=== PATIENT | male | born 1965 | race Caucasian/White ===

== ENCOUNTER 2021-07-04 10:25 | Outpatient (REF) | payer OTHER, SELFPAY ==
--- NOTE | ~2021-07-04 | XR_ITS ---
EXAMINATION: XR WRIST, RIGHT CLINICAL INFORMATION: Pain COMPARISON: None TECHNIQUE: PA, lateral, and oblique views of the right wrist. FINDINGS: There is a nondisplaced fracture of the radial styloid. This extends intra-articularly with the radiocarpal joint. No other fracture is seen. The joint spaces are normal. There is soft tissue swelling adjacent to the fracture. XR/XR wrist RT min 3V IMPRESSION: Intra-articular nondisplaced radial styloid fracture.
== END 2021-07-04 10:26 | disposition home or self-care (01) ==
LOC: HO.HOSX 10:25
PROVIDERS: Visit Provider Physician Assistant
DX: S52.501A Unspecified fracture of the lower end of right radius, initial encounter for closed fracture (principal); F17.200 Nicotine dependence, unspecified, uncomplicated
CPT/HCPCS: 73110

== ENCOUNTER 2021-07-13 09:54 | Outpatient (REF) | payer OTHER, SELFPAY ==
--- NOTE | ~2021-07-13 | XR_ITS ---
EXAMINATION: XR WRIST, RIGHT CLINICAL INFORMATION: Fracture COMPARISON: Previous x-ray 07/04/2021 TECHNIQUE: PA, lateral, and oblique views of the right wrist. FINDINGS: There is a nondisplaced radiostyloid fracture intra-articular with the radiocarpal joint. This appears unchanged from previous x-ray. No other fracture is seen. Joint spaces are otherwise normal. Soft tissues are normal. XR/XR wrist RT min 3V IMPRESSION: No change in the intra-articular radial styloid fracture from 07/04/2021.
== END 2021-07-13 09:55 | disposition home or self-care (01) ==
LOC: HO.HOSX 09:54
PROVIDERS: Visit Provider Physician Assistant
DX: S52.501D Unspecified fracture of the lower end of right radius, subsequent encounter for closed fracture with routine healing (principal)
CPT/HCPCS: 29075; 73110

== ENCOUNTER 2021-07-19 08:57 | Outpatient (REF) | payer OTHER, SELFPAY ==
--- NOTE | ~2021-07-19 | XR_ITS ---
EXAMINATION: XR WRIST, RIGHT CLINICAL INFORMATION: M25.531 - Pain in right wrist. Radial styloid fracture. Follow-up. COMPARISON: Radiographs right wrist 07/13/2021, 07/04/2021 TECHNIQUE: PA, lateral, and oblique views of the right wrist. FINDINGS: Radial styloid fracture is similar in position to prior studies. The fracture line is still visible. There is no visible callus formation at this time. There is no interval new fracture or dislocation or destructive process. No joint narrowing or erosive change. XR/XR wrist RT min 3V IMPRESSION: Stable radial styloid fracture, similar to prior exam.
== END 2021-07-19 08:58 | disposition home or self-care (01) ==
LOC: HO.HOSX 08:57
PROVIDERS: Visit Provider Orthopaedic Surgery
DX: S52.501D Unspecified fracture of the lower end of right radius, subsequent encounter for closed fracture with routine healing (principal)
CPT/HCPCS: 73110

== ENCOUNTER 2021-08-03 11:16 | Outpatient (REF) | payer OTHER, SELFPAY ==
--- NOTE | ~2021-08-03 | XR_ITS ---
EXAMINATION: XR WRIST, RIGHT CLINICAL INFORMATION: Wrist pain COMPARISON: 07/04/2021 and 07/19/2021. TECHNIQUE: PA, lateral, and oblique views of the right wrist. FINDINGS: Bones have normal alignment at the wrist. Again noted is the nondisplaced oblique fracture of the radial styloid with intra-articular extension at the radioscaphoid joint. The fracture lucency is most conspicuous on the oblique view, and there is no convincing osseous union. The pronator quadratus fat stripe is ill-defined. The carpal bones are normal. XR/XR wrist RT min 3V IMPRESSION: Currently, no radiographic evidence of healing of the nondisplaced radial styloid fracture.
== END 2021-08-03 11:17 | disposition home or self-care (01) ==
LOC: HO.HOSX 11:16
PROVIDERS: Visit Provider Physician Assistant
DX: S52.501D Unspecified fracture of the lower end of right radius, subsequent encounter for closed fracture with routine healing (principal); X58.XXXD Exposure to other specified factors, subsequent encounter
CPT/HCPCS: 73110

== ENCOUNTER 2021-08-24 08:08 | Outpatient (REF) | payer OTHER, SELFPAY ==
--- NOTE | ~2021-08-24 | XR_ITS ---
EXAMINATION: XR WRIST, RIGHT CLINICAL INFORMATION: Pain COMPARISON: Wrist radiographs 08/03/2021 TECHNIQUE: PA, lateral, and oblique views of the right wrist. XR/XR wrist RT min 3V FINDINGS/IMPRESSION: Similar appearance of a nondisplaced fracture of the distal radial metaphysis in unchanged alignment. No elham bony callus formation. Joint spaces are maintained. Mild soft tissue swelling about the wrist. No new fracture or dislocation.
== END 2021-08-24 08:09 | disposition home or self-care (01) ==
LOC: HO.HOSX 08:08
PROVIDERS: Visit Provider Physician Assistant
DX: S52.501D Unspecified fracture of the lower end of right radius, subsequent encounter for closed fracture with routine healing (principal)
CPT/HCPCS: 73110

== ENCOUNTER 2021-10-05 08:16 | Outpatient (REF) | payer OTHER, SELFPAY ==
--- NOTE | ~2021-10-05 | XR_ITS ---
EXAMINATION: XR WRIST, RIGHT CLINICAL INFORMATION: Right wrist pain. COMPARISON: 08/24/2021 TECHNIQUE: PA, lateral, and oblique views of the right wrist. FINDINGS: There is a healing radial styloid fracture with progressive osseous bridging at the fracture site. Subtle cortical irregularity at the intra-articular component. No new fractures. 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 Carpal boss. XR/XR wrist RT min 3V IMPRESSION: Progressive healing of the radial styloid fracture.
== END 2021-10-05 08:17 | disposition home or self-care (01) ==
LOC: HO.HOSX 08:16
PROVIDERS: Visit Provider Physician Assistant
DX: M25.531 Pain in right wrist (principal); S52.501D Unspecified fracture of the lower end of right radius, subsequent encounter for closed fracture with routine healing; X58.XXXD Exposure to other specified factors, subsequent encounter
CPT/HCPCS: 73110

== ENCOUNTER 2024-01-16 08:17 | Outpatient (AMB) | payer OTHER, SELFPAY ==
--- NOTE | 2024-01-16 08:27 | A.OFFVIS_ITS ---
Vital Signs 01/16/24 08:37 Height 6 ft Weight 240 lb BMI 32.5 Intake Visit Reasons: Low back - not work related, [employer]-Low back pain Intake Note: Orville is a 58 year old male who presents today with lower back pain. Patient reports that his back has been painful on and off for about 30+ years now. He has seen a chiropractor in the past which has been helpful until he switched chiropractors and it increased his pain. He describes his pain as a muscle pain in mostly the left lower back. Bending and stooping is the primary aggravating factor of his pain. He very occasionally will take Ibuprofen, but does not take this often as he worries that this masks his symptoms. Occasionally uses Icy Hot application. Allergies lisinopril Allergy (Mild, Verified 10/05/21 09:36) Nausea and Vomiting Medication List - Last Reconciled 01/16/24 by Britta Fishman MD allopurinol 150 mg PO DAILY amlodipine 10 mg PO DAILY hydrochlorothiazide 25 mg PO DAILY telmisartan 40 mg PO DAILY HPI HPI Low back - not work related: Details: Lumbar xrays showed endplate osteophytes that appear to bridge between jay tebrae. He has history of gout. I discussed difference between osteoarthritis and systemic arthritis. I think it would be reasonable to rule out the latter by checking MARGE, RF and [id number]. Advised that he can discuss with his PCP. On separate note, he was advised to discuss edema and exertional SOB with PCP at next week's visit. HPI Comments Details: Chronic but has been bothering him since winter. Almost daily. Last month, had incident pulling heavy bucket, aggravated left side again. Some episodes would be very difficult to walk. It does not radiate to legs. No burning or numbness on legs. Bending forward, but cannot bend backwards. Cannot stand for prolonged periods. No claudication symptoms on legs. No bladder/bowel changes. Pain is constant nagging pain. Had not gone back to chiro for 27 years. No other specialists seen. Once in a while, takes ibuprofen. Family history - denies rheumatologic disorders. He takes allopurinol and colchicine, usually bothers him on big toe, no recent episodes. Uric acid level being monitored. [facility] Medical History (Updated 01/16/24 @ 11:32 by Britta Fishman MD) Lumbar spondylosis Myofascial pain Lumbar strain Social History Current occupational status: employed 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/[employer] Review of Systems Const All systems reviewed & are unremarkable except as noted in HPI and below Physical Exam Vital Signs: BMI result Body Mass Index 32.5 Constitutional: Patient appears to be in no acute distress, well nourished and well developed. Patient was appropriately conversant and oriented. Good historian. MSK: No specific abnormalities found on inspection of the spine and all extremities. Tender on left quadratus lumborum. Non tender on SI, GT, spinous processes or facets. Lumbar ROM was full. Bilateral hip, knee and ankle ROM WNL. No ligamentous laxity or crepitance. No increased effusion. Straight-leg raising test negative. FABERE test positive back pain. Strength is 5/5 in all muscle groups tested. No increased tone noted. Neurological: Neurologic examination of the upper and lower extremities was nonfocal with intact sensation, muscle stretch reflexes and without focal motor deficits . Holloway?s negative bilaterally. Babinski was down going bilaterally. Clonus was negative. Gait is non-antalgic without loss of balance. Results Reviewed Results Reviewed: I independently reviewed the results of the following: XRay done today showed possible bridging osteophytes; but disc spaces were preserved Assessment & Plan Assessment & Plan (1) Lumbar strain: Code(s): S39.012A - Strain of muscle, fascia and tendon of lower back, initial encounter Category: Medical Qualifiers: Encounter type: initial encounter Qualified Code(s): S39.012A - Strain of muscle, fascia and tendon of lower back, initial encounter (2) Myofascial pain: Code(s): M79.18 - Myalgia, other site Category: Medical (3) Lumbar spondylosis: Code(s): M47.816 - Spondylosis without myelopathy or radiculopathy, lumbar region Category: Medical Plan WC injury. Having lumbar strain, left quadratus lumborum, in setting of possible denerative lumbar changes. Would recommend starting with PT. Work on myofascial release and core strengthening. Discussed topical voltaren gel vs oral NSAIDS. Discussed maximum dose for ibuprofen. Will prescribe ibuprofen 800mg TID for 7 days, with full stomach. Work note to limit lifting to not more than 15 lbs. Assessment and plan discussed with patient, and patient was agreeable. All questions were answered thoroughly. Follow up 6-8 weeks. Britta Fishman MD, AJAY Board Certified, [place] [employer] and Rehabilitation (ABPMR) Board Certified, [place] Board [employer] Electrodiagnostic Medicine (ABEM) Orders: Orders XR lumbar spine 2-3V Today M54.9 - Dorsalgia, unspecified PT Evaluation and Treatment Today M47.816 - Spondylosis without myelopathy or radiculopathy, lumbar region, M79.18 - Myalgia, other site, S39.012A - Strain of muscle, fascia and tendon of lower back, initial encounter Medications: New ibuprofen 800mg every 8 hours for 3-5 days, with full stomach 800 mg PO Q8H 15 tabs 1RF Coding Level of Care Code New Pt Level 4 (23300) Diagnoses Strain of lumbar region, initial encounter S39.012A Encounter type: initial encounter Myofascial pain M79.18 Lumbar spondylosis M47.816
[2024-01-16 08:37] VITALS: BMI 32.5
== END 2024-01-16 09:20 | disposition home or self-care (01) ==
PROVIDERS: PCP Family Medicine; Visit Provider Physical Medicine & Rehabilitation
DX: S39.012A Strain of muscle, fascia and tendon of lower back, initial encounter (principal); M79.18 Myalgia, other site; M47.816 Spondylosis without myelopathy or radiculopathy, lumbar region; Z04.2 Encounter for examination and observation following work accident
CPT/HCPCS: 99203

== ENCOUNTER 2024-01-16 08:43 | Outpatient (REF) | payer OTHER, SELFPAY ==
--- NOTE | ~2024-01-16 | XR_ITS ---
EXAMINATION: XR LUMBOSACRAL SPINE CLINICAL INFORMATION: Back pain COMPARISON: None available. TECHNIQUE: Three views of the lumbosacral spine. FINDINGS: The bones are diffusely demineralized. Atherosclerotic aortoiliac calcifications. Facet arthritis in the lower lumbar spine. Advanced multilevel lumbar spondylosis with moderate loss of disc space height at L3-L4 and L4-L5. XR/XR lumbar spine 2-3V IMPRESSION: Advanced multilevel lumbar spondylosis with moderate loss of disc space height at L3-L4 and L4-L5.
== END 2024-01-16 08:44 | disposition home or self-care (01) ==
LOC: HO.HOSX 08:43
PROVIDERS: Visit Provider Physical Medicine & Rehabilitation
DX: M54.9 Dorsalgia, unspecified (principal)
CPT/HCPCS: 72100

== ENCOUNTER 2024-02-04 08:00 | Outpatient (RCR) | payer OTHER, SELFPAY | END 2024-03-20 15:06 | disposition home or self-care (01) | LOC: HO.PT 08:00 | PROVIDERS: PCP Family Medicine; Visit Provider Physical Medicine & Rehabilitation | DX: M47.816 Spondylosis without myelopathy or radiculopathy, lumbar region (principal); M79.18 Myalgia, other site; S39.012D Strain of muscle, fascia and tendon of lower back, subsequent encounter | CPT/HCPCS: 97110; 97161 ==

== ENCOUNTER 2024-02-20 08:35 | Outpatient (AMB) | payer OTHER, SELFPAY ==
--- NOTE | 2024-02-20 08:43 | MHC.OFFVIS ---
Vital Signs 02/20/24 08:44 Height 6 ft Weight 240 lb BMI 32.5 Intake Visit Reasons: OV - Low back pain Intake Note: Orville is a 58 year old male who presents today for a follow up of lower back pain. He expresses that his pain has gotten a little better, but not as much. Patient reports he has begun PT, however he missed 2 appointments due to being sick and having a to go to. He states that his pain is worse at night and that he is sleeping on the couch because of the pain. Allergies lisinopril Allergy (Mild, Verified 02/20/24 08:45) Nausea and Vomiting Medication List - Last Reconciled 02/20/24 by Britta Fishman MD allopurinol 150 mg PO DAILY amlodipine 10 mg PO DAILY hydrochlorothiazide 25 mg PO DAILY ibuprofen 800 mg PO Q8H telmisartan 40 mg PO DAILY HPI Comments Details: Chronic but has been bothering him since winter. Almost daily. Last month, had incident pulling heavy bucket, aggravated left side again. Some episodes would be very difficult to walk. It does not radiate to legs. No burning or numbness on legs. Bending forward, but cannot bend backwards. Cannot stand for prolonged periods. No claudication symptoms on legs. No bladder/bowel changes. Pain is constant nagging pain. Had not gone back to chiro for 27 years. No other specialists seen. Once in a while, takes ibuprofen. Family history - denies rheumatologic disorders. He takes allopurinol and colchicine, usually bothers him on big toe, no recent episodes. Uric acid level being monitored. He is feeling better. Been doing PT which has helped. Changed his pills, was taking them more during day and it was making him too drowsy. He will take his medications at night now to help him sleep better. Otherwise he is ending up sleeping on a chair. Overall 60% better. Missed 2 PT due to sickness/funerals, scheduled tomorrow to come back to PT. Off from work for 30 days, cleared by to be off 90 days maximum, preferably on full duty when he returns. No sharp pains. Non radicular. Chronic feet numbness, but only borderline diabetic, not on medications. Denies claudication. [facility] Medical History (Updated 02/20/24 @ 09:07 by Britta Fishman MD) Lumbar spondylosis Myofascial pain Lumbar strain Social History Current occupational status: employed 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/[employer] Physical Exam Vital Signs: BMI result Body Mass Index 32.5 Constitutional: Patient appears to be in no acute distress, well nourished and well developed. Patient was appropriately conversant and oriented. Good historian. MSK: No specific abnormalities found on inspection of the spine and all extremities. Non tender on SI, GT, spinous processes or facets. Lumbar ROM was full. Bilateral hip, knee and ankle ROM WNL. No ligamentous laxity or crepitance. No increased effusion. Straight-leg raising test negative. FABERE test positive back pain. Strength is 5/5 in all muscle groups tested. No increased tone noted. Neurological: Neurologic examination of the upper and lower extremities was nonfocal with intact sensation, muscle stretch reflexes and without focal motor deficits . Holloway?s negative bilaterally. Babinski was down going bilaterally. Clonus was negative. Gait is non-antalgic without loss of balance. Results Reviewed Results Reviewed: I independently reviewed the results of the following: XRay done today showed possible bridging osteophytes; but disc spaces were preserved Ordering Physician: Britta Ferrell Date of Service: 01/16/24 Procedure(s): XR lumbar spine 2-3V Accession Number(s): [id number] cc: Britta Ferrell~ EXAMINATION: XR LUMBOSACRAL SPINE CLINICAL INFORMATION: Back pain COMPARISON: None available. TECHNIQUE: Three views of the lumbosacral spine. FINDINGS: The bones are diffusely demineralized. Atherosclerotic aortoiliac calcifications. Facet arthritis in the lower lumbar spine. Advanced multilevel lumbar spondylosis with moderate loss of disc space height at L3-L4 and L4-L5. XR/XR lumbar spine 2-3V IMPRESSION: Advanced multilevel lumbar spondylosis with moderate loss of disc space height at L3-L4 and L4-L5. Assessment & Plan Assessment & Plan (1) Lumbar degenerative disc disease: Code(s): M51.36 - Other intervertebral disc degeneration, lumbar region Category: Medical (2) Lumbar spondylosis: Code(s): M47.816 - Spondylosis without myelopathy or radiculopathy, lumbar region Category: Medical (3) Lumbar strain: Code(s): S39.012A - Strain of muscle, fascia and tendon of lower back, initial encounter Category: Medical Qualifiers: Encounter type: initial encounter Qualified Code(s): S39.012A - Strain of muscle, fascia and tendon of lower back, initial encounter Plan Patient is at least 60% better but pain still bothers him with prolonged standing. Though non radicular, the xrays did show bridging spurs and spondylosis. 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 Patient had undergone adequate conservative management including PT without complete improvement of condition. It would be reasonable to obtain further imaging such as MRI. An MRI would help rule out any serious condition, guide treatment and assess prognosis for recovery. Continue PT. Continue to be out of work for the next 30 days, while we get MRI and evaluate for need for further interventions. Assessment and plan discussed with patient, and patient was agreeable. All questions were answered thoroughly. Follow-up after MRI or in 1 month to assess return to work ability. Britta Fishman MD, AJAY Board Certified, [place] Board [employer] and Rehabilitation (ABPMR) Board Certified, [place] [employer] Electrodiagnostic [employer] (ABEM) Orders: Orders MR lumbar spine wo con Today M47.816 - Spondylosis without myelopathy or radiculopathy, lumbar region, M51.36 - Other intervertebral disc degeneration, lumbar region, S39.012A - Strain of muscle, fascia and tendon of lower back, initial encounter Coding Level of Care Code Est Pt Level 4 (95206) Diagnoses Lumbar degenerative disc disease M51.36 Lumbar spondylosis M47.816 Strain of lumbar region, initial encounter S39.012A Encounter type: initial encounter
[2024-02-20 08:44] VITALS: BMI 32.5
== END 2024-02-20 09:44 | disposition home or self-care (01) ==
PROVIDERS: PCP Family Medicine; Visit Provider Physical Medicine & Rehabilitation
DX: M51.36 Other intervertebral disc degeneration, lumbar region (principal); M47.816 Spondylosis without myelopathy or radiculopathy, lumbar region; S39.012A Strain of muscle, fascia and tendon of lower back, initial encounter
CPT/HCPCS: 99214

== ENCOUNTER → 2024-02-20 08:35 | Outpatient (BNVA) | payer OTHER, SELFPAY | PROVIDERS: PCP Family Medicine; Visit Provider Physical Medicine & Rehabilitation | DX: M51.36 Other intervertebral disc degeneration, lumbar region (principal); M47.816 Spondylosis without myelopathy or radiculopathy, lumbar region; S39.012A Strain of muscle, fascia and tendon of lower back, initial encounter | CPT/HCPCS: 99212 ==

== ENCOUNTER 2024-02-21 05:45 | Inpatient (IN) | payer OTHER, SELFPAY ==
[2024-02-21] VITALS (22 sets, daily range): BP systolic 86–140; BP diastolic 47–87; PULSE 102–131; RESP 20–33; TEMP 36.6–37.3; O2SAT 95–99; BMI 37.8
--- NOTE | ~2024-02-21 | XR_ITS ---
A full preliminary report was issued during downtime procedures. Patient name: BYRON RAYA EXAMINATION: XR PORTABLE CHEST CLINICAL INFORMATION: Shortness of breath COMPARISON: None. TECHNIQUE: AP portable upright view of the chest FINDINGS: EKG leads overlie the chest. Cardiac silhouette is within normal limits in size. Prominence of the pulmonary vasculature and peribronchial vascular interstitium could be due to venous congestion or airways process. No pulmonary edema. Trace right pleural effusion. No pneumothorax. No acute osseous findings. Degenerative disc disease is present in the thoracic spine. XR/XR chest 1V IMPRESSION: Prominence of the central pulmonary vasculature and bronchovascular interstitium which could be due to mild pulmonary venous congestion or small airways disease. No pulmonary edema. Trace right pleural effusion.
--- NOTE | 2024-02-21 07:00 | CA_ITS ---
Transthoracic Echocardiogram Patient (Last, First, Middle): Cara Thomas R Gender: Male Date of : 1965 Age: 58 Procedure Date: 02/21/2024 Procedure Type: Transthoracic Echocardiogram Location: ER Height: 182.88 cm Weight: 108.86 kg BSA: 2.30 m2 Heart Rate: 117 bpm BP: 103 / 56 mmHg [employer]: JANEY Referring MD: Esequiel Tejeda MD Casting Machine Service Operator: Ajit Arrieta MD Symptoms: New afib, acute heart failure Study Quality: Fair ECG Rhythm: Atrial Fibrillation w RVR Conclusions: - 1. Moderately dilated left ventricle with severely reduced LV ejection fraction of 15-20% 2. At least moderately dilated left atrium 3. Mildly dilated right ventricle with severely reduced RV systolic function 4. Cardiac valvular Dopplers within normal limits 5. Mildly elevated right ventricular systolic pressure significantly elevated right atrial pressures 6. No gross pericardial effusion Findings Procedure Information Contrast agent, definity, is being given per protocol without apparent complications. The quality of the study was technically difficult. The study quality is limited by patients body habitus. Left Ventricle Moderately increased left ventricular cavity size. There is normal left ventricular wall thickness. The left ventricular systolic function is severely decreased. The visually estimated ejection fraction is between 15 20%. There is severe global hypokinesis. Diastolic function is indeterminate on the basis of available data. Right Ventricle Mildly increased right ventricular cavity size. There is severely decreased right ventricular systolic function. Atria The left atrium is moderately dilated. Interatrial shunt cannot be excluded. The right atrium is mildly dilated. Aortic Valve There is mild calcification of the aortic valve. There is no aortic valve stenosis. There is no aortic valve regurgitation. Mitral Valve There is mild anterior and posterior mitral leaflet thickening. There is mild mitral annular calcification. There is trace mitral valve regurgitation. There is no mitral valve stenosis. Pulmonic Valve The pulmonic valve is likely normal. There is trace pulmonic valve regurgitation. Tricuspid Valve There is mild tricuspid valve regurgitation. Significantly elevated right atrial pressure. Mild pulmonary hypertension is present. Great Vessels All visible segments of the aorta are normal in size. The pulmonary artery was not well visualized. There is no dilatation of the ascending aorta measuring 3.40 cm. Moderate plaque is seen in the sino tubular ridge. Venous The inferior vena cava is moderately dilated and does not collapse with inspiration. Pericardium/Pleural There is no evidence of pericardial effusion. Prior Study Comparison No prior study available for comparison. Measurements 2D Linear Measurements IVSd: 0.82 0.6-0.9/0.6-1.0 cm LVIDd: 6.50 3.9-5.3/4.2-5.9 cm LVIDd Index: 2.83 2.4-3.2/2.2-3.1 cm/m2 LVIDs: 6.01 2.0-3.6 cm LVOT Diam: 2.30 3.0+(-)1.3 cm 2D Systolic Function EF 4C: 20.00 >55% EF 2C: 24.60 >55% EF BiP: 18.50 >55% Mitral Valve MV Pk E: 1.07 Aortic Valve AoV Pk Frederick: 1.16 AoV Pk Grad: 5.00 YEMI: 2.43 LVOT LVOT Pk Frederick: 0.68 LVOT Mn Frederick: 0.51 LVOT VTI: 0.08 LVOT Pk Grad: 2.00 LVOT Mn Grad: 2.00 LVOT Diam: 2.30 LVOT Area: 4.15 Diastolic Function MV Pk E: 1.07 Right Ventricle TAPSE (mm): 7.80 TVS' Frederick: 3.76 Tricuspid Valve TR Pk Frederick: 2.62 TR Pk Grad: 27.00 RA Press: 15.00 RVSP: 42.00 Great Vessels Aorta Sinus of Valsalva: 3.20 2.0-3.5 cm Ao Asc: 3.40 2.1-3.4 cm Pulmonary Valve PV Pk Frederick: 0.69 Peak PV Grad: 2.00 Updated in Other Vendor System with Status of Final Ajit Arrieta MD electronically signed on 02/22/2024 8:58:31 AM with status of Final
--- NOTE | 2024-02-21 07:02 | ED_ITS ---
HPI - General Adult General Stated complaint: afib Source: patient Mode of arrival: ambulatory Limitations: no limitations History of Present Illness ED Provider: Dr. Courtney Martinez HPI narrative: Patient comes emergency room complaining of 3 weeks of shortness of breath. Patient states that approximately 3 days if psych with atrial fibrillation, started on Xarelto and metoprolol. Patient states that today patient could not tolerate anymore not sleeping due to orthopnea, palpitations and shortness of breath. Patient denies any chest pain. Patient states that he has noticed that his lower extremities have been getting more edematous Related Data Home Medications ?Medication ?Instructions ?Recorded ?Confirmed allopurinol 300 mg tablet 150 mg PO DAILY 07/13/21 02/20/24 amlodipine 10 mg tablet 10 mg PO DAILY 07/13/21 02/20/24 hydrochlorothiazide 25 mg tablet 25 mg PO DAILY 07/13/21 02/20/24 telmisartan 40 mg tablet 40 mg PO DAILY 07/13/21 02/20/24 Previous Rx's ?Medication ?Instructions ?Recorded ibuprofen 800 mg tablet 800 mg PO Q8H #15 tabs 01/16/24 Allergies Allergy/AdvReac Type Severity Reaction Status Date / Time lisinopril Allergy Mild Nausea and Verified 02/20/24 08:45 Vomiting Review of Systems 2 Review of Systems: Constitutional : No Weight loss, No Fever, No Chills, No Night Sweats, No Fatigue, No Malaise ENT/Mouth : No Hearing loss, No Ear Pain, No Nasal Congestion, No Sinus Pain, No Hoarseness, No sore throat, No Rhinorrhea, No Swallowing Difficulty Eyes: No Eye Pain, No Swelling, No Redness, No Foreign Body, No Discharge, No Vision Changes Cardiovascular : No Chest Pain, complaining of shortness of breath at rest and worse with exertion, complaining of orthopnea and worsening lower extremity edema bilaterally Respiratory : No Cough, No Sputum, No Wheezing, No Smoke Exposure, No Dyspnea Gastrointestinal : No Nausea, No Vomiting, No Diarrhea, No Constipation, No abdominal Pain, No Hematochezia, No Melena Genitourinary : no irregular bleeding, No Dysuria, No Urinary Frequency, No Hematuria, No Urinary Incontinence, No Urgency, No Flank Pain, No Urinary Flow Changes, No Hesitancy Musculoskeletal : No joint pain, No Myalgias, No Joint Swelling Skin : No Skin Lesions, No rash Neuro : No Weakness, No Numbness, No Paresthesias, No Loss of Consciousness, No Dizziness, No Headache Psych : No Anxiety/Panic, No Depression, No SI/HI/AH/VH, No Social Issues, Heme/Lymph: No Bruising, No Bleeding,No Lymphadenopathy Endocrine : No Polyuria, No Polydipsia, No Temperature Intolerance [facility] Past Medical History Medical History Lumbar spondylosis Myofascial pain Lumbar strain Social History Social History Advance Directives: No Advance Directives Information Provided: No Current occupational status: employed 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/[employer] Physical Exam ED Const Other: Appearance: Alert. Oriented X3. No acute distress. Eyes: Pupils equal, round and reactive to light. ENT: Pharynx normal. Neck: Normal inspection. Neck supple. No lymph nodes noted. No crepitus CVS: Heart rate is irregularly irregular, between 140-150 Pulses normal. Normal S1 and S2 Respiratory: No respiratory distress. Patient has bilateral bibasilar crackles, no wheezing or rales Abdomen: Soft and nontender. No rigidity. No distention. Skin: Skin warm and dry. Normal skin color. Normal skin turgor. Extremities: No lower extremity edema. No Lacerations. No Rash Neuro: Oriented X 3. No motor deficit. No sensory deficit. Moving all extremities. No slurred speech. CN 2 through 12 grossly intact Psych: calm, cooperative, normal affect Course Course Course Narrative: -all of patient's labs and imaging pending -patient is in atrial fibrillation with RVR, takes metoprolol at home, we will go ahead and start with metoprolol IV 5 mg -initially Lasix was ordered but not given due to drop in blood pressure to the mid 90s. -of note, patient has have been ordered in paper chart, not visible in the electronic medical record. Labs have been obtained, results pending -all the labs pending. Patient will likely need to be admitted Sign-out given to my colleague Dr. Miller Medical Decision Making Lab Data 02/21/24 06:30 02/21/24 06:30 Critical Care Time Critical Care Time Critical Care Time: Yes Total Critical Care Time: 45 Attestation: I have personally provided critical care time. Time includes review of lab data, radiology results, discussion with consultants, and monitoring for potential decompensation. Intervention performed as documented. Discharge Plan Discharge Clinical Impression: Atrial fibrillation with RVR, CHF (congestive heart failure) Patient Disposition: Still a Patient Prescriptions: No Action allopurinol 300 mg tablet 150 mg PO DAILY telmisartan 40 mg tablet 40 mg PO DAILY hydrochlorothiazide 25 mg tablet 25 mg PO DAILY amlodipine 10 mg tablet 10 mg PO DAILY ibuprofen 800 mg tablet 800 mg PO Q8H Qty: 15 1RF Rx Instructions: 800mg every 8 hours for 3-5 days, with full stomach Print Language: Arabic
--- NOTE | 2024-02-21 07:04 | PC.NURSE ---
charting done on paper d/t down time. please refer to paper chart for more information
[2024-02-21 07:12] LABS: MANUAL DIFF FLAG NO
[2024-02-21 07:16] LABS: Basophils Percent Auto 0.5 % (0-2); Eosinophils Percent Auto 0.4 % (0-4); Hematocrit 43.2 % (42.0-52.0); Hemoglobin 15.5 g/dl (14.0-18.0); Imm Gran Abs Auto 0.03 X10*3/uL (0.00-0.03); Imm Gran Pct Auto 0.5 % (0.0-0.4); Lymphocytes Absolute Auto 0.3 X10*3/uL (1.2-4.9); Lymphocytes Percent Auto 5.2 % (20-40); Mean Corpuscular HGB Conc 35.9 g/dl (31.0-36.0); Mean Corpuscular Hemoglobin 33.3 pg (27.0-33.0); Mean Corpuscular Volume 92.9 fL (80.0-98.0); Mean Platelet Volume 11.6 fL (9.4-12.4); Monocytes Absolute Auto 0.8 X10*3/uL (0.1-1.2); Monocytes Percent Auto 13.6 % (2-11); Neutrophils Absolute Auto 4.4 x10*3/uL (2.0-8.3); Neutrophils Percent Auto 79.8 % (45-73); Platelet Count 157 X10*3/uL (160-400); Red Blood Count 4.65 X10*6/uL (4.60-5.80); Red Cell Distribution Width 13.5 % (11.0-16.0); White Blood Count 5.6 X10*3/uL (4.8-10.8)
[2024-02-21 07:39] LABS: Alanine Aminotransferase 36 U/L (0-40); Albumin Level 4.1 g/dL (3.5-5.0); Alkaline Phosphatase 62 U/L (39-117); Anion Gap 15 (12-20); Aspartate Amino Transferase 25 U/L (5-37); Bilirubin Direct 0.4 mg/dL (0.0-0.5); Blood Urea Nitrogen 15 mg/dL (9-16); Calcium 9.7 mg/dL (8.4-10.2); Carbon Dioxide 23 mmol/L (22-29); Chloride 98 mmol/L (96-108); Estimated Glomerular Filt Rate > 60; Glucose Random 145 mg/dL (60-115); Sodium 132 mmol/L (135-145); Total Protein 7.5 g/dL (6.5-8.0)
[2024-02-21 07:46] LABS: Troponin-I High Sensitivity 26.6 ng/L (<3.5-35.0)
[2024-02-21 07:47] LABS: B Type Natriuretic Peptide 794 pg/mL (<100)
[2024-02-21] MEDS: Furosemide 20 MG/2 ML VIAL 10 MG IVPUSH (08:05)
[2024-02-21] MEDS: dilTIAZem HCL 125 MG in 0.9 % Sodium Chloride 100 ML 10 MG IVCONT (08:14)
--- NOTE | 2024-02-21 08:40 | PHA.MEDREC ---
Pharmacy Consult ? Medication Reconciliation Pharmacy has completed the medication reconciliation.Spoke to patient at bedside, he had his home medications there and stated that those were all he takes and that the hydralazine was discontinued.
--- NOTE | 2024-02-21 09:38 | P.HPHOSP_ITS ---
History of Present Illness Date of Service: 02/21/24 Chief Complaint: Shortness of breath A 58-year-old male with hypertension and obesity presents with a 3-week history of worsening shortness of breath. He was diagnosed with atrial fibrillation (AFib) by his PCP and prescribed Toprol XL and Xarelto, with an outpatient referral to cardiology, but has not yet been seen. He came to the ED this morning with worsening shortness of breath at rest and with activity, difficulty sleeping, and increased leg edema. He reports paroxysmal nocturnal dyspnea (PND) and orthopnea. He was found to be in AFib with rapid ventricular response (RVR); IV metoprolol had no effect on heart rate but lowered his blood pressure. He was then administered IV Cardizem.. BNP 794. BP remains relatively low, ECho done result pending. Given IV Lasix for heart failure. Review of Systems 2 Review of Systems: Gen: no fever Resp: no sob, no cough CV: no chest, + BONE, + leg edema GI: No n/v, no abd pain Neuro: No confusion Yes all other systems are reviewed and are negative [facility] Medical History HTN (hypertension) Atrial fibrillation with RVR Lumbar spondylosis Myofascial pain Lumbar strain Social History Household Members: Family Housing: House Do you presently have visiting nurse or other home services: No Patient Tobacco Use Status: Current everyday Tobacco user Cigarette Packs Per Day: 0.5 Cigarettes Per Day: 10.0 service: No Current occupational status: employed 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/[employer] Allergies Allergy/AdvReac Type Severity Reaction Status Date / Time lisinopril Allergy Mild Nausea and Verified 02/20/24 08:45 Vomiting Active Medications: Current Medications Acetaminophen (Acetaminophen 325 Mg Tablet) 650 mg PO Q6H PRN PRN Reason: Pain, Mild (Pain Scale 1-3), fever or headache Allopurinol (Allopurinol 300 Mg Tablet) 150 mg PO DAILY [facility] Calcium Carbonate (Calcium Carbonate 750 Mg Tab.Chew) 750 mg PO Q4H PRN PRN Reason: Heartburn Diltiazem HCl 125 mg/ Sodium (Chloride) 125 mls @ 0 mls/hr IVCONT .Q0M JEREMY; Protocol Last Titration: 02/21/24 09:26 Dose: 15 mg/hr, 15 mls/hr Magnesium Hydroxide (Milk Of Magnesia 30 Ml Oral.Susp) 30 ml PO DAILY PRN PRN Reason: Constipation Melatonin (Melatonin 3 Mg Tablet) 6 mg PO BEDTIME PRN PRN Reason: Insomnia Metoprolol Succinate (Metoprolol Succinate Er 25 Mg Tab.Er.24h) 25 mg PO DAILY [facility]; Protocol Nicotine (Nicotine 14 Mg Patch.Td24) 14 mg TRANSDERMA DAILY [facility] Nicotine Polacrilex (Nicotine Polacrilex 2 Mg Gum) 2 mg BUCCAL Q2H PRN PRN Reason: Nicotine Cravings Non-Formulary Medication (Telmisartan) 40 mg PO DAILY [facility] Rivaroxaban (Rivaroxaban 20 Mg Tablet) 20 mg PO DAILY@1700 [facility] Sodium Chloride (0.9 % Sodium Chloride Flush 3 Ml Syringe) 3 ml IVFLUSH QSHIFT [facility] Home Medications ?Medication ?Instructions ?Recorded ?Confirmed ?Last Taken ?Type allopurinol 300 mg tablet 150 mg PO DAILY 07/13/21 02/21/24 Unknown History amlodipine 10 mg tablet 10 mg PO DAILY 07/13/21 02/21/24 Unknown History telmisartan 40 mg tablet 40 mg PO DAILY 07/13/21 02/21/24 Unknown History hydrochlorothiazide 12.5 mg tablet 12.5 mg PO DAILY 02/21/24 02/21/24 Unknown History metoprolol succinate 25 mg 25 mg PO DAILY 02/21/24 02/21/24 Unknown History tablet,extended release 24 hr rivaroxaban 20 mg tablet (Xarelto) 20 mg PO DAILY 02/21/24 02/21/24 Unknown History Physical Exam 2 Vital Signs and Narrative: Vital Signs: Last Vital Signs Pulse 131 H 02/21/24 08:14 Resp 32 H 02/21/24 08:10 BP 99/68 02/21/24 08:14 Pulse Ox 95 02/21/24 08:10 O2 Del Method Nasal Cannula 02/21/24 08:10 O2 Flow Rate 4 02/21/24 08:10 Const: Other: Constitutional: Alert, in no distress, overweight. Mental Status: Oriented to person, place and time. Eyes: Pupils are equal, round and reactive to light. Ear, Nose and Throat: Oropharynx clear, mucous membranes moist. Ears and nose without deformities. Trachea midline. Respiratory: Clear to auscultation. No wheezing, rales on exam. Cardiovascular: S1 S2 regular. No murmurs, rubs or gallops. 3+ pitting leg edema Gastrointestinal: Abdomen soft, non-tender, non-distended. Normal bowel sounds.? Neurologic: Cranial nerves II-XII grossly intact. No focal neurological deficits. Moves all extremities spontaneously.? Skin: No rashes or lesions.? Musculoskeletal: No cyanosis or clubbing. Psychiatric: Normal mood and affect? Results Labs 02/21/24 06:30 02/21/24 06:30 Labs: Laboratory Results - last 24 hr 02/21/24 06:30 MCV 92.9 MCH 33.3 H MCHC 35.9 RDW 13.5 Plt Count 157 L MPV 11.6 Immature Gran % (Auto) 0.5 H Neut % (Auto) 79.8 H Lymph % (Auto) 5.2 L [place] % (Auto) 13.6 H Eos % (Auto) 0.4 Baso % (Auto) 0.5 Lymph # (Auto) 0.3 L [place] # (Auto) 0.8 Eos # (Auto) 0.0 Baso # (Auto) 0.0 Abs Immat Gran (auto) 0.03 Absolute Neuts (auto) 4.4 Absolute Nucleated RBC 0.000 Nucleated RBC % (auto) 0.0 Anion Gap 15 Estim Creat Clear Calc TNP Estimated GFR > 60 Random Glucose 145 H Calcium 9.7 Total Bilirubin 1.0 Direct Bilirubin 0.4 AST 25 ALT 36 Alkaline Phosphatase 62 Troponin I High Sens 26.6 B-Natriuretic Peptide 794 H Total Protein 7.5 Albumin 4.1 Assessment and Plan (1) Atrial fibrillation with RVR: Status: Acute (2) CHF (congestive heart failure): Status: Acute Plan 58/ m with HTN, obesity, recently diagnosed AFIB here with acute heart failure associated with AFIB with RVR AFIB with RVR with soft BP, -hold metoprolol d/t assocated low BP. -IV digoxin loading -Stop IV cardizem -Echo prelim low EF -cardiology aware of pt -check TSH Acute heart failure, suspect systolic heart failure--with marked fluid overload - start IV Lasix drip, ultimately will need PITER, BB, aldactone once BP stable -closely track i/o, BMP daily and periodic BNP HTN- BP on low side -hold Valsartan 80 , Norvasc 10, and Toprolol XL 50 d/t low BP Obesity--weight loss advised. Mild Hyponatremia--d/t hypervolemia from CHF FBS of 145--check A1C Tobacco use disorder--NRT (patch and gum) Alcohol use disorder--CIWA DVT prophylaxis: Xareto Full Code admission for at least 2 midgnights for acute heart failure needing IV Lasix, AFIB with RVR needing IV meds for control, fequent labs Quality Stroke Does the patient have a stroke diagnosis?: No VTE Prior VTE?: No VTE Risk Level:: Medical - moderate - high VTE Device Contraindication: Treatment Not Indicated VTE Drug Contraindication: N/A - Med Ordered
[2024-02-21] MEDS: Digoxin 0.5 MG/2 ML AMPUL 0.25 MG IVPUSH ×3 (10:14→21:22)
[2024-02-21] MEDS: Furosemide 20 MG/2 ML VIAL IVPUSH (10:14)
[2024-02-21] MEDS: allopurinoL 300 MG TABLET 150 MG PO (10:14)
[2024-02-21] MEDS: Nicotine 14 MG PATCH.TD24 TRANSDERMA (10:14)
--- NOTE | 2024-02-21 11:08 | PC.NURSE ---
Assumed care for pt @700am. Pt A&Ox3, GCS 15. Pt in A-fib RVR sustaning HR in the 120s-130a. Denies chest pain or palpitations but d/o SOB. No hx of a-fib.Pt BP soft all morning, MD aware. Was given 10mg IV lasix d/t pleural effusions.MD aware of BP and gave the okay to still give the lasix. Pt then started on diltiazem drip IV diltiazem drip@ 10ml/hr. dILT Discontinued @1053, med stopped in chart
--- NOTE | 2024-02-21 11:12 | PM.CNCAR ---
History of Present Illness History of Present Illness Date of Service: 02/21/24 Requesting physician: [facility] Consult reason: atrial fibrillation and congestive heart failure Chief complaint: Heart failure New Afib Narrative: I was consulted to see [place] in cardiology consultation today on urgent basis given his acute respiratory status. Patient is a 58-year-old male, is present at bedside has been getting progressively increasing shortness of breath over the last 4 weeks. He said he has been having worsening shortness of breath we started initially has exertional shortness of breath but continued to get worse over time with associated shortness of breath at nighttime. He eventually saw his primary care physician about couple weeks ago at which time he had EKG performed and was noted to be in atrial fibrillation rapid ventricular response advised to see a digital service engineer right away. However he has not been able to see a digital service engineer in the last few weeks has symptoms progressively continued to get worse and he came to the emergency room where he was noted to be in atrial fibrillation rapid ventricular response and in [place] congestive heart failure. He had been diuresed and initially started on metoprolol therapy however later his blood pressure, attack. He is currently on Cardizem drip and remains in rapid ventricular response. Continues to have shortness of breath. His blood pressure is borderline at this point time. I reviewed the echocardiogram being performed at bedside which shows severely reduced LV ejection fraction. Patient has longstanding history of hypertension which has been controlled in the past. He has never had any history of prior coronary artery disease or atrial fibrillation or congestive heart failure. He has no prior clotting disorders. Strong family history of premature coronary artery disease in his father in his uncle. He also has family history of atrial fibrillation. attest prior to this for about a year or so he has been having symptoms suggestive of sleep apnea with witnessed apnea at nighttime. He is gained weight over the last couple years since his back injury for which she is currently disabled and sees special effects specialist. Review of Systems Constitutional: Constitutional: Reports no additional constitutional complaints Cardiovascular: Cardiovascular: Reports Abdominal Distension, Denies chest pain, Reports leg edema, Denies lightheadedness, Denies Loss of Consciousness, Denies palpitations, Reports dyspnea, Reports dyspnea on exertion and Reports orthopnea Respiratory: Respiratory: Reports dyspnea and Reports dyspnea on exertion Gastrointestinal: Gastrointestinal: Reports no additional gastrointestinal complaints Musculoskeletal: Musculoskeletal: Reports no additional musculoskeletal complaints Neurologic: Reports system reviewed and no additional complaints, except as documented Psychiatric: Psychiatric: Reports no additional psychiatric complaints Endocrine: Endocrine: Reports no additional endocrine complaints and Denies palpitations Hematologic/Lymphatic: Hematologic/Lymphatic: Reports no additional hematologic/lymphatic complaints Allergic/Immunologic: Allergic/Immunologic: Reports no additional allergic/immunologic complaints [facility] Past Medical History Medical History HTN (hypertension) Atrial fibrillation with RVR Lumbar spondylosis Myofascial pain Lumbar strain Social History Social History Advance Directives: No Advance Directives Information Provided: No Current occupational status: employed 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/[employer] Meds Allergies Allergy/AdvReac Type Severity Reaction Status Date / Time lisinopril Allergy Mild Nausea and Verified 02/20/24 08:45 Vomiting Active Medications: Current Medications Acetaminophen (Acetaminophen 325 Mg Tablet) 650 mg PO Q6H PRN PRN Reason: Pain, Mild (Pain Scale 1-3), fever or headache Allopurinol (Allopurinol 300 Mg Tablet) 150 mg PO DAILY [facility] Last Admin: 02/21/24 10:14 Dose: 150 mg Calcium Carbonate (Calcium Carbonate 750 Mg Tab.Chew) 750 mg PO Q4H PRN PRN Reason: Heartburn Digoxin (Digoxin 0.5 Mg/2 Ml Ampul) 0.25 mg IVPUSH Q6H [facility] Stop: 02/21/24 16:01 Last Admin: 02/21/24 10:14 Dose: 0.25 mg Furosemide 200 mg/ Sodium (Chloride) 100 mls @ 2.5 mls/hr IVCONT .Q24H [facility] Magnesium Hydroxide (Milk Of Magnesia 30 Ml Oral.Susp) 30 ml PO DAILY PRN PRN Reason: Constipation Melatonin (Melatonin 3 Mg Tablet) 6 mg PO BEDTIME PRN PRN Reason: Insomnia Nicotine (Nicotine 14 Mg Patch.Td24) 14 mg TRANSDERMA DAILY [facility] Last Admin: 02/21/24 10:14 Dose: 14 mg Nicotine Polacrilex (Nicotine Polacrilex 2 Mg Gum) 2 mg BUCCAL Q2H PRN PRN Reason: Nicotine Cravings Rivaroxaban (Rivaroxaban 20 Mg Tablet) 20 mg PO DAILY@1700 [facility] Sodium Chloride (0.9 % Sodium Chloride Flush 3 Ml Syringe) 3 ml IVFLUSH QSHIFT [facility] Valsartan (Valsartan 80 Mg Tablet) 80 mg PO DAILY [facility] Last Admin: 02/21/24 10:19 Dose: Not Given Home Medications ?Medication ?Instructions ?Recorded ?Confirmed ?Last Taken ?Type allopurinol 300 mg tablet 150 mg PO DAILY 07/13/21 02/21/24 Unknown History amlodipine 10 mg tablet 10 mg PO DAILY 07/13/21 02/21/24 Unknown History telmisartan 40 mg tablet 40 mg PO DAILY 07/13/21 02/21/24 Unknown History hydrochlorothiazide 12.5 mg tablet 12.5 mg PO DAILY 02/21/24 02/21/24 Unknown History metoprolol succinate 25 mg 25 mg PO DAILY 02/21/24 02/21/24 Unknown History tablet,extended release 24 hr rivaroxaban 20 mg tablet (Xarelto) 20 mg PO DAILY 02/21/24 02/21/24 Unknown History Physical Exam Vital Signs: Vital Signs: Last Vital Signs Pulse 116 H 02/21/24 09:30 Resp 32 H 02/21/24 08:10 BP 103/56 L 02/21/24 10:19 Pulse Ox 95 02/21/24 08:10 O2 Del Method Nasal Cannula 02/21/24 08:10 O2 Flow Rate 4 02/21/24 08:10 Const: General: cooperative, alert, awake, in distress moderate and respiratory and ill appearing Nutritional Appearance: obese Orientation/consciousness: patient oriented x3 HEENT: Head: Yes normocephalic and Yes atraumatic Neck: Neck: Yes trachea midline, Yes supple and Yes JVD Resp: Effort & Inspection: normal respiratory effort and tachypneic Auscultation: wheezes Cardio: Jugular venous distension: JVD Rate: tachycardic Rhythm: abnormal rhythm irregularly irregular Heart sounds: S1 normal heart sound present, S2 normal heart sound present, no click, no gallops and no murmurs GI: Inspection: Yes distended and Yes obesity Auscultation: normal bowel sounds Skin: General skin exam: no rashes or lesions noted Neuro: General: patient oriented x3 and no focal motor deficits Extrem: General: No clubbing, No cyanosis and Yes edema Objective Labs and Meds 02/21/24 06:30 02/21/24 06:30 Lab results: Laboratory Results - last 24 hr 02/21/24 06:30 WBC 5.6 RBC 4.65 Hgb 15.5 Hct 43.2 MCV 92.9 MCH 33.3 H MCHC 35.9 RDW 13.5 Plt Count 157 L MPV 11.6 Immature Gran % (Auto) 0.5 H Neut % (Auto) 79.8 H Lymph % (Auto) 5.2 L [place] % (Auto) 13.6 H Eos % (Auto) 0.4 Baso % (Auto) 0.5 Lymph # (Auto) 0.3 L [place] # (Auto) 0.8 Eos # (Auto) 0.0 Baso # (Auto) 0.0 Abs Immat Gran (auto) 0.03 Absolute Neuts (auto) 4.4 Absolute Nucleated RBC 0.000 Nucleated RBC % (auto) 0.0 Sodium 132 L Potassium 4.0 Chloride 98 Carbon Dioxide 23 Anion Gap 15 BUN 15 Creatinine 1.12 Estim Creat Clear Calc TNP Estimated GFR > 60 Random Glucose 145 H Calcium 9.7 Total Bilirubin 1.0 Direct Bilirubin 0.4 AST 25 ALT 36 Alkaline Phosphatase 62 Troponin I High Sens 26.6 B-Natriuretic Peptide 794 H Total Protein 7.5 Albumin 4.1 No EKG available for review Assessment and Plan (1) Acute congestive heart failure: Status: Acute Acute decompensated congestive heart failure in this middle-aged man with new onset atrial fibrillation with the last many weeks noted to have severe LV systolic dysfunction by bedside echocardiogram. Will review the echocardiogram bedtime. Most likely tachycardia mediated cardiomyopathy although myocardial ischemia can not be entirely ruled out. At this point time he requires further more aggressive treatment of his congestive heart failure. Will suggest a start on Lasix drip. Strict intake and output chart needs to be pursued. Continue supportive care. Continue rate control, see below. Will hold off on any other medication at this point time given his low blood pressure including neurohormonal modulation. High likelihood of underlying coronary disease as well as sleep apnea. Will need workup eventually once patient is more stabilized. (2) Atrial fibrillation with RVR: Status: Acute New onset atrial fibrillation rapid ventricular response with the last month. Diagnose 2 weeks ago by EKG and on anticoagulation since then although has not been adequately anticoagulated. I think his blood pressure is on the lower side most likely given his LV systolic dysfunction and is been difficult to uptitrate his rate control therapy. Would digitalize him with 0.25 mg IV push q.6 hours x3 doses. Also start low-dose p.o. metoprolol 12.5 mg q.6 hours and give IV metoprolol. Will avoid Cardizem therapy given his LV systolic dysfunction. Most likely will require GINA guided cardioversion tomorrow. Please keep him NPO. Continue with oral anticoagulation with Xarelto. Need for GINA guided cardioversion was discussed. Would hold off till tomorrow given his respiratory distress at this point time till we stabilize his heart failure syndrome to reduce the risk of the procedure. Will follow with you Procedures Date of Service Date of Service: 02/21/24
[2024-02-21] MEDS: Furosemide 200 MG in 0.9 % Sodium Chloride 80 ML IVCONT (11:48)
[2024-02-21 11:52] LABS: Magnesium 1.7 mg/dL (1.6-2.6)
[2024-02-21 12:13] LABS: Thyroid Stimulating Hormone 0.88 uIU/mL (0.32-4.0)
[2024-02-21 14:11] LABS: VBG Base Excess 6.5 mmol/L; VBG HCO3 31 mmol/L (22-26); VBG pCO2 42 mmHg; VBG pH 7.46 (7.32-7.43); VBG pO2 29 mmHg
[2024-02-21 14:12] LABS: Venous Blood Gas Refer to POC result
--- NOTE | 2024-02-21 14:35 | MHC.CM.PN ---
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 Home/self care is the goal and CM has initiated and will follow for dc planning. PCP is Dr. Jordi Tello.
[2024-02-21] MEDS: Rivaroxaban 20 MG TABLET PO (16:38)
[2024-02-21] MEDS: 0.9 % Sodium Chloride Flush 3 ML SYRINGE IVFLUSH (21:23)
[2024-02-22] VITALS (8 sets, daily range): BP systolic 95–128; BP diastolic 56–84; PULSE 73–106; RESP 18–22; TEMP 35.9–36.7; O2SAT 92–100
[2024-02-22] MEDS: Metoprolol Tartrate 12.5 MG HALFTAB PO ×4 (04:20→21:11)
[2024-02-22] MEDS: allopurinoL 300 MG TABLET 150 MG PO (08:49)
--- NOTE | 2024-02-22 09:44 | P.PNIM_ITS ---
Subjective Subjective Date of Service: 02/22/24 Interval History: seen and examined reports feeling better states he can breathing after nearly a month still not able to lay fully supine, but improving Review of Systems Negative except HPI/interval history. Physical Exam 2 Vital Signs: Vital Signs: Last Vital Signs Temp 97.9 F 02/22/24 08:00 Pulse 95 02/22/24 08:00 Resp 18 02/22/24 08:00 BP 99/73 02/22/24 08:00 Pulse Ox 95 02/22/24 08:00 O2 Del Method Oxymask 02/22/24 08:00 O2 Flow Rate 2.5 02/22/24 08:00 BMI result Body Mass Index 37.8 Const: Other: General - no acute distress, appears comfortable Cardiovascular - regular rate and rhythm, S1-S2 Lungs - normal respiratory effort, clear to auscultation bilaterally, no wheezing Abdomen - soft, nontender, no rebound or guarding Extremities - +edema b/l Neuro - awake and alert, no focal deficits Objective Data Active Medications Acetaminophen (Acetaminophen 325 Mg Tablet) 650 mg PO Q6H PRN PRN Reason: Pain, Mild (Pain Scale 1-3), fever or headache Allopurinol (Allopurinol 300 Mg Tablet) 150 mg PO DAILY [facility] Last Admin: 02/22/24 08:49 Dose: 150 mg Documented By: JHONNY Calcium Carbonate (Calcium Carbonate 750 Mg Tab.Chew) 750 mg PO Q4H PRN PRN Reason: Heartburn Furosemide 200 mg/ Sodium (Chloride) 100 mls @ 2.5 mls/hr IVCONT .Q24H [facility] Last Admin: 02/21/24 11:48 Dose: 5 mg/hr, 2.5 mls/hr Documented By: ZAID Magnesium Hydroxide (Milk Of Magnesia 30 Ml Oral.Susp) 30 ml PO DAILY PRN PRN Reason: Constipation Melatonin (Melatonin 3 Mg Tablet) 6 mg PO BEDTIME PRN PRN Reason: Insomnia Metoprolol Tartrate (Metoprolol Tartrate 12.5 Mg Halftab) 12.5 mg PO Q6H [facility]; Protocol Last Admin: 02/22/24 08:50 Dose: 12.5 mg Documented By: JHONNY Nicotine (Nicotine 14 Mg Patch.Td24) 14 mg TRANSDERMA DAILY [facility] Last Admin: 02/21/24 10:14 Dose: 14 mg Documented By: MICHAEL Nicotine Polacrilex (Nicotine Polacrilex 2 Mg Gum) 2 mg BUCCAL Q2H PRN PRN Reason: Nicotine Cravings Rivaroxaban (Rivaroxaban 20 Mg Tablet) 20 mg PO DAILY@1700 [facility] Last Admin: 02/21/24 16:38 Dose: 20 mg Documented By: ZAID Sodium Chloride (0.9 % Sodium Chloride Flush 3 Ml Syringe) 3 ml IVFLUSH QSHIFT [facility] Last Admin: 02/21/24 21:23 Dose: 3 ml Documented By: RAMONA Valsartan (Valsartan 80 Mg Tablet) 80 mg PO DAILY [facility] Last Admin: 02/21/24 10:19 Dose: Not Given Documented By: MICHAEL Non-Admin Reason: BP TOO LOW Labs 02/21/24 06:30 02/21/24 06:30 Labs: Laboratory Results - last 24 hr 02/21/24 02/21/24 06:30 14:03 VBG pH Cancelled 7.46 H VBG pCO2 Cancelled 42 VBG pO2 Cancelled 29 VBG HCO3 Cancelled 31 H VBG O2 Saturation Cancelled 36.0 VBG Base Excess Cancelled 6.5 Magnesium 1.7 TSH 0.88 Assessment and Plan (1) Acute congestive heart failure: Status: Acute Plan 58/ m with HTN, obesity, recently diagnosed AFIB here with acute heart failure associated with AFIB with RVR AFIB with RVR with soft BP, rates improved, continue metoprolol continue xarelto cardiology on board -- planned GINA today Acute heart failure, suspect systolic heart failure--with marked fluid overload continue lasix gtt nearly negative -6L thus far trend bmp/bnp -- ordered and pending HTN- BP on low side -hold Valsartan 80 , Norvasc 10, and Toprolol XL 50 d/t low BP Obesity--weight loss advised. Mild Hyponatremia--d/t hypervolemia from CHF FBS of 145--check A1C, pending Tobacco use disorder--NRT (patch and gum) Alcohol use disorder--CIWA DVT prophylaxis: Xareto Full Code reason for continued hospitalization: pt remains in acute chf on iv lasix drip, still on 2-3L oxygen Quality Stroke Does the patient have a stroke diagnosis?: No VTE Prior VTE?: No VTE Risk Level:: Medical - moderate - high VTE Device Contraindication: Treatment Not Indicated VTE Drug Contraindication: N/A - Med Ordered
--- NOTE | 2024-02-22 10:37 | MHC.CM.PN ---
Per ROUNDS discussion, Patient is not yet medically cleared for dc (Cardioversion today); home is the goal and CM will continue to follow.
[2024-02-22 10:41] LABS: Anion Gap 16 (12-20); Blood Urea Nitrogen 17 mg/dL (9-16); Calcium 8.8 mg/dL (8.4-10.2); Carbon Dioxide 26 mmol/L (22-29); Chloride 97 mmol/L (96-108); Creatinine Clr Calc Pharmacy 108.4; Estimated Glomerular Filt Rate > 60; Glucose Random 108 mg/dL (60-115); Potassium 3.6 mmol/L (3.3-5.1); Sodium 135 mmol/L (135-145)
[2024-02-22 10:42] LABS: Anion Gap 17 (12-20); Blood Urea Nitrogen 17 mg/dL (9-16); Calcium 8.8 mg/dL (8.4-10.2); Carbon Dioxide 26 mmol/L (22-29); Chloride 97 mmol/L (96-108); Creatinine Clr Calc Pharmacy 110.6; Estimated Glomerular Filt Rate > 60; Glucose Random 108 mg/dL (60-115); Potassium 3.7 mmol/L (3.3-5.1); Sodium 136 mmol/L (135-145)
[2024-02-22 10:51] LABS: B Type Natriuretic Peptide 595 pg/mL (<100)
[2024-02-22 10:59] LABS: Estimated Average Glucose 131 mg/dL; Hemoglobin A1c % 6.2 % (<6.0)
--- NOTE | 2024-02-22 11:36 | PM.PNCARD ---
Subjective Subjective Date of Service: 02/22/24 Principal diagnosis: CHF, atrial fibrillation. Interval history: Patient says he has breathing a lot better today. Overall negative balance of about 6 L. Has diuresed well. Remains in atrial fibrillation with better rate control. Blood pressure is borderline low. Echocardiogram shows severely reduced LV ejection fraction 15-20% with dilated LV and left atrial cavity. Review of Systems Constitutional: Reports no additional constitutional complaints Cardiovascular: Reports dyspnea on exertion (Improved) Respiratory: Reports dyspnea on exertion (Improved) Gastrointestinal: Reports no additional gastrointestinal complaints Genitourinary: Reports no additional male genitourinary complaints Musculoskeletal: Reports no additional musculoskeletal complaints Reports system reviewed and no additional complaints, except as documented Psychiatric: Reports no additional psychiatric complaints Physical Exam Vital Signs: Last Vital Signs Temp 97.9 F 02/22/24 08:00 Pulse 95 02/22/24 08:00 Resp 18 02/22/24 08:00 BP 99/73 02/22/24 08:00 Pulse Ox 95 02/22/24 08:00 O2 Del Method Oxymask 02/22/24 08:00 O2 Flow Rate 2.5 02/22/24 08:00 BMI result Body Mass Index 37.8 Const General: cooperative, alert, awake, in distress moderate and respiratory and ill appearing Nutritional Appearance: obese Orientation/consciousness: patient oriented x3 HEENT Head: Yes normocephalic and Yes atraumatic Neck Neck: Yes trachea midline, Yes supple and Yes no JVD Resp Effort & Inspection: normal respiratory effort and tachypneic Auscultation: clear to auscultation bilaterally Cardio Jugular venous distension: no JVD Rate: tachycardic Rhythm: abnormal rhythm irregularly irregular Heart sounds: S1 normal heart sound present, S2 normal heart sound present, no click, no gallops and no murmurs GI Inspection: Yes distended and Yes obesity Auscultation: normal bowel sounds Skin General skin exam: no rashes or lesions noted Neuro General: patient oriented x3 and no focal motor deficits Extrem General: No clubbing, No cyanosis and Yes edema Objective Labs and Meds 02/21/24 06:30 02/22/24 10:05 Lab results: Laboratory Results - last 24 hr 02/21/24 02/21/24 02/22/24 06:30 14:03 10:05 VBG pH Cancelled 7.46 H VBG pCO2 Cancelled 42 VBG pO2 Cancelled 29 VBG HCO3 Cancelled 31 H VBG O2 Saturation Cancelled 36.0 VBG Base Excess Cancelled 6.5 Sodium 136 Potassium Chloride Carbon Dioxide Anion Gap BUN Creatinine Estim Creat Clear Calc Estimated GFR Random Glucose Estimat Average Glucose Hemoglobin A1c % Calcium Magnesium 1.7 B-Natriuretic Peptide TSH 0.88 02/22/24 02/22/24 02/22/24 10:05 10:05 10:05 VBG pH VBG pCO2 VBG pO2 VBG HCO3 VBG O2 Saturation VBG Base Excess Sodium 135 Potassium 3.7 3.6 Chloride 97 97 Carbon Dioxide 26 Anion Gap BUN Creatinine Estim Creat Clear Calc Estimated GFR Random Glucose Estimat Average Glucose Hemoglobin A1c % Calcium Magnesium B-Natriuretic Peptide TSH 02/22/24 02/22/24 02/22/24 10:05 10:05 10:05 VBG pH VBG pCO2 VBG pO2 VBG HCO3 VBG O2 Saturation VBG Base Excess Sodium Potassium Chloride Carbon Dioxide 26 Anion Gap 17 16 BUN 17 H 17 H Creatinine 1.00 Estim Creat Clear Calc Estimated GFR Random Glucose Estimat Average Glucose Hemoglobin A1c % Calcium Magnesium B-Natriuretic Peptide TSH 02/22/24 02/22/24 02/22/24 10:05 10:05 10:05 VBG pH VBG pCO2 VBG pO2 VBG HCO3 VBG O2 Saturation VBG Base Excess Sodium Potassium Chloride Carbon Dioxide Anion Gap BUN Creatinine 1.02 Estim Creat Clear Calc 110.6 108.4 Estimated GFR > 60 > 60 Random Glucose 108 Estimat Average Glucose Hemoglobin A1c % Calcium Magnesium B-Natriuretic Peptide TSH 02/22/24 02/22/24 02/22/24 10:05 10:05 10:05 VBG pH VBG pCO2 VBG pO2 VBG HCO3 VBG O2 Saturation VBG Base Excess Sodium Potassium Chloride Carbon Dioxide Anion Gap BUN Creatinine Estim Creat Clear Calc Estimated GFR Random Glucose 108 Estimat Average Glucose 131 Hemoglobin A1c % 6.2 H Calcium 8.8 D 8.8 Magnesium B-Natriuretic Peptide 595 H Cancelled TSH Imaging Radiologist's impression: Impressions Chest X-Ray 02/21/24 06:30 IMPRESSION: Prominence of the central pulmonary vasculature and bronchovascular interstitium which could be due to mild pulmonary venous congestion or small airways disease. No pulmonary edema. Trace right pleural effusion. Progress Note: A&P Assessment and plan (1) Acute congestive heart failure: Status: Acute Assessment and Plan: Acute congestive heart failure with severe LV systolic dysfunction most likely tachycardia mediated. Eventually ischemia will need to be ruled out. Continue aggressive diuresis. Can switch to 40 b.i.d. of Lasix for now. Hold off on neurohormonal modulation addition given his lower blood pressure. Continue metoprolol therapy for rate control as well as neurohormonal modulation. Will pursue GINA guided cardioversion later today. (2) Atrial fibrillation with RVR: Status: Acute Assessment and Plan: Atrial fibrillation rapid ventricular response, new onset with moderate left atrial enlargement and dilated LV. 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 Will require workup for this as an outpatient. For now will pursue GINA guided cardioversion given his severe LV systolic dysfunction to pursue rhythm control as well as adequate rate control. Most likely require antiarrhythmic drug therapy, most likely amiodarone for now. Continue full oral anticoagulation, currently on Xarelto 20 mg daily. Will follow with you Time Spent With Patient Time: Total time managing care of this patient today ____ minutes. Progress Note: Quality Stroke Does the patient have a stroke diagnosis?: No Procedures Date of Service Date of Service: 02/22/24
[2024-02-22] MEDS: 0.9 % Sodium Chloride Flush 3 ML SYRINGE IVFLUSH ×3 (11:58→21:12)
[2024-02-22] MEDS: Nicotine 14 MG PATCH.TD24 TRANSDERMA (12:00)
--- NOTE | 2024-02-22 13:23 | PC.NURSE ---
patient arrived to pre-op area and was postponed for tomorrow at ten am per md milian. patient and primary rn aware of the plan. no complaints.
[2024-02-22] MEDS: Furosemide 200 MG in 0.9 % Sodium Chloride 80 ML IVCONT (15:43)
[2024-02-22] MEDS: Rivaroxaban 20 MG TABLET PO (16:36)
[2024-02-23] VITALS (13 sets, daily range): BP systolic 92–111; BP diastolic 62–75; PULSE 66–102; RESP 14–20; TEMP 35.9–36.9; O2SAT 94–100; BMI 35.1
[2024-02-23 03:15] LABS: Magnesium 1.9 mg/dL (1.6-2.6)
[2024-02-23] MEDS: Magnesium Sulfate/H2O 2 GM/50 ML PIGGYBACK IV (03:17)
[2024-02-23] MEDS: Furosemide 40 MG/4 ML VIAL 20 MG IVPUSH (06:24)
[2024-02-23] MEDS: Metoprolol Tartrate 12.5 MG HALFTAB PO ×4 (06:28→21:16)
--- NOTE | 2024-02-23 07:34 | P.PNIM_ITS ---
Subjective Subjective Date of Service: 02/23/24 Interval History: Seen in follow up for afib, chf Interval history: Denies mcclellan, orthopnea, lightheadedness, cp. s/p ev/cardioversion this am, converted to NSR with LBBB. -7L since admission Review of Systems Review of Systems: Yes all other systems are reviewed and are negative Physical Exam 2 Vital Signs: Vital Signs: Last Vital Signs Temp 98.5 F 02/23/24 03:39 Pulse 97 02/23/24 06:06 Resp 20 02/23/24 03:39 BP 101/66 02/23/24 06:24 Pulse Ox 94 02/23/24 06:06 O2 Del Method Room Air 02/23/24 06:06 O2 Flow Rate 3 02/23/24 03:39 BMI result Body Mass Index 35.1 Constitutional - Awake and Alert, No apparent distress Eyes - PERRLA, EOMI Cardiovascular - S1S2, RRR, 2+ ble edema Respiratory - Normal lung expansion, Normal respiratory effort, No respiratory distress, CTA bilaterally Gastrointestinal - NT / ND; +BS; No rebound or guarding Extremities - no calf tenderness bilaterally, no swelling Skin - Warm/Dry Neurological - Alert & oriented x3 Psychological - Appropriate affect Objective Data Active Medications Acetaminophen (Acetaminophen 325 Mg Tablet) 650 mg PO Q6H PRN PRN Reason: Pain, Mild (Pain Scale 1-3), fever or headache Allopurinol (Allopurinol 300 Mg Tablet) 150 mg PO DAILY [facility] Last Admin: 02/22/24 08:49 Dose: 150 mg Documented By: JHONNY Calcium Carbonate (Calcium Carbonate 750 Mg Tab.Chew) 750 mg PO Q4H PRN PRN Reason: Heartburn Furosemide (Furosemide 40 Mg/4 Ml Vial) 20 mg IVPUSH Q12H [facility]; Protocol Last Admin: 02/23/24 06:24 Dose: 20 mg Documented By: RAMONA Furosemide 200 mg/ Sodium (Chloride) 100 mls @ 1.25 mls/hr IVCONT .Q24H [facility] Last Infusion: 02/23/24 07:24 Dose: Infused Documented By: ARIEL Magnesium Hydroxide (Milk Of Magnesia 30 Ml Oral.Susp) 30 ml PO DAILY PRN PRN Reason: Constipation Melatonin (Melatonin 3 Mg Tablet) 6 mg PO BEDTIME PRN PRN Reason: Insomnia Metoprolol Tartrate (Metoprolol Tartrate 12.5 Mg Halftab) 12.5 mg PO Q6H [facility]; Protocol Last Admin: 02/23/24 06:28 Dose: 12.5 mg Documented By: RAMONA Comments: Give now per Dr. Christian Nicotine (Nicotine 14 Mg Patch.Td24) 14 mg TRANSDERMA DAILY [facility] Last Admin: 02/22/24 12:00 Dose: 14 mg Documented By: JHONNY Nicotine Polacrilex (Nicotine Polacrilex 2 Mg Gum) 2 mg BUCCAL Q2H PRN PRN Reason: Nicotine Cravings Rivaroxaban (Rivaroxaban 20 Mg Tablet) 20 mg PO DAILY@1700 [facility] Last Admin: 02/22/24 16:36 Dose: 20 mg Documented By: JHONNY Sodium Chloride (0.9 % Sodium Chloride Flush 3 Ml Syringe) 3 ml IVFLUSH QSHIFT [facility] Last Admin: 02/22/24 21:12 Dose: 3 ml Documented By: RAMONA Valsartan (Valsartan 80 Mg Tablet) 80 mg PO DAILY [facility] Last Admin: 02/22/24 11:45 Dose: Not Given Documented By: JHONNY Non-Admin Reason: Physician Held Med Labs 02/21/24 06:30 02/23/24 06:31 Labs: Laboratory Results - last 24 hr 02/22/24 02/22/24 02/22/24 10:05 10:05 10:05 Anion Gap 17 16 Estim Creat Clear Calc 110.6 108.4 Estimated GFR > 60 Random Glucose Estimat Average Glucose Hemoglobin A1c % Calcium Magnesium B-Natriuretic Peptide 02/22/24 02/22/24 02/22/24 10:05 10:05 10:05 Anion Gap Estim Creat Clear Calc Estimated GFR > 60 Random Glucose 108 108 Estimat Average Glucose 131 Hemoglobin A1c % 6.2 H Calcium 8.8 D 8.8 Magnesium 1.9 B-Natriuretic Peptide 595 H 02/22/24 10:05 Anion Gap Estim Creat Clear Calc Estimated GFR Random Glucose Estimat Average Glucose Hemoglobin A1c % Calcium Magnesium B-Natriuretic Peptide Cancelled Assessment and Plan (1) Acute congestive heart failure: Status: Acute Plan 58/ m with HTN, obesity, recently diagnosed AFIB here with acute heart failure associated with AFIB with RVR AFIB with RVR - rate now controlled rates improved, continue metoprolol continue xarelto s/p EV/cardioversion 02/22- confirmed NSR, LBBB Per cardiology, amiodarone load 400mg BID Continue tele Acute heart failure, suspect systolic heart failure--improving Transition to PO lasix per cardiology nearly negative -7L thus far trend bmp/bnp cardiac diet I&O LBBB- suspect transient following cardioversion repeat EKG am, continue cardiac monitoring no cp HTN- BP on low side -hold Valsartan 80 , Norvasc 10, and Toprolol XL 50 d/t low BP -continue po lopressor Obesity--weight loss advised. Mild Hyponatremia--d/t hypervolemia from CHF- resolved FBS of 145--check A1C, pending Tobacco use disorder--NRT (patch and gum) Alcohol use disorder--cessation advised DVT prophylaxis: Xareto Full Code reason for continued hospitalization: pt s/p cardioversion this am with amio load and expert consulation. Continue cardiac monitoring with plan for dc tomorrow morning Quality Stroke Does the patient have a stroke diagnosis?: No VTE Prior VTE?: No VTE Risk Level:: Medical - moderate - high VTE Device Contraindication: Treatment Not Indicated VTE Drug Contraindication: N/A - Med Ordered
[2024-02-23 07:56] LABS: Anion Gap 15 (12-20); Blood Urea Nitrogen 20 mg/dL (9-16); Calcium 9.3 mg/dL (8.4-10.2); Carbon Dioxide 32 mmol/L (22-29); Chloride 93 mmol/L (96-108); Creatinine Clr Calc Pharmacy 103.3; Estimated Glomerular Filt Rate > 60; Glucose Random 97 mg/dL (60-115); Potassium 3.3 mmol/L (3.3-5.1); Sodium 137 mmol/L (135-145)
[2024-02-23] MEDS: Nicotine 14 MG PATCH.TD24 TRANSDERMA (08:14)
[2024-02-23] MEDS: allopurinoL 300 MG TABLET 150 MG PO (08:15)
[2024-02-23] MEDS: 0.9 % Sodium Chloride Flush 3 ML SYRINGE IVFLUSH ×3 (08:17→21:16)
--- NOTE | 2024-02-23 09:49 | P.CONAN_ITS ---
HPI - Anesthesia Eval Consult details Narrative: Atrial fibrilation PMFSH Active Problems Active Problems: All Active Problems Acute congestive heart failure (Acute) HTN (hypertension) (Acute) CHF (congestive heart failure) (Acute) Atrial fibrillation with RVR (Acute) Lumbar degenerative disc disease (Acute) Lumbar spondylosis (Acute) Myofascial pain (Acute) Lumbar strain (Acute) Fracture of distal end of right radius with routine healing (Acute) Distal radius fracture, right (Acute) Past Medical History Medical History HTN (hypertension) Atrial fibrillation with RVR Lumbar spondylosis Myofascial pain Lumbar strain Family History Family history of problems with anesthesia: No Surgical History History of Problems with Anesthesia: No Social History Social History Household Members: Family Housing: House Do you presently have visiting nurse or other home services: No Patient Tobacco Use Status: Current everyday Tobacco user Cigarette Packs Per Day: 0.5 Cigarettes Per Day: 10.0 service: No Current occupational status: employed Current occupation: [email or web address] Allergies Allergy/AdvReac Type Severity Reaction Status Date / Time lisinopril Allergy Mild Nausea and Verified 02/20/24 08:45 Vomiting Active Medications: Current Medications Acetaminophen (Acetaminophen 325 Mg Tablet) 650 mg PO Q6H PRN PRN Reason: Pain, Mild (Pain Scale 1-3), fever or headache Allopurinol (Allopurinol 300 Mg Tablet) 150 mg PO DAILY JEREMY Last Admin: 02/23/24 08:15 Dose: 150 mg Calcium Carbonate (Calcium Carbonate 750 Mg Tab.Chew) 750 mg PO Q4H PRN PRN Reason: Heartburn Furosemide (Furosemide 40 Mg/4 Ml Vial) 20 mg IVPUSH Q12H JEREMY; Protocol Last Admin: 02/23/24 06:24 Dose: 20 mg Furosemide 200 mg/ Sodium (Chloride) 100 mls @ 1.25 mls/hr IVCONT .Q24H JEREMY Last Infusion: 02/23/24 07:24 Dose: Infused Magnesium Hydroxide (Milk Of Magnesia 30 Ml Oral.Susp) 30 ml PO DAILY PRN PRN Reason: Constipation Melatonin (Melatonin 3 Mg Tablet) 6 mg PO BEDTIME PRN PRN Reason: Insomnia Metoprolol Tartrate (Metoprolol Tartrate 12.5 Mg Halftab) 12.5 mg PO Q6H [facility]; Protocol Last Admin: 02/23/24 06:28 Dose: 12.5 mg Nicotine (Nicotine 14 Mg Patch.Td24) 14 mg TRANSDERMA DAILY [facility] Last Admin: 02/23/24 08:14 Dose: 14 mg Nicotine Polacrilex (Nicotine Polacrilex 2 Mg Gum) 2 mg BUCCAL Q2H PRN PRN Reason: Nicotine Cravings Rivaroxaban (Rivaroxaban 20 Mg Tablet) 20 mg PO DAILY@1700 [facility] Last Admin: 02/22/24 16:36 Dose: 20 mg Sodium Chloride (0.9 % Sodium Chloride Flush 3 Ml Syringe) 3 ml IVFLUSH QSHIFT [facility] Last Admin: 02/23/24 08:17 Dose: 3 ml Valsartan (Valsartan 80 Mg Tablet) 80 mg PO DAILY [facility] Last Admin: 02/22/24 11:45 Dose: Not Given Home Medications ?Medication ?Instructions ?Recorded ?Confirmed ?Last Taken ?Type allopurinol 300 mg tablet 150 mg PO DAILY 07/13/21 02/21/24 Unknown History amlodipine 10 mg tablet 10 mg PO DAILY 07/13/21 02/21/24 Unknown History telmisartan 40 mg tablet 40 mg PO DAILY 07/13/21 02/21/24 Unknown History hydrochlorothiazide 12.5 mg tablet 12.5 mg PO DAILY 02/21/24 02/21/24 Unknown History metoprolol succinate 25 mg 25 mg PO DAILY 02/21/24 02/21/24 Unknown History tablet,extended release 24 hr rivaroxaban 20 mg tablet (Xarelto) 20 mg PO DAILY 02/21/24 02/21/24 Unknown History Exam Height,Weight and Vital Signs: Height 6 ft Weight 117.3 kg Last Vital Signs Temp 97.5 F 02/23/24 08:33 Pulse 102 H 02/23/24 08:00 Resp 18 02/23/24 08:00 BP 106/62 02/23/24 08:00 Pulse Ox 94 02/23/24 08:00 O2 Del Method Room Air 02/23/24 08:00 O2 Flow Rate 3 02/23/24 03:39 Pertinent Lab Results Pertinent Lab Results: Laboratory Tests 02/21/24 02/21/24 02/22/24 06:30 14:03 10:05 WBC 5.6 RBC 4.65 Hgb 15.5 Hct 43.2 MCV 92.9 MCH 33.3 H MCHC 35.9 RDW 13.5 Plt Count 157 L MPV 11.6 Immature Gran % (Auto) 0.5 H Neut % (Auto) 79.8 H Lymph % (Auto) 5.2 L Barnes % (Auto) 13.6 H Eos % (Auto) 0.4 Baso % (Auto) 0.5 Lymph # (Auto) 0.3 L Barnes # (Auto) 0.8 Eos # (Auto) 0.0 Baso # (Auto) 0.0 Abs Immat Gran (auto) 0.03 Absolute Neuts (auto) 4.4 Absolute Nucleated RBC 0.000 Nucleated RBC % (auto) 0.0 VBG pH Cancelled 7.46 H VBG pCO2 Cancelled 42 VBG pO2 Cancelled 29 VBG HCO3 Cancelled 31 H VBG O2 Saturation Cancelled 36.0 VBG Base Excess Cancelled 6.5 Sodium 132 L 136 Potassium 4.0 Chloride 98 Carbon Dioxide 23 Anion Gap 15 BUN 15 Creatinine 1.12 Estim Creat Clear Calc TNP Estimated GFR > 60 Random Glucose 145 H Estimat Average Glucose Hemoglobin A1c % Calcium 9.7 Magnesium 1.7 Total Bilirubin 1.0 Direct Bilirubin 0.4 AST 25 ALT 36 Alkaline Phosphatase 62 Troponin I High Sens 26.6 B-Natriuretic Peptide 794 H Total Protein 7.5 Albumin 4.1 TSH 0.88 02/22/24 02/22/24 02/22/24 10:05 10:05 10:05 WBC RBC Hgb Hct MCV MCH MCHC RDW Plt Count MPV Immature Gran % (Auto) Neut % (Auto) Lymph % (Auto) Barnes % (Auto) Eos % (Auto) Baso % (Auto) Lymph # (Auto) Barnes # (Auto) Eos # (Auto) Baso # (Auto) Abs Immat Gran (auto) Absolute Neuts (auto) Absolute Nucleated RBC Nucleated RBC % (auto) VBG pH VBG pCO2 VBG pO2 VBG HCO3 VBG O2 Saturation VBG Base Excess Sodium 135 Potassium 3.7 3.6 Chloride 97 97 Carbon Dioxide 26 Anion Gap BUN Creatinine Estim Creat Clear Calc Estimated GFR Random Glucose Estimat Average Glucose Hemoglobin A1c % Calcium Magnesium Total Bilirubin Direct Bilirubin AST ALT Alkaline Phosphatase Troponin I High Sens B-Natriuretic Peptide Total Protein Albumin TSH 02/22/24 02/22/24 02/22/24 10:05 10:05 10:05 WBC RBC Hgb Hct MCV MCH MCHC RDW Plt Count MPV Immature Gran % (Auto) Neut % (Auto) Lymph % (Auto) Barnes % (Auto) Eos % (Auto) Baso % (Auto) Lymph # (Auto) Barnes # (Auto) Eos # (Auto) Baso # (Auto) Abs Immat Gran (auto) Absolute Neuts (auto) Absolute Nucleated RBC Nucleated RBC % (auto) VBG pH VBG pCO2 VBG pO2 VBG HCO3 VBG O2 Saturation VBG Base Excess Sodium Potassium Chloride Carbon Dioxide 26 Anion Gap 17 16 BUN 17 H 17 H Creatinine 1.00 Estim Creat Clear Calc Estimated GFR Random Glucose Estimat Average Glucose Hemoglobin A1c % Calcium Magnesium Total Bilirubin Direct Bilirubin AST ALT Alkaline Phosphatase Troponin I High Sens B-Natriuretic Peptide Total Protein Albumin TSH 02/22/24 02/22/24 02/22/24 10:05 10:05 10:05 WBC RBC Hgb Hct MCV MCH MCHC RDW Plt Count MPV Immature Gran % (Auto) Neut % (Auto) Lymph % (Auto) Barnes % (Auto) Eos % (Auto) Baso % (Auto) Lymph # (Auto) Barnes # (Auto) Eos # (Auto) Baso # (Auto) Abs Immat Gran (auto) Absolute Neuts (auto) Absolute Nucleated RBC Nucleated RBC % (auto) VBG pH VBG pCO2 VBG pO2 VBG HCO3 VBG O2 Saturation VBG Base Excess Sodium Potassium Chloride Carbon Dioxide Anion Gap BUN Creatinine 1.02 Estim Creat Clear Calc 110.6 108.4 Estimated GFR > 60 > 60 Random Glucose 108 Estimat Average Glucose Hemoglobin A1c % Calcium Magnesium Total Bilirubin Direct Bilirubin AST ALT Alkaline Phosphatase Troponin I High Sens B-Natriuretic Peptide Total Protein Albumin TSH 02/22/24 02/22/24 02/22/24 10:05 10:05 10:05 WBC RBC Hgb Hct MCV MCH MCHC RDW Plt Count MPV Immature Gran % (Auto) Neut % (Auto) Lymph % (Auto) Barnes % (Auto) Eos % (Auto) Baso % (Auto) Lymph # (Auto) Barnes # (Auto) Eos # (Auto) Baso # (Auto) Abs Immat Gran (auto) Absolute Neuts (auto) Absolute Nucleated RBC Nucleated RBC % (auto) VBG pH VBG pCO2 VBG pO2 VBG HCO3 VBG O2 Saturation VBG Base Excess Sodium Potassium Chloride Carbon Dioxide Anion Gap BUN Creatinine Estim Creat Clear Calc Estimated GFR Random Glucose 108 Estimat Average Glucose 131 Hemoglobin A1c % 6.2 H Calcium 8.8 D 8.8 Magnesium 1.9 Total Bilirubin Direct Bilirubin AST ALT Alkaline Phosphatase Troponin I High Sens B-Natriuretic Peptide 595 H Cancelled Total Protein Albumin TSH 02/23/24 06:31 WBC RBC Hgb Hct MCV MCH MCHC RDW Plt Count MPV Immature Gran % (Auto) Neut % (Auto) Lymph % (Auto) Barnes % (Auto) Eos % (Auto) Baso % (Auto) Lymph # (Auto) Barnes # (Auto) Eos # (Auto) Baso # (Auto) Abs Immat Gran (auto) Absolute Neuts (auto) Absolute Nucleated RBC Nucleated RBC % (auto) VBG pH VBG pCO2 VBG pO2 VBG HCO3 VBG O2 Saturation VBG Base Excess Sodium 137 Potassium 3.3 Chloride 93 L Carbon Dioxide 32 H Anion Gap 15 BUN 20 H Creatinine 1.03 Estim Creat Clear Calc 103.3 Estimated GFR > 60 Random Glucose 97 Estimat Average Glucose Hemoglobin A1c % Calcium 9.3 Magnesium Total Bilirubin Direct Bilirubin AST ALT Alkaline Phosphatase Troponin I High Sens B-Natriuretic Peptide Total Protein Albumin TSH Airway Mallampati Class: II TM Dist: >3cm Neck ROM: Full Loose/Missing/Broken Teeth: No Heart: IRRR Lungs: CTA Assessment and Plan Assessment Anesthesia Assessment: Anesthesia Plan Discussed and Chart Reviewed Final Anesthetic Review Family History of Problems with Anesthesia: No History of Problems with Anesthesia: No NPO: Yes ASA Class: III Final Preanesthetic Review: No Changes in Pt Med Stat, Meds/Allgs Chart Reviewed, Consent Obtained/Reviewed and Anes Risks/Benef Reviewed Patient Risk: Intermediate Procedure Risk: Low Anesthetic Plan Anesthetic Plan: MAC: Disposition: Standard PACU
--- NOTE | 2024-02-23 09:55 | CA_ITS ---
Transesophageal Echocardiogram Patient (Last, First, Middle): Cara Thomas, Gender: Male Date of : 1965 Age: 58 Procedure Date: 02/23/2024 Procedure Type: Transesophageal Echocardiogram [place] [facility] [place] Height: 182.88 cm Weight: 117.03 kg BSA: 2.37 m2 Heart Rate: bpm Botanical Technical Officer: HAMILTON Referring MD: Ajit Arrieta MD Symptoms: Pre cardioversion Conclusion: ??? 1. Severe LV systolic dysfunction with LVEF of 15-20% 2. Biatrial enlargement with evidence of all PFO by color Doppler 3. No intracardiac thrombi, masses, vegetations 4. Mild mitral regurgitation 5. Severe atherosclerotic changes noted in the arch of the aorta 6. No significant abnormality of pericardium Findings Procedure Information Consent was obtained prior to the procedure. Pre GINA oral cavity was checked and revealed mild overcrowding. The adult 3D probe was passed with no difficulty. This was a technically good study. Left Ventricle Mildly increased left ventricular cavity size. The left ventricular systolic function is severely decreased. The visually estimated ejection fraction is between 15-20%. There is severe global hypokinesis. Diastolic function is indeterminate on the basis of available data. Right Ventricle Normal right ventricular cavity size. There is moderate to severely decreased right ventricular systolic function. Atria The left atrium is mildly dilated. Patent foramen ovale detected using by color Doppler. There is evidence of a patent foramen ovale with left to right shunting. Left atrium is dilated with smoke seen in the left atrial cavity as well as the left atrial appendage cavity. There are no clots in the left atrial appendage. No thrombi or masses seen in the left atrial cavity. The left upper, right upper and right lower pulmonary veins drain normally into the left atrium. The left atrial appendage ejection velocity is diminished. The right atrium is mildly dilated. The right atrium is free of any thrombus or masses. The IVC and SVC draining normally into the right atrium. Aortic Valve Normal aortic valve structure and function. There is no aortic valve stenosis. There is no evidence of a mass on the aortic valve. There is no aortic valve regurgitation. Mitral Valve There is mild anterior and posterior mitral leaflet thickening. There is mild mitral valve regurgitation. There is no mitral valve stenosis. There is no mass noted on the mitral valve. Pulmonic Valve The pulmonic valve is likely normal. Tricuspid Valve Normal tricuspid valve structure. There is mild tricuspid valve regurgitation. The right ventricular systolic pressure is not calculated. Normal right atrial pressure. Great Vessels All visible segments of the aorta are normal in size. Large plaque is seen in the arch. The visualized portions of the pulmonary artery and branches are normal. Venous The inferior vena cava is normal in size and collapses greater than 50% with inspiration. Pericardium/Pleural There is no evidence of pericardial effusion. Updated by Ajit Arrieta on 11:39 AM with Status of Final Ajit Arrieta MD electronically signed on 02/24/2024 11:39:00 AM with status of Final
--- NOTE | 2024-02-23 10:32 | MHC.SHP ---
Pre-Procedural Eval Section A - 24 Hr Update-Section A only Date of Service: 02/23/24 The patient is an INPATIENT: Yes Changes since office visit: Yes New Medical Problems, Yes Changes in Medication and Yes Patient answered all questions; No Cold of Flu in the past 2 weeks The patient has been examined within 24 hours of the surgical procedure. The History & Physical has been completed within 30 days and I have reviewed it.: Yes Section B - Complete if H&P > 30 days Chief Complaint: Heart failure New Afib Allergies: Allergies Allergy/AdvReac Type Severity Reaction Status Date / Time lisinopril Allergy Mild Nausea and Verified 02/20/24 08:45 Vomiting Plan I have reviewed the history and physical and performed a pertinent physical examination on my patient. No changes have occurred unless specified. Time Spent With Patient Time: Total time managing care of this patient today ____ minutes.
--- NOTE | 2024-02-23 11:39 | ECG_ITS ---
Test Reason : post cardioversion Blood Pressure : / mmHG Vent. Rate : 076 BPM Atrial Rate : 076 BPM P-R Int : 174 ms QRS Dur : 150 ms QT Int : 442 ms P-R-T Axes : 033 -01 169 degrees QTc Int : 497 ms Normal sinus rhythm Left bundle branch block Abnormal ECG When compared to the previous EKG of Normal sinus rhythm has replaced Atrial fibrillation Referred By: Amy Saldana Electronically Signed By:DAVID CONNOR MD
[2024-02-23] MEDS: Amiodarone HCL 200 MG TABLET 400 MG PO ×2 (12:04→21:16)
--- NOTE | 2024-02-23 12:15 | HO.CARDIVERS ---
Cardioversion Procedure Note Cardioversion Date of Procedure: Today Ordering Provider: Myself Performing Provider: Myself Indication for Procedure: Persistent atrial fibrillation with severe LV systolic dysfunction to pursue rhythm control Pre-Op Diagnosis: same Performed with Transesophageal Echo: Yes GINA findings (if GINA Performed): Dictated elsewhere Consent: Verbal and Written consent was obtained from the patient before starting and after confirming OAC. The patient was made aware of the risk of Synchronized cardioversion including benefits and risks] Procedure: After consent obtained, cardioversion pads were attached in AP config and the patient was sedated by the anesthesia team. Once adequate sedation achieved, Patient was then delivered 200 joules of biphasic synchronized energy in anteroposterior configuration. Complications: none Impression: Converted to sinus rhythm Recommendations: 1. 12 lead EKG 2. Start amiodarone 400 mg b.i.d. to maintain rhythm 3. Continue full oral anticoagulation with Xarelto
--- NOTE | 2024-02-23 13:07 | PM.PNCARD ---
Subjective Subjective Date of Service: 02/23/24 Principal diagnosis: CHF, atrial fibrillation. Interval history: Status post GINA guided cardioversion. No intracardiac thrombi. Converted to sinus rhythm. Breathing james had done significantly well. Review of Systems Constitutional: Reports no additional constitutional complaints Cardiovascular: Reports no additional cardiovascular complaints Respiratory: Reports no additional respiratory complaints Gastrointestinal: Reports no additional gastrointestinal complaints Musculoskeletal: Reports no additional musculoskeletal complaints Reports system reviewed and no additional complaints, except as documented Psychiatric: Reports no additional psychiatric complaints Physical Exam Vital Signs: Last Vital Signs Temp 97.8 F 02/23/24 11:30 Pulse 79 02/23/24 11:30 Resp 16 02/23/24 11:30 BP 108/75 02/23/24 12:05 Pulse Ox 96 02/23/24 11:30 O2 Del Method Room Air 02/23/24 11:30 O2 Flow Rate 6 02/23/24 11:15 BMI result Body Mass Index 35.1 Const General: cooperative, alert, awake, in distress moderate and respiratory and ill appearing Nutritional Appearance: obese Orientation/consciousness: patient oriented x3 HEENT Head: Yes normocephalic and Yes atraumatic Neck Neck: Yes trachea midline, Yes supple and Yes no JVD Resp Effort & Inspection: normal respiratory effort and tachypneic Auscultation: clear to auscultation bilaterally Cardio Jugular venous distension: no JVD Rate: regular rate Rhythm: regular rhythm Heart sounds: S1 normal heart sound present, S2 normal heart sound present, no click, no gallops and no murmurs GI Inspection: Yes distended and Yes obesity Auscultation: normal bowel sounds Skin General skin exam: no rashes or lesions noted Neuro General: patient oriented x3 and no focal motor deficits Extrem General: No clubbing, No cyanosis and Yes edema Objective Labs and Meds 02/21/24 06:30 02/23/24 06:31 Lab results: Laboratory Results - last 24 hr 02/22/24 02/23/24 10:05 06:31 Sodium 137 Potassium 3.3 Chloride 93 L Carbon Dioxide 32 H Anion Gap 15 BUN 20 H Creatinine 1.03 Estim Creat Clear Calc 103.3 Estimated GFR > 60 Random Glucose 97 Calcium 9.3 Magnesium 1.9 Progress Note: A&P Assessment and plan (1) Acute congestive heart failure: Status: Acute Assessment and Plan: Acute congestive heart failure related to severe cardiomyopathy 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 Ischemia needs to be ruled out. Can switch to p.o. Lasix 40 mg daily. Also switch to metoprolol 25 mg b.i.d. and continue with valsartan if blood pressure allows for neurohormonal modulation. Eventually will switch to Entresto therapy if LV systolic function appears significantly depressed after repeat echocardiogram in few weeks time. Heart failure management discussed. Will require sleep study urgently. (2) Atrial fibrillation with RVR: Status: Acute Assessment and Plan: Atrial fibrillation status post GINA guided cardioversion. Converted to sinus rhythm. Given left atrial enlargement and systolic dysfunction will need rhythm control approach. Will start on amiodarone 400 mg b.i.d. for 2 weeks for rhythm management. Eventually if improves will switch to alternative antiarrhythmic therapy in 3-6 months time. Sleep apnea workup requires to be done urgently. Continue full oral anticoagulation with Xarelto. Will set up for outpatient follow-up and testing. Time Spent With Patient Time: Total time managing care of this patient today ____ minutes. Progress Note: Quality Stroke Does the patient have a stroke diagnosis?: No Procedures Date of Service Date of Service: 02/23/24
[2024-02-23 14:36] LABS: TSH reflex Free T4 1.79 uIU/mL (0.32-4.0)
[2024-02-23] MEDS: Furosemide 20 MG TABLET PO (17:16)
[2024-02-23] MEDS: Rivaroxaban 20 MG TABLET PO (17:16)
[2024-02-23 23:43] LABS: VBG Base Excess 11.6 mmol/L; VBG HCO3 38 mmol/L (22-26); VBG pCO2 55 mmHg; VBG pH 7.44 (7.32-7.43); VBG pO2 35 mmHg
[2024-02-23 23:47] LABS: Venous Blood Gas Refer to POC result
[2024-02-24] VITALS: BP 109/55; PULSE 77; RESP 19; TEMP 37.1; O2SAT 94
[2024-02-24 04:00] VITALS: BP 91/57; PULSE 68; RESP 18; TEMP 36.5; O2SAT 94
--- NOTE | 2024-02-24 07:00 | ECG_ITS ---
Test Reason : rhythm check Blood Pressure : / mmHG Vent. Rate : 062 BPM Atrial Rate : 062 BPM P-R Int : 148 ms QRS Dur : 152 ms QT Int : 484 ms P-R-T Axes : -26 002 173 degrees QTc Int : 491 ms Normal sinus rhythm Left bundle branch block Abnormal ECG When compared with ECG of 23-FEB-2024 11:46, No significant change was found Referred By: Amy Saldana Electronically Signed By:VIJAY WHEAT
[2024-02-24 07:06] LABS: Anion Gap 12 (12-20); Blood Urea Nitrogen 17 mg/dL (9-16); Calcium 9.4 mg/dL (8.4-10.2); Carbon Dioxide 32 mmol/L (22-29); Chloride 97 mmol/L (96-108); Creatinine Clr Calc Pharmacy 118.2; Estimated Glomerular Filt Rate > 60; Glucose Random 128 mg/dL (60-115); Potassium 3.8 mmol/L (3.3-5.1); Sodium 137 mmol/L (135-145)
--- NOTE | 2024-02-24 07:18 | PM.DS ---
DS: Providers Provider Date of Service: 02/24/24 Date of admission: 02/21/24 09:34 Date of discharge: 02/24/24 Primary care physician: Jordi Tello MD Attending physician on admission: Esequiel Tejeda Consults: 02/21/24 09:30 Consult to Cardiology Routine Consulting Provider: [facility] Reason for consultation: New AFIB, Acute Heart failure Has provider been notified: Yes Attending physician on discharge: Esequiel Tejeda Discharging clinician: Amy Saldana DS: Diagnosis Discharge Diagnosis (1) Acute congestive heart failure: Status: Acute DS: Summary Hospital Course Hospital Course: HPI on admission by 02/20: Chief Complaint: Shortness of breath A 58-year-old male with hypertension and obesity presents with a 3-week history of worsening shortness of breath. He was diagnosed with atrial fibrillation (AFib) by his PCP and prescribed Toprol XL and Xarelto, with an outpatient referral to cardiology, but has not yet been seen. He came to the ED this morning with worsening shortness of breath at rest and with activity, difficulty sleeping, and increased leg edema. He reports paroxysmal nocturnal dyspnea (PND) and orthopnea. He was found to be in AFib with rapid ventricular response (RVR); IV metoprolol had no effect on heart rate but lowered his blood pressure. He was then administered IV Cardizem.. BNP 794. BP remains relatively low, ECho done result pending. Given IV Lasix for heart failure. Hospital course: Pt admitted to [facility] under hospitalist service for atrial fibrillation with rvr and chf exacerbation. Initially treated with IV cardizem but was discontinued due to low blood pressures. He was loaded with digoxin x 3 doses and followed by cardiology. TTE showed moderately dilated LV with severely reduced LV function with EF 10-15%, moderately dilated R atrium, mildly dilated R ventricle wtih severely reduced RV systolic function and mildly elevated RV systolic pressures. Anticoagulation with xarelto continued and metorprolol changed to 12.5mg q6h. Amldoipine, HCTZ, and telmisartan held. Cardiology recommended GINA/cardioversion which was preformed on 02/22 with successful conversion to NSR. EKG confirmed conversion to NSR with LBBB (present on initial EKG). At the recommendation of cardiology was loaded with amiodarone 400mg twice daily. Monitored on telemetry and maintained NSR. Repeat EKG on morning of discharge showed NSR with persistent LBBB. For CHF, was diuresed with 20mg IV lasix BID, -8.5L by discharge with symptomatic improvement. He will continue PO lasix 20mg BID at home. Advised to also continue amiodarone 400mg BID x 2 weeks, then 200mg daily. Metoprolol 12.5mg BID. Repeat chemistries morning of discharge showed normal electrolyte levels and was found to be euthyroid with amiodarone load. Of note, patient is found to be prediabetic with hemoglobin A1c of 6.2%. Initial BNP 794, trended down. Monitored on CIWA for alcohol withdrawal but did not require treatment. Cessation advised. Given nicotine patches for smoking cessation, will be prescribed on discharge. Follow up with cardiology and PCP. Course by problem: AFIB with RVR Initally loaded with dig x3 doses s/p successful GINA/cardioversion 02/22 Rates improved, bp soft. Continue reduced dose metoprolol 12.5mg BID Continue xarelto for anticoagulation Amiodarone load 400mg BID x 2 weeks, then 200mg daily Followed by cardiology. Outpt follow up this week advised Outpt sleep study Acute heart failure, suspect systolic heart failure TTE 02/20 showed moderately dilated LV with severely reduced LV function with EF 10-15%, moderately dilated R atrium, mildly dilated R ventricle wtih severely reduced RV systolic function and mildly elevated RV systolic pressures -8.5L with IV lasix, transitioned to PO lasix 20mg BID, continue on dicharge low sodium diet advised Daily weights recommened outpt follow up with cardiology with repeat echo in several weeks pursue outpt neurohormonal therapy with valsartan if blood pressure allows LBBB no cp, outpt follow up with cardiology HTN- BP on low side discontinue Valsartan 80 , Norvasc 10, HCTZ, and Toprolol XL 50 d/t low BP Continue metoprolol 12.5mg twice daily' Prediabetes hgb a1c 6.2%, lifestyle changes advised. Outpt follow up with PCP Obesity--weight loss advised. Mild Hyponatremia--d/t hypervolemia from CHF- resolved Tobacco use disorder--NRT (patch and gum) cessation advised Alcohol use disorder--cessation advised did not require treatment for withdrawal though was monitored on ciwa Time spent discussing smoking cessation with patient: 3 to 10 minutes Status at Discharge Functional status at discharge: independent ambulation Overall status at discharge: patient is progressing back to baseline Time Attestation Discharge Coordination Time (in mins): 45 Quality: Safe Use of Opioids Does Pt have an Active Cancer Diagnosis on the Problem List?: No Quality: Stroke Does the patient have a stroke diagnosis?: No Physical Exam Vital Signs: Vital Signs: Last Vital Signs Temp 97.7 F 02/24/24 04:00 Pulse 68 02/24/24 04:00 Resp 18 02/24/24 04:00 BP 91/57 L 02/24/24 04:00 Pulse Ox 94 02/24/24 04:00 O2 Del Method Nasal Cannula 02/24/24 04:00 O2 Flow Rate 3 02/24/24 04:00 BMI result Body Mass Index 35.1 Constitutional - Awake and Alert, No apparent distress Eyes - PERRLA, EOMI Cardiovascular - S1S2, RRR, 2+ ble edema Respiratory - Normal lung expansion, Normal respiratory effort, No respiratory distress, CTA bilaterally Extremities - no calf tenderness bilaterally, no swelling Skin - Warm/Dry Neurological - Alert & oriented x3 Psychological - Appropriate affect DS: Data Data Completed and Pending Labs on day of discharge: Laboratory Results - last 24 hr 02/23/24 02/23/24 02/23/24 06:31 23:27 23:35 Hold Purple Top SEE NOTE VBG pH 7.44 H VBG pCO2 55 VBG pO2 35 VBG HCO3 38 H VBG O2 Saturation 48.0 VBG Base Excess 11.6 Sodium 137 Potassium 3.3 Chloride 93 L Carbon Dioxide 32 H Anion Gap 15 BUN 20 H Creatinine 1.03 Estim Creat Clear Calc 103.3 Estimated GFR > 60 Random Glucose 97 Calcium 9.3 TSH 1.79 02/24/24 06:38 Hold Purple Top VBG pH VBG pCO2 VBG pO2 VBG HCO3 VBG O2 Saturation VBG Base Excess Sodium 137 Potassium 3.8 Chloride 97 Carbon Dioxide 32 H Anion Gap 12 BUN 17 H Creatinine 0.90 Estim Creat Clear Calc 118.2 Estimated GFR > 60 Random Glucose 128 H Calcium 9.4 TSH Discharge Plan Discharge Anticipated Discharge Date/Time: 02/24/24 09:31 Patient Disposition: Home, Self-Care Discharge Diagnosis: Afib with RVR, CHF exacerbation Referrals: Jordi Tello MD [Primary Care Provider] - 1 Week Ajit Arrieta MD [Physician] - 02/29/24 5:00 am Discharge Medications: New nicotine 14 mg/24 hr Patch 24 Hour 14 mg transdermal DAILY Qty: 30 2RF nicotine (polacrilex) 2 mg Gum 2 mg buccal Q2H PRN (Reason: Nicotine Cravings) Qty: 100 0RF amiodarone 200 mg Tablet See Rx Instructions .ROUTE .COMPLEX Qty: 90 0RF Rx Instructions: Take 2 tabs (400mg) twice daily x 2 weeks, then take 200mg daily furosemide 20 mg Tablet 20 mg PO BID@0900,1800 Qty: 180 0RF Protocol: Hold for SBP< HOLD for SBP < : 90 metoprolol tartrate 25 mg tablet 12.5 mg PO BID Qty: 180 0RF Continued Xarelto 20 mg tablet 20 mg PO DAILY Qty: 90 0RF allopurinol 300 mg tablet 150 mg PO DAILY Discontinued hydrochlorothiazide 12.5 mg tablet 12.5 mg PO DAILY telmisartan 40 mg tablet 40 mg PO DAILY amlodipine 10 mg tablet 10 mg PO DAILY Discharge Orders: Discharge Order (Routine); Ordered 02/24/24 Ordered By: Amy Saldana Diet: Low salt diet Activity on Discharge: As tolerated Stand Alone Forms: Patient Portal Discharge page Print Language: Thai Care Plan Goals: Afib -successfully cardioverted to normal sinus rhythm -continue amiodarone 400mg (2 tabs) twice daily x2 weeks, then 200mg daily -continue xarelto for anticoagulation -Change metoprolol to 12.5 mg twice daily -Stop drinking and smoking -I do not see appt yet scheduled with cardiology, call office tomorrow (Sunday to ) Congestive heart failure -Continue oral lasix 20mg twice daily -Daily weights- call cardiology if any weight gain 3lbs in 1 day or 5 pounds in 3 days -Low sodium diet (no more than 2g daily) Hypertension -blood pressures low normal during admission -Metoprolol 12.5mg twice daily -Discontinue hydrochlorothiazide, amlodipine, and telmisartan -monitor blood pressures, goal <140/90 Smoking -use nicotine patches daily, ask PCP for step down prescription to 7mg daily, can use nicorette as needed for breakthrough cravings Health Concerns: AFib CHF Alcohol use Cigarette smoking Plan of Treatment: As above Assessment: As above. See discharge summary
[2024-02-24 07:55] VITALS: BP 105/65; PULSE 66; RESP 18; TEMP 36; O2SAT 97
[2024-02-24] MEDS: Amiodarone HCL 200 MG TABLET 400 MG PO (08:12)
[2024-02-24] MEDS: Metoprolol Succinate ER 12.5 MG HALFTAB.ER.24H PO (08:12)
[2024-02-24] MEDS: allopurinoL 300 MG TABLET 150 MG PO (08:13)
[2024-02-24] MEDS: 0.9 % Sodium Chloride Flush 3 ML SYRINGE IVFLUSH (08:13)
[2024-02-24] MEDS: Furosemide 20 MG TABLET PO (08:13)
[2024-02-24] MEDS: Nicotine 14 MG PATCH.TD24 TRANSDERMA (08:14)
[2024-02-24 08:26] VITALS: TEMP 36.6
--- NOTE | 2024-02-24 10:19 | PM.PNCARD ---
Subjective Subjective Date of Service: 02/24/24 Principal diagnosis: CHF, atrial fibrillation. Interval history: Doing well. no SOB. Has remained in NSR Review of Systems Review of Systems Yes all other systems are reviewed and are negative Physical Exam Vital Signs: Last Vital Signs Temp 98 F 02/24/24 08:26 Pulse 66 02/24/24 07:55 Resp 18 02/24/24 07:55 BP 105/65 02/24/24 07:55 Pulse Ox 97 02/24/24 07:55 O2 Del Method Room Air 02/24/24 07:55 O2 Flow Rate 3 02/24/24 04:00 BMI result Body Mass Index 35.1 Const General: cooperative, alert, awake, in distress moderate and respiratory and ill appearing Nutritional Appearance: obese Orientation/consciousness: patient oriented x3 HEENT Head: Yes normocephalic and Yes atraumatic Neck Neck: Yes trachea midline, Yes supple and Yes no JVD Resp Effort & Inspection: normal respiratory effort and tachypneic Auscultation: clear to auscultation bilaterally Cardio Jugular venous distension: no JVD Rate: regular rate Rhythm: regular rhythm Heart sounds: S1 normal heart sound present, S2 normal heart sound present, no click, no gallops and no murmurs GI Inspection: Yes distended and Yes obesity Auscultation: normal bowel sounds Skin General skin exam: no rashes or lesions noted Neuro General: patient oriented x3 and no focal motor deficits Extrem General: No clubbing, No cyanosis and Yes edema Objective Labs and Meds 02/21/24 06:30 02/24/24 06:38 Lab results: Laboratory Results - last 24 hr 02/23/24 02/23/24 02/23/24 06:31 23:27 23:35 Hold Purple Top SEE NOTE VBG pH 7.44 H VBG pCO2 55 VBG pO2 35 VBG HCO3 38 H VBG O2 Saturation 48.0 VBG Base Excess 11.6 Sodium Potassium Chloride Carbon Dioxide Anion Gap BUN Creatinine Estim Creat Clear Calc Estimated GFR Random Glucose Calcium TSH 1.79 02/24/24 06:38 Hold Purple Top VBG pH VBG pCO2 VBG pO2 VBG HCO3 VBG O2 Saturation VBG Base Excess Sodium 137 Potassium 3.8 Chloride 97 Carbon Dioxide 32 H Anion Gap 12 BUN 17 H Creatinine 0.90 Estim Creat Clear Calc 118.2 Estimated GFR > 60 Random Glucose 128 H Calcium 9.4 TSH Progress Note: A&P Assessment and plan (1) Acute congestive heart failure: Status: Acute Assessment and Plan: Acute CHF which has now resolved. Severe LV systolic dysfunction noted. Most likely tachycardia mediated CMP. Ischemia needs to be ruled out. Out patient MIBI. COntinue valsartan and Toprol. Will follow up as out patient for further uptitration. Conitnstephen lasix. CHF education to be provided. Daily weights. Sleep study will be requested. (2) Atrial fibrillation with RVR: Status: Acute Assessment and Plan: S/p cardioversion. Continue amiodarone loading 400 mg bid for 2 weeks and 200 mg daily. COntinue Xarelto. Will follow up in the clinic. Time Spent With Patient Time: Total time managing care of this patient today ____ minutes. Progress Note: Quality Stroke Does the patient have a stroke diagnosis?: No Procedures Date of Service Date of Service: 02/24/24
--- NOTE | 2024-02-24 11:37 | MHC.CM.PN ---
Pt is medically cleared for discharge home self-care pt has arranged for his own transportation home.
--- NOTE | 2024-02-25 09:12 | HO.POSTANES ---
Post Anesthesia Evaluation Post Anesthesia Evaluation Date of Service: 02/23/24 Anesthesia: Monitored Mental Status: Awake Pain Control: Satisfactory Nausea/Vomiting: None Hydration: Adequate Anesthesia-Related Issues: No Anes. Related Issues
== END 2024-02-24 11:01 | disposition home or self-care (01) | DRG 308 ==
LOC: HO.ED 08:09 → HO.EDOVER 09:40 → HO.IMC 10:20
PROVIDERS: Emergency Medicine; Family Medicine; Internal Medicine; Internal Medicine Cardiovascular Disease; Admitting Provider Internal Medicine; Emergency Provider Emergency Medicine; PCP Family Medicine; Visit Provider Physician Assistant
PROC: 5A2204Z Restoration of Cardiac Rhythm, Single (ICD-10-PCS; CPT 93312; principal; 2024-02-23 10:00)
PROC: 5A2204Z Restoration of Cardiac Rhythm, Single (ICD-10-PCS; 2024-02-23 10:00)
DX: I48.91 Unspecified atrial fibrillation (principal); I50.21 Acute systolic (congestive) heart failure; E87.1 Hypo-osmolality and hyponatremia; I44.7 Left bundle-branch block, unspecified; I42.9 Cardiomyopathy, unspecified; R73.03 Prediabetes; I11.0 Hypertensive heart disease with heart failure; E66.9 Obesity, unspecified; Z68.35 Body mass index [BMI] 35.0-35.9, adult; E86.1 Hypovolemia; F10.90 Alcohol use, unspecified, uncomplicated; F17.210 Nicotine dependence, cigarettes, uncomplicated; Z71.6 Tobacco abuse counseling
CPT/HCPCS: 36415; 71045; 80048; 80076; 82803; 83036; 83735; 83880; 84443; 84484; 85025; 92960; 93005; 93306; 99285; J1160; J1940; J2704; J3010; J3475; Q9957

== ENCOUNTER 2024-02-21 09:34 | Outpatient (BNV) | payer OTHER, SELFPAY | END 2024-02-23 09:55 | PROVIDERS: Admitting Provider Internal Medicine; Emergency Provider Emergency Medicine; PCP Family Medicine; Visit Provider Internal Medicine Cardiovascular Disease | DX: Q21.12 Patent foramen ovale (principal); I34.0 Nonrheumatic mitral (valve) insufficiency; I44.7 Left bundle-branch block, unspecified; R94.31 Abnormal electrocardiogram [ECG] [EKG] | CPT/HCPCS: 76376; 93010; 93315; 93325 ==

== ENCOUNTER 2024-02-21 09:34 | Outpatient (BNV) | payer OTHER, SELFPAY | END 2024-02-24 07:00 | PROVIDERS: Admitting Provider Internal Medicine; Emergency Provider Emergency Medicine; PCP Family Medicine; Visit Provider Internal Medicine | DX: I44.7 Left bundle-branch block, unspecified (principal); R94.31 Abnormal electrocardiogram [ECG] [EKG] | CPT/HCPCS: 93010 ==

== ENCOUNTER → 2024-02-21 09:34 | Outpatient (BNV) | payer OTHER, SELFPAY | PROVIDERS: Admitting Provider Internal Medicine; Emergency Provider Emergency Medicine; PCP Family Medicine; Visit Provider Internal Medicine | DX: I50.9 Heart failure, unspecified (principal) | CPT/HCPCS: 99223; 99232; 99239 ==

== ENCOUNTER → 2024-02-21 09:34 | Outpatient (BNV) | payer OTHER, SELFPAY | PROVIDERS: Admitting Provider Internal Medicine; Emergency Provider Emergency Medicine; PCP Family Medicine; Visit Provider Internal Medicine Cardiovascular Disease | DX: I48.19 Other persistent atrial fibrillation (principal); I50.22 Chronic systolic (congestive) heart failure | CPT/HCPCS: 92960; 93306; 99223; 99233 ==

== ENCOUNTER 2024-02-29 08:38 | Outpatient (REF) | payer OTHER, SELFPAY ==
[2024-02-29 10:33] LABS: Anion Gap 12 (12-20); Blood Urea Nitrogen 17 mg/dL (9-16); Calcium 9.6 mg/dL (8.4-10.2); Carbon Dioxide 29 mmol/L (22-29); Chloride 103 mmol/L (96-108); Estimated Glomerular Filt Rate > 60; Glucose Random 120 mg/dL (60-115); Sodium 140 mmol/L (135-145)
[2024-02-29 10:38] LABS: B Type Natriuretic Peptide 299 pg/mL (<100)
== END 2024-02-29 08:39 | disposition home or self-care (01) ==
LOC: HO.LAB 08:38
PROVIDERS: PCP Family Medicine; Visit Provider Internal Medicine Cardiovascular Disease
DX: I50.9 Heart failure, unspecified (principal); I48.91 Unspecified atrial fibrillation; I11.0 Hypertensive heart disease with heart failure
CPT/HCPCS: 36415; 80048; 83880

== ENCOUNTER 2024-03-03 09:04 | Outpatient (AMB) | payer OTHER, SELFPAY ==
[2024-03-03 09:09] VITALS: BP 118/70; PULSE 55; BMI 34.7
--- NOTE | 2024-03-03 09:09 | A.OFFVIS_ITS ---
Vital Signs 03/03/24 09:09 Height 6 ft Weight 255 lb 11.779 oz BMI 34.7 BP 118/70 Blood Pressure Location Lt brachial Position Sitting Pulse 55 Pulse Source Monitor Intake Visit Reasons: follow-up [facility] [place] Intake Note: FOLLOW UP [facility] [place] PT IS DOING MUCH BETTER WITH EKG Accompanied by: Spouse Allergies lisinopril Allergy (Mild, Verified 02/20/24 08:45) Nausea and Vomiting Medication List - Last Reconciled 03/03/24 by Ajit Arrieta MD allopurinol 150 mg PO DAILY amiodarone Take 2 tabs (400mg) twice daily x 2 weeks, then take 200mg daily furosemide 20 mg See Protocol PO BID@0900,1800 metoprolol tartrate 12.5 mg (1/2 x 25 mg) PO BID nicotine 14 mg transdermal DAILY nicotine (polacrilex) 2 mg buccal Q2H PRN rivaroxaban (Xarelto) 20 mg PO DAILY HPI Comments Details: Orville comes for follow-up. He has been doing extremely well. He said all of his symptoms of heart failure now improved. He is back to his functionality. Denies any orthopnea, PND, leg edema. Denies any prolonged palpitations irregular heartbeat. He said since hospitalization has stopped smoking as result he has increased his oral intake in his weight has gone up about 3-4 lb. However he has not developed any leg edema or abdominal distension. No lightheadedness, syncope. No bleeding issues or neurologic events. Denies any exertional chest pain. Scheduled for upcoming tests. [facility] Medical History Paroxysmal atrial fibrillation Atrial fibrillation with RVR Acute congestive heart failure Heart failure with reduced ejection fraction HTN (hypertension) Lumbar spondylosis Myofascial pain Lumbar strain Social History Household Members: Family Housing: House Do you presently have visiting nurse or other home services: No Patient Tobacco Use Status: Current everyday Tobacco user Cigarette Packs Per Day: 0.5 Cigarettes Per Day: 10.0 service: No Current occupational status: employed 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/[employer] Review of Systems Const Denies weakness ENT Denies dizziness Card Denies chest pain, Denies chest pain with activity, Denies syncope, Denies rapid heart rate, Denies pedal edema, Denies edema, Denies leg edema, Denies lightheadedness, Denies palpitations, Denies dyspnea, Denies dyspnea on exertion and Denies orthopnea Resp Denies cough, Denies dyspnea and Denies dyspnea on exertion GI Denies hematochezia and Denies change in stool character Musc Denies abnormal gait, Denies muscle cramps, Denies muscle weakness, Denies numbness, Denies radiating pain into limb and Denies tingling Neuro Denies abnormal gait, Denies dizziness, Denies syncope, Denies numbness, Denies tingling and Denies weakness Endo Denies palpitations Physical Exam Vital Signs: Last Vital Signs Pulse 55 03/03/24 09:09 BP 118/70 03/03/24 09:09 BMI result Body Mass Index 34.7 Const General: cooperative, comfortable, no acute distress, alert, awake and Physically active Nutritional Appearance: obese Orientation/consciousness: patient oriented x3 Limitations: no limitations Neck Neck: Yes trachea midline, Yes supple and Yes no JVD Resp Effort & Inspection: normal respiratory effort Auscultation: clear to auscultation bilaterally Cardio Jugular venous distension: no JVD Palpation: abnormal PMI displaced PMI Rate: regular rate Rhythm: regular rhythm Heart sounds: S1 normal heart sound present, S2 normal heart sound present, no click, no gallops, no murmurs and no rubs GI Auscultation: normal bowel sounds Skin General skin exam: no rashes or lesions noted Neuro General: patient oriented x3 and no focal motor deficits Extrem General: Yes no clubbing, cyanosis or edema Psych Appearance: grossly normal Office Procedures EKG Details: EKG shows sinus bradycardia with left bundle-branch block [id number], Complete Assessment & Plan Assessment & Plan (1) Heart failure with reduced ejection fraction: Code(s): I50.20 - Unspecified systolic (congestive) heart failure Category: Medical Plan: Recent hospitalization with acute congestive heart failure in the setting of new onset atrial fibrillation with markedly reduced LV systolic dysfunction. Suspected to be tachycardia mediated. However obstructive sleep apnea and myocardial ischemia needs to be ruled out. Testing is scheduled in near future. Clinically he is doing extremely well at current point in time with improved blood pressure on today's exam. Will slowly introduce angiotensin receptor rl to his regimen and start with valsartan 20 mg b.i.d.. Advised close monitoring of his blood pressure at home and call me in 2 weeks. Advise follow- up blood work in 2 weeks time. If his blood pressure is well controlled, will gradually uptitrate valsartan therapy and/or add Entresto therapy at next visit to his regimen if LV systolic function appears severely reduced. Follow-up limited echocardiogram in 6 weeks time. Advised daily weight monitoring avoidance of salt loading. Importance of continued watching of his dietary intake was discussed. Advised to increase activity level as tolerated. Signs and symptoms of heart failure were discussed. Continue current diuretic regimen. (2) Paroxysmal atrial fibrillation: Code(s): I48.0 - Paroxysmal atrial fibrillation Category: Medical Plan: Paroxysmal atrial fibrillation status post GINA guided cardioversion. Currently doing well with rhythm control approach will continue pursue rhythm control approach. Accept improvement in heart failure syndrome and hopeful improvement in LV systolic function. Follow-up workup as above. Continue amiodarone for the next few months to maintain rhythm control. Eventually as the heart condition improves may switch to an alternative antiarrhythmic drug therapy. Continue full oral anticoagulation, currently on Eliquis therapy. Workup for sleep apnea. Avoidance of stimulants was discussed. Avoidance of alcohol was discussed. Follow up in the clinic in 6 weeks time, sooner p.r.n.. Thank you for allowing me to partake in his care Orders: Orders CA Echo Limited 6 Weeks I42.9 - Cardiomyopathy, unspecified, I50.20 - Unspecified systolic (congestive) heart failure Medications: New valsartan 20 mg (1/2 x 40 mg) PO BID 60 tabs 2RF Coding Level of Care Code Est Pt Level 4 (43839) Diagnoses Heart failure with reduced ejection fraction I50.20 Paroxysmal atrial fibrillation I48.0 CPT Codes EKG - CPT: 60979-[id number], Complete ([id number])
== END 2024-03-03 09:40 | disposition home or self-care (01) ==
PROVIDERS: PCP Family Medicine; Visit Provider Internal Medicine Cardiovascular Disease
DX: I50.20 Unspecified systolic (congestive) heart failure (principal); I48.0 Paroxysmal atrial fibrillation
CPT/HCPCS: 93010; 99214

== ENCOUNTER → 2024-03-03 | Outpatient (REF) | payer OTHER, SELFPAY | LOC: HO.CARD | PROVIDERS: PCP Family Medicine; Visit Provider Family Medicine | DX: I48.0 Paroxysmal atrial fibrillation (principal); I50.20 Unspecified systolic (congestive) heart failure | CPT/HCPCS: 93005 ==

== ENCOUNTER 2024-03-04 12:53 | Outpatient (REF) | payer OTHER, SELFPAY ==
--- NOTE | ~2024-03-04 | MR_ITS ---
EXAMINATION: MR LUMBAR SPINE WITHOUT CONTRAST CLINICAL INFORMATION: Spondylosis without myelopathy or radiculopathy COMPARISON: None available. TECHNIQUE: MRI of the lumbar spine was obtained using routine sequences without contrast. FINDINGS: There are 5 nonrib-bearing lumbar-type vertebrae. Mild levocurvature of the lumbar spine. No listhesis. No acute bone marrow abnormality. The vertebral body heights are preserved. Multilevel disc desiccation with moderate to severe disc height loss at L4-5. Multilevel endplate osteophytosis. Multilevel Schmorl's nodes. The visualized spinal cord is normal in caliber. No abnormal cord signal. The conus medullaris terminates at L1-2. T12-L1: No significant spinal canal or neural foraminal narrowing. L1-2: No significant spinal canal or neural foraminal narrowing. L2-3: Left paracentral/subarticular disc protrusion. Bilateral facet arthrosis. No significant spinal canal stenosis. Mild left neural foraminal narrowing. L3-4: Diffuse disc bulge and bilateral facet arthrosis. No significant spinal canal stenosis. Moderate right and mild to moderate left neural foraminal narrowing with the disc abutting the exiting L3 nerve roots bilaterally. L4-5: Diffuse disc bulge and bilateral facet arthrosis. No significant spinal canal stenosis. Moderate to severe right and mild left neural foraminal narrowing with mass effect on the right exiting L4 nerve roots. The disc also abuts the exiting nerve roots on the left. L5-S1: Bilateral facet arthrosis. No significant spinal canal or neural foraminal narrowing. The paravertebral soft tissues are unremarkable. Left renal cyst. MR/MR lumbar spine wo con IMPRESSION: Multilevel degenerative changes of the lumbar spine without significant spinal canal stenosis. -At L3-L4 there is moderate right and mild to moderate left neural foraminal narrowing with the disc abutting the exiting L3 nerve roots bilaterally. -At L4-L5 there is moderate to severe right and mild left neural foraminal narrowing with mass effect on the exiting right L4 nerve roots. The disc also abuts the exiting left L4 nerve roots.
== END 2024-03-04 12:54 | disposition home or self-care (01) ==
LOC: HO.MRI 12:53
PROVIDERS: PCP Family Medicine; Visit Provider Physical Medicine & Rehabilitation
DX: M47.816 Spondylosis without myelopathy or radiculopathy, lumbar region (principal); S39.012A Strain of muscle, fascia and tendon of lower back, initial encounter; M51.36 Other intervertebral disc degeneration, lumbar region
CPT/HCPCS: 72148

== ENCOUNTER 2024-03-12 11:37 | Outpatient (AMB) | payer OTHER, SELFPAY ==
--- NOTE | 2024-03-12 11:38 | A.OFFVIS_ITS ---
Vital Signs 03/12/24 11:39 Height 6 ft Weight 255 lb BMI 34.6 Intake Visit Reasons: OV-MR lumbar spine Follow up Intake Note: Gene is a 58 year old male who presents to the office today for a MRI lumbar spine Follow up done on 03/04/24. Allergies lisinopril Allergy (Mild, Verified 03/12/24 11:42) Nausea and Vomiting Medication List - Last Reconciled 03/12/24 by Britta Fishman MD allopurinol 150 mg PO DAILY amiodarone Take 2 tabs (400mg) twice daily x 2 weeks, then take 200mg daily furosemide 20 mg See Protocol PO BID@0900,1800 metoprolol tartrate 12.5 mg (1/2 x 25 mg) PO BID nicotine 14 mg transdermal DAILY nicotine (polacrilex) 2 mg buccal Q2H PRN rivaroxaban (Xarelto) 20 mg PO DAILY valsartan 20 mg (1/2 x 40 mg) PO BID HPI Comments Details: Chronic but has been bothering him since winter. Almost daily. Last month, had incident pulling heavy bucket, aggravated left side again. Some episodes would be very difficult to walk. It does not radiate to legs. No burning or numbness on legs. Bending forward, but cannot bend backwards. Cannot stand for prolonged periods. No claudication symptoms on legs. No bladder/bowel changes. Pain is constant nagging pain. Had not gone back to chiro for 27 years. No other specialists seen. Once in a while, takes ibuprofen. Family history - denies rheumatologic disorders. He takes allopurinol and colchicine, usually bothers him on big toe, no recent episodes. Uric acid level being monitored. Since last visit, he has been hospitalized for CHF and atrial fibrillation. He was cardioverted and diuresed. Currently on Xarelto. He has not been able to do much physical therapy because of the shortness of breath. Leg edema is improved since hospitalization. Follows with Dr. Arrieta cardiology. Continues to have right-sided back pain, especially with prolonged standing like washing dishes. Non radicular. Chronic feet numbness, but only borderline diabetic, not on medications. Denies claudication. Here for MRI review. [facility] Medical History (Updated 03/12/24 @ 12:16 by Britta Fishman MD) Facet degeneration of lumbar region Paroxysmal atrial fibrillation Atrial fibrillation with RVR Acute congestive heart failure Heart failure with reduced ejection fraction HTN (hypertension) Lumbar spondylosis Myofascial pain Lumbar strain Social History Household Members: Family Housing: House Do you presently have visiting nurse or other home services: No Patient Tobacco Use Status: Current everyday Tobacco user Cigarette Packs Per Day: 0.5 Cigarettes Per Day: 10.0 service: No Current occupational status: employed 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/[employer] Physical Exam Vital Signs: BMI result Body Mass Index 34.6 Constitutional: Patient appears to be in no acute distress, well nourished and well developed. Patient was appropriately conversant and oriented. Good historian. MSK: No specific abnormalities found on inspection of the spine and all extremities. Non tender on SI, GT, spinous processes or facets. Lumbar ROM was full. Neurological: Neurologic examination nonfocal. No footdrop. Gait is non-antalgic without loss of balance. Results Reviewed Results Reviewed: Ordering Physician: Britta Ferrell Date of Service: 01/16/24 Procedure(s): XR lumbar spine 2-3V Accession Number(s): [id number] cc: Britta Ferrell~ EXAMINATION: XR LUMBOSACRAL SPINE CLINICAL INFORMATION: Back pain COMPARISON: None available. TECHNIQUE: Three views of the lumbosacral spine. FINDINGS: The bones are diffusely demineralized. Atherosclerotic aortoiliac calcifications. Facet arthritis in the lower lumbar spine. Advanced multilevel lumbar spondylosis with moderate loss of disc space height at L3-L4 and L4-L5. XR/XR lumbar spine 2-3V IMPRESSION: Advanced multilevel lumbar spondylosis with moderate loss of disc space height at L3-L4 and L4-L5. Assessment & Plan Assessment & Plan (1) Lumbar spondylosis: Code(s): M47.816 - Spondylosis without myelopathy or radiculopathy, lumbar region Category: Medical (2) Lumbar degenerative disc disease: Code(s): M51.36 - Other intervertebral disc degeneration, lumbar region Category: Medical (3) Facet degeneration of lumbar region: Code(s): M47.816 - Spondylosis without myelopathy or radiculopathy, lumbar region Category: Medical (4) Myofascial pain: Code(s): M79.18 - Myalgia, other site Category: Medical Plan Looked at MRI images with patient and . There is no official radiology reading yet. Definitely lumbar spondylosis, combination of disc bulges and facet degeneration. L4-5 shows the most notable foraminal stenosis and central stenosis, maybe moderate. Facet arthritic changes noted. Question a cyst on right L4-5 facet joint. Await official reading. Whether or not this cyst is the cause of his right-sided axial back pain is not yet sure. Once we see the official reading, we will decide whether I am referring patient to pain management versus near spine. 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 Continue out of work status for another 30 days. Long-term goals getting back to work. Hopefully will have more clarity after we get official MRI reading. Assessment and plan discussed with patient, and patient was agreeable. All questions were answered thoroughly. Total of 45 minutes spent today including chart review, results review, history taking, physical examination, discussion of assessment and plan, and coordination of care. Britta Fishman MD, AJAY Board Certified, [place] [employer] and [employer] (ABPMR) Board Certified, [place] [employer] Electro[employer] (ABEM) Coding Level of Care Code Est Pt Level 4 (21998) Diagnoses Lumbar spondylosis M47.816 Lumbar degenerative disc disease M51.36 Facet degeneration of lumbar region M47.816 Myofascial pain M79.18
[2024-03-12 11:39] VITALS: BMI 34.6
== END 2024-03-12 12:22 | disposition home or self-care (01) ==
PROVIDERS: PCP Family Medicine; Visit Provider Physical Medicine & Rehabilitation
DX: M47.816 Spondylosis without myelopathy or radiculopathy, lumbar region (principal); M51.36 Other intervertebral disc degeneration, lumbar region; M79.18 Myalgia, other site
CPT/HCPCS: 99214

== ENCOUNTER → 2024-03-12 11:37 | Outpatient (BNVA) | payer OTHER, SELFPAY | PROVIDERS: PCP Family Medicine; Visit Provider Physical Medicine & Rehabilitation | DX: M47.816 Spondylosis without myelopathy or radiculopathy, lumbar region (principal); M51.36 Other intervertebral disc degeneration, lumbar region; M79.18 Myalgia, other site | CPT/HCPCS: 99212 ==

== ENCOUNTER → 2024-03-31 07:49 | Outpatient (REF) | payer OTHER, SELFPAY ==
--- NOTE | ~2024-03-31 | NM_ITS ---
Lexiscan Myocardial perfusion study Indication: Congestive heart failure, atrial fibrillation Technique: The patient was brought in for a Lexiscan perfusion study on 03/31/2024 and was injected 0.4 mg of Lexiscan intravenously. Within a minute of this injection 40 mCi of sestamibi was given intravenously. Images were obtained using the SPECT gamma camera interlaced with the gating device. Images were obtained in supine position. Resting perfusion study was performed on 04/01/2024. Patient was administered 40 mCi of sestamibi intravenously at rest. Images were then obtained in supine position. Images were processed with the software and compared side to side in short axis, horizontal long axis and vertical long axis views. Total DLP 115mGy-cm. Findings: Raw acquisition reviewed. The stress perfusion study showed markedly diminished tracer uptake in the basal inferior, inferior septal, septal wall up to the mid ventricle. There is also diminished tracer uptake in the distal part of inferior wall. There is improvement with CT attenuation correction and hence could've components of diaphragmatic attenuation artifact. The gated study shows globally reduced LV systolic function with calculated LVEF of 31%. LV cavity is dilated in size. The gated study shows globally reduced wall thickening and contraction of segments. Resting study shows reduced tracer uptake in the basal to mid inferior, inferoseptal wall similar to stress acquisition. There is also reduced tracer uptake along the inferior wall due to the apex. There is improvement with CT attenuation correction and hence could've components of diaphragmatic attenuation artifact. Gating at rest reveals globally reduced wall motion with ejection fraction at 26%. The findings are consistent with fixed inferior/inferoseptal perfusion defect most prominent in the base, but there is also mild fixed defect in a small area along the inferior wall extending to the apex. Could be all artifactual. No reversible defects. NC/NM cardiolite stress test Impression: 1. Myocardial perfusion imaging study shows no clear evidence of any ischemia. Fixed inferior/inferoseptal defect that could be related to diaphragmatic attenuation artifact. Less likely prior infarct. 2. Gated LVEF is 31% during stress and 26% during rest. 3. Transient ischemic dilatation not present. EKG component of the test reported separately.
--- NOTE | 2024-03-31 07:54 | CA_ITS ---
Acquisition Time: 2024-03-31 08:42:02 Total Exercise Time: 00:02:00 Test Indications: I50.9, Medications: SEE H Protocol: LEXISCAN Max HR: 086 BPM 53% of Pred: 162 BPM Max BP: 120/078 mmHG Max Work Load: 1.0 METS Pharmacological stress test with Lexiscan injection while sitting without anginal symptoms, without arrhythmias, with normotensive response to injection, with nondiagnositic EKGs. Nuclear image spending. Test reviewed with Dr. Arrieta Referred By: Ajit Arrieta Overread By: Monica Burgess
--- NOTE | 2024-03-31 07:54 | HM_ITS ---
* Total monitoring time 3 days. * Underlying rhythm is sinus. Average ventricular rate 70/Min. * Rare supraventricular ectopy. * Rare ventricular ectopy. * No significant pauses or AV blocks. * No patient markers or diary events. MTDD
== END ==
LOC: HO.CARD 07:49
PROVIDERS: PCP Family Medicine; Visit Provider Internal Medicine Cardiovascular Disease
DX: I50.9 Heart failure, unspecified (principal); I48.91 Unspecified atrial fibrillation; R40.0 Somnolence; R06.81 Apnea, not elsewhere classified
CPT/HCPCS: 78452; 93017; 93242; A9500; J0280; J2785

== ENCOUNTER → 2024-03-31 07:54 | Outpatient (BNV) | payer OTHER, SELFPAY | PROVIDERS: PCP Family Medicine; Visit Provider Nurse Practitioner | DX: I47.10 Supraventricular tachycardia, unspecified (principal) | CPT/HCPCS: 78452; 93016; 93018; 93244 ==

== ENCOUNTER → 2024-04-07 07:46 | Outpatient (REF) | payer OTHER, SELFPAY | LOC: HO.SL 07:46 | PROVIDERS: Visit Provider Internal Medicine Cardiovascular Disease | DX: R06.81 Apnea, not elsewhere classified (principal); I50.9 Heart failure, unspecified; I48.91 Unspecified atrial fibrillation; R40.0 Somnolence | CPT/HCPCS: 95806 ==

== ENCOUNTER → 2024-04-07 07:54 | Outpatient (BNV) | payer OTHER, SELFPAY | PROVIDERS: Visit Provider Internal Medicine | DX: G47.33 Obstructive sleep apnea (adult) (pediatric) (principal) | CPT/HCPCS: 95806 ==

== ENCOUNTER → 2024-04-14 07:41 | Outpatient (REF) | payer OTHER, SELFPAY ==
--- NOTE | 2024-04-14 07:44 | CA_ITS ---
Transthoracic Echocardiogram Patient (Last, First, Middle): Royce Thomas Gene, Gender: Male Date of : 1965 Age: 58 Procedure Date: 04/14/2024 Procedure Type: Transthoracic Echocardiogram Location: OP Height: 182.88 cm Weight: 117.94 kg BSA: 2.38 m2 Heart Rate: 59 bpm BP: 120 / 72 mmHg Supervisor Stave Cutting: JANEY Referring MD: Ajit Arrieta MD Symptoms: I42.9 - Cardiomyopathy, unspecified Study Quality: Fair but adequate apical images with contrast ECG Rhythm: Bradycardia Conclusions: - The left ventricular systolic function is severely decreased. The visually estimated ejection fraction is between 20-25%. - Suggestion of marked LV trabeculation towards apical portion; cannot exclude non-compaction. - Consider cardiac MRI for further evaluation. Findings Procedure Information Contrast agent, definity, is being given per protocol without apparent complications. The quality of the study was technically difficult. The study quality is limited by patients body habitus. Left Ventricle Mildly increased left ventricular cavity size. The left ventricular systolic function is severely decreased. The visually estimated ejection fraction is between 20-25%. Evidence suggests grade I (mild) diastolic dysfunction. Suggestion of marked LV trabeculation towards apical portion; cannot exclude non-compaction. Venous The inferior vena cava is normal in size and collapses less than 50% with inspiration. Prior Study Comparison Changes noted compared to prior study dated: 02/21/2024. Slight Improvement in LVEF. Measurements 2D Linear Measurements LVIDd: 5.90 3.9-5.3/4.2-5.9 cm LVIDd Index: 2.48 2.4-3.2/2.2-3.1 cm/m2 LVIDs: 5.32 2.0-3.6 cm LVOT Diam: 2.30 3.0+(-)1.3 cm 2D Systolic Function EF 4C: 34.90 >55% EF 2C: 37.50 >55% EF BiP: 34.40 >55% Mitral Valve MV Pk E: 0.52 MV PK A: 0.71 MV Decel Time: 197.00 E/A: 0.70 E'Lateral: 3.37 E'Medial: 3.26 E/E' Med: 16.00 E/E' Lat: 15.50 PHT: 58.00 MVA PHT: 3.79 Decel Lipscomb: 2.65 LVOT LVOT Pk Frederick: 1.06 LVOT Mn Frederick: 0.69 LVOT VTI: 0.19 LVOT Pk Grad: 4.00 LVOT Mn Grad: 2.00 LVOT Diam: 2.30 LVOT Area: 4.15 Diastolic Function MV Pk E: 0.52 MV Pk A: 0.71 E/A: 0.70 E'Medial: 3.26 E/E' Med: 16.00 E' Laterial: 3.37 E/E' Lat: 15.50 Updated in Other Vendor System with Status of Final Ken Sotelo MD electronically signed on 04/15/2024 3:35:00 PM with status of Final
== END ==
LOC: HO.CARD 07:41
PROVIDERS: PCP Family Medicine; Visit Provider Internal Medicine Cardiovascular Disease
DX: I42.9 Cardiomyopathy, unspecified (principal); I50.20 Unspecified systolic (congestive) heart failure
CPT/HCPCS: 93308; Q9957

== ENCOUNTER → 2024-04-14 07:44 | Outpatient (BNV) | payer OTHER, SELFPAY | PROVIDERS: PCP Family Medicine; Visit Provider Internal Medicine | DX: I51.89 Other ill-defined heart diseases (principal); R93.1 Abnormal findings on diagnostic imaging of heart and coronary circulation | CPT/HCPCS: 93308 ==

== ENCOUNTER 2024-04-16 08:38 | Outpatient (REF) | payer OTHER, SELFPAY ==
[2024-04-16 16:38] LABS: Anion Gap 12 (12-20); Blood Urea Nitrogen 19 mg/dL (9-16); Calcium 9.8 mg/dL (8.4-10.2); Carbon Dioxide 30 mmol/L (22-29); Chloride 103 mmol/L (96-108); Estimated Glomerular Filt Rate > 60; Glucose Random 138 mg/dL (60-115); Potassium 4.3 mmol/L (3.3-5.1); Sodium 141 mmol/L (135-145)
== END 2024-04-16 08:39 | disposition home or self-care (01) ==
LOC: HO.LAB 08:38
PROVIDERS: Absent Provider Internal Medicine Cardiovascular Disease; PCP Family Medicine; Visit Provider Physical Medicine & Rehabilitation
DX: I50.20 Unspecified systolic (congestive) heart failure (principal)
CPT/HCPCS: 36415; 80048; 93005

== ENCOUNTER 2024-04-16 13:06 | Outpatient (AMB) | payer OTHER, SELFPAY ==
--- NOTE | 2024-04-16 13:08 | A.OFFVIS_ITS ---
Vital Signs 04/16/24 13:10 Height 6 ft Weight 268 lb 15.423 oz BMI 36.5 BP 132/72 Blood Pressure Location Lt brachial Position Sitting Pulse 81 Pulse Source Monitor Intake Visit Reasons: f/up holter/sleep/ nuc/ echo Allergies lisinopril Allergy (Mild, Verified 03/12/24 11:42) Nausea and Vomiting Medication List - Last Reconciled 04/16/24 by Monica Burgess NP allopurinol 150 mg PO DAILY amiodarone 200 mg PO DAILY 90 days furosemide 20 mg See Protocol PO BID@0900,1800 metoprolol tartrate 12.5 mg (1/2 x 25 mg) PO BID nicotine 14 mg transdermal DAILY nicotine (polacrilex) 2 mg buccal Q2H PRN rivaroxaban (Xarelto) 20 mg PO DAILY valsartan 20 mg (1/2 x 40 mg) PO BID HPI Comments Details: 50-year-old male presents today for follow-up visit. He reports since his cardioversion on 02/23/2024 he has felt great. He had some testing and is following up for those results today. He has stopped smoking. He states he has gained some weight due to not being as active and eating more after quitting smoking. But denies any leg edema, abdominal distention, or shortness of breath. He denies any lightheadedness, syncope, bleeding concerns, or palpitations. [facility] Medical History (Updated 04/17/24 @ 08:34 by Monica Burgess NP) Abnormal echocardiogram Facet degeneration of lumbar region Paroxysmal atrial fibrillation Atrial fibrillation with RVR Acute congestive heart failure Heart failure with reduced ejection fraction HTN (hypertension) Lumbar spondylosis Myofascial pain Lumbar strain Social History Household Members: Family Housing: House Do you presently have visiting nurse or other home services: No Alcohol intake: current Alcohol intake frequency: a few times a week Patient Tobacco Use Status: Former Tobacco user Cigarette Packs Per Day: 0.5 Cigarettes Per Day: 10.0 service: No Current occupational status: employed 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/[employer] Review of Systems Const Denies weakness ENT Denies dizziness Card Denies chest pain, Denies chest pain with activity, Denies syncope, Denies rapid heart rate, Denies pedal edema, Denies edema, Denies leg edema, Denies li ghtheadedness, Denies palpitations, Denies dyspnea, Denies dyspnea on exertion and Denies orthopnea Resp Denies cough, Denies dyspnea and Denies dyspnea on exertion GI Denies hematochezia and Denies change in stool character Musc Denies abnormal gait, Denies muscle cramps, Denies muscle weakness, Denies numbness, Denies radiating pain into limb and Denies tingling Neuro Denies abnormal gait, Denies dizziness, Denies syncope, Denies numbness, Denies tingling and Denies weakness Endo Denies palpitations Physical Exam Vital Signs: Last Vital Signs Pulse 81 04/16/24 13:10 BP 132/72 04/16/24 13:10 BMI result Body Mass Index 36.5 Const General: healthy appearing and no acute distress Orientation/consciousness: patient oriented x3 HEENT Head: Yes normal to inspection Eyes General: appearance normal, both eyes and all related structures Neck Neck: Yes normal visual inspection Chest Chest palpation & inspection: normal inspection of the chest Resp Effort & Inspection: normal respiratory effort Auscultation: clear to auscultation bilaterally Cardio Jugular venous distension: no JVD Palpation: normal PMI Rate: regular rate Rhythm: regular rhythm Heart sounds: S1 normal heart sound present, S2 normal heart sound present, no click, no gallops, no murmurs and no rubs GI Inspection: Yes normal to inspection Palpation (GI): Soft to palpation Skin General skin exam: no rashes or lesions noted Neuro General: patient oriented x3 Extrem General: Yes normal to inspection Psych Appearance: grossly normal Office Procedures EKG Details: EKG today. Normal sinus rhythm. Left bundle branch block. Rate 68 beats per minute. QRS 147 MS. QTC 487 MS. VT 160 MS. [id number], Complete Results Reviewed Results Reviewed: Conclusions: - The left ventricular systolic function is severely decreased. The visually estimated ejection fraction is between 20-25%. - Suggestion of marked LV trabeculation towards apical portion; cannot exclude non-compaction. - Consider cardiac MRI for further evaluation. Holter: * Total monitoring time 3 days. * Underlying rhythm is sinus. Average ventricular rate 70/Min. * Rare supraventricular ectopy. * Rare ventricular ectopy. * No significant pauses or AV blocks. * No patient markers or diary events. NM/NM cardiolite stress test Impression: 1. Myocardial perfusion imaging study shows no clear evidence of any ischemia. Fixed inferior/inferoseptal defect that could be related to diaphragmatic attenuation artifact. Less likely prior infarct. 2. Gated LVEF is 31% during stress and 26% during rest. 3. Transient ischemic dilatation not present. Assessment & Plan Assessment & Plan (1) Abnormal echocardiogram: Code(s): R93.1 - Abnormal findings on diagnostic imaging of heart and coronary circulation Category: Medical (2) Paroxysmal atrial fibrillation: Code(s): I48.0 - Paroxysmal atrial fibrillation Category: Medical (3) HTN (hypertension): Code(s): I10 - Essential (primary) hypertension Category: Medical (4) SHAMA (obstructive sleep apnea): Code(s): G47.33 - Obstructive sleep apnea (adult) (pediatric) Category: Medical Plan Ramses back on 02/23/2024 showed EF of 15-20%. Most recent echocardiogram showed EF increased to 20-25%. There was a suggestion of marked LV trabeculation towards apical portion; cannot exclude non-compaction. Dr. Arrieta had just ordered MRI this morning. We will put in basic metabolic panel to obtain prior to MRI. Discussed with patient - he is agreeable. He is currently on Valsartan, Furosemide, and Metoprolol. Signs and symptoms of heart failure reviewed. He reports no recent palpitations. Holter monitor showed rhythm being sinus. EKG today shows sinus rhythm. He is on Xarelto 20 mg and Amiodarone. Advise exercise as tolerated. Avoidance of salt and monitoring dietary intake discussed. We will send for lab work today that was not completed for Dr. Arrieta. Sleep study showed obstructive sleep apnea of a moderately severe degree. Patient is okay with being referred to pulmonology. Discussed the benefits of CPAP use on the heart and body. Patient reports understanding. Orders: Orders Basic Metabolic Panel 1 Month I10 - Essential (primary) hypertension Medications: Changed From amiodarone Take 2 tabs (400mg) twice daily x 2 weeks, then take 200mg daily 90 tabs 0RF To amiodarone 200 mg PO DAILY 90 days 90 tabs 0RF Refilled amiodarone 200 mg PO DAILY 90 tabs 2RF 90 days Coding Level of Care Code Est Pt Level 4 (11995) Diagnoses Abnormal echocardiogram R93.1 Paroxysmal atrial fibrillation I48.0 HTN (hypertension) I10 SHAMA (obstructive sleep apnea) G47.33 CPT Codes EKG - CPT: 31298-[id number], Complete ([id number])
[2024-04-16 13:10] VITALS: BP 132/72; PULSE 81; BMI 36.5
== END 2024-04-16 14:03 | disposition home or self-care (01) ==
PROVIDERS: PCP Family Medicine; Visit Provider Nurse Practitioner
DX: R93.1 Abnormal findings on diagnostic imaging of heart and coronary circulation (principal); I48.0 Paroxysmal atrial fibrillation; I10 Essential (primary) hypertension; G47.33 Obstructive sleep apnea (adult) (pediatric)
CPT/HCPCS: 93010; 99214

== ENCOUNTER 2024-05-16 10:56 | Outpatient (AMB) | payer OTHER, SELFPAY ==
[2024-05-16 11:00] VITALS: BP 122/78; PULSE 63; O2SAT 95; BMI 37.8
--- NOTE | 2024-05-16 11:00 | MHC.OFFVIS ---
Vital Signs 05/16/24 11:00 Height 6 ft Weight 278 lb 14.156 oz BMI 37.8 BP 122/78 Blood Pressure Location Rt brachial Position Sitting Pulse 63 Pulse Source Doppler Pulse Oximetry (%) 95 Oxygen Delivery Method Room Air Intake Visit Reasons: nisha Allergies lisinopril Allergy (Mild, Verified 05/16/24 11:04) Nausea and Vomiting HPI HPI nisha: Details: 58-year-old gentleman with underlying obesity, AFib, and hypertension, also with recent diagnosis of moderate obstructive sleep apnea referred for management of his sleep apnea. Patient states that he normally sleeps 8-9 hours, but he has been observed to be gasping for air and snoring. He is interested in CPAP therapy. [facility] Medical History (Updated 04/17/24 @ 08:34 by Monica Burgess NP) Abnormal echocardiogram Facet degeneration of lumbar region Paroxysmal atrial fibrillation Atrial fibrillation with RVR Acute congestive heart failure Heart failure with reduced ejection fraction HTN (hypertension) Lumbar spondylosis Myofascial pain Lumbar strain Social History Household Members: Family Housing: House Do you presently have visiting nurse or other home services: No Alcohol intake: current Alcohol intake frequency: a few times a week Patient Tobacco Use Status: Former Tobacco user Cigarette Packs Per Day: 0.5 Cigarettes Per Day: 10.0 service: No Current occupational status: employed 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/[employer] Review of Systems Const Denies daytime sleepiness, Denies excessive sweating, Denies fatigue, Denies fever(s), Denies lethargy, Denies malaise, Denies night sweats, Denies snoring and Denies weight loss Eyes Denies blurry vision and Denies itchy eyes ENT Denies nasal congestion, Denies post nasal drip, Denies sinus pain, Denies sinus pressure and Denies other ( Thrush) Card Denies chest pain, Denies pedal edema, Denies dyspnea, Denies orthopnea and Denies paroxysmal nocturnal dyspnea Resp Denies cough, Denies hemoptysis, Denies excessive phlegm production, Denies dyspnea, Denies snoring and Denies wheezing GI Denies abdominal pain and Denies heartburn Musc Denies myalgias, Denies arthralgias and Denies joint swelling Skin/Breast Denies rash Neuro Denies memory loss and Denies seizure-like activity Psych Denies abnormal sleep pattern, Denies anxiety and Denies memory loss Endo Denies excessive sweating, Denies fatigue and Denies heat intolerance Alexis/Lymph Denies easy bruising Aller/Immun Denies itchy eyes, Denies seasonal rhinorrhea and Denies wheezing Physical Exam Vital Signs: Last Vital Signs Pulse 63 05/16/24 11:00 BP 122/78 05/16/24 11:00 Pulse Ox 95 05/16/24 11:00 Oxygen Delivery Method Room Air 05/16/24 11:00 BMI result Body Mass Index 37.8 Const General: no acute distress and alert Nutritional Appearance: obese Orientation/consciousness: Other orientation findings ( oriented) HEENT Head: Yes atraumatic Eyes General: appearance normal, both eyes and all related structures Sclerae: sclerae normal EOM: EOMs intact bilaterally Neck Neck: Yes supple Lymphatic: no lymphadenopathy noted Resp Effort & Inspection: normal respiratory effort and no use of accessory muscles Cardio Rate: regular rate Rhythm: regular rhythm Heart sounds: no gallops, no murmurs and no rubs Skin General skin exam: other ( warm) Extrem General: No clubbing, No cyanosis and No edema Assessment & Plan Assessment & Plan (1) NISHA (obstructive sleep apnea): Code(s): G47.33 - Obstructive sleep apnea (adult) (pediatric) Category: Medical Plan: Moderate obstructive sleep apnea with AHI of 26. Will start on APAP of 6-16 cm of water. Coding Level of Care Code New Pt Level 3 (25187) Diagnoses NISHA (obstructive sleep apnea) G47.33
== END 2024-05-16 11:22 | disposition home or self-care (01) ==
PROVIDERS: PCP Family Medicine; Visit Provider Internal Medicine Pulmonary Disease
DX: G47.33 Obstructive sleep apnea (adult) (pediatric) (principal)
CPT/HCPCS: 99203

== ENCOUNTER → 2024-05-16 10:56 | Outpatient (BNVA) | payer OTHER, SELFPAY | PROVIDERS: PCP Family Medicine; Visit Provider Internal Medicine Pulmonary Disease ==

== ENCOUNTER 2024-08-05 12:57 | Outpatient (AMB) | payer OTHER, SELFPAY ==
--- NOTE | 2024-08-05 13:20 | A.OFFVIS_ITS ---
Vital Signs 08/05/24 13:22 Height 6 ft Weight 282 lb 3.067 oz BMI 38.3 BP 130/80 Blood Pressure Location Lt brachial Position Sitting Pulse 69 Intake Visit Reasons: f/up cardiac mri/ ref pulmo/ labs Intake Note: Follow-up with ekg and pulmonary ref cardiac MRI is 08/15 using the CPAP now Clinical Account Executive Required: No Certified Registered Locksmith: Certified Registered Locksmith Present Accompanied by: Spouse Allergies lisinopril Allergy (Mild, Verified 05/16/24 11:04) Nausea and Vomiting Medication List - Last Reconciled 08/05/24 by Ajit Arrieta MD allopurinol 150 mg PO DAILY amiodarone 200 mg PO DAILY 90 days furosemide 20 mg See Protocol PO BID@0900,1800 metoprolol tartrate 12.5 mg (1/2 x 25 mg) PO BID nicotine 14 mg transdermal DAILY nicotine (polacrilex) 2 mg buccal Q2H PRN rivaroxaban (Xarelto) 20 mg PO DAILY valsartan 20 mg (1/2 x 40 mg) PO BID HPI Comments Details: Orville comes for follow-up. Still awaiting cardiac MRI which is scheduled in the next couple weeks at [facility]. He had recent blood work which was concerning although I do not have a copy of the blood test results. He said he has been doing overall well. He has not had any significant worsening shortness of breath, orthopnea, PND, leg swelling. However he says he has been gaining weight despite eating better diet. He denies any prolonged palpitation irregular heartbeat. No lightheadedness, syncope. Blood pressure is well controlled. He denies any bleeding issues or neurologic events. Recently started on CPAP therapy. [facility] Medical History Abnormal echocardiogram Facet degeneration of lumbar region Paroxysmal atrial fibrillation Atrial fibrillation with RVR Acute congestive heart failure Heart failure with reduced ejection fraction HTN (hypertension) Lumbar spondylosis Myofascial pain Lumbar strain Social History Household Members: Family Housing: House Do you presently have visiting nurse or other home services: No Alcohol intake: current Alcohol intake frequency: a few times a week Patient Tobacco Use Status: Former Tobacco user Cigarette Packs Per Day: 0.5 Cigarettes Per Day: 10.0 service: No Current occupational status: employed 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/[employer] Const Denies chills, Denies fatigue, Denies fever(s), Denies frequent falls, Denies weakness, Denies weight gain and Denies weight loss ENT Denies dizziness Card Denies chest pain, Denies leg edema, Denies lightheadedness, Denies palpitations, Denies dyspnea, Denies dyspnea on exertion, Denies orthopnea and Denies other (loss of consciousness) Resp Denies cough, Denies dyspnea and Denies dyspnea on exertion GI Denies hematochezia and Denies change in stool character Musc Denies abnormal gait, Denies muscle weakness, Denies numbness, Denies radiating pain into limb and Denies tingling Neuro Denies abnormal gait, Denies dizziness, Denies frequent falls, Denies numbness, Denies tingling and Denies weakness Endo Denies fatigue and Denies palpitations Physical Exam Vital Signs: Last Vital Signs Pulse 69 08/05/24 13:22 BP 130/80 08/05/24 13:22 BMI result Body Mass Index 38.3 Const General: cooperative, comfortable, no acute distress, alert, awake and Physically active Nutritional Appearance: obese Orientation/consciousness: patient oriented x3 Limitations: no limitations Neck Neck: Yes trachea midline, Yes supple and Yes no JVD Resp Effort & Inspection: normal respiratory effort Auscultation: clear to auscultation bilaterally Cardio Jugular venous distension: no JVD Palpation: abnormal PMI displaced PMI Rate: regular rate Rhythm: regular rhythm Heart sounds: S1 normal heart sound present, S2 normal heart sound present, no click, no gallops, no murmurs and no rubs GI Auscultation: normal bowel sounds Skin General skin exam: no rashes or lesions noted Neuro General: patient oriented x3 and no focal motor deficits Extrem General: Yes no clubbing, cyanosis or edema Psych Appearance: grossly normal Office Procedures EKG Details: EKG shows normal sinus rhythm with left bundle-branch block at 69 beats per minute [id number], Complete Assessment & Plan Assessment & Plan (1) Heart failure with reduced ejection fraction: Code(s): I50.20 - Unspecified systolic (congestive) heart failure Category: Medical Plan: Heart failure with reduced ejection fraction with severe LV systolic dysfunction with dilated LV, with underlying left bundle-branch block. Nonischemic cardiomyopathy without any signs or symptoms of heart failure. He is currently on suboptimal guideline based medical therapy. Would suggest to start Entresto therapy. Advised to monitor blood pressure at home maintain a log. Follow-up BNP in 2-4 weeks. Continue metoprolol therapy can not maximize it due to slower heart rate in the past related to amiodarone therapy. Continue current diuretic regimen. Daily weight monitoring avoidance of salt loading was discussed. Can add additional guideline based medical therapy after he tolerates current change in therapy. He has persistent cardiomyopathy and will see if this is improved with CPAP therapy. Upcoming cardiac MRI will further elucidate his LV ejection fraction. If he has persistent severe LV systolic dysfunction would consider cardiac resynchronization therapy given his baseline left bundle-branch block. This was discussed with her including risk, benefits, alternatives. Understands and agrees. He has done well with his heart failure syndrome with rhythm management will continue to pursue rhythm control approach. (2) Paroxysmal atrial fibrillation: Code(s): I48.0 - Paroxysmal atrial fibrillation Category: Medical Plan: Paroxysmal atrial fibrillation which is currently suppressed on amiodarone therapy. Continue aggressively rhythm control approach which has overall helped his heart failure syndrome. Will continue amiodarone for now and eventually pursue alternative strategies such as catheter ablation with an alternative antiarrhythmic drug therapy if needed. Continue aggressive weight loss program. Given his borderline elevated sugars as well as persistent with gain, would suggest him to be started on GLP 1 antagonist, have taken the liberty to prescribe Ozempic to help with weight loss program which should help with reduction in recurrent atrial fibrillation. Continue CPAP therapy. Follow up in the clinic in 3 months time, sooner p.r.n.. Greater than 40 minutes was spent in managing his complex care. Medications: New semaglutide (Ozempic) for 4 weeks 0.25 mg (0.368 mL) subcut QWEEK 3 mL 2RF sacubitril-valsartan 24-26 mg (Entresto) 1 tab PO BID 60 tabs 1RF Discontinued valsartan Discontinued Reason: Doctor's Order 20 mg (1/2 x 40 mg) PO BID 60 tabs 2RF Coding Level of Care Code Est Pt Level 5 (27327) Complex EM visit Add On G2211 Diagnoses Heart failure with reduced ejection fraction I50.20 Paroxysmal atrial fibrillation I48.0 CPT Codes EKG - CPT: 82788-[id number], Complete ([id number])
[2024-08-05 13:22] VITALS: BP 130/80; PULSE 69; BMI 38.3
== END 2024-08-05 13:52 | disposition home or self-care (01) ==
PROVIDERS: PCP Family Medicine; Visit Provider Internal Medicine Cardiovascular Disease
DX: I50.20 Unspecified systolic (congestive) heart failure (principal); I48.0 Paroxysmal atrial fibrillation; I44.7 Left bundle-branch block, unspecified; R94.31 Abnormal electrocardiogram [ECG] [EKG]
CPT/HCPCS: 93010; 99215

== ENCOUNTER → 2024-08-05 12:57 | Outpatient (BNVA) | payer OTHER, SELFPAY | PROVIDERS: PCP Family Medicine; Visit Provider Internal Medicine Cardiovascular Disease | DX: I50.20 Unspecified systolic (congestive) heart failure (principal); I48.0 Paroxysmal atrial fibrillation; Z79.899 Other long term (current) drug therapy | CPT/HCPCS: 93005 ==

== ENCOUNTER 2024-08-12 10:04 | Outpatient (AMB) | payer OTHER, SELFPAY ==
--- NOTE | 2024-08-12 10:10 | MHC.OFFVIS ---
Vital Signs 08/12/24 10:11 Height 6 ft Weight 283 lb 4.704 oz BMI 38.4 BP 160/86 H Blood Pressure Location Lt brachial Position Sitting Pulse 65 Pulse Source Doppler Pulse Oximetry (%) 96 Oxygen Delivery Method Room Air Intake Visit Reasons: Obstructive sleep apnea Allergies lisinopril Allergy (Mild, Verified 05/16/24 11:04) Nausea and Vomiting HPI HPI Obstructive sleep apnea: Details: 58-year-old gentleman with underlying obesity, AFib, and hypertension, followed for moderate obstructive sleep apnea, now well controlled on CPAP therapy. ON LICENSE OF [facility] Medical History Abnormal echocardiogram Facet degeneration of lumbar region Paroxysmal atrial fibrillation Atrial fibrillation with RVR Acute congestive heart failure Heart failure with reduced ejection fraction HTN (hypertension) Lumbar spondylosis Myofascial pain Lumbar strain Social History Household Members: Family Housing: House Do you presently have visiting nurse or other home services: No Alcohol intake: current Alcohol intake frequency: a few times a week Patient Tobacco Use Status: Former Tobacco user Cigarette Packs Per Day: 0.5 Cigarettes Per Day: 10.0 service: No Current occupational status: employed 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/[employer] Review [employer] Systems Const Denies daytime sleepiness, Denies excessive sweating, Denies fatigue, Denies fever(s), Denies lethargy, Denies malaise, Denies night sweats, Denies snoring and Denies weight loss Eyes Denies blurry vision and Denies itchy eyes ENT Denies nasal congestion, Denies post nasal drip, Denies sinus pain, Denies sinus pressure and Denies other ( Thrush) Card Denies chest pain, Denies pedal edema, Denies dyspnea, Denies orthopnea and Denies paroxysmal nocturnal dyspnea Resp Denies cough, Denies hemoptysis, Denies excessive phlegm production, Denies dyspnea, Denies snoring and Denies wheezing GI Denies abdominal pain and Denies heartburn Musc Denies myalgias, Denies arthralgias and Denies joint swelling Skin/Breast Denies rash Neuro Denies memory loss and Denies seizure-like activity Psych Denies abnormal sleep pattern, Denies anxiety and Denies memory loss Endo Denies excessive sweating, Denies fatigue and Denies heat intolerance Alexis/Lymph Denies easy bruising Aller/Immun Denies itchy eyes, Denies seasonal rhinorrhea and Denies wheezing Physical Exam Vital Signs: Last Vital Signs Pulse 65 08/12/24 10:11 BP 160/86 H 08/12/24 10:11 Pulse Ox 96 08/12/24 10:11 Oxygen Delivery Method Room Air 08/12/24 10:11 BMI result Body Mass Index 38.4 Const General: no acute distress and alert Nutritional Appearance: obese Orientation/consciousness: Other orientation findings ( oriented) HEENT Head: Yes atraumatic Eyes General: appearance normal, both eyes and all related structures Sclerae: sclerae normal EOM: EOMs intact bilaterally Neck Neck: Yes supple Lymphatic: no lymphadenopathy noted Resp Effort & Inspection: normal respiratory effort and no use of accessory muscles Auscultation: clear to auscultation bilaterally Cardio Rate: regular rate Rhythm: regular rhythm Heart sounds: no gallops, no murmurs and no rubs Skin General skin exam: other ( warm) Extrem General: No clubbing, No cyanosis and No edema Assessment & Plan Assessment & Plan (1) SHAMA (obstructive sleep apnea): Code(s): G47.33 - Obstructive sleep apnea (adult) (pediatric) Category: Medical Plan: Therapy and compliance report reviewed - patient is benefitting from and is compliant with noninvasive positive pressure ventilation treatment, using it greater than 70% of the time, more than 4 hours per night. Well controlled on current CPAP therapy. Continue CPAP therapy. Coding Level of Care Code Est Pt Level 3 (41325) Diagnoses SHAMA (obstructive sleep apnea) G47.33
[2024-08-12 10:11] VITALS: BP 160/86; PULSE 65; O2SAT 96; BMI 38.4
== END 2024-08-12 10:24 | disposition home or self-care (01) ==
PROVIDERS: PCP Family Medicine; Visit Provider Internal Medicine Pulmonary Disease
DX: G47.33 Obstructive sleep apnea (adult) (pediatric) (principal)
CPT/HCPCS: 99213

== ENCOUNTER → 2024-08-12 10:04 | Outpatient (BNVA) | payer OTHER, SELFPAY | PROVIDERS: PCP Family Medicine; Visit Provider Internal Medicine Pulmonary Disease ==

== ENCOUNTER 2024-11-25 10:29 | Outpatient (AMB) | payer OTHER, SELFPAY ==
[2024-11-25 10:42] VITALS: BP 130/78; PULSE 61; BMI 36.8
--- NOTE | 2024-11-25 10:42 | A.OFFVIS_ITS ---
Vital Signs 11/25/24 10:42 Height 6 ft Weight 271 lb 2.697 oz BMI 36.8 BP 130/78 Blood Pressure Location Lt brachial Position Sitting Pulse 61 Pulse Source Monitor Intake Visit Reasons: 3 mth f/up Allergies lisinopril Allergy (Mild, Verified 05/16/24 11:04) Nausea and Vomiting Medication List - Last Reconciled 11/25/24 by Ajit Arrieta MD allopurinol 150 mg PO DAILY amiodarone 200 mg PO DAILY 90 days atorvastatin 40 mg PO DAILY furosemide 20 mg PO BID metoprolol tartrate 12.5 mg (1/2 x 25 mg) PO BID nicotine 14 mg transdermal DAILY nicotine (polacrilex) 2 mg buccal Q2H PRN rivaroxaban (Xarelto) 20 mg PO DAILY sacubitril-valsartan 24-26 mg (Entresto) 1 tab PO BID semaglutide (Ozempic) 0.25 mg (0.368 mL) subcut QWEEK HPI Comments Details: Orville comes for follow-up, accompanied by his . He has been feeling very well. 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 Overall he feels well. He has not had any. No orthopnea, PND, leg edema. He has been exercising more and also lifestyle modification losing some weight. Taking all his medications. No lightheadedness, syncope. Blood pressure is better optimized. He has not noted any irregular heartbeat or rapid heart rate. However he was not sure that he is aware of atrial fibrillation all the time. He is not doing his EKGs on a regular basis. No bleeding issues or neurologic events. No lightheadedness, syncope. Uses CPAP regularly. [facility] Medical History Abnormal echocardiogram Facet degeneration of lumbar region Paroxysmal atrial fibrillation Atrial fibrillation with RVR Acute congestive heart failure Heart failure with reduced ejection fraction HTN (hypertension) Lumbar spondylosis Myofascial pain Lumbar strain Social History Household Members: Family Housing: House Do you presently have visiting nurse or other home services: No Alcohol intake: current Alcohol intake frequency: a few times a week Patient Tobacco Use Status: Former Tobacco user Cigarette Packs Per Day: 0.5 Cigarettes Per Day: 10.0 service: No Current occupational status: employed 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/[employer] Review [employer] Systems Const Denies weakness ENT Denies dizziness Card Denies chest pain, Denies chest pain with activity, Denies syncope, Denies rapid heart rate, Denies pedal edema, Denies edema, Denies leg edema, Denies lightheadedness, Denies palpitations, Denies dyspnea, Denies dyspnea on exertion and Denies orthopnea Resp Denies cough, Denies dyspnea and Denies dyspnea on exertion GI Denies hematochezia and Denies change in stool character Musc Denies abnormal gait, Denies muscle cramps, Denies muscle weakness, Denies numbness, Denies radiating pain into limb and Denies tingling Neuro Denies abnormal gait, Denies dizziness, Denies syncope, Denies numbness, Denies tingling and Denies weakness Endo Denies palpitations Physical Exam Vital Signs: Last Vital Signs Pulse 61 11/25/24 10:42 BP 130/78 11/25/24 10:42 BMI result Body Mass Index 36.8 Const General: cooperative, comfortable, no acute distress, alert, awake and Physically active Nutritional Appearance: obese Orientation/consciousness: patient oriented x3 Limitations: no limitations Neck Neck: Yes trachea midline, Yes supple and Yes no JVD Resp Effort & Inspection: normal respiratory effort Auscultation: clear to auscultation bilaterally Cardio Jugular venous distension: no JVD Palpation: abnormal PMI displaced PMI Rate: regular rate Rhythm: regular rhythm Heart sounds: S1 normal heart sound present, S2 normal heart sound present, no click, no gallops, no murmurs and no rubs GI Auscultation: normal bowel sounds Skin General skin exam: no rashes or lesions noted Neuro General: patient oriented x3 and no focal motor deficits Extrem General: Yes no clubbing, cyanosis or edema Psych Appearance: grossly normal Office Procedures EKG Details: EKG shows normal sinus rhythm with left bundle-branch block at 61 beats per minute [id number], Complete Assessment & Plan Assessment & Plan (1) Heart failure with reduced ejection fraction: Code(s): I50.20 - Unspecified systolic (congestive) heart failure Category: Medical Plan: Heart failure with reduced ejection fraction with recent MRI showing improved LV ejection fraction. Clinically his heart failure syndrome has improved significantly. Will further uptitrate Entresto to 49-51 mg b.i.d.. Advised to monitor blood pressure at home maintain a log. BMP next week. Continue current amiodarone as well as metoprolol therapy. Can not uptitrate metoprolol due to lower heart rate. Continue current diuretic dose. Daily weight monitoring avoidance salt loading was discussed. Heart failure management discussed. Continue CPAP therapy. Continue rhythm control approach. Will follow-up echocardiogram in near future to assess improvement in LV ejection fraction. Given overall improvement LV ejection fraction will hold off on ICD placement at this point time, depends on the repeat LV ejection fraction by echocardiogram. (2) Paroxysmal atrial fibrillation: Code(s): I48.0 - Paroxysmal atrial fibrillation Category: Medical Plan: Paroxysmal atrial fibrillation which has remained suppressed on amiodarone therapy. Has derived significant clinical benefit. Continue rhythm control approach. Will refer him to EPS for ablation at this point time. Eventually will most likely still require antiarrhythmic drug therapy to maintain rhythm. Continue full oral anticoagulation, currently on Xarelto 20 mg daily. Semi annual renal function test should be performed. Will follow up in the clinic in 3 months time, sooner p.r.n.. Thank you for allowing me to partake in his care Orders: Orders [facility] Today I42.9 - Cardiomyopathy, unspecified, I50.20 - Unspecified systolic (congestive) heart failure Referrals Cardiac Electrophysiology Referral I48.0 - Paroxysmal atrial fibrillation Medications: New sacubitril-valsartan 49-51 mg (Entresto) 1 tab PO BID 60 tabs 5RF Discontinued sacubitril-valsartan 24-26 mg (Entresto) Discontinued Reason: Doctor's Order 1 tab PO BID 60 tabs 5RF Coding Level of Care Code Est Pt Level 4 (02324) Complex EM visit Add On G2211 Diagnoses Heart failure with reduced ejection fraction I50.20 Paroxysmal atrial fibrillation I48.0 CPT Codes EKG - CPT: 81824-[id number], Complete ([id number])
--- OUTSIDE RECORDS SUMMARY | 2024-11-25 12:24 | XMS_ITS | Data Portability ---
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 Plan of Treatment Reminders Order Date Submit Date Provider Last Modified By Organization Details Last Modified Time Details Appointments LAB Follow-Up 2024 06:50A M [facility] Lab Not available Not available Not available Medical Managemen t 15 2024 08:00A M David Plunkett MD Not available Not available Not available NOAC Phone Call 2024 02:00P M [facility] Not available Not available Not available Lab HbA1c (hemoglob in A1c), blood 2024 025 [facility], [address] [place] [address], [address], 11/17/2024 03:02:06 BMP, serum or plasma 2024 025 [facility], [address] [place] [address], [address], 11/17/2024 03:02:06 lipid panel, serum 2024 025 [facility], [address] [place] [address], [address], 11/17/2024 03:02:07 Referral cardiolog ist referral - new onset AFIB, hx alcohol use. 2023 024 NII Arrieta, [address] [place] [address], [place], [address], 03/04/2024 23:30:17 Procedures colonosco py procedure (PROC) 2023 025 [email or web address], [address], [place], [address], 09/05/2024 10:20:19 trans-tho racic echocardi ogram (TTE) (PROC) - New onset AFIB [email or web address] [place] [address] [facility], [address], [place], [address], 07/10/2024 08:32:34 trans-tho racic echocardi ogram (TTE) (PROC) 2023 024 TINA Daly, [address], [address], [place], [address], 01/25/2024 10:40:42 Surgeries None recorded. Imaging electroca rdiogram 2023 024 [facility], [address], [place], [address], 01/25/2024 13:38:19 XR, chest 2023 024 [facility] ([facility]), [address], [place], [address], 01/25/2024 09:58:13 Medication Orders Ozempic 0.25 mg or 0.5 mg (2 mg/1.5 mL) subcutane ous pen injector 2024 025 [facility]/Pharmacy #2024, [address] [place], [address], 09/05/2024 08:49:10 metoprolo l succinate ER 25 mg tablet,ex tended release 24 hr 2023 024 [facility]/Pharmacy #2024, [address] [place], [address], 09/05/2024 08:46:42 metoprolo l succinate ER 25 mg tablet,ex tended release 24 hr 2023 024 [facility]/Pharmacy #5, [address] [place], [address], 09/05/2024 08:46:42 Xarelto 20 mg tablet 2023 024 [facility]/Pharmacy #2024, [address] [place], [address], 01/25/2024 09:15:04 Patient TargetsNo targets recorded. Patient Instructions Encounter Date Encounter Id Patient Instructions Last Modified By Organization Details Last Modified Time 03/07/2024 [id number] I am aware of e inpatient facility discharge medications, the medication list above has been reconciled with those medications and reflects my understanding of an up to date medication list for this patient. Not available 03/07/2024 10:17:30 Reason for Referral Waxer Tender Referral for At rial fibrillation new onset AFIB, hx alcohol use. Referring Physician: David Plunkett, Family Medicine, Encounter Date: 02/08/2024 Results Created Date Observation Date Name Description Value Unit Range Abnormal Flag Note LastModifiedBy Organization Detail LastModifiedTime 10/18/19 24 10/18/2023 HGB A1C hemoglobin A1C 6.4 % 4.8-6. 0 high Goal: <7% in Patie nts with Diabe jean marie An A1c betwe en 5.7-6 .4% is ident ified as pre-d iabet es and sugge sts risk for progr essio n to diabe jean marie Two a1c value s of 6.5% or highe r is consi stent with a diagn osis of diabe jean marie but may need furth er confi rmati on Not Available [address], [address], 10/18/2023 09:20:17 10/18/19 24 10/18/2023 HGB A1C estimated average glucose 137.0 mg/dL Not Available [address], [address], 10/18/2023 09:20:17 10/18/19 24 10/18/2023 MICRO ALBUM IN/CR EATIN INE RATIO PANEL , URINE microalbumin 15.3 mg/L 1.3-20 .0 Not Available [address], [address], 10/18/2023 09:21:59 10/18/19 24 10/18/2023 MICRO ALBUM IN/CR EATIN INE RATIO PANEL , URINE creatinine urine 144.1 mg/dL 30.0-1 25.0 high Not Available [address], [address], 10/18/2023 09:21:59 10/18/19 24 10/18/2023 MICRO ALBUM IN/CR EATIN INE RATIO PANEL , URINE microalb/cre at ratio 10.6 mg/g_ creat 0.0-29 .0 Not Available [address], [address], 10/18/2023 09:21:59 10/18/19 24 10/18/2023 COMP. METAB OLIC PANEL glucose 136 mg/dL 70-100 high Not Available [address], [address], 10/18/2023 10:29:29 10/18/19 24 10/18/2023 COMP. METAB OLIC PANEL BUN 14 mg/dL 7-18 Not Available [address], [address], 10/18/2023 10:29:29 10/18/19 24 10/18/2023 COMP. METAB OLIC PANEL creatinine 1.0 mg/dL 0.8-1. 3 Not Available [address], [address], 10/18/2023 10:29:29 10/18/19 24 10/18/2023 COMP. METAB OLIC PANEL B/C 14.0 ratio Not Available [address], [address], 10/18/2023 10:29:29 10/18/19 24 10/18/2023 COMP. METAB OLIC PANEL GFR >=60ML /MIN mL/mi n normal >=60m L/min - Olinda l or midly reduc ed <60mL /min- Decre ased kidne y funct ion <15mL /min - Kidne y failu re [facility] calcu lates estim ated Glome rular Filtr ation Rate (eGFR ) using the Chron ic Kidne y Disea se Epide miolo gy Colla borat ion (CKD- EPI) Equat ion (Nancy stout et. al 2020) as recom ofelia d by the Natio nal Kidne y Found ation . eGFR is based on age, serum creat inine , and sex. CKD-E PI does not calcu late eGFR by race, does not apply to child hannah (age <18 years ), and shoul d not be used in pregn alejandro. Not Available [address], [address], 10/18/2023 10:29:29 10/18/19 24 10/18/2023 COMP. METAB OLIC PANEL sodium 138 mmol/ L 136-14 5 Not Available [address], [address], 10/18/2023 10:29:29 10/18/19 24 10/18/2023 COMP. METAB OLIC PANEL potassium 4.6 mmol/ L 3.5-5. 1 Not Available [address], [address], 10/18/2023 10:29:29 10/18/19 24 10/18/2023 COMP. METAB OLIC PANEL chloride 99 mmol/ L 96-107 Not Available [address], [address], 10/18/2023 10:29:29 10/18/19 24 10/18/2023 COMP. METAB OLIC PANEL anion gap 7.8 5.0-15 .0 Not Available [address], [address], 10/18/2023 10:29:29 10/18/19 24 10/18/2023 COMP. METAB OLIC PANEL CO2 31 mmol/ L 21-32 Not Available [address], [address], 10/18/2023 10:29:29 10/18/19 24 10/18/2023 COMP. METAB OLIC PANEL calcium 9.2 mg/dL 8.5-10 .3 Not Available [address], [address], 10/18/2023 10:29:29 10/18/19 24 10/18/2023 COMP. METAB OLIC PANEL total protein 6.8 g/dL 6.4-8. 2 Not Available [address], [address], 10/18/2023 10:29:29 10/18/19 24 10/18/2023 COMP. METAB OLIC PANEL albumin 3.4 g/dL 3.4-5. 0 Not Available [address], [address], 10/18/2023 10:29:29 10/18/19 24 10/18/2023 COMP. METAB OLIC PANEL globulin 3.4 g/dL Not Available [address], [address], 10/18/2023 10:29:29 10/18/19 24 10/18/2023 COMP. METAB OLIC PANEL A/G 1.0 ratio 0.8-2. 0 Not Available [address], [address], 10/18/2023 10:29:29 10/18/19 24 10/18/2023 COMP. METAB OLIC PANEL total bilirubin 0.50 mg/dL 0.00-1 .00 Not Available [address], [address], 10/18/2023 10:29:29 10/18/19 24 10/18/2023 COMP. METAB OLIC PANEL AST 45 U/L 0-37 high Not Available [address], [address], 10/18/2023 10:29:29 10/18/19 24 10/18/2023 COMP. METAB OLIC PANEL ALT 93 U/L 6-63 high Not Available [address], [address], 10/18/2023 10:29:29 10/18/19 24 10/18/2023 COMP. METAB OLIC PANEL alk. phos. 81 U/L 50-136 Not Available [address], [address], 10/18/2023 10:29:29 10/18/19 24 10/18/2023 LIPID PANEL cholesterol 227 mg/dL <200 mg/dl Elaina able 200-2 39 mg/dl Borde rline High >240 mg/dl High Not Available [address], [address], 10/18/2023 10:29:30 10/18/19 24 10/18/2023 LIPID PANEL triglyceride s 72 mg/dL <150 mg/dL Olinda l 150-1 99 mg/dL Borde rline High 200-4 99 mg/dL High >500 mg/dL Very High Not Available [address], [address], 10/18/2023 10:29:30 10/18/19 24 10/18/2023 LIPID PANEL direct HDL 45 mg/dL <40 mg/dl - Major Risk for CHD >60 mg/dl - Negat tanesha Risk for CHD Not Available [address], [address], 10/18/2023 10:29:30 10/18/19 24 10/18/2023 URIC ACID uric acid 3.4 mg/dL 3.5-7. 2 low Not Available [address], [address], 10/18/2023 10:29:31 10/18/19 24 10/18/2023 LDL - CALCU LATED LDL - calculated 167.6 RISK CATEG ORY LDL GOAL _ CHD or CHD Risk Equiv alent s <100 mg/dl (10-y ear risk >20%) 2+ Risk Facto rs <130 mg/dl (10-y ear risk <= 20%) 0-1 Risk Facto r? <160 mg/dl ? Almos t all peopl e with 0-1 risk facto r have a 10 year risk <10%, thus 10 year risk asses ment in peopl e with 0-1 risk facto r is not neces yaw. Not Available [address], [address], 10/18/2023 10:29:32 01/17/20 24 01/17/2024 HGB A1C hemoglobin A1C 6.3 % 4.8-6. 0 high Goal: <7% in Patie nts with Diabe jean marie An A1c betwe en 5.7-6 .4% is ident ified as pre-d iabet es and sugge sts risk for progr essio n to diabe jean marie Two a1c value s of 6.5% or highe r is consi stent with a diagn osis of diabe jean marie but may need furth er confi rmati on Not Available [address], [address], 01/17/2024 09:09:36 01/17/20 24 01/17/2024 HGB A1C estimated average glucose 134.1 mg/dL Not Available [address], [address], 01/17/2024 09:09:36 01/17/20 24 01/17/2024 COMP. METAB OLIC PANEL glucose 140 mg/dL 70-100 high Not Available [address], [address], 01/17/2024 10:27:13 01/17/20 24 01/17/2024 COMP. METAB OLIC PANEL BUN 13 mg/dL 7-18 Not Available [address], [address], 01/17/2024 10:27:13 01/17/20 24 01/17/2024 COMP. METAB OLIC PANEL creatinine 1.0 mg/dL 0.8-1. 3 Not Available [address], [address], 01/17/2024 10:27:13 01/17/20 24 01/17/2024 COMP. METAB OLIC PANEL B/C 13.0 ratio Not Available [address], [address], 01/17/2024 10:27:13 01/17/20 24 01/17/2024 COMP. METAB OLIC PANEL GFR >=60ML /MIN mL/mi n normal >=60m L/min - Olinda l or midly reduc ed <60mL /min- Decre ased kidne y funct ion <15mL /min - Kidne y failu re [facility] calcu lates estim ated Glome rular Filtr ation Rate (eGFR ) using the Chron ic Kidne y Disea se Epide miolo gy Colla borat ion (CKD- EPI) Equat ion (Maciee r et. al 2020) as recom ofelia d by the Natio nal Kidne y Found ation . eGFR is based on age, serum creat inine , and sex. CKD-E PI does not calcu late eGFR by race, does not apply to child hannah (age <18 years ), and shoul d not be used in pregn alejandro. Not Available [address], [address], 01/17/2024 10:27:13 01/17/20 24 01/17/2024 COMP. METAB OLIC PANEL sodium 135 mmol/ L 136-14 5 low Not Available [address], [address], 01/17/2024 10:27:13 01/17/20 24 01/17/2024 COMP. METAB OLIC PANEL potassium 4.3 mmol/ L 3.5-5. 1 Not Available [address], [address], 01/17/2024 10:27:13 01/17/20 24 01/17/2024 COMP. METAB OLIC PANEL chloride 96 mmol/ L 96-107 Not Available [address], [address], 01/17/2024 10:27:13 01/17/20 24 01/17/2024 COMP. METAB OLIC PANEL anion gap 9.8 5.0-15 .0 Not Available [address], [address], 01/17/2024 10:27:13 01/17/20 24 01/17/2024 COMP. METAB OLIC PANEL CO2 29 mmol/ L 21-32 Not Available [address], [address], 01/17/2024 10:27:13 01/17/20 24 01/17/2024 COMP. METAB OLIC PANEL calcium 8.6 mg/dL 8.5-10 .3 Not Available [address], [address], 01/17/2024 10:27:13 01/17/20 24 01/17/2024 COMP. METAB OLIC PANEL total protein 6.8 g/dL 6.4-8. 2 Not Available [address], [address], 01/17/2024 10:27:13 01/17/20 24 01/17/2024 COMP. METAB OLIC PANEL albumin 3.3 g/dL 3.4-5. 0 low Not Available [address], [address], 01/17/2024 10:27:13 01/17/20 24 01/17/2024 COMP. METAB OLIC PANEL globulin 3.5 g/dL Not Available [address], [address], 01/17/2024 10:27:13 01/17/20 24 01/17/2024 COMP. METAB OLIC PANEL A/G 0.9 ratio 0.8-2. 0 Not Available [address], [address], 01/17/2024 10:27:13 01/17/20 24 01/17/2024 COMP. METAB OLIC PANEL total bilirubin 0.80 mg/dL 0.00-1 .00 Not Available [address], [address], 01/17/2024 10:27:13 01/17/20 24 01/17/2024 COMP. METAB OLIC PANEL AST 41 U/L 0-37 high Not Available [address], [address], 01/17/2024 10:27:13 01/17/20 24 01/17/2024 COMP. METAB OLIC PANEL ALT 93 U/L 6-63 high Not Available [address], [address], 01/17/2024 10:27:13 01/17/20 24 01/17/2024 COMP. METAB OLIC PANEL alk. phos. 65 U/L 50-136 Not Available [address], [address], 01/17/2024 10:27:13 01/17/20 24 01/17/2024 LIPID PANEL cholesterol 186 mg/dL <200 mg/dl Elaina able 200-2 39 mg/dl Borde rline High >240 mg/dl High Not Available [address], [address], 01/17/2024 10:27:14 01/17/20 24 01/17/2024 LIPID PANEL triglyceride s 68 mg/dL <150 mg/dL Olinda l 150-1 99 mg/dL Borde rline High 200-4 99 mg/dL High >500 mg/dL Very High Not Available [address], [address], 01/17/2024 10:27:14 01/17/20 24 01/17/2024 LIPID PANEL direct HDL 40 mg/dL <40 mg/dl - Major Risk for CHD >60 mg/dl - Negat tanesha Risk for CHD Not Available [address], [address], 01/17/2024 10:27:14 01/17/20 24 01/17/2024 URIC ACID uric acid 3.8 mg/dL 3.5-7. 2 Not Available [address], [address], 01/17/2024 10:27:16 01/17/20 24 01/17/2024 LDL - CALCU LATED LDL - calculated 132.4 RISK CATEG ORY LDL GOAL _ CHD or CHD Risk Equiv alent s <100 mg/dl (10-y ear risk >20%) 2+ Risk Facto rs <130 mg/dl (10-y ear risk <= 20%) 0-1 Risk Facto r? <160 mg/dl ? Almos t all peopl e with 0-1 risk facto r have a 10 year risk <10%, thus 10 year risk asses ment in peopl e with 0-1 risk facto r is not neces yaw. Not Available [address], [address], 01/17/2024 10:27:17 05/23/20 24 01/17/2024 TSH TSH 1.55 uIU/m L 0.50-6 .00 The Ameri can Colle ge of Endoc rinol ogy and Ameri can Thyro id Assoc iatio n recom mend goal TSH value s betwe en 0.4-4 .0 mIU/m L. Not Available [address], [address], 01/17/2024 10:35:31 07/22/20 24 07/22/2024 HGB A1C hemoglobin A1C 7.4 % 4.8-6. 0 high Goal: <7% in Patie nts with Diabe jean marie An A1c betwe en 5.7-6 .4% is ident ified as pre-d iabet es and sugge sts risk for progr essio n to diabe jean marie Two a1c value s of 6.5% or highe r is consi stent with a diagn osis of diabe jean marie but may need furth er confi rmati on Not Available [address], [address], 07/22/2024 09:39:25 07/22/20 24 07/22/2024 HGB A1C estimated average glucose 165.7 mg/dL Not Available [address], [address], 07/22/2024 09:39:25 07/22/20 24 07/22/2024 MICRO ALBUM IN/CR EATIN INE RATIO PANEL , URINE microalbumin 102.4 mg/L 1.3-20 .0 high VERD= Verif ied by Dilut ion. Not Available [address], [address], 07/22/2024 17:17:55 07/22/20 24 07/22/2024 MICRO ALBUM IN/CR EATIN INE RATIO PANEL , URINE creatinine urine 187.1 mg/dL 30.0-1 25.0 high Not Available [address], [address], 07/22/2024 17:17:55 07/22/20 24 07/22/2024 MICRO ALBUM IN/CR EATIN INE RATIO PANEL , URINE microalb/cre at ratio 54.7 mg/g_ creat 0.0-29 .0 high Not Available [address], [address], 07/22/2024 17:17:55 07/22/20 24 07/23/2024 LIPID PANEL cholesterol 262 mg/dL <200 mg/dl Elaina able 200-2 39 mg/dl Borde rline High >240 mg/dl High Not Available [address], [address], 07/23/2024 16:20:18 07/22/20 24 07/23/2024 LIPID PANEL triglyceride s 150 mg/dL <150 mg/dL Olinda l 150-1 99 mg/dL Borde rline High 200-4 99 mg/dL High >500 mg/dL Very High Not Available [address], [address], 07/23/2024 16:20:18 07/22/20 24 07/23/2024 LIPID PANEL direct HDL 44 mg/dL <40 mg/dl - Major Risk for CHD >60 mg/dl - Negat tanesha Risk for CHD Not Available [address], [address], 07/23/2024 16:20:18 07/22/20 24 07/23/2024 URIC ACID uric acid 6.2 mg/dL 3.5-7. 2 Not Available [address], [address], 07/23/2024 16:20:18 07/22/20 24 07/23/2024 LDL - CALCU LATED LDL - calculated 188 RISK CATEG ORY LDL GOAL _ CHD or CHD Risk Equiv alent s <100 mg/dl (10-y ear risk >20%) 2+ Risk Facto rs <130 mg/dl (10-y ear risk <= 20%) 0-1 Risk Facto r? <160 mg/dl ? Almos t all peopl e with 0-1 risk facto r have a 10 year risk <10%, thus 10 year risk asses ment in peopl e with 0-1 risk facto r is not catarina tidwell. Not Available [address], [place], [address], 07/23/2024 16:20:19 07/22/20 24 07/27/2024 MARGE SCREE N, IFA, W/REF L TITER AND PATTE RN MARGE screen, ifa NEGATI VE negati ve normal MARGE IFA is a first line scree n for detec ting the prese nce of up to appro ximat blessing 150 autoa ntibo dies in vario us autoi mmune disea ses. A negat tanesha MARGE IFA resul t sugge sts an MARGE-a ssoci ated autoi mmune disea se is not prese nt at this time, but is not defin itive . If there is high clini claudia suspi cion for Sjogr en's syndr ome, testi ng for anti- SS-A/ Ro antib pacheco shoul d be consi dered . Anti- Judie-1 antib pacheco shoul d be consi dered for clini jens suspe cted infla mmato ry myopa lopez . AC-0: Negat tanesha Inter natio nal Conse nsus on MARGE Dayami rns (http s://d oi.or g/10. 1515/ [facility]- 2017- 0052) For addit ional infor debi davis e refer to http: //yessenia larios.Que stDia gnost ics.c om/fa q/FAQ 177 (This link is being provi ded for infor matio nal/ educa sidra l purpo ses only. ) Not Available [employer]- [address], [place], [address], 07/27/2024 01:58:16 07/22/20 24 07/27/2024 HLA-B 27 ANTIG EN hla-B27 antigen NEGATI VE negati ve Not Available [facility] [address], [address], 07/27/2024 01:58:18 07/22/20 24 07/27/2024 RHEUM ATOID FACTO R rheumatoid factor <10 IU/mL <14 normal Not Available [facility] [address], [address], 07/27/2024 01:58:19 07/22/20 24 07/28/2024 BASIC METAB OLIC PANEL glucose 188 mg/dL 70-100 high Not Available [address], [address], 07/28/2024 11:17:05 07/22/20 24 07/28/2024 BASIC METAB OLIC PANEL BUN 16 mg/dL 7-18 Not Available [address], [address], 07/28/2024 11:17:05 07/22/20 24 07/28/2024 BASIC METAB OLIC PANEL creatinine 1.2 mg/dL 0.8-1. 3 Not Available [address], [address], 07/28/2024 11:17:05 07/22/20 24 07/28/2024 BASIC METAB OLIC PANEL B/C 13.3 ratio Not Available [address], [address], 07/28/2024 11:17:05 07/22/20 24 07/28/2024 BASIC METAB OLIC PANEL GFR >=60ML /MIN mL/mi n normal >=60m L/min - Olinda l or midly reduc ed <60mL /min- Decre ased kidne y funct ion <15mL /min - Kidne y failu re [facility] calcu lates estim ated Glome rular Filtr ation Rate (eGFR ) using the Chron ic Kidne y Disea se Epide miolo gy Colla borat ion (CKD- EPI) Equat ion (Nancy stout et. al 2020) as recom ofelia d by the Natio nal Kidne y Found ation . eGFR is based on age, serum creat inine , and sex. CKD-E PI does not calcu late eGFR by race, does not apply to child hannah (age <18 years ), and shoul d not be used in pregn aljeandro. Not Available [address], [address], 07/28/2024 11:17:05 07/22/20 24 07/28/2024 BASIC METAB OLIC PANEL sodium 142 mmol/ L 136-14 5 Not Available [address], [address], 07/28/2024 11:17:05 07/22/20 24 07/28/2024 BASIC METAB OLIC PANEL potassium 5.0 mmol/ L 3.5-5. 1 Not Available [address], [address], 07/28/2024 11:17:05 07/22/20 24 07/28/2024 BASIC METAB OLIC PANEL chloride 102 mmol/ L 96-107 Not Available [address], [address], 07/28/2024 11:17:05 07/22/20 24 07/28/2024 BASIC METAB OLIC PANEL anion gap 12.0 5.0-15 .0 Not Available [address], [address], 07/28/2024 11:17:05 07/22/20 24 07/28/2024 BASIC METAB OLIC PANEL CO2 28 mmol/ L 21-32 Not Available [address], [address], 07/28/2024 11:17:05 07/22/20 24 07/28/2024 BASIC METAB OLIC PANEL calcium 9.3 mg/dL 8.5-10 .3 Not Available [address], [address], 07/28/2024 11:17:05 11/01/19 24 11/01/2023 retin al eye exam* No observ ation record ed. [facility] [employer] [address], [place], [address], 11/01/2023 08:21:28 01/25/20 24 01/25/2024 elect rocar diogr am No observ ation record ed. [address], [address], 01/26/2024 14:07:05 01/25/20 24 elect rocar diogr am No observ ation record ed. [facility] Not Available 2023 09:05:46 01/25/20 24 01/25/2024 XR, chest CLINIC AL HISTOR Y: Dyspne a. TECHNI QUE: Fronta l view and latera l view of the chest obtain ed. COMPAR TOD: None. FINDIN GS: The heart is normal in size and config uratio n.Ther e is no hilar or medias tinal enlarg ement. Lung markin gs are slight ly promin ent. There is no focal lung consol idatio n or infilt rate. The bony thorax is intact . IMPRES JACKELINE: No focal diseas e. Nonspe cific mild promin ence of the lung markin gs. This may be normal or could relate to mild vascul ar conges tion or inflam mation . Clinic al correl ation recomm ended. Readin g Physic anna: [place] [facility] (Im[facility]) [address] [place], [address], 01/28/2024 08:26:23 02/22/20 24 02/21/2024 XR, chest No observ ation record ed. [facility] [address] [place] [address], [address], 02/27/2024 13:12:57 03/13/20 24 03/04/2024 MRI, lumba r spine , w/o contr ast No observ [facility] ed[facility] [address] [place], [address], 03/16/2024 16:46:09 04/01/20 24 03/31/2024 jj can cardi olite stres s test (PROC ) No observ ation record ed. [email or web address] [place], [address], 04/02/2024 11:34:34 Result Notes None recorded. Problems Name Problem SNOMED Code Status Onset Date Resolution Date Notes Provider Name and Address Organization Details Recorded Time Gout 74720729 Active David Plunkett MD [address] [place] [address], [phone] , [facility] 4 14:03:51 Steatosi s of liver 106803040 Active 2021 David Plunkett MD [address] [place] [address], [phone] , [facility] 4 14:03:51 Morbid obesity 887579192 Active 2021 BMI > or = 35 with diagnosi s of hyperten jackeline, hyperlip idemia and diabetes David Plunkett MD [address] [place] [address], [phone] , [facility] 4 14:03:51 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 3 02:04:02 Mixed hyperlip idemia 985058970 Active 2006 David Plunkett MD [address] [place] [address], [phone] , [facility] 4 14:03:51 Benign essentia l hyperten jackeline [id number] Active 2006 David Plunkett MD [address] [place] [address], [id number] , [facility] 4 14:03:51 Tobacco user [id number] Active David Plunkett MD [address] [place] [address], [id number] , [facility] 4 14:03:51 Foreign body on external eye [id number] Completed 200602/09/2016 Removal Reason: inactive David Plunkett MD [address] [place] [address], [id number] , [facility] 6 13:44:47 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 Procedures Surgical History Date Name Laterality Status Provider Name and Address Organization Details Recorded Time 5 Smoking cessation counseling completed Sherry Dugan CMA [facility] 09/05/2024 08:25:06 4 Smoking cessation counseling completed Sherry Dugan CMA [facility] 03/07/2024 10:14:30 4 Post hospital/SNF follow-up/Trans itional Care completed Sherry Venne, [facility], [place] 03/07/2024 10:17:30 4 Smoking cessation counseling completed Sherry Dugan [facility] [place] 02/08/2024 09:24:30 4 Smoking cessation counseling completed Megan Mathew [facility] 01/25/2024 07:58:51 4 Retinal Screening completed Sophia Douglas [facility] 10/31/2023 14:06:03 4 Tobias Sleepiness Scale completed David Plunkett MD [address] [place] [address], [phone], [facility] 10/24/2023 11:42:37 4 Smoking cessation counseling completed Herminia Baca [facility] 10/24/2023 09:29:46 4 G2211 completed David Plunkett MD [address] [place] [address], [phone], [facility] 10/24/2023 13:08:25 3 Smoking cessation counseling completed Barbara Hermosillo [facility] 11/10/2022 11:35:53 2 Smoking cessation counseling completed Sherry [facility] [place] 03/14/2022 16:44:10 1 Smoking cessation counseling completed David Plunkett MD [address] [place] [address], [phone], [facility] 02/23/2021 12:31:46 1 Wart completed David Plunkett MD [address] [place] [address], [phone], [facility] 02/23/2021 12:31:57 0 Smoking cessation counseling completed Sherry Dugan [facility] [place] 02/03/2020 09:42:26 0 Smoking cessation counseling completed Sherry Dugan [facility] [place] 09/08/2019 14:25:11 9 Smoking cessation counseling completed Sherry Dugan [facility] [place] 03/11/2019 13:31:30 9 Actinic Keratosis completed David Plunkett MD [address] [place] [address], [phone], [facility] 03/11/2019 13:44:52 8 Smoking cessation counseling completed Sherry Dugan [facility] [place] 04/24/2018 14:13:53 7 Smoking cessation counseling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 your smoking/va ping today for more than 3 minutes. Smoking tobacco is the leading cause of preventabl e disease, disability , and in the [place]. Inhaling aerosolize d nicotine is widely believed to be safer than combustibl e tobacco, but still exposes people to numerous harmful substances , heavy metals like lead, and cancer-cau sing agents. Nicotine is harmful to developing brains and can disrupt the formation of brain circuits that control attention, learning, and susceptibi lity to addiction. We talked about tools and medication s available to help you in smoking/va ping cessation. We discussed utilizing our smoking cessation gymnastics coach or instructor and online resources. Your personal goal: Low back pain 583503362 M54.50 check labs. no lumbar curve in his back. Benign ess ential hypertension 2922546 I10 Discussed wt loss, alcohol reduction, more phyiscal acitvity BP low,110/64 . likely due to afib, stop hydralazin e. And send in readings. Stop hydralazin e, but for afib rate control start beta rl. Diabetic p eripheral neuropathy 124537198 E11.40 A1C good at 200. Gout 85592486 M10.00 no flares, con't allopurino l, but decrease to 200 mg Mixed hyperlipidemia 267 989255 E78.2 Cholestero l good.Trina nue to work on diet and exercise as discussed Discussed statin, can affect liver and liver tests already high Steatosis of liver 1007 K76.0 discussed alcohol reduction. Irregular heart beat 361 293237 R00.8 check EKG- Irreg. Wide-compl ex tachycardi a at 127 consistent with atrial fibrillati on and a left bundle branch block. QRS duration is 0.15 Dyspnea 263224199 R06.00 mcclellan- Atrial fibrillation 4943 6004 I48.91 new onset. Nl labs. check echo. start low dose beta rl and stop hydralazin e. start metroporlo l. Note BP is low, likely due to the afib. Start xarelto. [id number] David Plunkett MD , [facility], [address] [place] [address] 02/08/2024 09:08:51 02/08/2024 09:59:03 Nicotine dependence 31624040 F17.200 We discussed your smoking/va ping today for more than 3 minutes. Smoking tobacco is the leading cause of preventabl e disease, disability , and in the [place]. Inhaling aerosolize d nicotine is widely believed to be safer than combustibl e tobacco, but still exposes people to numerous harmful substances , heavy metals like lead, and cancer-cau sing agents. Nicotine is harmful to developing brains and can disrupt the formation of brain circuits that control attention, learning, and susceptibi lity to addiction. We talked about tools and medication s available to help you in smoking/va ping cessation. We discussed utilizing our smoking cessation gymnastics coach or instructor and online resources. Your personal goal: Essential hypertension 05335451 I10 Not at goal of 130/80, on amlodipine , hydralzine . HCTZ 12.5, telmisarta n 40. Will increase HCTZ up to 25 Atrial fibrillation 4943 6004 I48.91 new onset. Nl labs. check echo. start low dose beta rl and stop hydralazin e. start metroporlo l. Note BP is low, likely due to the afib. Start xarelto. Has not started the metoprolol will start and f/u . [id number] David Plunkett MD , [facility], [address] [place] [address] 03/07/2024 10:07:54 03/07/2024 10:47:33 Atrial fibrillation 92847157 I48.91 new onset After cardiovers ion in sinus rhythm, on multiple meds. F/U w/ Cardiol. to have sleep study. Nicotine dependence 5629 4008 F17.200 We discussed your smoking/va ping today for more than 3 minutes.Sm oking tobacco is the leading cause of preventabl e disease, disability , and in the [place]. Inhaling aerosolize d nicotine is widely believed to be safer than combustibl e tobacco, but still exposes people to numerous harmful substances , heavy metals like lead, and cancer-cau sing agents. Nicotine is harmful to developing brains and can disrupt the formation of brain circuits that control attention, learning, and susceptibi lity to addiction. We talked about tools and medication s available to help you in smoking/va ping cessation. We discussed utilizing our smoking cessation gymnastics coach or instructor and online resources. Your personal goal: continues to quit on the patch Heart fail ure with reduced ejection fraction 950474177 I50.9 EF 10-15% Continue furosemide . contiue furosemide , amiodarone Xarelto, metoprolol 12.5 BID, ? valsartan. [id number] David Plunkett MD , [facility], [address] [place] [address] 09/05/2024 08:09:32 09/05/2024 08:57:29 Screening for malignant neoplasm of colon 494061001 Z12.11 Referral for a DIRECT booked colonoscop y. This patient is a healthy ASA Class 1 or 2 patient (only mild systemic disease), or a STABLE, well controlled insulin dependent diabetic. They do not have serious cardiac disease ie [place]/angiopl asty within 1 year, symptomati c CHF; renal failure with CKD 4 or 5; take Coumadin, Plavix, Aggrenox, etc. Active or passive immunization 787193459 Z23 Flu:shingl es and PPV: Nicotine dependence 5629 4008 F17.200 We discussed your smoking/va ping today for more than 3 minutes. Smoking tobacco is the leading cause of preventabl e disease, disability , and in the [place]. Inhaling aerosolize d nicotine is widely believed to be safer than combustibl e tobacco, but still exposes people to numerous harmful substances , heavy metals like lead, and cancer-cau sing agents. Nicotine is harmful to developing brains and can disrupt the formation of brain circuits that control attention, learning, and susceptibi lity to addiction. We talked about tools and medication s available to help you in smoking/va ping cessation. We discussed utilizing our smoking cessation gymnastics coach or instructor and online resources. Your personal goal: Diabetic p eripheral neuropathy 347498915 E11.40 A1C 7.4 to Rx ozempic for weight loss cardiac , diabetes. also would consdier metformin Atrial fibrillation 4943 6004 I48.91 new onset After cardiovers ion in sinus rhythm, on multiple meds. F/U w/ Cardiol. to have sleep study. Heart fail ure with reduced ejection fraction 978107982 I50.9 EF 10-15% Continue furosemide . contiue furosemide , amiodarone Xarelto, metoprolol 12.5 BID, ? valsartan. Obstructiv e sleep apnea syndrome 45914343 G47.33 continue the m[place] Essential hypertension 94490865 I10 Not at goal of 130/80, on entresto(l ow dose), metoprolol 12.5 daily. and furosemide , . will focus on weight dr. Arrieta to manage tohe ? increasing entrestol for BP ( the valsartan component) Health Concerns Section Related Observation LastModified by Organization Detai ls LastModified Time None Recorded Concern Status LastModified by Organization Details LastModified Time None Recorded Advance Directives Directive N: Payers Encounter Date Sequence Insurance Name Policy Number Policy Burgess Covered Member ID Burgess Member ID Guarantor Name 10/31/2023 1 [facility] - [facility]IG[facility] (POS) [id number] R G Martha [id number] R G Martha 01/25/2024 1 [facility] (POS) R G Martha [id number] R G Martha 02/08/2024 1 [facility] (POS) R G Martha [id number] R G Martha 03/07/2024 1 [facility] ([facility] R Tomer Martha [id number] R G Martha 09/05/2024 1 [facility] (POS) R Tomer Martha [id number] R G Martha Notes Date Note Type Note Provider Name and Address Organization Details Recorded Time 4 text/html Patient here for Retinal Screening . Sophia Douglas [facility] 10/31/2023 14:07:33 4 text/html [facility] DiabetesReported bypatient.Control:usually well controlled; improved since last visit; treated with diet only; Hemoglobin A1C has been less than 7 Compliance:compliant with follow-up visits; compliant with diet; Compliant with exercise Barriers to CareNo identified barriers to care Self Care:not monitoring home glucose Context:seeing eye doctor regularly Associated Symptoms:weight gain (6 lbs) Ability to Manage Self CareOn how confident the patient feels in ability to self manage condition the patient selects 7 with 10 being very confident and 1 being very low confidenceVMG HypertensionReported bypatient.Duration:ASCVD 10-year risk Context:No ischemic heart disease; No kidney disease; No history of CVA; No congestive heart failure; No history of transient ischemic attacks; No peripheral vascular disease; No history of diabetes Control:Patient understands medications are to lower blood pressure Compliance:Compliant with medications; Compliant with diet; Compliant with exercise; Compliant with follow-up visits Barriers to CareNo identified barriers to care Self Care:Using home BP monitor home BPs range Associated Symptoms:No chest pain; No shortness of breath; No edema; No fatigue; No palpitations; No decline in exercise capacity; No snoringNotes:denies CP. SOBa/vmg-smoking [id number] bypatient.ImportanceOn a scale of 1-10 with 1 being not important and 10 being very important the patient rates importance of stopping smoking / vaping as 5 ConfidenceOn a scale of 1-10 with 1 being not confident and 10 being very confident the patient rates confidence on stopping smoking / vaping as 8 Readiness to quit smoking/vapingOn a scale of 1-10 with 1 being not ready and 10 being very ready the patient rates readiness to stop smoking /vaping as 7 Physiological Dependence/Health RiskCurrently smoking 20 cigarettes per day; Patient has first cigarette / vaping session within 30 minutes after awakening; Patient has tried to stop smoking / vaping 3 times.; Smoking cigars Medication AssessmentHas used Patch in the past; Has used Bupropion in the pastNotes:3/4 ppd. Has tried the patch. WEllbutrin helped in the past. Feels like it is more habit than addiction. Smokes 15 min after gets up. Thinks about quitting. TThinking about quitting more than ever. has done cold turkey 01/25/24 for F/U BP, gout. Had tickle throat 8 wks ago. Then 3 wks cough and SOB. That is also getting better. And notes it in the AM. DIABETES_ A1C 6.3. Has stopped the tonic water. too much sugar, and now no soda. Gout- 3.8 uric acid. The allopurinol is 300 instead of 200 GF is a ex chef . gets her cooking for lunch and dinner. omlet for breakfast. BP took a while to get amlodipin. On w/c for back pain. Injured it a month ago. Moved to [place]. Kids are all set. Exercise- does outdoor work every day. 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 Denies CP. Gained weight- does not snack, drink soda. And is active. Alcohol 3 vodka/water a day. He is a new grandfather. She is 6([place]) Mom- is Roseline, . Has 3 girls, Riya, Juana, Roseline. Has been a year or two. since gout on allopurinol . no gout since. David Plunkett MD [address] [place] [address], [phone], [facility] 01/25/2024 09:16:45 4 text/html a/vmg-smoking [id number] bypatient.Notes:has cut in half. - 1/2 ppd Here for f/u from 01/24. Was waking up SOB, and cough/tickle, which has gone deeper, but less SOB. New onset AFIB. Also had low bp, we stopped hydralazine. Drinking reduced by half. now rare during the week David Plunkett MD [address] [place] [address], [phone], [facility] 02/08/2024 09:57:27 4 text/html a/vmg-smoking [id number] bypatient.Notes:Quit smoking x 2 wks. Is on a patch. Here for f/u AFIB new onset. On 02/07,We had begun treatment and had set up for an echo, but before he could do that and see cardiol, He had orthopnea, SOB/ CHF AFIB RVR and needed to go to the hospital. Hospital Notes reveiwed: AFIB with RVR ( had been placed on Xarelto and metoprolol as out pt, awaiting cardiol appt). Was SOB, in CHF and EF 10-15%., moderately dilated LV, Moderately dilated RA and RV, severely reduced RV systolic function and midly elevated RV pressures. metoprolol IV ineffective for rate ctrl, diltiazem( dropped BP too much. Pt loaded with dig x 3 and sedated and cardioverted successfully. IV lasix to 20 lasix BID.9 liters fluid. lost 22 lbs. edema gone.amiodarone 400 mg po BID x 2 wks, then 200 mg daily. REc: to stop alcohol use. Has only had 3 beers over 3 d in the last 3 weeks. Feels great. D/C'd Olmesartan , norvasc, hctz and toprol xl 50 due to lbp. to restart valsartan if BP allows in the future, Started metorpolol 12.5 BID David Plunkett MD [address] [place], [address], [facility] 03/07/2024 10:46:26 5 text/html a/vmg-smoking [id number] bypatient.Notes:Quit smoking x 2 wks. Is on a patch. Here for f/u AFIB new onset. On 02/07,We had begun treatment and had set up for an echo, but before he could do that and see cardiol, He had orthopnea, SOB/ CHF AFIB RVR and needed to go to the hospital. Sleep apnea. Seeing Dr. Arrieta. Trouble losing weight. Eating yogurt. breakfast. No cakes, cookies, soda.Hospital Notes reveiwed: AFIB with RVR ( had been placed on Xarelto and metoprolol as out pt, awaiting cardiol appt). Was SOB, in CHF and EF 10-15%., moderately dilated LV, Moderately dilated RA and RV, severely reduced RV systolic function and midly elevated RV pressures. metoprolol IV ineffective for rate ctrl, diltiazem( dropped BP too much. Pt loaded with dig x 3 and sedated and cardioverted successfully. IV lasix to 20 lasix BID.9 liters fluid. lost 22 lbs. edema gone.amiodarone 400 mg po BID x 2 wks, then 200 mg daily. REc: to stop alcohol use. Has only had 3 beers over 3 d in the last 3 weeks. Feels great. D/C'd Olmesartan , norvasc, hctz and toprol xl 50 due to lbp. to restart valsartan if BP allows in the future, Started metorpolol 12.5 BID smoking a little, but more using the patch David Plunkett MD [address] [place] [address], [phone], [facility] 09/05/2024 09:16:17
== END 2024-11-25 11:04 | disposition home or self-care (01) ==
LOC: HO.HCS 10:30
PROVIDERS: PCP Family Medicine; Visit Provider Internal Medicine Cardiovascular Disease
DX: I50.20 Unspecified systolic (congestive) heart failure (principal); I48.0 Paroxysmal atrial fibrillation
CPT/HCPCS: 93010; 99214; G2211

== ENCOUNTER → 2024-11-25 10:29 | Outpatient (BNVA) | payer OTHER, SELFPAY | PROVIDERS: PCP Family Medicine; Visit Provider Internal Medicine Cardiovascular Disease | DX: I50.20 Unspecified systolic (congestive) heart failure (principal); I48.0 Paroxysmal atrial fibrillation; I42.9 Cardiomyopathy, unspecified; Z87.891 Personal history of nicotine dependence | CPT/HCPCS: 93005 ==

== ENCOUNTER 2024-12-05 08:59 | Outpatient (REF) | payer OTHER, SELFPAY ==
--- OUTSIDE RECORDS SUMMARY | 2024-12-05 09:15 | XMS_ITS | Data Portability ---
Author Organization [facility], , [facility] Address [address] [place] [address] Care Team Providers Care Refueling Ramp Supervisor Name Role Phone DAVID PLUNKETT Primary Care Provider [facility] Orthopedist [phone] [facility] Security Assessment No assessment recorded. Plan of Treatment Reminders Order Date Submit Date Provider Last Modified By Organization Details Last Modified Time Details Appointments Medical Managemen t 15 2024 08:00A M David Plunkett MD Not available Not available Not available LAB Follow-Up 2024 07:00A M [facility] Not available Not available Not available Medical Managemen t 30 2024 09:45A M David Plunkett MD Not available Not available Not available NOAC Phone Call 2024 02:00P M [facility] Not available Not available Not available Lab HbA1c (hemoglob in A1c), blood 2024 025 [facility], [address] [place] [address], [address], 12/05/2024 08:32:01 HbA1c (hemoglob in A1c), blood 2024 025 [facility], [address] [place] [address], [address], 11/28/2024 11:55:05 BMP, serum or plasma 2024 025 [facility], [address] [place] [address], [address], 11/28/2024 10:22:29 lipid panel, serum 2024 025 [facility], [address] [place], [address], 11/28/2024 10:22:31 Referral cardiolog ist referral - new onset AFIB, hx alcohol use. 2023 024 NII Ajit Berny, [address] [facility], [address], [place], [address], 03/04/2024 23:30:17 Procedures colonosco py procedure (PROC) [email or web address] [facility], [address] [place], [address], 09/05/2024 10:20:19 trans-tho racic echocardi ogram (TTE) (PROC) - New onset AFIB [address] Central Scheduling, [address] [facility], [place], [address], 07/10/2024 08:32:34 trans-tho racic echocardi ogram (TTE) (PROC) 2023 024 TINA Daly, [address] [facility], [address], [place], [address], 01/25/2024 10:40:42 Surgeries None recorded. Imaging electroca rdiogram 2023 024 [facility], [address] [facility], [place], [address], 01/25/2024 13:38:19 XR, chest 2023 024 [facility] ([facility]), [address] [place], [address], 01/25/2024 09:58:13 Medication Orders Entresto 49 mg-51 mg tablet 2024 025 [facility], [address] [place], [address], 12/05/2024 08:32:01 Ozempic 0.25 mg or 0.5 mg (2 mg/1.5 mL) subcutane ous pen injector 2024 025 [facility] [address] [place] [address], [address], 12/05/2024 08:32:03 Ozempic 0.25 mg or 0.5 mg (2 mg/1.5 mL) subcutane ous pen injector 2024 025 [facility] [address] [place] [address], [address], 09/05/2024 08:49:10 metoprolo l succinate ER 25 mg tablet,ex tended release 24 hr 2023 024 [facility] [address] [place] [address], [address], 09/05/2024 08:46:42 metoprolo l succinate ER 25 mg tablet,ex tended release 24 hr 2023 024 [facility] [address] [place] [address], [address], 09/05/2024 08:46:42 Xarelto 20 mg tablet 2023 024 [facility] [address] [place], [address], 01/25/2024 09:15:04 Patient TargetsNo targets recorded. Patient Instructions Encounter Date Encounter Id Patient Instructions Last Modified By Organization Details Last Modified Time 03/07/2024 [id number] I am aware of [facility] discharge medications, the medication list above has been reconciled with those medications and reflects my understanding of an up to date medication list for this patient. Not available 03/07/2024 10:17:30 Reason for Referral Rn Security Referral for At rial fibrillation new onset AFIB, hx alcohol use. Referring Physician: David Plunkett, Family Medicine, Encounter Date: 02/08/2024 Results Created Date Observation Date Name Description Value Unit Range Abnormal Flag Note LastModifiedBy Organization Detail LastModifiedTime 01/17/20 24 01/17/2024 HGB A1C hemoglobin A1C [...] furth er confi rmati on Not Available [address], [address], 01/17/2024 09:09:36 01/17/20 24 01/17/2024 HGB A1C estimated average glucose 134.1 mg/dL Not Available [address], [address], 01/17/2024 09:09:36 01/17/20 24 01/17/2024 COMP. METAB OLIC PANEL glucose 140 mg/dL 70-100 high Not Available [address], [address], 01/17/2024 10:27:13 01/17/20 24 01/17/2024 COMP. METAB OLIC PANEL BUN 13 mg/dL 7-18 Not Available [address], [address], 01/17/2024 10:27:13 01/17/20 24 01/17/2024 COMP. METAB OLIC PANEL creatinine 1.0 mg/dL 0.8-1. 3 Not Available [address], [address], 01/17/2024 10:27:13 01/17/20 24 01/17/2024 COMP. METAB OLIC PANEL B/C 13.0 ratio Not Available [address], [address], 01/17/2024 10:27:13 01/17/20 24 01/17/2024 COMP. METAB [...] borat ion (CKD- EPI) Equat ion (Nancy r et. al 2020) as recom ofelia d by the Natio nal Kidne y Found ation . eGFR is based on age, serum creat inine , and sex. CKD-E PI does not calcu late eGFR by race, does not apply to child hannah (age <18 years ), and shoul d not be used in pregn alejandro. Not Available [address], [address], 01/17/2024 10:27:13 01/17/20 24 01/17/2024 COMP. METAB OLIC PANEL sodium 135 mmol/ L 136-14 5 low Not Available [address], [address], 01/17/2024 10:27:13 01/17/20 24 01/17/2024 COMP. METAB OLIC PANEL potassium 4.3 mmol/ L 3.5-5. 1 Not Available [address], [address], 01/17/2024 10:27:13 01/17/20 24 01/17/2024 COMP. METAB OLIC PANEL chloride 96 mmol/ L 96-107 Not Available [address], [address], 01/17/2024 10:27:13 01/17/20 24 01/17/2024 COMP. METAB OLIC PANEL anion gap 9.8 5.0-15 .0 Not Available [address], [address], 01/17/2024 10:27:13 01/17/20 24 01/17/2024 COMP. METAB OLIC PANEL CO2 29 mmol/ L 21-32 Not Available [address], [address], 01/17/2024 10:27:13 01/17/20 24 01/17/2024 COMP. METAB OLIC PANEL calcium 8.6 mg/dL 8.5-10 .3 Not Available [address], [address], 01/17/2024 10:27:13 01/17/20 24 01/17/2024 COMP. METAB OLIC PANEL total protein 6.8 g/dL 6.4-8. 2 Not Available [address], [address], 01/17/2024 10:27:13 01/17/20 24 01/17/2024 COMP. METAB OLIC PANEL albumin 3.3 g/dL 3.4-5. 0 low Not Available [address], [address], 01/17/2024 10:27:13 01/17/20 24 01/17/2024 COMP. METAB OLIC PANEL globulin 3.5 g/dL Not Available [address], [address], 01/17/2024 10:27:13 01/17/20 24 01/17/2024 COMP. METAB OLIC PANEL A/G 0.9 ratio 0.8-2. 0 Not Available [address], [address], 01/17/2024 10:27:13 01/17/20 24 01/17/2024 COMP. METAB OLIC PANEL total bilirubin 0.80 mg/dL 0.00-1 .00 Not Available [address], [address], 01/17/2024 10:27:13 01/17/20 24 01/17/2024 COMP. METAB OLIC PANEL AST 41 U/L 0-37 high Not Available [address], [address], 01/17/2024 10:27:13 01/17/20 24 01/17/2024 COMP. METAB OLIC PANEL ALT 93 U/L 6-63 high Not Available [address], [address], 01/17/2024 10:27:13 01/17/20 24 01/17/2024 COMP. METAB OLIC PANEL alk. phos. 65 U/L 50-136 Not Available [address], [address], 01/17/2024 10:27:13 01/17/20 24 01/17/2024 LIPID PANEL cholesterol 186 mg/dL <200 mg/dl Elaina able 200-2 39 mg/dl Borde rline High >240 mg/dl High Not Available [address], [address], 01/17/2024 10:27:14 01/17/20 24 01/17/2024 LIPID PANEL triglyceride s 68 mg/dL <150 mg/dL Olinda l 150-1 99 mg/dL Borde rline High 200-4 99 mg/dL High >500 mg/dL Very High Not Available [address], [address], 01/17/2024 10:27:14 01/17/20 24 01/17/2024 LIPID PANEL direct HDL 40 mg/dL <40 mg/dl - Major Risk for CHD >60 mg/dl - Negat tanesha Risk for CHD Not Available [address], [address], 01/17/2024 10:27:14 01/17/20 24 01/17/2024 URIC ACID uric acid 3.8 mg/dL 3.5-7. 2 Not Available [address], [address], 01/17/2024 10:27:16 01/17/20 24 01/17/2024 LDL - [...] r is not neces yaw. Not Available [address], [address], 01/17/2024 10:27:17 01/17/20 24 01/17/2024 TSH TSH 1.55 uIU/m L 0.50-6 .00 The Ameri can Colle ge of Endoc rinol ogy and Ameri can Thyro id Assoc iatio n recom mend goal TSH value s betwe en 0.4-4 .0 mIU/m L. Not Available [address], [address], 01/17/2024 10:35:31 07/22/20 24 07/22/2024 HGB A1C [...] furth er confi rmati on Not Available [address], [address], 07/22/2024 09:39:25 07/22/20 24 07/22/2024 HGB A1C estimated average glucose 165.7 mg/dL Not Available [address], [address], 07/22/2024 09:39:25 07/22/20 24 07/22/2024 MICRO ALBUM IN/CR EATIN INE RATIO PANEL , URINE microalbumin 102.4 mg/L 1.3-20 .0 high VERD= Verif ied by Wiley stephens. Not Available [address], [address], 07/22/2024 17:17:55 07/22/20 24 07/22/2024 MICRO ALBUM IN/CR EATIN INE RATIO PANEL , URINE creatinine urine 187.1 mg/dL 30.0-1 25.0 high Not Available [address], [address], 07/22/2024 17:17:55 07/22/20 24 07/22/2024 MICRO ALBUM IN/CR EATIN INE RATIO PANEL , URINE microalb/cre at ratio 54.7 mg/g_ creat 0.0-29 .0 high Not Available [address], [address], 07/22/2024 17:17:55 07/22/20 24 07/23/2024 LIPID PANEL cholesterol 262 mg/dL <200 mg/dl Elaina able 200-2 39 mg/dl Borde rline High >240 mg/dl High Not Available [address], [address], 07/23/2024 16:20:18 07/22/20 24 07/23/2024 LIPID PANEL triglyceride s 150 mg/dL <150 mg/dL Olinda l 150-1 99 mg/dL Borde rline High 200-4 99 mg/dL High >500 mg/dL Very High Not Available [address], [address], 07/23/2024 16:20:18 07/22/20 24 07/23/2024 LIPID PANEL direct HDL 44 mg/dL <40 mg/dl - Major Risk for CHD >60 mg/dl - Negat tanesha Risk for CHD Not Available [address], [address], 07/23/2024 16:20:18 07/22/20 24 07/23/2024 URIC ACID uric acid 6.2 mg/dL 3.5-7. 2 Not Available [address], [address], 07/23/2024 16:20:18 07/22/20 24 07/23/2024 LDL - [...] r is not catarina tidwell. Not Available [address], [address], 07/23/2024 16:20:19 07/22/20 24 07/27/2024 MARGE SCREE N, IFA, W/REF L TITER AND JESSA RN MARGE screen, ifa NEGATI VE negati [...] Inter natio nal Conse nsus on MARGE Patte rns (http s://d oi.or g/10. 1515/ ccl2017- 0052) For addit ional infor debi davis e refer to http: //[facility] amanda larios.Que stDia gnost ics.c om/fa q/FAQ 177 (This link is being provi ded for infor farideh alfonso/ educa sidra l purpo ses only. ) Not Available [facility] [address], [address], 07/27/2024 01:58:16 07/22/20 24 07/27/2024 HLA-B 27 ANTIG EN hla-B27 antigen NEGATI VE negati ve Not Available [facility] [address], [address], 07/27/2024 01:58:18 07/22/20 24 07/27/2024 RHEUM ATOID FACTO R rheumatoid factor <10 IU/mL <14 normal Not Available [facility] [address], [address], 07/27/2024 01:58:19 07/22/20 24 07/28/2024 BASIC METAB OLIC PANEL glucose 188 mg/dL 70-100 high Not Available [address], [place], [address], 07/28/2024 11:17:05 07/22/20 24 07/28/2024 BASIC METAB OLIC PANEL BUN 16 mg/dL 7-18 Not Available [address], [address], 07/28/2024 11:17:05 07/22/20 24 07/28/2024 BASIC METAB OLIC PANEL creatinine 1.2 mg/dL 0.8-1. 3 Not Available [address], [address], 07/28/2024 11:17:05 07/22/20 24 07/28/2024 BASIC METAB OLIC PANEL B/C 13.3 ratio Not Available [address], [address], 07/28/2024 11:17:05 07/22/20 24 07/28/2024 BASIC METAB [...] borat ion (CKD- EPI) Equat ion (Nancy r et. al 2020) as recom ofelia d by the Natio nal Kidne y Found ation . eGFR is based on age, serum creat inine , and sex. CKD-E PI does not calcu late eGFR by race, does not apply to child hannah (age <18 years ), and shoul d not be used in pregn alejandro. Not Available [address], [address], 07/28/2024 11:17:05 07/22/20 24 07/28/2024 BASIC METAB OLIC PANEL sodium 142 mmol/ L 136-14 5 Not Available [address], [address], 07/28/2024 11:17:05 07/22/20 24 07/28/2024 BASIC METAB OLIC PANEL potassium 5.0 mmol/ L 3.5-5. 1 Not Available [address], [address], 07/28/2024 11:17:05 07/22/20 24 07/28/2024 BASIC METAB OLIC PANEL chloride 102 mmol/ L 96-107 Not Available [address], [address], 07/28/2024 11:17:05 07/22/20 24 07/28/2024 BASIC METAB OLIC PANEL anion gap 12.0 5.0-15 .0 Not Available [address], [address], 07/28/2024 11:17:05 07/22/20 24 07/28/2024 BASIC METAB OLIC PANEL CO2 28 mmol/ L 21-32 Not Available [address], [address], 07/28/2024 11:17:05 07/22/20 24 07/28/2024 BASIC METAB OLIC PANEL calcium 9.3 mg/dL 8.5-10 .3 Not Available [address], [address], 07/28/2024 11:17:05 11/29/19 25 11/28/2024 BASIC METAB OLIC PANEL glucose 149 mg/dL 70-100 high Not Available [address], [address], 11/28/2024 10:22:29 11/29/19 25 11/28/2024 BASIC METAB OLIC PANEL BUN 14 mg/dL 7-18 Not Available [address], [address], 11/28/2024 10:22:29 11/29/19 25 11/28/2024 BASIC METAB OLIC PANEL creatinine 1.0 mg/dL 0.8-1. 3 Not Available [address], [address], 11/28/2024 10:22:29 11/29/19 25 11/28/2024 BASIC METAB OLIC PANEL B/C 14.0 ratio Not Available [address], [address], 11/28/2024 10:22:29 11/29/19 25 11/28/2024 BASIC METAB OLIC PANEL GFR >=60ML /MIN [...] be used in pregn alejandro. Not Available [address], [address], 11/28/2024 10:22:29 11/29/19 25 11/28/2024 BASIC METAB OLIC PANEL sodium 139 mmol/ L 136-14 5 Not Available [address], [address], 11/28/2024 10:22:29 11/29/19 25 11/28/2024 BASIC METAB OLIC PANEL potassium 3.9 mmol/ L 3.5-5. 1 Not Available [address], [address], 11/28/2024 10:22:29 11/29/19 25 11/28/2024 BASIC METAB OLIC PANEL chloride 102 mmol/ L 96-107 Not Available [address], [address], 11/28/2024 10:22:29 11/29/19 25 11/28/2024 BASIC METAB OLIC PANEL anion gap 10.8 5.0-15 .0 Not Available [address], [address], 11/28/2024 10:22:29 11/29/19 25 11/28/2024 BASIC METAB OLIC PANEL CO2 26 mmol/ L 21-32 Not Available [address], [address], 11/28/2024 10:22:29 11/29/19 25 11/28/2024 BASIC METAB OLIC PANEL calcium 9.2 mg/dL 8.5-10 .3 Not Available [address], [address], 11/28/2024 10:22:29 11/29/19 25 11/28/2024 LIPID PANEL cholesterol 160 mg/dL <200 mg/dl Elaina able 200-2 39 mg/dl Borde rline High >240 mg/dl High Not Available [address], [address], 11/28/2024 10:22:31 11/29/19 25 11/28/2024 LIPID PANEL triglyceride s 148 mg/dL <150 mg/dL Olinda l 150-1 99 mg/dL Borde rline High 200-4 99 mg/dL High >500 mg/dL Very High Not Available [address], [address], 11/28/2024 10:22:31 11/29/19 25 11/28/2024 LIPID PANEL direct HDL 43 mg/dL <40 mg/dl - Major Risk for CHD >60 mg/dl - Negat tanesha Risk for CHD Not Available [address], [address], 11/28/2024 10:22:31 04/04/11/28/2024 LDL - CALCU LATED LDL - calculated 87 RISK CATEG ORY LDL GOAL _ CHD [...] r is not neces yaw. Not Available [address], [address], 11/28/2024 10:22:32 11/29/19 25 11/28/2024 HGB A1C hemoglobin A1C 6.9 % 4.8-6. 0 high Goal: <7% in [...] furth er confi rmati on Not Available [address], [address], 11/28/2024 11:55:05 11/29/19 25 11/28/2024 HGB A1C estimated average glucose 151.3 mg/dL Not Available [address], [address], 11/28/2024 11:55:05 01/25/20 24 01/25/2024 matthew cox am No observ ation record ed. NII [address], [address], 01/26/2024 14:07:05 01/25/20 elect lincoln diogr am No observ ation record ed. [facility] Not Available 2023 [...] . Clinic al correl ation recomm ended. Gurjit bass Physic anna: [place] [facility] ([facility]) [address] , [place], [address], 01/28/2024 08:26:23 02/22/20 24 02/21/2024 XR, chest No observ ation record ed. [address], [address], 02/27/2024 13:12:57 03/13/20 24 03/04/2024 MRI, lumba r spine , w/o contr ast No observ ation record ed. [address], [address], 03/16/2024 16:46:09 04/01/20 24 03/31/2024 jj can cardi olite stres s test (PROC ) No observ ation record ed. [email or web address] [place] [address], [address], 04/02/2024 11:34:34 Result Notes None recorded. Problems Name Problem SNOMED Code Status Onset Date Resolution Date Notes Provider Name and Address Organization Details Recorded Time Gout 46736820 Active David Plunkett MD [address] [place] [address], [phone] , [facility] 4 14:03:51 Steatosi s of liver 617306763 Active 2021 David Plunkett MD [address] [place] [address], [phone] , [facility] 4 14:03:51 Morbid obesity 892833294 Active 2021 BMI > or = 35 with diagnosi s of hyperten jackeline, hyperlip idemia and diabetes David Plunkett MD [address] [place] [address], [phone] , [facility] 4 14:03:51 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 2023 neuropat hy 09/2023, diabetes since 2017 David Plunkett MD [address] [place] [address], [phone] , [facility] 4 14:03:51 Heart failure with reduced ejection fraction 667248115 Active 2023 David Plunkett MD [address] [place] [address], [phone] , [facility] 5 08:41:41 Atrial fibrilla tion 96024837 Active 2023 David Plunkett MD [address] [place] [address], [phone] , [facility] 5 08:41:41 Clinical finding Completed 200607/16/2013 Not Available [facility] 3 02:04:02 Mixed hyperlip idemia 927297704 Active 2006 David Plunkett MD [address] [place] [address], [phone] , [facility] 4 14:03:51 Benign essentia l hyperten jackeline 7264314 Active 2006 David Plunkett MD [address] [place] [address], [address] , [facility] 4 14:03:51 Tobacco user 336938308 Active David Plunkett MD [address] [place] [address], [phone] , [facility] 4 14:03:51 Foreign body on external eye 61838547 Completed 200602/09/2016 Removal Reason: inactive David Plunkett MD [address] [place] [address], [phone] , [facility] 6 13:44:47 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 Procedures Surgical History Date Name Laterality Status Provider Name and Address Organization Details Recorded Time 5 Smoking cessation counseling completed Sherry Dugan [facility] 09/05/2024 08:25:06 4 Smoking cessation counseling completed Sherry Dugan [facility] 03/07/2024 10:14:30 4 Post hospital/SNF follow-up/Trans itional Care completed Sherry Dugan [facility] 03/07/2024 10:17:30 4 Smoking cessation counseling completed Sherry Dugan [facility] 02/08/2024 09:24:30 4 Smoking cessation counseling completed Megan Mathew MA [facility] 01/25/2024 07:58:51 4 Retinal Screening completed Sophia Douglas [facility] 10/31/2023 14:06:03 4 [place] Sleepiness Scale completed David Plunkett MD [address] [place] [address], [phone], [facility] 10/24/2023 11:42:37 4 Smoking cessation counseling completed Herminia Baca MA [facility] 10/24/2023 09:29:46 4 G2211 completed David Plunkett MD [address] [place] [address], [phone], [facility] 10/24/2023 13:08:25 3 Smoking cessation counseling completed [facility] 11/10/2022 11:35:53 2 Smoking cessation counseling completed Sherry Dugan [facility] 03/14/2022 16:44:10 1 Smoking cessation counseling completed David Plunkett MD [address] [place] [address], [phone], [facility] 02/23/2021 12:31:46 1 Wart completed David Plunkett MD [address] [place] [address], [phone], [facility] 02/23/2021 12:31:57 0 Smoking cessation counseling completed Sherry Dugan [facility] 02/03/2020 09:42:26 0 Smoking cessation counseling completed Sherry Dugan [facility] 09/08/2019 14:25:11 9 Smoking cessation counseling completed Sherry Dugan [facility] 03/11/2019 13:31:30 9 Actinic Keratosis completed David Plunkett MD [address] [place] [address], [phone], [facility] 03/11/2019 13:44:52 8 Smoking cessation counseling completed Sherry Dugan [facility] 04/24/2018 14:13:53 7 Smoking cessation counseling completed Madalyn Armas [facility] 01/17/2017 14:06:58 7 Carbon Monoxide Testing completed Madalyn Armas [facility] 01/17/2017 14:06:51 6 Smoking cessation counseling completed David Plunkett MD [address] [place] [address], [phone], [facility] 02/09/2016 14:13:06 6 Smoking cessation counseling completed Chris [facility] 12/22/2015 13:37:14 6 Carbon Monoxide Testing completed Chris [facility] 12/22/2015 13:41:20 5 Smoking cessation counseling completed Sofie Noble [facility] 11/20/2014 13:23:10 5 Smoking cessation counseling completed Sofie Noble [facility] 09/18/2014 10:06:31 3 Smoking cessation counseling completed David Plunkett MD [address] [place] [address], [phone], [facility] 04/30/2013 10:35:53 Imaging Results Imaging Date Name Status LastModified by Organization Details LastModified Time 01/25/2024 electrocardiogram completed [facility] [address] [place], [address], 01/26/2024 14:07:05 01/25/2024 electrocardiogram completed [facility] Informa tion not available 01/25/2024 09:05:46 01/25/2024 XR, chest completed [facility] ([facility]) [address], [place], [address], 01/28/2024 08:26:23 02/21/2024 XR, chest completed [facility] [address] [place] [address], [address], 02/27/2024 13:12:57 03/04/2024 MRI, lumbar spine, w/o contrast completed [facility] [address] [place], [address], 03/16/2024 16:46:09 03/31/2024 lexiscan cardiolite stress test (PROC) completed [address] [place], [address], 04/02/2024 11:34:34 Procedure Notes None recorded. Medical Equipment None Reported. Allergies Allergen ID Allergen Name Allergen Category Reaction Reaction Severity Criticality Documentation Date Start Date Code Code System Note Provider Name and Address Organization Details Recorded Time 684698 lisinopri l medicatio n cough Not available Not available 04/30/2013 72415 [facility] 09:54:57 Medications Name Sig Start [...] acin 500mg 2xday 05/15 completed per 05/08 [facility] d/c medicati on list. for 8 more days to complete 14. Not Available Not Available Not Available allopurin ol 150 mg every day active Not Available Not Available No t Available Culturell e 1 tab 2xday po 05/17 completed per 05/08 [facility] d/c medicati on list. while taking ciproflo [...] Available Not Available Not Avai lable Entresto 49 mg-51 mg tablet Take 1 tablet twice a day by oral route. 2024 active Not Available Not Available Not Avai lable Entresto 24 mg-26 mg tablet Take 1 tablet twice a day by oral route. 12/05 completed 11/25/24- d/c by cardio -CT Not Available Not Available Not Available Ozempic 0.25 mg or 0.5 mg (2 mg/1.5 mL) subcutane ous pen injector Inject 0.5 mg every week by subcutan eous route. [...] Updated DateTime 4 180.34 cm 38.5 kg/m2 943429. 49 g 100 /min 122 mm[Hg] 78 mm[Hg] [facility] 4 08:12:28 Date Recorded Body height Body mass index (BMI) Body weight Oxygen saturation Oxygen saturation in Arterial blood by Pulse oximetry Heart rate Systolic blood pressure Diastolic blood pressure Provider Name and Address Organization Details Last Updated DateTime 4 180.34 cm 37.9 kg/m2 749874. 12 g 97 % 97 % 115 /min 122 mm[Hg] 81 mm[Hg] Sherry Dugan [facility] 4 09:40:55 Date Recorded Body height Body mass index (BMI) Body weight Heart rate Systolic blood pressure Diastolic blood pressure Provider Name and Address Organization Details Last Updated DateTime 4 180.34 cm 35.8 kg/m2 619197. 24 g 61 /min 118 mm[Hg] 80 mm[Hg] Sherry Dugan [facility] 4 10:19:16 Date Recorded Body height Body mass index (BMI) Body weight Heart rate Oxygen saturation Oxygen saturation in Arterial blood by Pulse oximetry Systolic blood pressure Diastolic blood pressure Provider Name and Address Organization Details Last Updated DateTime 5 180.34 cm 39.5 kg/m2 698471. 64 g 62 /min 97 % 97 % 142 mm[Hg] 98 mm[Hg] Sherry Dugan [facility] 5 08:31:23 Date Recorded Body height Body mass index (BMI) Body weight Heart rate Systolic blood pressure Diastolic blood pressure Provider Name and Address Organization Details Last Updated DateTime 180.34 cm 38.6 kg/m2 613555. 09 g 62 /min 126 mm[Hg] 72 mm[Hg] Sherry Dugan CMA [facility] 08:05:14 Date Recorded Systolic blood pressure Diastolic blood pressure Provider Name and Address Organization Details Last Updated DateTime 08/05/2024 130 mm[Hg] 80 mm[Hg] Catrachita Antoine LPN [facility] 08/06/2024 10:18:42 Date Recorded Systolic blood pressure Diastolic blood pressure Provider Name and Address Organization Details Last Updated DateTime 11/25/2024 130 mm[Hg] 78 mm[Hg] Macy Sesay RN BSN [facility] 11/25/2024 16:37:00 Social History Question Answer Notes LastModified by Organizat ion Details LastModified Time Tobacco Smoking Status Former Smoker smokes 1 ppd / QUIT 2 weeks ago 03/06/2024 Sherry Dugan CMA [facility], [facility] 12/04/2024 11:04:30 Do You Have An Advance Directive? No [email or web address] Information not available 07/13/2011 What Is Your Level Of Alcohol Consumption? Moderate Couple Frinks Per Day [email or web address] Information not available 12/22/2015 What Type Of Diet Are You Following? REGULAR [email or web address] Information not available 03/11/2012 Do You Or Have You Ever Used E-cigarettes Or Vape? Never Used Electronic Cigarettes Information not available 02/23/2021 What Is Your Occupation? [employer] [employer] [address] Information not available 11/20/2008 Are There Any Guns Present In Your Home? Yes Information not available 04/24/2018 Live Alone Or With Others? With Others ALYSSA Trejo Since 2008 Information not available 03/11/2019 Marital Status Information not available 03/11/2012 Mosquito Repellent Used Routinely No Information not available 04/24/2018 What Was The Date Of Your Most Recent Tobacco Screening? 12/04/2024 Information not available 12/04/2024 How Many Children Do You Have? 3 3 Girls , , 09/1999 - Favian Dodson [facility] Information not available 11/20/2008 Seat Belts Used Routinely Yes Information not available 04/24/2018 Smoke Alarm In Home Yes Information not available 04/24/2018 Do You Or Have You Ever Used Smokeless Tobacco? Never Used Smokeless Tobacco Information not available 02/23/2021 General Stress Level High [email or web address] [id number] Information not available 07/13/2011 Do You Use Sunscreen Routinely? No Information not available 04/24/2018 Sex: Unknown Functional Status None recorded. Mental Status None recorded. Family History Relationship Description Onset Age of this Age Resolved Age Notes LastModified by Organization Details LastModified Time Father Myocardial infarction 64 CABG age 72 at [facility] on [facility] Not available 02/23/2021 12:02:07 Mother Cerebrovascu lar accident 42 relate d to MVA (snowm obile) (previ ously record ed as Stroke ) [email or web address] [id number] Not available 04/07/2013 03:00:51 Notes:Sister Susana +3. Health y Medical History Condition Response NEUROLOGIC Y Diverticulitis Y Hypertension Y Immunizations Vaccine Type Date Status Note Provider [facility] and Address Organization Details Recorded Time [facility]dap 4 completed [facility] 02:16:08 COVID-19, mRNA, LNP-S, PF, 30 mcg/0.3 mL dose 1 completed BIBI [place], [facility] 02/23/2021 11:40:30 COVID-19, mRNA, LNP-S, PF, 30 mcg/0.3 mL dose 1 completed BIBI [place], [facility] 02/23/2021 11:41:20 Td (adult), 2 Lf tetanus toxoid, preservative free, adsorbed 4 completed David Plunkett MD [address] [place] [address], [phone], [facility] 10/24/2023 13:06:32 COVID-19, mRNA, LNP-S, PF, 100 mcg/0.5mL dose or 50 mcg/0.25mL dose 1 completed Megan Mathew MA [facility] 01/25/2024 09:04:14 Past Encounters Encounter ID Performer Location Encounter Start Date Encounter Closed Date Diagnosis/Indication Diagnosis SNOMED-CT Code Diagnosis ICD10 Code Diagnosis Note [id number] FP, [facility], OFFICE [address] [place] [address] 09/14/2006 14:57:39 09/14/2006 16:23:27 [id number] LAB - [facility] [address] [place] [address] 12/20/2006 07:45:21 12/20/2006 08:01:44 [id number] ERLINDA C, OFFICE [address] [place] [address] 01/09/2007 08:08:20 01/09/2007 08:56:44 [id number] LAB - C [address] [place] [address] 01/09/2007 08:51:08 01/09/2007 08:53:44 [id number] Radiology , [facility] [address] [place] [address] 01/11/2007 07:17:27 01/14/2007 09:26:39 [id number] Radiology , [facility] [address] [place] [address] 01/11/2007 00:00:00 09/16/2008 02:02:29 [id number] , C, OFFICE [address] [place] [address] 11/20/2008 07:55:08 11/23/2008 08:59:32 [id number] , C, OFFICE [address] [place] [address] 02/03/2009 15:40:10 02/05/2009 10:31:28 [id number] , C, OFFICE [address] [place] [address] 03/14/2011 16:08:40 03/14/2011 16:52:50 [id number] FP, E[facility], OFFICE [address] [place] [id number] 03/17/2011 15:13:03 03/17/2011 16:10:24 [id number] , [facility], OFFICE [address] [place] [address] 07/13/2011 07:45:55 07/13/2011 08:31:12 [id number] Sherry Mccarthy MA , [facility], OFFICE [address] [place] [id number] 6 03/11/2012 14:37:41 03/11/2012 16:06:57 [id number] Emma Herbert CMA FP, [facility], OFFICE [address] [place] [id number] 04/30/2013 09:29:01 04/30/2013 12:51:51 Abdominal pain 72186563 Tobacco user [id number] , [facility], OFFICE [address] [place] [id number] 6 05/14/2013 08:08:53 05/14/2013 09:02:32 Diverticulitis of colon 900268400 Backache 274341117 Essential hypertension 51351420 [id number] Sofie Dewey , [facility], OFFICE [address] [place] [id number] 6 06/11/2013 15:54:14 06/11/2013 17:29:39 Fracture of rib 07586413 Shoulder pain 76706153 Subarachno id hemorrhage 55591391 Eczema 47984809 [id number] David Plunkett MD FP, [facility], OFFICE [address] [place] [id number] 09/26/2013 08:18:10 09/26/2013 09:34:09 Adult health examination 596410939 see Risk Assessment and Lifestyle Change Counseling section above Counseling [id number] Benign ess ential hypertension 7697257 Administra tion of bacterial and viral vaccine 853915610 Administra tion of diphtheria, pertussis, and tetanus vaccine 539869830 [id number] David Plunkett MD FP, [facility], OFFICE [address] [place] [id number] 11/07/2013 14:13:46 11/07/2013 15:13:01 Essential hypertension 69739058 Diverticular disease 510873480 [id number] Amanda Graciela , [facility], OFFICE [address] [place] [id number] 6 12/19/2013 14:14:33 12/19/2013 14:59:04 Essential hypertension 15854356 [id number] Laly Ryan , [facility], OFFICE [address] [place] [id number] 09/07/2014 14:23:55 09/07/2014 15:57:30 Epidermal burn of hand 57253164 Epidermal burn of wrist and hand 972330783 [id number] Laly Ryan , [facility], OFFICE [address] [place] [id number] 6 09/18/2014 09:55:55 09/18/2014 10:38:50 Burn of wrist(s) and hand(s) 639209826 1st degree [id number] Sofie Noble CMA , [facility], OFFICE [address] [place] [id number] 11/20/2014 13:20:30 11/20/2014 17:14:30 Benign essential hypertension 9044336 Blood pressure not goal Mixed hyperlipidemia 690995757 Choesterol is at goal Cholestero l is not at goal Continue to work on diet and exercise as discussed Tobacco user 803809740 Adult heal th examination 674265591 see Risk Assessment and Lifestyle Change Counseling section above Counseling 612966012 Impaired f asting glycemia 528909533 [id number] David Plunkett MD FP, [facility], OFFICE [address] [place] [id number] 12/22/2015 13:21:11 12/22/2015 14:06:45 Mixed hyperlipidemia 082719825 E78.2 Cholestero l is not at goal Continue to work on diet and exercise as discussed Benign ess ential hypertension 2236342 I10 Blood pressure at goal of less than 140/90. Nicotine dependence 5629 4008 Z87.891 Tobacco user 993328433 Z 72.0 Pain in toe 344454132 M7 9.676 Type 2 kyler betes mellitus without complication 904004606 E11.9 [id number] David Plunkett MD FP, [facility], OFFICE [address] [place] [id number] 02/09/2016 13:23:57 02/09/2016 14:14:51 Benign essential hypertension 8705967 I10 Tobacco user 705587804 Z 72.0 Gout 56983071 M10.00 [id number] David Plunkett MD , [facility], OFFICE [address] [place] [id number] 6 01/17/2017 13:57:54 01/17/2017 14:40:49 Cigarette smoker 58477917 F17.210 Type 2 kyler betes mellitus without complication 311951604 E11.9 Gout 28324763 M10.00 Benign ess ential hypertension 6461303 I10 Blood pressure not goal [id number] David Plunkett MD , [facility], OFFICE [address] [place] [id number] 6 04/24/2018 13:58:38 04/24/2018 14:51:42 Cigarette smoker 82723667 F17.210 Type 2 kyler betes mellitus without complication 099804492 E11.9 Benign ess ential hypertension 4351557 I10 Gout 47883345 M10.00 [id number] David Plunkett MD , [facility], OFFICE [address] [place] [address] 03/11/2019 13:23:20 03/11/2019 14:16:13 Mixed hyperlipidemia 410894535 E78.2 Cholestero l is not at goal Continue to work on diet and exercise as discussed Cigarette smoker 9575920 7 F17.210 Actinic keratosis 836735 007 L57.0 Type 2 kyler betes mellitus without complication 441192760 E11.9 Benign ess ential hypertension 4915294 I10 Gout 53013865 M10.00 Rec: restarting the allopurino l [id number] David Plunkett MD , [facility], OFFICE [address] [place] [id number] 6 09/08/2019 14:21:34 09/08/2019 15:45:28 Mixed hyperlipidemia 629343174 E78.2 Cholestero l is not at goal Continue to work on diet and exercise as discussed Discussed statin, want to hold. Benign ess ential hypertension 0147312 I10 Add hydralazin e to the other 3 meds. f/u for nv BP in 2 wks. Type 2 kyler betes mellitus without complication 710265800 E11.9 Cigarette smoker 3124234 7 F17.210 Tobacco user 856188611 Z 72.0 [id number] David Plunkett MD , [facility], OFFICE [address] [place] [id number] 6 02/04/2020 14:10:01 02/04/2020 16:42:00 Essential hypertension 56073185 I10 at goal of 130/80, get labs Mixed hyperlipidemia 267 455402 E78.2 Cholestero l unkonwn, will check. Continue to work on diet and exercise as discussed Discussed statin, want to hold. Tobacco user 536023202 Z 72.0 knows he needs to quit. Type 2 kyler betes mellitus without complication 248037532 E11.9 diet-contr olled. [id number] David Plunkett MD , [facility], OFFICE [address] [place] [id number] 02/23/2021 11:34:47 02/23/2021 12:32:34 Essential hypertension 31503987 I10 at goal of 130/80, get labs Cigarette smoker 2640477 7 F17.210 discussed reduction when ready. Type 2 kyler betes mellitus without complication 341683966 E11.9 diet-contr olled. Benign ess ential hypertension 1856604 I10 Discussed wt loss, alcohol reduction, more phyiscal acitvity Hand wart 447887467 B07. 8 treated, can use the salycilic acid. Primary er ectile dysfunction 167478504 N52.9 trial cialis. Do not take again if have any blurred vision. Report immediatel y to us. [id number] David Plunkett MD , [facility], OFFICE [address] [place] [id number] 6 03/15/2022 08:49:39 03/15/2022 09:59:38 Adult health examination 762106858 Z00.00 see Risk Assessment and Lifestyle Change Counseling section above Counseling 612474340 Z71 .9 including cardivascu lar risk reduction counseling Depression screening 171 500253 Z13.31 depression screening tool administer ed, entered into emr, scored and discussed, time greater than 7.5 minutes Screening for alcohol abuse 982167689 Z13.39 Essential hypertension 69486395 I10 at goal of 130/80, get labs Tobacco user 610289754 Z 72.0 knows he needs to quit. Active or passive immunization 262789288 Z23 Declines the PPV23 vaccine Type 2 kyler betes mellitus without complication 132051628 E11.9 diet-contr olled. But would take statin. check liver labs first. Obesity 880158278 E66.9 Reduced thereduce acohol, tonic,port ions Gout 71956528 M10.00 no clares, con't allopurino l [id number] David Plunkett MD FP, [facility], [address] [place] [address] 11/10/2022 11:33:50 11/10/2022 13:08:00 Essential hypertension 98838522 I10 at goal of 130/80, on amlodipine , hydralzine . HCTZ 25, telmisarta n Active or passive immunization 059004220 Z23 Declines the PPV23 vaccineshi ngles - reminded Tobacco user 675830830 Z 72.0 We discussed your smoking today for more than 3 minutes. Cigarette use is the leading cause of preventabl e disease, disability , and in the [place]. We talked about tools and medication s available to help you in smoking cessation. We discussed utilizing our smoking cessation financial wellness coach and online resources. Your personal goal: Alcoholic fatty liver 50 134032 K70.0 discused alcohjol Alcohol in take above recommended sensible limits 335381508 F10.10 Gout 18931375 M10.00 no cfares, con't allopurino l Primary er ectile dysfunction 540341906 N52.9 trial cialis. Do not take again if have any blurred vision. Report immediatel y to us. [id number] David Plunkett MD FP, [facility], OFFICE [address] [place] [address] 10/24/2023 10:54:36 10/24/2023 12:16:14 Adult health examination 617208976 Z00.00 see Risk Assessment and Lifestyle Change Counseling section above Depression screening 171 924945 Z13.31 depression screening tool administer ed Screening for alcohol abuse 400978826 Z13.39 Alcohol use screening tool administer ed Screening for malignant neoplasm of prostate 571862310 Z12.5 PSA testing for ages 55-69 risks and benefits discussed {{patient declines testing* t est ordered}}. Type 2 kyler betes mellitus without complication 652981741 E11.9 Mixed hyperlipidemia 267 841999 E78.2 Cholestero l unkonwn, will check. Continue to work on diet and exercise as discussed Discussed statin, can affect liver will check labs. Benign ess ential hypertension 9436857 I10 Discussed wt loss, alcohol reduction, more [...] cessation. We discussed utilizing our smoking cessation financial wellness coach and online resources. Your personal goal: to quit, not ready, but working up to it. Screening for malignant neoplasm of colon 337471262 Z12.11 Referral for a DIRECT booked colonoscop y. This patient is a healthy ASA Class 1 or 2 patient (only mild systemic disease), or a STABLE, well controlled insulin dependent diabetic. They do not have serious cardiac disease ie VT/angiopl asty within 1 year, symptomati c CHF; renal failure with CKD 4 or 5; take Coumadin, Plavix, Aggrenox, etc. Active or passive immunization 776395769 Z23 shingles - reminded Daytime somnolence 96298 35848 00 R40.0 do home sleep study Gout 76972297 M10.00 no flares, con't allopurino l, but decrease to 200 mg Essential hypertension 17131160 I10 Not at goal of 130/80, on amlodipine , hydralzine . HCTZ 12.5, telmisarta n 40. Will increase HCTZ up to 25 Unintentio nal weight gain 3126306338 96771 R63.5 check thyroid consider GLP-1 injection once a week. but first reduce/sto p tonic water-lots of sugar. Diabetic p eripheral neuropathy 586103335 E11.40 disucssed checking feet daily also would start metformin since a1c rising, weight goign up. cut out tonic water. Start statin. but has steatosis so will ahve to check liver labs. Steatosis of liver 1007 K76.0 discussed alcohol reduction. [id number] Sophia Douglas , [facility], [address] [place] [address] 10/31/2023 13:44:41 11/01/2023 12:53:29 Diabetic peripheral neuropathy 930111043 E11.40 [id number] David Plunkett MD , [facility], OFF[address] [place] [address] 01/25/2024 07:52:40 01/25/2024 09:21:03 Nicotine dependence 90727444 F17.200 We discussed your smoking/va ping today [...] cessation. We discussed utilizing our smoking cessation financial wellness coach and online resources. Your personal goal: Low back pain 526977889 M54.50 check labs. no lumbar curve in his back. Benign ess ential hypertension 0377834 I10 Discussed wt loss, alcohol reduction, more phyiscal acitvity BP low,110/64 . likely due to afib, stop hydralazin e. And send in readings. Stop hydralazin e, but for afib rate control start beta rl. Diabetic p eripheral neuropathy 267470835 E11.40 A1C good at 200. Gout 34371517 M10.00 no flares, con't allopurino l, but decrease to 200 mg Mixed hyperlipidemia 267 948300 E78.2 Cholestero l good.Trina nue to work on diet and exercise as discussed Discussed statin, can affect liver and liver tests already high Steatosis of liver 1007 K76.0 discussed alcohol reduction. Irregular heart beat 361 039492 R00.8 check EKG- Irreg. Wide-compl ex tachycardi a at 127 consistent with atrial fibrillati on and a left bundle branch block. QRS duration is 0.15 Dyspnea 620520568 R06.00 mcclellan- Atrial fibrillation 4943 6004 I48.91 new onset. Nl labs. check echo. start low dose beta rl and stop hydralazin e. start metroporlo l. Note BP is low, likely due to the afib. Start xarelto. [id number] David Plunkett MD , [facility], [address] [place] [address] 02/08/2024 09:08:51 02/08/2024 09:59:03 Nicotine dependence 72738221 F17.200 We discussed your smoking/va ping today [...] cessation. We discussed utilizing our smoking cessation financial wellness coach and online resources. Your personal goal: Essential hypertension 51271396 I10 Not at goal of 130/80, on [...] the metoprolol will start and f/u . [id number] David Plunkett MD , [facility], [address] [place] [address] 03/07/2024 10:07:54 03/07/2024 10:47:33 Atrial fibrillation 48111482 I48.91 new onset After cardiovers ion in [...] cessation. We discussed utilizing our smoking cessation financial wellness coach and online resources. Your personal goal: continues to quit on the patch Heart fail ure with reduced ejection fraction 182806403 I50.9 EF 10-15% Continue furosemide . contiue furosemide , amiodarone Xarelto, metoprolol 12.5 BID, ? valsartan. [id number] David Plunkett MD , [facility], OFFICE [address] [place] [address] 09/05/2024 08:09:32 09/05/2024 08:57:29 Screening for malignant neoplasm of colon 192990146 Z12.11 Referral for a DIRECT booked colonoscop y. This patient is a healthy ASA Class 1 or 2 patient (only mild systemic disease), or a STABLE, well controlled insulin dependent diabetic. They do not have serious cardiac disease ie VT/angiopl asty within 1 year, symptomati c CHF; renal failure with CKD 4 or 5; take Coumadin, Plavix, Aggrenox, etc. Active or passive immunization 033920709 Z23 Flu:shingl es and PPV: Nicotine dependence [...] cessation. We discussed utilizing our smoking cessation financial wellness coach and online resources. Your personal goal: Diabetic p eripheral neuropathy 520863286 E11.40 A1C 7.4 to Rx ozempic for weight loss cardiac , diabetes. also would consdier metformin Atrial fibrillation 4943 6004 I48.91 new onset After cardiovers ion in sinus rhythm, on multiple meds. F/U w/ Cardiol. to have sleep study. Heart fail ure with reduced ejection fraction 398743450 I50.9 EF 10-15% Continue furosemide . contiue furosemide , amiodarone Xarelto, metoprolol 12.5 BID, ? valsartan. Obstructiv e sleep apnea syndrome 07496938 G47.33 continue the mnask Essential hypertension 59173773 I10 Not at goal of 130/80, on entresto(l ow dose), metoprolol 12.5 daily. and furosemide , . will focus on weight dr. Arrieta to manage tohe ? increasing entrestol for BP ( the valsartan component) [id number] David Plunkett MD , [facility], OFFICE [address] [place] [address] 12/05/2024 07:40:11 12/05/2024 08:35:27 Screening for malignant neoplasm of colon 703597742 Z12.11 This has been ordered - Pt is going to wait on this screening Active or passive immunization 295968638 Z23 Flu:shingl es and PPV: Nicotine dependence [...] cessation. We discussed utilizing our smoking cessation financial wellness coach and online resources. Your personal goal: to quit, now at 1/2 ppd Diabetic p eripheral neuropathy 225187976 E11.40 A1C 6.9 on ozempic for weight loss cardiac , diabetes. also would consdier metformin. will increase to 0.5 Atrial fibrillation 4943 6004 I48.91 new onset After cardiovers ion in sinus rhythm, on multiple meds. F/U w/ Cardiol. continue amiodarone , metoprolol , to get ablation consult. Had sleep study. CPAP. Heart fail ure with reduced ejection fraction 682457697 I50.9 EF 10-15% initially, better recently, and to have repeat.Con tinue furosemide . contiue furosemide , amiodarone Xarelto, metoprolol 12.5 BID, entresto increased. Obstructiv e sleep apnea syndrome 09378050 G47.33 continue the mask Essential hypertension 81934481 I10 At goal of 130/80, on entresto(l ow dose), metoprolol 12.5 daily. and furosemide , . will focus on weight dr. Arrieta to manage;- increasing entrestol for BP ( the valsartan component) Health Concerns Section Related Observation LastModified by Organization Detai ls LastModified Time None Recorded Concern Status LastModified by Organization Details LastModified Time None Recorded Advance Directives Directive N: Payers Encounter Date Sequence Insurance Name Policy Number Policy Burgess Covered Member ID Burgess Member ID Guarantor Name 01/25/2024 1 [facility] ([facility]) R G Martha [id number] R G Martha 02/08/2024 1 [facility] [employer] (POS) R G Martha [id number] R G Martha 03/07/2024 1 [facility] (POS) R G Martha [id number] R G Martha 09/05/2024 1 [facility] (POS) R G Martha [id number] R G Martha 12/05/2024 1 [facility] ([facility]) R G Martha [id number] R G Martha Notes Date Note Type Note Provider Name and Address Organization Details Recorded Time 4 text/html [facility] DiabetesReported bypatient.Control:usually well controlled; [...] in exercise capacity; No snoringNotes:denies CP. SOBa/vmg-smoking [id number] bypatient.ImportanceOn a scale of 1-10 with 1 [...] 300 instead of 200 GF is a chef head . gets her cooking for lunch and dinner. omlet for breakfast. BP took a while to get amlodipin. On w/c for back pain. Injured it a month ago. Moved to [place]. Kids are all set. Exercise- does outdoor work every day. and [facility] Denies CP. Gained weight- does not snack, drink soda. And is active. Alcohol 3 vodka/water a day. He is a new grandfather. She is 6(Yesenia) Mom- is Roseline, . Has 3 girls, Riya, Juana, Roseline. Has been a year or two. since gout on allopurinol . no gout since. David Plunkett MD [address] [place] [address], [phone], [facility] 01/25/2024 09:16:45 4 text/html a/vmg-smoking [id number] bypatient.Notes:has cut in half. - 1/2 ppd Here for f/u from 01/24. Was waking up SOB, and cough/tickle, which has gone deeper, but less SOB. New onset AFIB. Also had low bp, we stopped hydralazine. Drinking reduced by half. now rare during the week David Plunkett MD [address] [place] [address], [phone], [facility] 02/08/2024 09:57:27 4 text/html a/vmg-smoking [id number] bypatient.Notes:Quit smoking x 2 wks. Is on [...] Started metorpolol 12.5 BID David Plunkett MD [address] [place] [address], [phone], [facility] 03/07/2024 10:46:26 5 text/html a/vmg-smoking [id number] bypatient.Notes:Quit smoking x 2 wks. Is on [...] more using the patch David Plunkett MD [address] [place] [address], [phone], [facility] 09/05/2024 09:16:17 5 text/html a/vmg-smoking [id number] bypatient.Notes:Had Quit smoking, was smoking just over a ppd, then restarted on 1/2 PPD Here for f/u AFIB new onset. On 02/07,We had begun treatment and had set up for an echo, but before he could do that and see cardiol, He had orthopnea, SOB/ CHF AFIB RVR and needed to go to the hospital. AFIB with RVR ( had been placed [...] x 3 and sedated and cardioverted successfully. Saw Dr. Arrieta Cardiol 11/25/24- up titrated entresto to 49 and refered for EPS- Ablation consult Sleep apnea. Trouble losing weight. Eating yogurt. breakfast. No cakes, cookies, soda.Hospital Notes reveiwed: IV lasix to 20 lasix BID.9 liters [...] more using the patch David Plunkett MD [address] [place] [address], [phone], [facility] 12/05/2024 08:32:04
--- OUTSIDE RECORDS SUMMARY | 2024-12-05 09:15 | XMS_ITS | Continuity of Care Document ---
Author Organization [facility], , [facility], OFFICE Address [address] [place] [address] Care Team Providers Care Field Nurse Case Manager Name Role Phone DAVID PLUNKETT Primary Care Provider [phone] [facility] Orthopedist [facility] Ion Exchange Operator Assessment No assessment recorded. Plan of Treatment Reminders Order Date Submit Date Provider Last Modified By Organization Details Last Modified Time Details Appointments Medical Managemen t 15 2024 08:00A M David Plunkett MD Not available Not available Not available LAB Follow-Up 2024 07:00A M [facility] Lab Not available Not available Not available Medical Managemen t 30 2024 09:45A M David Plunkett MD Not available Not available Not available [facility] Phone Call 2024 02:00P M [facility] Not available Not available Not available Lab HbA1c (hemoglob in A1c), blood 2024 025 [facility], [address] [place], [address], 12/05/2024 08:32:01 Referral None recorded. Procedures None recorded. Surgeries None recorded. Imaging None recorded. Medication Orders Entresto 49 mg-51 mg tablet 2024 025 [facility]/Pharmacy #[id number], [address] [place], [address], 12/05/2024 08:32:01 Ozempic 0.25 mg or 0.5 mg (2 mg/1.5 mL) subcutane ous pen injector 2024 025 [facility]/Pharmacy #[id number], [address] [place], [address], 12/05/2024 08:32:03 Patient TargetsNo targets recorded. Patient InstructionsNo instructions recorded. Reason for Referral None Reported. Problems Name Problem SNOMED Code Status Onset Date Resolution Date Notes Provider Name and Address Organization Details Recorded Time Gout 54651428 Active David Plunkett MD [address] [place] [address], [phone] , [facility] 4 14:03:51 Steatosi s of liver 751839916 Active 2021 David Plunkett MD [address] [place] [address], [phone] , [facility] 4 14:03:51 Morbid obesity 941168952 Active 2021 BMI > or = 35 with diagnosi s of hyperten sunny, hyperlip idemia and diabetes David Plunkett MD [address] [place] [address], [phone] , [facility] 4 14:03:51 Diabetic peripher al neuropat hy 992717192 Active 2023 neuropat hy 09/2023, diabetes since 2017 David Plunkett MD [address] [place] [address], [phone] , [facility] 4 14:03:51 Heart failure with reduced ejection fraction 670786769 Active 2023 David Plunkett MD [address] [place] [address], [phone] , [facility] 5 08:41:41 Atrial fibrilla tion 17448622 Active 2023 David Plunkett MD [address] [place] [address], [phone] , [facility] 5 08:41:41 Clinical finding Completed 200607/16/[address] [facility] 3 02:04:02 Mixed hyperlip idemia 115413603 Active 2006 David Plunkett MD [address] [place] [address], [phone] , [facility] 4 14:03:51 Benign essentia l hyperten sunny 4655174 Active 2006 David Plunkett MD [address] [place] [address], [phone] , [facility] 4 14:03:51 Tobacco user 228608915 Active David Plunkett MD [address] [place] [address], [phone] , [facility] 4 14:03:51 Foreign body on external eye 73867550 Completed 200602/09/2016 Removal Reason: inactive David Plunkett MD [address] [place] [address], [phone] , [facility] 6 13:44:47 Elevated level of transami nase and lactic acid dehydrog enase 091241532 Active 2006 Not Available [facility] 1 11:52:57 Pure hypercho lesterol emia 593188680 Active 2006 David Plunkett MD [address] [place] [address], [phone] , [facility] 4 14:03:51 Problem Notes None recorded. Procedures Surgical History Date Name Laterality Status Provider Name and Address Organization Details Recorded Time 5 Smoking cessation counseling completed Sherry Dugan [facility] 09/05/2024 08:25:06 4 Smoking cessation counseling completed Sherry Dugan [facility] 03/07/2024 10:14:30 4 Post hospital/SNF follow-up/Trans itional Care completed Sherry Dugan [facility] 03/07/2024 10:17:30 4 Smoking cessation counseling completed Sherry Dugan [facility] 02/08/2024 09:24:30 4 Smoking cessation counseling completed Megan Mathew [facility] 01/25/2024 07:58:51 4 [facility]inal [facility]ening [facility] 10/31/2023 14:06:03 4 [place] Sleepiness Scale completed David Plunkett MD [address] [place] [address], [phone], [facility] 10/24/2023 11:42:37 4 Smoking cessation counseling completed Herminia Baca [facility] 10/24/2023 09:29:46 4 G2211 completed David Plunkett MD [address] [place] [address], [phone], [facility] 10/24/2023 13:08:25 3 Smoking cessation counseling completed Barbara Hermosillo [facility] 11/10/2022 11:35:53 2 Smoking cessation counseling completed Sherry Dugan [facility] 03/14/2022 16:44:10 1 Smoking cessation counseling completed David Plunkett MD [address] [place] [address], [phone], [facility] 02/23/2021 12:31:46 1 Wart completed David Plunkett MD [address] [place] [address], [phone], [facility] 02/23/2021 12:31:57 0 Smoking cessation counseling completed Sherry Dugan [facility] 02/03/2020 09:42:26 0 Smoking cessation counseling completed Sherry Dugan [facility] 09/08/2019 14:25:11 9 Smoking cessation counseling completed Sherry Dugan [facility] 03/11/2019 13:31:30 9 Actinic Keratosis completed David Plunkett MD [address] [place] [address], [phone], [facility] 03/11/2019 13:44:52 8 Smoking cessation counseling completed Sherry Dugan [facility] 04/24/2018 14:13:53 7 Smoking cessation counseling completed Madalyn Armas [facility] 01/17/2017 14:06:58 7 Carbon Monoxide Testing completed Madalyn [facility] 01/17/2017 14:06:51 6 Smoking cessation counseling completed David Plunkett MD [address] [place] [address], [phone], [facility] 02/09/2016 14:13:06 6 Smoking cessation counseling completed [facility] 12/22/2015 13:37:14 6 Carbon Monoxide Testing completed Chris [facility] 12/22/2015 13:41:20 5 Smoking cessation counseling completed Sofie Noble [facility] 11/20/2014 13:23:10 5 Smoking cessation counseling completed Sofie Noble [facility] 09/18/2014 10:06:31 3 Smoking cessation counseling completed David Plunkett MD [address] [place] [address], [phone], [facility] 04/30/2013 10:35:53 Imaging Results None recorded. Procedure Notes None recorded. Medical Equipment None Reported. Allergies Allergen ID Allergen Name Allergen Category Reaction Reaction Severity Criticality Documentation Date Start Date Code Code System Note Provider Name and Address Organization Details Recorded Time 413469 lisinopri l medicatio n cough Not available Not available 04/30/2013 44073 RxNorm Sherry Mccarthy MA [facility] 3 09:54:57 Medications Name Sig Start [...] tab 2xday po 05/17 completed per 05/08 [facility] d/c medicati on list. while taking [...] Details Last Updated DateTime 5 180.34 cm 38.6 kg/m2 471176. 09 g 62 /min 126 mm[Hg] 72 mm[Hg] Sherry Dugan CMA [facility] 5 08:05:14 Social History Question Answer Notes LastModified by Organizat ion Details LastModified Time Tobacco Smoking Status Former Smoker smokes 1 ppd / QUIT 2 weeks ago 03/06/2024 Sherry Dugan, [facility], [facility] 12/04/2024 11:04:30 Do You Have An Advance Directive? No [email or web address] Information not available 07/13/2011 What Is Your Level Of Alcohol Consumption? Moderate Couple Frinks Per Day [email or web address] Information not available 12/22/2015 What Type Of Diet Are You Following? REGULAR [email or web address] Information not available 03/11/2012 Do You Or Have You Ever Used E-cigarettes Or Vape? 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 [facility] Information not available 11/20/2008 Are There Any Guns Present In Your Home? Yes Information not available 04/24/2018 Live Alone Or With Others? With Others ALYSSA Trejo Since 2008 [facility] Information not available 03/11/2019 Marital Status [email or web address] Information not available 03/11/2012 Mosquito Repellent Used Routinely No Information not available 04/24/2018 What Was The Date Of Your Most Recent Tobacco Screening? 12/04/2024 Information not available 12/04/2024 How Many Children Do You Have? 3 3 Girls , , 09/1999 - Favian Dodson, Riya [facility] Information not available 11/20/2008 Seat Belts Used Routinely Yes Information not available 04/24/2018 Smoke Alarm In Home Yes Information not available 04/24/2018 Do You Or Have You Ever Used Smokeless Tobacco? Never Used Smokeless Tobacco Information not available 02/23/2021 General Stress Level High [email or web address] Information not available 07/13/2011 Do You [...] ously record ed as Stroke ) [id number] Not available 04/07/2013 03:00:51 Notes:Sister Susana +3. Health y Medical History Condition Response NEUROLOGIC Y Diverticulitis Y Hypertension Y Immunizations Vaccine Type Date Status Note Provider Nam sly and Address Organization Details Recorded Time Tdap 4 completed Not Available [facility] 09/13/2019 02:16:08 COVID-19, mRNA, LNP-S, PF, 30 mcg/0.3 mL dose 1 completed BIBI Butterfield, [facility] 02/23/2021 11:40:30 COVID-19, mRNA, LNP-S, PF, 30 mcg/0.3 mL dose 1 completed BIBI Butterfield, [facility] 02/23/2021 11:41:20 Td (adult), 2 Lf tetanus toxoid, preservative free, adsorbed 4 completed David Plunkett MD [address] [place] [address], [phone], [facility] 10/24/2023 13:06:32 COVID-19, mRNA, LNP-S, PF, 100 mcg/0.5mL dose or 50 mcg/0.25mL dose 1 completed NOAH Mckeon, [facility] 01/25/2024 09:04:14 Past Encounters Encounter ID Performer Location Encounter Start Date Encounter Closed Date Diagnosis/Indication Diagnosis SNOMED-CT Code Diagnosis ICD10 Code Diagnosis Note [id number] David Plunkett MD , [facility], OFFICE [address] [place] [address] 12/05/2024 07:40:11 12/05/2024 08:35:27 Screening for malignant neoplasm of colon 322191250 Z12.11 This has been ordered - Pt is going to wait on this screening Active or passive immunization 784946624 Z23 Flu:shingl es and PPV: Nicotine dependence [...] cessation. We discussed utilizing our smoking cessation cricket coach and online resources. Your personal goal: to quit, now at 1/2 ppd Diabetic p eripheral neuropathy 908286670 E11.40 A1C 6.9 on ozempic for weight loss cardiac , diabetes. also would consdier metformin. will increase to 0.5 Atrial fibrillation 4943 6004 I48.91 new onset After cardiovers ion in sinus rhythm, on multiple meds. F/U w/ Cardiol. continue amiodarone , metoprolol , to get ablation consult. Had sleep study. CPAP. Heart fail ure with reduced ejection fraction 620523419 I50.9 EF 10-15% initially, better recently, and to have repeat.Con tinue furosemide . contiue furosemide , amiodarone Xarelto, metoprolol 12.5 BID, entresto increased. Obstructiv e sleep apnea syndrome 34666030 G47.33 continue the mask Essential hypertension 09655731 I10 At goal of 130/80, on entresto(l ow dose), metoprolol 12.5 daily. and furosemide , . will focus on weight dr. Arrieta to manage;- increasing entrestol for BP ( the valsartan component) Health Concerns Section Related Observation LastModified by Organization Detai ls LastModified Time None Recorded Concern Status LastModified by Organization Details LastModified Time None Recorded Payers Encounter Date Sequence Insurance Name Policy Number Policy Burgess Covered Member ID Burgess Member ID Guarantor Name 12/05/2024 1 [facility] (POS) Royce Thomas [id number] Royce Thomas Notes Date Note Type Note Provider Name and Address Organization Details Recorded Time 12/05/2024 text/html a/vmg-smoking [id number] bypatient.Notes:Bahena d Quit smoking, was smoking just over a ppd, then restarted on 08/28 PPD Here for f/u AFIB new onset. [...] more using the patch David Plunkett MD [address] [place] [address], [phone], [facility] 12/05/2024 08:32:04
[2024-12-05 10:01] LABS: B Type Natriuretic Peptide 17 pg/mL (<100)
[2024-12-05 10:13] LABS: Anion Gap 12 (12-20); Blood Urea Nitrogen 15 mg/dL (9-16); Calcium 9.3 mg/dL (8.4-10.2); Carbon Dioxide 28 mmol/L (22-29); Chloride 104 mmol/L (96-108); Cholesterol 153 mg/dL (<200); Estimated Glomerular Filt Rate > 60; Glucose Random 134 mg/dL (60-115); HDL Cholesterol 39 mg/dL (>40); LDL Cholesterol Calculated 92 mg/dL (<100); Potassium 4.3 mmol/L (3.3-5.1); Sodium 140 mmol/L (135-145); Triglycerides 110 mg/dL (<150)
== END 2024-12-05 09:00 | disposition home or self-care (01) ==
LOC: HO.LAB 08:59
PROVIDERS: Nurse Practitioner; PCP Family Medicine; Visit Provider Internal Medicine Cardiovascular Disease
DX: I10 Essential (primary) hypertension (principal); I50.20 Unspecified systolic (congestive) heart failure; E78.5 Hyperlipidemia, unspecified
CPT/HCPCS: 36415; 80048; 80061; 83880

== ENCOUNTER → 2024-12-18 07:46 | Outpatient (REF) | payer OTHER, SELFPAY ==
--- NOTE | 2024-12-18 07:52 | CA_ITS ---
Transthoracic Echocardiogram Patient (Last, First, Middle): Royce Thomas Gene, Gender: Male Date of : 1965 Age: 59 Procedure Date: 12/18/2024 Procedure Type: Transthoracic Echocardiogram Location: OP Height: 182. cm Weight: 124.29 kg BSA: 2.43 m2 Heart Rate: 59 bpm BP: 138 / 70 mmHg Brineyard Supervisor: CHRIS Referring MD: Ajit Arrieta MD Symptoms: I42.9 - Cardiomyopathy, unspecified Study Quality: Adequate w contrast/limited ordered ECG Rhythm: Bradycardia Conclusions: - The left ventricular systolic function is severely decreased. The calculated ejection fraction is 28% by biplane method. - Prominent trabeculation in the inferolateral wall suggesting possible non-compaction. Findings Procedure Information Contrast agent, definity, is being given per protocol without apparent complications. Left Ventricle Normal left ventricular cavity size. There is moderately increased left ventricular wall thickness. The left ventricular systolic function is severely decreased. The calculated ejection fraction is 28% by biplane method. Prominent trabeculation in the inferolateral wall suggesting possible non-compaction. Venous The inferior vena cava is normal in size and collapses greater than 50% with inspiration. Prior Study Comparison No significant change compared to prior study dated: 04/14/2024. Measurements 2D Linear Measurements IVSd: 1.33 0.6-0.9/0.6-1.0 cm LVIDd: 5.32 3.9-5.3/4.2-5.9 cm LVIDd Index: 2.19 2.4-3.2/2.2-3.1 cm/m2 LVIDs: 3.80 2.0-3.6 cm LVPWd: 1.43 0.7-1.1 cm LA Diam: 4.20 2.7-3.8/3.0-4.0 cm LAIDs Index: 1.73 1.5-2.3 cm/m2 LV Mass: 392.02 67-162/88-224 g LV Mass Index: 161.33 43-95/49-115 g/m2 LVOT Diam: 2.20 3.0+(-)1.3 cm 2D Systolic Function EF 4C: 27.50 >55% EF 2C: 28.50 >55% EF BiP: 28.00 >55% Mitral Valve MV Pk E: 0.47 MV PK A: 0.67 MV Decel Time: 299.00 E/A: 0.70 E'Lateral: 5.33 E'Medial: 3.92 E/E' Med: 11.90 E/E' Lat: 8.80 PHT: 87.00 MVA PHT: 2.53 Decel [place]: 1.56 LVOT LVOT Pk [place]: 1.09 LVOT Mn [place]: 0.77 LVOT VTI: 0.22 LVOT Pk Grad: 5.00 LVOT Mn Grad: 3.00 LVOT Diam: 2.20 LVOT Area: 3.80 Diastolic Function MV Pk E: 0.47 MV Pk A: 0.67 E/A: 0.70 E'Medial: 3.92 E/E' Med: 11.90 E' Laterial: 5.33 E/E' Lat: 8.80 Tricuspid Valve RA Press: 3.00 Updated in Other Vendor System with Status of Final Ken Sotelo MD electronically signed on 12/20/2024 10:40:41 AM with status of Final
--- OUTSIDE RECORDS SUMMARY | 2024-12-18 07:53 | XMS_ITS | Data Portability ---
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 Plan of Treatment Reminders Order Date Submit Date Provider Last Modified By Organization Details Last Modified Time Details Appointments LAB Follow-Up 2024 07:00A M [facility] Lab Not available Not available Not available Medical Managemen t 30 2024 09:45A M David Plunkett MD Not available Not available Not available NOAC Phone Call 2024 02:00P M [facility] Not available Not available Not available Lab HbA1c (hemoglob in A1c), blood 2024 025 [facility], [address] [place] [address], [id number], 12/05/2024 08:32:01 HbA1c (hemoglob in A1c), blood 2024 025 [facility], [address] [place] [address], [address], 11/28/2024 11:55:05 BMP, serum or plasma 2024 025 [facility], [address] [place] [address], [address], 11/28/2024 10:22:29 lipid panel, serum 2024 025 [facility], [address] [place] [address], [address], 11/28/2024 10:22:31 Referral cardiolog ist referral - new onset AFIB, hx alcohol use. 2023 024 NII Arrieta, [address] [facility], [address], [place], [address], 03/04/2024 23:30:17 Procedures colonosco py procedure (PROC) [email or web address] [facility], [address] [facility], [place], [address], 09/05/2024 10:20:19 trans-tho racic echocardi ogram (TTE) (PROC) - New onset AFIB [email or web address] [place] [address] [facility], [address], [place], [address], 12/08/2024 13:39:36 trans-tho racic echocardi ogram (TTE) (PROC) 2023 024 TINA Daly, [address] [facility], [address], [place], [address], 01/25/2024 10:40:42 Surgeries None recorded. Imaging electroca rdiogram 2023 024 [facility], [address], [place], [address], 01/25/2024 13:38:19 XR, chest 2023 024 [facility] (Imaging), [address] , [place], [address], 01/25/2024 09:58:13 Medication Orders Entresto 49 mg-51 mg tablet 2024 025 [facility] #2025, [address] [place], [address], 12/05/2024 08:32:01 Ozempic 0.25 mg or 0.5 mg (2 mg/1.5 mL) subcutane ous pen injector 2024 025 [facility] [address] [place], [address], 12/07/2024 21:07:49 Ozempic 0.25 mg or 0.5 mg (2 mg/1.5 mL) subcutane ous pen injector 2024 025 [facility] [address] [place], [address], 09/05/2024 08:49:10 metoprolo l succinate ER 25 mg tablet,ex tended release 24 hr 2023 024 [facility] [address] [place], [address], 09/05/2024 08:46:42 metoprolo l succinate ER 25 mg tablet,ex tended release 24 hr 2023 024 [facility] [address] [place], [address], 09/05/2024 08:46:42 Xarelto 20 mg tablet 2023 024 [facility] [address] [place], [address], 01/25/2024 09:15:04 Patient TargetsNo targets recorded. Patient Instructions Encounter Date Encounter Id Patient Instructions Last Modified By Organization Details Last Modified Time 03/07/2024 [id number] I am aware of [facility] inpatient facility discharge medications, the medication list above has been reconciled with those medications and reflects my understanding of an up to date medication list for this patient. 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 METAB OLIC PANEL glucose 140 mg/dL 70-100 high Not Available [address], [address], 01/17/2024 10:27:13 01/17/20 24 01/17/2024 COMP. METAB OLIC PANEL BUN 13 mg/dL 7-18 Not Available [address], [address], 01/17/2024 10:27:13 01/17/20 24 01/17/2024 COMP. METAB OLIC PANEL creatinine 1.0 mg/dL 0.8-1. 3 Not Available [address], [address], 01/17/2024 10:27:13 01/17/20 24 01/17/2024 COMP. METAB OLIC PANEL B/C 13.0 ratio Not Available [address], [address], 01/17/2024 10:27:13 01/17/20 24 01/17/2024 COMP. METAB [...] Colla borat ion (CKD- EPI) Equat ion (Inke r et. al 2020) as recom ofelia d by the Natio n[facility] ation . eGFR is based on age, serum creat inine , and sex. CKD-E PI does not calcu late eGFR by race, does not apply to child hannah (age <18 years ), and shoul d not be used in pregn alejandro. Not Available [address], [address], 01/17/2024 10:27:13 01/17/20 24 01/17/2024 COMP. METAB OLIC PANEL sodium 135 mmol/ L 136-14 5 low Not Available [address], [address], 01/17/2024 10:27:13 01/17/20 24 01/17/2024 COMP. METAB OLIC PANEL potassium 4.3 mmol/ L 3.5-5. 1 Not Available [address], [address], 01/17/2024 10:27:13 01/17/20 24 01/17/2024 COMP. METAB OLIC PANEL chloride 96 mmol/ L 96-107 Not Available [address], [address], 01/17/2024 10:27:13 01/17/20 24 01/17/2024 COMP. METAB OLIC PANEL anion gap 9.8 5.0-15 .0 Not Available [address], [address], 01/17/2024 10:27:13 01/17/20 24 01/17/2024 COMP. METAB OLIC PANEL CO2 29 mmol/ L 21-32 Not Available [address], [address], 01/17/2024 10:27:13 01/17/20 24 01/17/2024 COMP. METAB OLIC PANEL calcium 8.6 mg/dL 8.5-10 .3 Not Available [address], [address], 01/17/2024 10:27:13 01/17/20 24 01/17/2024 COMP. METAB OLIC PANEL total protein 6.8 g/dL 6.4-8. 2 Not Available [address], [address], 01/17/2024 10:27:13 01/17/20 24 01/17/2024 COMP. METAB OLIC PANEL albumin 3.3 g/dL 3.4-5. 0 low Not Available [address], [address], 01/17/2024 10:27:13 01/17/20 24 01/17/2024 COMP. METAB OLIC PANEL globulin 3.5 g/dL Not Available [address], [address], 01/17/2024 10:27:13 01/17/20 24 01/17/2024 COMP. METAB OLIC PANEL A/G 0.9 ratio 0.8-2. 0 Not Available [address], [address], 01/17/2024 10:27:13 01/17/20 24 01/17/2024 COMP. METAB OLIC PANEL total bilirubin 0.80 mg/dL 0.00-1 .00 Not Available [address], [address], 01/17/2024 10:27:13 01/17/20 24 01/17/2024 COMP. METAB OLIC PANEL AST 41 U/L 0-37 high Not Available [address], [address], 01/17/2024 10:27:13 01/17/20 24 01/17/2024 COMP. METAB OLIC PANEL ALT 93 U/L 6-63 high Not Available [address], [address], 01/17/2024 10:27:13 01/17/20 24 01/17/2024 COMP. METAB OLIC PANEL alk. phos. 65 U/L 50-136 Not Available [address], [address], 01/17/2024 10:27:13 01/17/20 24 01/17/2024 LIPID PANEL cholesterol 186 mg/dL <200 mg/dl Elaina able 200-2 39 mg/dl Borde rline High >240 mg/dl High Not Available [address], [address], 01/17/2024 10:27:14 01/17/20 24 01/17/2024 LIPID PANEL triglyceride s 68 mg/dL <150 mg/dL Olinda l 150-1 99 mg/dL Borde rline High 200-4 99 mg/dL High >500 mg/dL Very High Not Available [address], [address], 01/17/2024 10:27:14 01/17/20 24 01/17/2024 LIPID PANEL direct HDL 40 mg/dL <40 mg/dl - Major Risk for CHD >60 mg/dl - Negat tanesha Risk for CHD Not Available [address], [address], 01/17/2024 10:27:14 01/17/20 24 01/17/2024 URIC ACID uric acid 3.8 mg/dL 3.5-7. 2 Not Available [address], [address], 01/17/2024 10:27:16 01/17/20 24 01/17/2024 LDL - [...] r is not catarina tidwell. Not Available [address], [address], 01/17/2024 10:27:17 01/17/20 24 01/17/2024 TSH TSH 1.55 uIU/m L 0.50-6 .00 The Ameri can Colle ge of Endoc rinol ogy and Trevoneri can Thyro id Assoc iatio n recom mend goal TSH value s betwe en 0.4-4 .0 mIU/m L. Not Available [address], [address], 01/17/2024 10:35:31 07/22/20 24 07/22/2024 HGB A1C [...] furth er confi rmati on Not Available [address], [address], 07/22/2024 09:39:25 07/22/20 24 07/22/2024 HGB A1C estimated average glucose 165.7 mg/dL Not Available [address], [address], 07/22/2024 09:39:25 07/22/20 24 07/22/2024 MICRO ALBUM IN/CR EATIN INE RATIO PANEL , URINE microalbumin 102.4 mg/L 1.3-20 .0 high VERD= Verif ied by Wiley stephens. Not Available [address], [address], 07/22/2024 17:17:55 07/22/20 24 07/22/2024 MICRO ALBUM IN/CR EATIN INE RATIO PANEL , URINE creatinine urine 187.1 mg/dL 30.0-1 25.0 high Not Available [address], [address], 07/22/2024 17:17:55 07/22/20 24 07/22/2024 MICRO ALBUM IN/CR EATIN INE RATIO PANEL , URINE microalb/cre at ratio 54.7 mg/g_ creat 0.0-29 .0 high Not Available [address], [address], 07/22/2024 17:17:55 07/22/20 24 07/23/2024 LIPID PANEL cholesterol 262 mg/dL <200 mg/dl Elaina able 200-2 39 mg/dl Borde rline High >240 mg/dl High Not Available [address], [address], 07/23/2024 16:20:18 07/22/20 24 07/23/2024 LIPID PANEL triglyceride s 150 mg/dL <150 mg/dL Olinda l 150-1 99 mg/dL Borde rline High 200-4 99 mg/dL High >500 mg/dL Very High Not Available [address], [address], 07/23/2024 16:20:18 07/22/20 24 07/23/2024 LIPID PANEL direct HDL 44 mg/dL <40 mg/dl - Major Risk for CHD >60 mg/dl - Negat tanesha Risk for CHD Not Available [address], [address], 07/23/2024 16:20:18 07/22/20 24 07/23/2024 URIC ACID uric acid 6.2 mg/dL 3.5-7. 2 Not Available [address], [address], 07/23/2024 16:20:18 07/22/20 24 07/23/2024 LDL - [...] 0-1 risk facto r is not catarina yaw. Not Available [address], [address], 07/23/2024 16:20:19 07/22/20 24 07/27/2024 MARGE SCREE [...] MARGE Patte rns (http [email or web address]/ [facility]- 2017- 0052) For addit ional infor debi davis e refer to http: //[facility] amanda [email or web address] stDia gnost ics.c om/fa q/FAQ 177 (This link is being provi ded for infor matio nal/ educa sidra l purpo ses only. ) Not Available [facility] [address], [address], 07/27/2024 01:58:16 07/22/20 24 07/27/2024 HLA-B 27 ANTIG EN hla-B27 antigen NEGATI VE negati ve Not Available [facility] [address], [address], 07/27/2024 01:58:18 07/22/20 24 07/27/2024 RHEUM ATOID FACTO R rheumatoid factor <10 IU/mL <14 normal Not Available [facility] [address], [address], 07/27/2024 01:58:19 07/22/20 24 07/28/2024 BASIC METAB OLIC PANEL glucose 188 mg/dL 70-100 high Not Available [address], [address], 07/28/2024 11:17:05 07/22/20 24 07/28/2024 BASIC METAB OLIC PANEL BUN 16 mg/dL 7-18 Not Available [address], [address], 07/28/2024 11:17:05 07/22/20 24 07/28/2024 BASIC METAB OLIC PANEL creatinine 1.2 mg/dL 0.8-1. 3 Not Available [address], [address], 07/28/2024 11:17:05 07/22/20 24 07/28/2024 BASIC METAB OLIC PANEL B/C 13.3 ratio Not Available [address], [address], 07/28/2024 11:17:05 07/22/20 24 07/28/2024 BASIC METAB [...] be used in pregn alejandro. Not Available [address], [address], 07/28/2024 11:17:05 07/22/20 24 07/28/2024 BASIC METAB OLIC PANEL sodium 142 mmol/ L 136-14 5 Not Available [address], [address], 07/28/2024 11:17:05 07/22/20 24 07/28/2024 BASIC METAB OLIC PANEL potassium 5.0 mmol/ L 3.5-5. 1 Not Available [address], [address], 07/28/2024 11:17:05 07/22/20 24 07/28/2024 BASIC METAB OLIC PANEL chloride 102 mmol/ L 96-107 Not Available [address], [address], 07/28/2024 11:17:05 07/22/20 24 07/28/2024 BASIC METAB OLIC PANEL anion gap 12.0 5.0-15 .0 Not Available [address], [address], 07/28/2024 11:17:05 07/22/20 24 07/28/2024 BASIC METAB OLIC PANEL CO2 28 mmol/ L 21-32 Not Available [address], [address], 07/28/2024 11:17:05 07/22/20 24 07/28/2024 BASIC METAB OLIC PANEL calcium 9.3 mg/dL 8.5-10 .3 Not Available [address], [address], 07/28/2024 11:17:05 11/29/19 25 11/28/2024 BASIC METAB OLIC PANEL glucose 149 mg/dL 70-100 high Not Available [address], [address], 11/28/2024 10:22:29 11/29/1911/28/2024 BASIC METAB OLIC PANEL BUN 14 mg/dL 7-18 Not Available [address], [address], 11/28/2024 10:22:29 11/29/19 25 11/28/2024 BASIC METAB OLIC PANEL creatinine 1.0 mg/dL 0.8-1. 3 Not Available [address], [address], 11/28/2024 10:22:29 11/29/19 25 11/28/2024 BASIC METAB OLIC PANEL B/C 14.0 ratio Not Available [address], [address], 11/28/2024 10:22:29 11/29/19 25 11/28/2024 BASIC METAB [...] be used in pregn alejandro. Not Available [address], [address], 11/28/2024 10:22:29 11/29/1911/28/2024 BASIC METAB OLIC PANEL sodium 139 mmol/ L 136-14 5 Not Available [address], [address], 11/28/2024 10:22:29 11/29/19 25 11/28/2024 BASIC METAB OLIC PANEL potassium 3.9 mmol/ L 3.5-5. 1 Not Available [address], [address], 11/28/2024 10:22:29 11/29/19 25 11/28/2024 BASIC METAB OLIC PANEL chloride 102 mmol/ L 96-107 Not Available [address], [address], 11/28/2024 10:22:29 11/29/19 25 11/28/2024 BASIC METAB OLIC PANEL anion gap 10.8 5.0-15 .0 Not Available [address], [address], 11/28/2024 10:22:29 11/29/19 25 11/28/2024 BASIC METAB OLIC PANEL CO2 26 mmol/ L 21-32 Not Available [address], [address], 11/28/2024 10:22:29 11/29/19 25 11/28/2024 BASIC METAB OLIC PANEL calcium 9.2 mg/dL 8.5-10 .3 Not Available [address], [address], 11/28/2024 10:22:29 11/29/19 25 11/28/2024 LIPID PANEL cholesterol 160 mg/dL <200 mg/dl Elaina able 200-2 39 mg/dl Borde rline High >240 mg/dl High Not Available [address], [address], 11/28/2024 10:22:31 11/29/19 25 11/28/2024 LIPID PANEL triglyceride s 148 mg/dL <150 mg/dL Olinda l 150-1 99 mg/dL Borde rline High 200-4 99 mg/dL High >500 mg/dL Very High Not Available [address], [address], 11/28/2024 10:22:31 11/29/19 25 11/28/2024 LIPID PANEL direct HDL 43 mg/dL <40 mg/dl - Major Risk for CHD >60 mg/dl - Negat tanesha Risk for CHD Not Available [address], [address], 11/28/2024 10:22:31 11/29/19 25 11/28/2024 LDL - CALCU LATED LDL - calculated [...] with 0-1 risk facto r is not necgabriel tidwell. Not Available [address], [address], 11/28/2024 10:22:32 11/29/19 25 11/28/2024 HGB A1C [...] furth er confi rmati on Not Available [address], [address], 11/28/2024 11:55:05 11/29/19 25 11/28/2024 HGB A1C estimated average glucose 151.3 mg/dL Not Available [address], [address], 11/28/2024 11:55:05 01/25/20 24 01/25/2024 elect lincoln cox am No observ ation record ed. NII [address], [address], 01/26/2024 14:07:05 01/25/20 24 elect lincoln cox am No observ ation record ed. domi Not Available 2023 09:05:46 01/25/20 24 01/25/2024 [...] The bony thorax is intact . IMPRES SUNNY: No focal diseas e. Nonspe cific mild promin ence of the lung markin gs. This may be normal or could relate to mild vascul ar conges tion or inflam mation . Clinic al correl ation recomm ended. Gurjit bass Physic anna: [place] [facility] ([facility]) [address], [place], [address], 01/28/2024 08:26:23 02/22/20 24 02/21/2024 XR, chest No observ ation record ed. [address], [address], 02/27/2024 13:12:57 03/13/20 24 03/04/2024 MRI, lumba r spine , w/o contr ast No observ ation record ed. [address], [address], 03/16/2024 16:46:09 04/01/20 24 03/31/2024 jj can cardi olite stres s test (PROC ) No observ ation record ed. [email or web address] [place], [address], 04/02/2024 11:34:34 12/13/19 25 12/07/2024 sleep study No observ ation record ed. [email or web address] [facility] [address], [place], [address], 12/12/2024 15:12:47 Result Notes None recorded. Problems Name Problem SNOMED Code Status Onset Date Resolution Date Notes Provider Name and Address Organization Details Recorded Time Gout 69454692 Active David Plunkett MD [address] [place] [address], [address] , [facility] 4 14:03:51 Steatosi s of liver 804009111 Active 2021 David Plunkett MD [address] [place] [address], [address] , [facility] 4 14:03:51 Morbid obesity 879381875 Active 2021 BMI > or = 35 with diagnosi s of hyperten sunny, hyperlip idemia and diabetes David Plunkett MD [address] [place] [address], [address] , [facility] 4 14:03:51 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 neuropat hy 09/2023, diabetes since 2016 David Plunkett MD [address] [place] [address], [address] , [facility] 4 14:03:51 Heart failure with reduced ejection fraction 302134626 Active 2023 David Plunkett MD [address] [place] [address], [address] , [facility] 5 08:41:41 Atrial fibrilla tion 68996417 Active 2023 David Plunkett MD [address] [place] [address], [address] , [facility] 5 08:41:41 Clinical finding Completed 200607/16/2013 Not Available [facility] 3 02:04:02 Mixed hyperlip idemia 251972700 Active 2006 David Plunkett MD [address] [place] [address], [address] , [facility] 4 14:03:51 Benign essentia l hyperten sunny 1016648 Active 2006 David Plunkett MD [address] [place] [address], [address] , [facility] 4 14:03:51 Tobacco user 313213901 Active David Plunkett MD [address] [place] [address], [address] , [facility] 4 14:03:51 Foreign body on external eye 91578381 Completed 200602/09/2016 Removal Reason: inactive David Plunkett MD [address] [place] [address], [address] , [facility] 6 13:44:47 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 Procedures Surgical History Date Name Laterality Status Provider Name and Address Organization Details Recorded Time 5 Smoking cessation counseling completed Sherry Dugan [facility] 09/05/2024 08:25:06 4 Smoking cessation counseling completed Sherry Dugan [facility] 03/07/2024 10:14:30 4 Post hospital/SNF follow-up/Trans itional Care completed Sherry Dugan [facility] 03/07/2024 10:17:30 4 Smoking cessation counseling completed Sherry Dugan [facility] 02/08/2024 09:24:30 4 Smoking cessation counseling completed Megan Mathew [facility] 01/25/2024 07:58:51 4 Retinal Screening completed Sophia Douglas [facility] 10/31/2023 14:06:03 4 [place] Sleepiness Scale completed David Plunkett MD [address] [place] [address], [address], [facility] 10/24/2023 11:42:37 4 Smoking cessation counseling completed Herminia Baca [facility] 10/24/2023 09:29:46 4 G2211 completed David Plunkett MD [address] [place] [address], [address], [facility] 10/24/2023 13:08:25 3 Smoking cessation counseling completed Barbara Hermosillo [facility] 11/10/2022 11:35:53 2 Smoking cessation counseling completed Sherry Dugan [facility] 03/14/2022 16:44:10 1 Smoking cessation counseling completed David Plunkett MD [address] [place] [address], [address], [facility] 02/23/2021 12:31:46 1 Wart completed David Plunkett MD [address] [place] [address], [address], [facility] 02/23/2021 12:31:57 0 Smoking cessation counseling completed Sherry Dugan [facility] 02/03/2020 09:42:26 0 Smoking cessation counseling completed Sherry Dugan [facility] 09/08/2019 14:25:11 9 Smoking cessation counseling completed Sherry Dugan [facility] 03/11/2019 13:31:30 9 Actinic Keratosis completed David Plunkett MD [address] [place] [address], [address], [facility] 03/11/2019 13:44:52 8 Smoking cessation counseling completed Sherry Dugan [facility] 04/24/2018 14:13:53 7 Smoking cessation counseling completed Madalyn Armas [facility] 01/17/2017 14:06:58 7 Carbon Monoxide Testing completed Madalyn Armas [facility] 01/17/2017 14:06:51 6 Smoking cessation counseling completed David Plunkett MD [address] [place] [address], [address], [facility] 02/09/2016 14:13:06 6 Smoking cessation counseling completed Chris [facility] 12/22/2015 13:37:14 6 Carbon Monoxide Testing completed Chris [facility] 12/22/2015 13:41:20 5 Smoking cessation counseling completed Sofie Noble [facility] 11/20/2014 13:23:10 5 Smoking cessation counseling completed Sofie Noble [facility] 09/18/2014 10:06:31 3 Smoking cessation counseling completed David Plunkett MD [address] [place] [address], [address], [facility] 04/30/2013 10:35:53 Imaging Results Imaging Date Name Status LastModified by Organization Details LastModified Time 01/25/2024 electrocardiogram completed [address], [address], 01/26/2024 14:07:05 01/25/2024 electrocardiogram completed formerly [facility] Informa tion not available 01/25/2024 09:05:46 01/25/2024 XR, chest completed [facility] ([facility]) [address], [place], [address], 01/28/2024 08:26:23 02/21/2024 XR, chest completed Channing Homea [address], [address], 02/27/2024 13:12:57 03/04/2024 MRI, lumbar spine, w/o contrast completed [address], [address], 03/16/2024 16:46:09 03/31/2024 lexiscan cardiolite stress test (PROC) completed patricia [address], [address], 04/02/2024 11:34:34 12/07/2024 sleep study completed [email or web address] [facility] [address] [place] [address], [place], [address], 12/12/2024 15:12:47 Procedure Notes None recorded. Medical Equipment None Reported. Allergies Allergen ID Allergen Name Allergen Category Reaction Reaction Severity Criticality Documentation Date Start Date Code Code System Note Provider Name and Address Organization Details Recorded Time 825690 lisinopri l medicatio n cough Not available Not available 04/30/2013 78006 RxNorm Sherry Mccarthy MA [facility] 3 09:54:57 Medications Name Sig Start [...] acin 500mg 2xday 05/15 completed per 05/08 [facility] d/c medicati on list. for 8 more days to complete 14. Not Available Not Available Not Available allopurin ol 150 mg every day active Not Available Not Available No t Available Culturell e 1 tab 2xday po 05/17 completed per 05/08 [facility] d/c medicati on list. while taking [...] completed Not Available Not Available Not Available Ozempic 0.25 mg or 0.5 mg (2 mg/3 mL) subcutane ous pen injector INJECT 0.5 MG SUBCUTAN EOUSLY EVERY WEEK 2024 active Not Available Not Available Not Avai lable Vitals Date Recorded Body height Body mass index (BMI) Body weight Heart rate Systolic blood pressure Diastolic blood pressure Provider Name and Address Organization Details Last Updated DateTime 4 180.34 cm 38.5 kg/m2 648628. 49 g 100 /min 122 mm[Hg] 78 mm[Hg] Megan Mathew [facility] 4 08:12:28 Date Recorded Body height Body mass index (BMI) Body weight Oxygen saturation Oxygen saturation in Arterial blood by Pulse oximetry Heart rate Systolic blood pressure Diastolic blood pressure Provider Name and Address Organization Details Last Updated DateTime 4 180.34 cm 37.9 kg/m2 785176. 12 g 97 % 97 % 115 /min 122 mm[Hg] 81 mm[Hg] Sherry Dugan CMA [facility] 4 09:40:55 Date Recorded Body height Body mass index (BMI) Body weight Heart rate Systolic blood pressure Diastolic blood pressure Provider Name and Address Organization Details Last Updated DateTime 4 180.34 cm 35.8 kg/m2 144508. 24 g 61 /min 118 mm[Hg] 80 mm[Hg] Sherry Dugan [facility] 4 10:19:16 Date Recorded Body height Body mass index (BMI) Body weight Heart rate Oxygen saturation Oxygen saturation in Arterial blood by Pulse oximetry Systolic blood pressure Diastolic blood pressure Provider Name and Address Organization Details Last Updated DateTime 180.34 cm 39.5 kg/m2 626616. 64 g 62 /min 97 % 97 % 142 mm[Hg] 98 mm[Hg] Sherry Dugan [facility] 5 08:31:23 Date Recorded Body height Body mass index (BMI) Body weight Heart rate Systolic blood pressure Diastolic blood pressure Provider Name and Address Organization Details Last Updated DateTime 180.34 cm 38.6 kg/m2 695659. 09 g 62 /min 126 mm[Hg] 72 mm[Hg] Sherry Dugan [facility] 5 08:05:14 Date Recorded Systolic blood pressure Diastolic blood pressure Provider Name and Address Organization Details Last Updated DateTime 08/05/2024 130 mm[Hg] 80 mm[Hg] Catrachita Antoine LPN [facility] 08/06/2024 10:18:42 Date Recorded Systolic blood pressure Diastolic blood pressure Provider Name and Address Organization Details Last Updated DateTime 11/25/2024 130 mm[Hg] 78 mm[Hg] Macy Sesay RN BSN [facility] 11/25/2024 16:37:00 Social History Question Answer Notes LastModified by Organizat ion Details LastModified Time Tobacco Smoking Status Former Smoker smokes 1 ppd / QUIT 2 weeks ago 03/06/2024 Sherry Dugan CMA [facility] 12/04/2024 11:04:30 Do You Have An Advance Directive? No [email or web address] Information not available 07/13/2011 What Is Your Level Of Alcohol Consumption? Moderate Couple Frinks Per Day [email or web address] Information not available 12/22/2015 What Type Of Diet Are You Following? REGULAR [email or web address] Information not available 03/11/2012 Do You Or Have You Ever Used E-cigarettes Or Vape? 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 [facility] Information not available 11/20/2008 Are There Any Guns Present In Your Home? Yes Information not available 04/24/2018 Live Alone Or With Others? With Others Maya, ALYSSA Since 2008 formerly [facility] Information not available 03/11/2019 Marital Status [email or web address] Information not available 03/11/2012 Mosquito Repellent Used Routinely No Information not available 04/24/2018 What Was The Date Of Your Most Recent Tobacco Screening? 12/04/2024 Information not available 12/04/2024 How Many Children Do You Have? 3 3 Girls , , 09/1999 - Favian Dodson Chantelle [facility] Information not available 11/20/2008 Seat Belts Used [...] ously record ed as Stroke ) [email or web address] [id number] Not available 04/07/2013 03:00:51 Notes:Sister Susana +3. Health y Medical History Condition Response NEUROLOGIC Y Diverticulitis Y Hypertension Y Immunizations Vaccine Type Date Status Note Provider Nam e and Address Organization Details Recorded Time Tdap 4 completed Not Available [facility] 09/13/2019 02:16:08 COVID-19, mRNA, LNP-S, PF, 30 mcg/0.3 mL dose 1 completed Sherry Dugan CMA [place], [facility] 02/23/2021 11:40:30 COVID-19, mRNA, LNP-S, PF, 30 mcg/0.3 mL dose 1 completed BIBI Butterfield, [facility] 02/23/2021 11:41:20 Td (adult), 2 Lf tetanus toxoid, preservative free, adsorbed 4 completed David Plunkett MD [address] [place] [address], [id number] 10/24/2023 13:06:32 COVID-19, mRNA, LNP-S, PF, 100 mcg/0.5mL dose or 50 mcg/0.25mL dose 1 completed NOAH Mckeon, [facility] 01/25/2024 09:04:14 Past Encounters Encounter ID Performer Location Encounter Start Date Encounter Closed Date Diagnosis/Indication Diagnosis SNOMED-CT Code Diagnosis ICD10 Code Diagnosis Note [id number] Wilber, OFFICE [address] [place] [address] 09/14/2006 14:57:39 09/14/2006 16:23:27 [id number] LAB - [address] [address] 12/20/2006 07:45:21 12/20/2006 08:01:44 [id number] RONDA COFFEY, OFFICE [address] [place] [address] 6 01/09/2007 08:08:20 01/09/2007 08:56:44 [id number] LAB - [address] [address] 01/09/2007 08:51:08 01/09/2007 08:53:44 [id number] Radiology , [address] [address] 01/11/2007 07:17:27 01/14/2007 09:26:39 [id number] Radiology , [address] [address] 01/11/2007 00:00:00 09/16/2008 02:02:29 [id number] [facility], OFFICE [address] [facility] [place] [address] 11/20/2008 07:55:08 11/23/2008 08:59:32 [id number] , [facility], OFFICE [address] [place] [address] [place] [address] 02/03/2009 15:40:10 02/05/2009 10:31:28 [id number] , [facility], OFFICE [address] [place] [address] [place] [address] 03/14/2011 16:08:40 03/14/2011 16:52:50 [id number] , [facility], OFFICE [address] [place] [address] [place] [address] 03/17/2011 15:13:03 03/17/2011 16:10:24 [id number] , [facility], OFFICE [address] [place] [address] 6 07/13/2011 07:45:55 07/13/2011 08:31:12 [id number] Sherry Mccarthy MA , [facility], OFFICE [address] [place] [address] [place] [address] 03/11/2012 14:37:41 03/11/2012 16:06:57 [id number] Emma Herbert CMA , [facility], OFFICE [address] [place] [address] [place] [address] 04/30/2013 09:29:01 04/30/2013 12:51:51 Abdominal pain 98763200 Tobacco user [id number] [id number] , [facility], OFFICE [address] [place] [address] [place] [address] 05/14/2013 08:08:53 05/14/2013 09:02:32 Diverticulitis of colon 290917767 Backache 504149965 Essential hypertension 07954739 [id number] Sofie COFFEY, [facility], OFFICE [address] [place] [address] [place] [address] 06/11/2013 15:54:14 06/11/2013 17:29:39 Fracture of rib 46503021 Shoulder pain 73941184 Subarachno id hemorrhage 04146084 Eczema 25761160 [id number] MD ERLINDA Osman, [facility], OFFICE [address] [place] [address] 09/26/2013 08:18:10 09/26/2013 09:34:09 Adult health examination 094284093 see Risk Assessment and Lifestyle Change Counseling section above Counseling 384895925 Benign ess ential hypertension 9962905 Administra tion of bacterial and viral vaccine 320665039 Administra tion of diphtheria, pertussis, and tetanus vaccine 632433326 [id number] David Plunkett MD , [facility], OFFICE [address] [place] [address] 11/07/2013 14:13:46 11/07/2013 15:13:01 Essential hypertension 53590583 Diverticular disease 740161997 [id number] Amanda COFFEY, [facility], OFFICE [address] [place] [address] 6 12/19/2013 14:14:33 12/19/2013 14:59:04 Essential hypertension 05955201 [id number] Laly COFFEY, [facility], OFFICE [address] [place] [address] 09/07/2014 14:23:55 09/07/2014 15:57:30 Epidermal burn of hand 75133713 Epidermal burn of wrist and hand 835510490 [id number] Laly COFFEY, [facility], OFFICE [address] [place] [address] 6 09/18/2014 09:55:55 09/18/2014 10:38:50 Burn of wrist(s) and hand(s) 382235614 1st degree [id number] Sofie Noble CMA , [facility], OFFICE [address] [place] [address] 6 11/20/2014 13:20:30 11/20/2014 17:14:30 Benign essential hypertension 7269435 Blood pressure not goal Mixed hyperlipidemia 372938723 Choesterol is at goal Cholestero l is not at goal Continue to work on diet and exercise as discussed Tobacco user 205051468 Adult [facility] th examination 856774595 see Risk Assessment and Lifestyle Change Counseling section above Counseling 804125691 Impaired f asting glycemia 552367330 [id number] MD ERLINDA Osman, [facility], OFFICE [address] [place] [address] 12/22/2015 13:21:11 12/22/2015 14:06:45 Mixed hyperlipidemia 477676175 E78.2 Cholestero l is not at goal Continue to work on diet and exercise as discussed Benign ess ential hypertension 1598130 I10 Blood pressure at goal of less than 140/90. Nicotine dependence 5629 4008 Z87.891 Tobacco user 892302094 Z 72.0 Pain in toe 500657171 M7 9.676 Type 2 kyler betes mellitus without complication 823109590 E11.9 [id number] Daivd Plunkett MD , [facility], OFFICE [address] [place] [address] 6 02/09/2016 13:23:57 02/09/2016 14:14:51 Benign essential hypertension 7186866 I10 Tobacco user 030264023 Z 72.0 Gout 61002828 M10.00 [id number] David Plunkett MD , [facility], OFFICE [address] [place] [address] 01/17/2017 13:57:54 01/17/2017 14:40:49 Cigarette smoker 20518983 F17.210 Type 2 kyler betes mellitus without complication 309655225 E11.9 Gout 19427431 M10.00 Benign ess ential hypertension 4579378 I10 Blood pressure not goal [id number] David Plunkett MD , [facility], OFFICE [address] [place] [address] 6 04/24/2018 13:58:38 04/24/2018 14:51:42 Cigarette smoker 66794114 F17.210 Type 2 kyler betes mellitus without complication 903512063 E11.9 Benign ess ential hypertension 0129449 I10 Gout 56587300 M10.00 [id number] David Plunkett MD , [facility], OFFICE [address] [place] [address] 6 03/11/2019 13:23:20 03/11/2019 14:16:13 Mixed hyperlipidemia 958299894 E78.2 Cholestero l is not at goal Continue to work on diet and exercise as discussed Cigarette smoker 5003984 7 F17.210 Actinic keratosis L57.0 Type 2 kyler betes mellitus without complication 968893192 E11.9 Benign ess ential hypertension 9971228 I10 Gout 69370178 M10.00 Rec: restarting the allopurino l [id number] David Plunkett MD , [facility], OFFICE [address] [place] [address] 09/08/2019 14:21:34 09/08/2019 15:45:28 Mixed hyperlipidemia 738909889 E78.2 Cholestero l is not at goal Continue to work on diet and exercise as discussed Discussed statin, want to hold. Benign ess ential hypertension 4879191 I10 Add hydralazin e to the other 3 meds. f/u for nv BP in 2 wks. Type 2 kyler betes mellitus without complication 281576028 E11.9 Cigarette smoker 4165894 7 F17.210 Tobacco user 558963544 Z 72.0 [id number] David Plunkett MD , [facility], OFFICE [address] [place] [address] 02/04/2020 14:10:01 02/04/2020 16:42:00 Essential hypertension 32758711 I10 at goal of 130/80, get labs Mixed hyperlipidemia 267 828598 E78.2 Cholestero l unkonwn, will check. Continue to work on diet and exercise as discussed Discussed statin, want to hold. Tobacco user 854006979 Z 72.0 knows he needs to quit. Type 2 kyler betes mellitus without complication 317462784 E11.9 diet-contr olled. [id number] David Plunkett MD , [facility], OFFICE [address] [place] [address] 02/23/2021 11:34:47 02/23/2021 12:32:34 Essential hypertension 96063899 I10 at goal of 130/80, get labs Cigarette smoker 3570550 7 F17.210 discussed reduction when ready. Type 2 kyler betes mellitus without complication 771589659 E11.9 diet-contr olled. Benign ess ential hypertension 9912005 I10 Discussed wt loss, alcohol reduction, more phyiscal acitvity Hand wart 217358060 B07. 8 treated, can use the salycilic acid. Primary er ectile dysfunction 360203337 N52.9 trial cialis. Do not take again if have any blurred vision. Report immediatel y to us. [id number] David Plunkett MD , [facility], OFFICE [address] [place] [address] 03/15/2022 08:49:39 03/15/2022 09:59:38 Adult health examination 764894093 Z00.00 see Risk Assessment and Lifestyle Change Counseling section above Counseling 249889231 Z71 .9 including cardivascu lar risk reduction counseling Depression screening 171 296579 Z13.31 depression screening tool administer ed, entered into emr, scored and discussed, time greater than 7.5 minutes Screening for alcohol abuse 870846928 Z13.39 Essential hypertension 66833807 I10 at goal of 130/80, get labs Tobacco user 743120515 Z 72.0 knows he needs to quit. Active or passive immunization 490057999 Z23 Declines the PPV23 vaccine Type 2 kyler betes mellitus without complication 049410404 E11.9 diet-contr olled. But would take statin. check liver labs first. Obesity 863196582 E66.9 Reduced thereduce acohol, tonic,port ions Gout 64939832 M10.00 no clares, con't allopurino l [id number] David Plunkett MD , [facility], OFFICE [address] [place] [address] 11/10/2022 11:33:50 11/10/2022 13:08:00 Essential hypertension 44177391 I10 at goal of 130/80, on amlodipine , hydralzine . HCTZ 25, telmisarta n Active or passive immunization 114226532 Z23 Declines the PPV23 vaccineshi ngles - reminded Tobacco user 403854436 Z 72.0 We discussed your smoking today for more than 3 minutes. Cigarette use is the leading cause of preventabl e disease, disability , and in the [place]. We talked about tools and medication s available to help you in smoking cessation. We discussed utilizing our smoking cessation financial wellness coach and online resources. Your personal goal: Alcoholic fatty liver 50 457253 K70.0 discused alcohjol Alcohol in take above recommended sensible limits 040804066 F10.10 Gout 72176639 M10.00 no cfares, con't allopurino l Primary er ectile dysfunction 144721471 N52.9 trial cialis. Do not take again if have any blurred vision. Report immediatel y to us. [id number] David Plunkett MD , [facility], OFFICE [address] [place] [address] 10/24/2023 10:54:36 10/24/2023 12:16:14 Adult health examination 190953767 Z00.00 see Risk Assessment and Lifestyle Change Counseling section above Depression screening 171 855565 Z13.31 depression screening tool administer ed Screening for alcohol abuse 230435138 Z13.39 Alcohol use screening tool administer ed Screening for malignant neoplasm of prostate 272176451 Z12.5 PSA testing for ages 55-69 risks and benefits discussed {{patient declines testing* t est ordered}}. Type 2 kyler betes mellitus without complication 674266665 E11.9 Mixed hyperlipidemia 267 440915 E78.2 Cholestero l unkonwn, will check. Continue to work on diet and exercise as discussed Discussed statin, can affect liver will check labs. Benign ess ential hypertension 9746770 I10 Discussed wt loss, alcohol reduction, more [...] it. Screening for malignant neoplasm of colon 654144227 Z12.11 Referral for a DIRECT booked colonoscop y. This patient is a healthy ASA Class 1 or 2 patient (only mild systemic disease), or a STABLE, well controlled insulin dependent diabetic. They do not have serious cardiac disease ie HI/angiopl asty within 1 year, symptomati c CHF; renal failure with CKD 4 or 5; take Coumadin, Plavix, Aggrenox, etc. Active or passive immunization 045504780 Z23 shingles - reminded Daytime somnolence 51639 60687 00 R40.0 do home sleep study Gout 24806232 M10.00 no flares, con't allopurino l, but decrease to 200 mg Essential hypertension 45983583 I10 Not at goal of 130/80, on amlodipine , hydralzine . HCTZ 12.5, telmisarta n 40. Will increase HCTZ up to 25 Unintentio nal weight gain 1126775541 86737 R63.5 check thyroid consider GLP-1 injection once a week. but first reduce/sto p tonic water-lots of sugar. Diabetic p eripheral neuropathy 021886779 E11.40 disucssed checking feet daily also would start metformin since a1c rising, weight goign up. cut out tonic water. Start statin. but has steatosis so will ahve to check liver labs. Steatosis of liver 1007 K76.0 discussed alcohol reduction. [id number] Sophia Douglas , [facility], OFFICE [address] [place] [address] 10/31/2023 13:44:41 11/01/2023 12:53:29 Diabetic peripheral neuropathy 450689673 E11.40 [id number] David Plunkett MD , [facility], OFFICE [address] [place] [address] 01/25/2024 07:52:40 01/25/2024 09:21:03 Nicotine dependence 51277166 F17.200 We discussed your smoking/va ping today [...] resources. Your personal goal: Low back pain 494745648 M54.50 check labs. no lumbar curve in his back. Benign ess ential hypertension 8489062 I10 Discussed wt loss, alcohol reduction, more phyiscal acitvity BP low,110/64 . likely due to afib, stop hydralazin e. And send in readings. Stop hydralazin e, but for afib rate control start beta rl. Diabetic p eripheral neuropathy 490830143 E11.40 A1C good at 200. Gout 50915327 M10.00 no flares, con't allopurino l, but decrease to 200 mg Mixed hyperlipidemia 267 833083 E78.2 Cholestero l good.Trina nue to work on diet and exercise as discussed Discussed statin, can affect liver and liver tests already high Steatosis of liver 95976 1007 K76.0 discussed alcohol reduction. Irregular heart beat 361 690399 R00.8 check EKG- Irreg. Wide-compl ex tachycardi a at 127 consistent with atrial fibrillati on and a left bundle branch block. QRS duration is 0.15 Dyspnea 211027877 R06.00 mcclellan- Atrial fibrillation 4943 6004 I48.91 new onset. Nl labs. check echo. start low dose beta rl and stop hydralazin e. start metroporlo l. Note BP is low, likely due to the afib. Start xarelto. [id number] David Plunkett MD , [facility], OFFICE [address] [place] [address] 02/08/2024 09:08:51 02/08/2024 09:59:03 Nicotine dependence 59479497 F17.200 We discussed your smoking/va ping today [...] online resources. Your personal goal: Essential hypertension 49386513 I10 Not at goal of 130/80, on [...] the metoprolol will start and f/u . [id number] David Plunkett MD , [facility], OFFICE [address] [place] [address] 03/07/2024 10:07:54 03/07/2024 10:47:33 Atrial fibrillation 53112912 I48.91 new onset After cardiovers ion in [...] Heart fail ure with reduced ejection fraction 339330430 I50.9 EF 10-15% Continue furosemide . contiue furosemide , amiodarone Xarelto, metoprolol 12.5 BID, ? valsartan. [id number] David Plunkett MD , [facility], OFFICE [address] [place] [address] 09/05/2024 08:09:32 09/05/2024 08:57:29 Screening for malignant neoplasm of colon 938772485 Z12.11 Referral for a DIRECT booked colonoscop y. This patient is a healthy ASA Class 1 or 2 patient (only mild systemic disease), or a STABLE, well controlled insulin dependent diabetic. They do not have serious cardiac disease ie HI/angiopl asty within 1 year, symptomati c CHF; renal failure with CKD 4 or 5; take Coumadin, Plavix, Aggrenox, etc. Active or passive immunization 265574616 Z23 Flu:shingl es and PPV: Nicotine dependence [...] Your personal goal: Diabetic p eripheral neuropathy 406225532 E11.40 A1C 7.4 to Rx ozempic for weight loss cardiac , diabetes. also would consdier metformin Atrial fibrillation 4943 6004 I48.91 new onset After cardiovers ion in sinus rhythm, on multiple meds. F/U w/ Cardiol. to have sleep study. Heart fail ure with reduced ejection fraction 181496928 I50.9 EF 10-15% Continue furosemide . contiue furosemide , amiodarone Xarelto, metoprolol 12.5 BID, ? valsartan. Obstructiv e sleep apnea syndrome 17969691 G47.33 continue the mnask Essential hypertension 62383753 I10 Not at goal of 130/80, on entresto(l ow dose), metoprolol 12.5 daily. and furosemide , . will focus on weight dr. Arrieta to manage tohe ? increasing entrestol for BP ( the valsartan component) [id number] David Plunkett MD , [facility], OFFICE [address] [facility] [place] [address] 12/05/2024 07:40:11 12/05/2024 08:35:27 Screening for malignant neoplasm of colon 102015485 Z12.11 This has been ordered - Pt is going to wait on this screening Active or passive immunization 970270762 Z23 Flu:shingl es and PPV: Nicotine dependence [...] at 1/2 ppd Diabetic p eripheral neuropathy 311675405 E11.40 A1C 6.9 on ozempic for weight loss cardiac , diabetes. also would consdier metformin. will increase to 0.5 Atrial fibrillation 4943 6004 I48.91 new onset After cardiovers ion in sinus rhythm, on multiple meds. F/U w/ Cardiol. continue amiodarone , metoprolol , to get ablation consult. Had sleep study. CPAP. Heart fail ure with reduced ejection fraction 963631532 I50.9 EF 10-15% initially, better recently, and to have repeat.Con tinue furosemide . contiue furosemide , amiodarone Xarelto, metoprolol 12.5 BID, entresto increased. Obstructiv e sleep apnea syndrome 51112430 G47.33 continue the mask Essential hypertension 47919974 I10 At goal of 130/80, on entresto(l [...] Burgess Member ID Guarantor Name 01/25/2024 1 [facility] (POS) R G Martha [id number] R G Martha 02/08/2024 1 [facility] (POS) R G Martha [id number] R G Martha 03/07/2024 1 [facility] (POS) R G Martha [id number] R G Martha 09/05/2024 1 [facility] (POS) R G Martha [id number] R G Martha 12/05/2024 1 [facility] (POS) R G Martha [id number] R G Martha Notes Date Note [...] in exercise capacity; No snoringNotes:denies CP. SOBa/vmg-smoking [id number] bypatient.ImportanceOn a scale of 1-10 with 1 [...] 300 instead of 200 GF is a gas dispenser . gets her cooking for lunch and dinner. omlet for breakfast. BP took a while to get amlodipin. On w/c for back pain. Injured it a month ago. Moved to [place]. Kids are all set. Exercise- does outdoor work every day. 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 Denies CP. Gained weight- does not snack, drink soda. And is active. Alcohol 3 vodka/water a day. He is a new grandfather. She is 6(Yesenia) Mom- is Roseline, . Has 3 girls, Riya, Juana, Roseline. Has been a year or two. since gout on allopurinol . no gout since. David Plunkett MD [address] [place] [address], [place], [address], [facility] 01/25/2024 09:16:45 4 text/html a/vmg-smoking [id number] bypatient.Notes:has cut in half. - 1/2 ppd Here for f/u from 01/24. Was waking up SOB, and cough/tickle, which has gone deeper, but less SOB. New onset AFIB. Also had low bp, we stopped hydralazine. Drinking reduced by half. now rare during the week David Plunkett MD [address] [place], [address], [facility] 02/08/2024 09:57:27 4 text/html a/vmg-smoking [id number] bypatient.Notes:Quit smoking x 2 wks. Is on [...] metorpolol 12.5 BID David Plunkett MD [address] [place], [address], [facility] 03/07/2024 10:46:26 5 text/html a/vmg-smoking [id number] bypatient.Notes:Quit smoking x 2 wks. Is on [...] more using the patch David Plunkett MD [address] [place] [address], [phone], [facility] 09/05/2024 09:16:17 5 text/html a/vmg-smoking [id number] bypatient.Notes:Had Quit smoking, was smoking just over [...] more using the patch David Plunkett MD [address] [place] [address], [phone], [facility] 12/05/2024 08:32:04
== END ==
LOC: HO.CARD 07:46
PROVIDERS: Visit Provider Internal Medicine Cardiovascular Disease
DX: I42.9 Cardiomyopathy, unspecified (principal); I50.20 Unspecified systolic (congestive) heart failure
CPT/HCPCS: 93308; Q9957

== ENCOUNTER → 2024-12-18 07:52 | Outpatient (BNV) | payer OTHER, SELFPAY | PROVIDERS: Visit Provider Internal Medicine | DX: I50.20 Unspecified systolic (congestive) heart failure (principal); I42.8 Other cardiomyopathies; I51.89 Other ill-defined heart diseases | CPT/HCPCS: 93308 ==

== ENCOUNTER 2025-01-05 13:14 | Outpatient (AMB) | payer OTHER, SELFPAY ==
[2025-01-05 13:22] VITALS: BP 130/84; PULSE 70; BMI 37.4
--- NOTE | 2025-01-05 13:22 | MHC.OFFVIS ---
Vital Signs 01/05/25 13:22 Height 6 ft Weight 275 lb 9.245 oz BMI 37.4 BP 130/84 Blood Pressure Location Lt brachial Position Sitting Pulse 70 Intake Visit Reasons: follow-up after echo Intake Note: Follow-up after echo with ekg feeling good Publicity Consultant Required: No Allergies lisinopril Allergy (Mild, Verified 05/16/24 11:04) Nausea and Vomiting Medication List - Last Reconciled 01/05/25 by Ajit Arrieta MD allopurinol 150 mg PO DAILY amiodarone 200 mg PO DAILY 90 days atorvastatin 40 mg PO DAILY furosemide 20 mg PO BID metoprolol tartrate 12.5 mg (1/2 x 25 mg) PO BID nicotine 14 mg transdermal DAILY nicotine (polacrilex) 2 mg buccal Q2H PRN rivaroxaban (Xarelto) 20 mg PO DAILY sacubitril-valsartan 49-51 mg (Entresto) 1 tab PO BID semaglutide (Ozempic) 0.25 mg (0.368 mL) subcut QWEEK HPI Comments Details: Orville comes for follow-up. Overall he has been doing well. Echocardiogram shows persistent severe LV systolic dysfunction with LVEF of 28% with moderately left ventricular hypertrophy. He has not had any worsening heart failure syndrome. 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 Denies any worsening orthopnea, PND, leg edema. Has not been measuring his weight at home. No prolonged palpitation irregular heartbeat. He is scheduled to undergo atrial fibrillation shown ablation in February. No bleeding issues or neurologic events. 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 [facility] Medical History Abnormal echocardiogram Facet degeneration of lumbar region Paroxysmal atrial fibrillation Atrial fibrillation with RVR Acute congestive heart failure Heart failure with reduced ejection fraction HTN (hypertension) Lumbar spondylosis Myofascial pain Lumbar strain Social History Household Members: Family Housing: House Do you presently have visiting nurse or other home services: No Alcohol intake: current Alcohol intake frequency: a few times a week Patient Tobacco Use Status: Former Tobacco user Cigarette Packs Per Day: 0.5 Cigarettes Per Day: 10.0 service: No Current occupational status: employed 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/[employer] Const Denies chills, Denies fatigue, Denies fever(s), Denies frequent falls, Denies weakness, Denies weight gain and Denies weight loss ENT Denies dizziness Card Denies chest pain, Denies leg edema, Denies lightheadedness, Denies palpitations, Denies dyspnea, Denies dyspnea on exertion, Denies orthopnea and Denies other (loss of consciousness) Resp Denies cough, Denies dyspnea and Denies dyspnea on exertion GI Denies hematochezia and Denies change in stool character Musc Denies abnormal gait, Denies muscle weakness, Denies numbness, Denies radiating pain into limb and Denies tingling Neuro Denies abnormal gait, Denies dizziness, Denies frequent falls, Denies numbness, Denies tingling and Denies weakness Endo Denies fatigue and Denies palpitations Physical Exam Vital Signs: Last Vital Signs Pulse 70 01/05/25 13:22 BP 130/84 01/05/25 13:22 BMI result Body Mass Index 37.4 Const General: cooperative, comfortable, no acute distress, alert, awake and Physically active Nutritional Appearance: obese Orientation/consciousness: patient oriented x3 Limitations: no limitations Neck Neck: Yes trachea midline, Yes supple and Yes no JVD Resp Effort & Inspection: normal respiratory effort Auscultation: clear to auscultation bilaterally Cardio Jugular venous distension: no JVD Palpation: abnormal PMI displaced PMI Rate: regular rate Rhythm: regular rhythm Heart sounds: S1 normal heart sound present, S2 normal heart sound present, no click, no gallops, no murmurs and no rubs GI Auscultation: normal bowel sounds Skin General skin exam: no rashes or lesions noted Neuro General: patient oriented x3 and no focal motor deficits Extrem General: Yes no clubbing, cyanosis or edema Psych Appearance: grossly normal Office Procedures EKG Details: EKG shows normal sinus rhythm at 70 beats per minute with left bundle-branch block with QRS duration of 160 milliseconds [id number], Complete Assessment & Plan Assessment & Plan (1) Heart failure with reduced ejection fraction: Code(s): I50.20 - Unspecified systolic (congestive) heart failure Category: Medical Plan: Heart failure with reduced ejection fraction with 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 Unclear whether this is a primary cardiomyopathy process for left bundle-branch block related cardiomyopathy process. 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 Clinically NYHA class 2 symptoms. Due to persistent LV systolic dysfunction despite adequate medical therapy maintenance of rhythm and treating sleep apnea I have advised him to pursue cardiac resynchronization therapy with defibrillator therapy. The indication for the device as well as potential benefits were discussed with him. There is high likelihood that he may have improvement in LV ejection fraction which had over the mcfp Mibi the best prognostic marker. Continue current therapy with Entresto, metoprolol. Continue rhythm control approach. Continue CPAP therapy. Recommend daily weight monitoring avoidance salt loading. Advised to continue Ozempic therapy to participate in weight loss program. Will discuss with EP to pursue [employer] D. (2) Paroxysmal atrial fibrillation: Code(s): I48.0 - Paroxysmal atrial fibrillation Category: Medical Plan: Paroxysmal atrial fibrillation which has remained suppressed on amiodarone therapy. Has done very well with rhythm control approach in addition to current medical therapy for cardiomyopathy heart failure. Continue rhythm control approach. Scheduled for undergoing ablation therapy so that he may come off amiodarone therapy in the long run. Continue CPAP therapy. Continue aggressively to participate in weight loss program. Continue aggressive blood pressure control which is currently well optimized. Will follow up in the clinic in 3 months time, sooner p.r.n.. Thank you for allowing me to partake in his care Coding Level of Care Code Est Pt Level 4 (61621) Complex EM visit Add On G2211 Diagnoses Heart failure with reduced ejection fraction I50.20 Paroxysmal atrial fibrillation I48.0 CPT Codes EKG - CPT: 19190-[id number], Complete ([id number])
--- OUTSIDE RECORDS SUMMARY | 2025-01-05 13:33 | XMS_ITS | Data Portability ---
Author Organization [facility], , [facility] Address [address] [place] [address] Care Team Providers Care Automatic Maintainer Name Role Phone DAVID PLUNKETT Primary Care Provider [facility] Orthoped[facility] Mercury Cracking Tester Assessment No assessment recorded. Plan of Treatment Reminders Order Date Submit Date Provider Last Modified By Organization Details Last Modified Time Details Appointments LAB Follow-Up 2024 07:00A M [facility] Lab Not available Not available Not available Medical Managemen t 30 2024 09:45A M David Plunkett MD Not available Not available Not available [facility] Phone Call 2024 02:00P M [facility] Not available Not available Not available Lab HbA1c (hemoglob in A1c), blood 2024 025 [facility], [address] [place] [address], [address], 12/05/2024 08:32:01 HbA1c (hemoglob in A1c), blood 2024 025 [facility], [address] [place] [address], [address], 11/28/2024 11:55:05 BMP, serum or plasma 2024 025 [facility], [address] [place] [address], [address], 11/28/2024 10:22:29 lipid panel, serum 2024 025 [facility], [address] [place] [address], [address], 11/28/2024 10:22:31 Referral cardiolog ist referral - new onset AFIB, hx alcohol use. 2023 024 NII Arrieta, [address] [facility], [address], [place], [address], 03/04/2024 23:30:17 Procedures colonosco py procedure (PROC) [email or web address] [facility]astroenter[facility]gy, [address] [facility], [place], [address], 09/05/2024 10:20:19 trans-tho racic echocardi ogram (TTE) (PROC) - New onset AFIB [email or web address] [place] [address] Central Scheduling, [address], [place], [address], 12/23/2024 11:25:52 trans-tho racic echocardi ogram (TTE) (PROC) 2023 024 TINA Daly, [address] [facility], [address], [place], [address], 01/25/2024 10:40:42 Surgeries None recorded. Imaging electroca rdiogram 2023 024 [facility], [address], [place], [address], 01/25/2024 13:38:19 XR, chest 2023 024 [facility] (Imaging), [address] , [place], [address], 01/25/2024 09:58:13 Medication Orders Entresto 49 mg-51 mg tablet 2024 025 [facility] #2025, [address] [place], [address], 12/05/2024 08:32:01 Ozempic 0.25 mg or 0.5 mg (2 mg/1.5 mL) subcutane ous pen injector 2024 025 [facility] [address] [place], [address], 12/07/2024 21:07:49 Ozempic 0.25 mg or 0.5 mg (2 mg/1.5 mL) subcutane ous pen injector [address] [facility] [address] [place], [address], 09/05/2024 08:49:10 metoprolo l succinate ER 25 mg tablet,ex tended release 24 hr 2023 024 [facility] [address] [place], [address], 09/05/2024 08:46:42 metoprolo l succinate ER 25 mg tablet,ex tended release 24 hr 2023 024 [facility] [address] [place], [address], 09/05/2024 08:46:42 Xarelto 20 [address] [address] [place], [address], 01/25/2024 09:15:04 Patient TargetsNo targets recorded. Patient Instructions Encounter Date Encounter Id Patient Instructions Last Modified By Organization Details Last Modified Time 03/07/2024 [id number] I am aware of [facility] discharge medications, the medication list above has been reconciled with those medications and reflects my understanding of an up to date medication list for this patient. Not available 03/07/2024 10:17:30 Reason for Referral Mercury Cracking Tester Referral for At rial fibrillation new onset [...] furth er confi rmati on Not Available [address], [address], 01/17/2024 09:09:36 01/17/20 24 01/17/2024 HGB A1C estimated average glucose 134.1 mg/dL Not Available [address], [address], 01/17/2024 09:09:36 01/17/20 24 01/17/2024 COMP. METAB OLIC PANEL glucose 140 mg/dL 70-100 high Not Available [address], [address], 01/17/2024 10:27:13 01/17/20 24 01/17/2024 COMP. METAB OLIC PANEL BUN 13 mg/dL 7-18 Not Available [address], [address], 01/17/2024 10:27:13 01/17/20 24 01/17/2024 COMP. METAB OLIC PANEL creatinine 1.0 mg/dL 0.8-1. 3 Not Available [address], [address], 01/17/2024 10:27:13 01/17/20 24 01/17/2024 COMP. METAB OLIC PANEL B/C 13.0 ratio Not Available [address], [address], 01/17/2024 10:27:13 01/17/20 24 01/17/2024 COMP. METAB [...] be used in pregn alejandro. Not Available [address], [address], 01/17/2024 10:27:13 01/17/20 24 01/17/2024 COMP. METAB OLIC PANEL sodium 135 mmol/ L 136-14 5 low Not Available [address], [address], 01/17/2024 10:27:13 01/17/20 24 01/17/2024 COMP. METAB OLIC PANEL potassium 4.3 mmol/ L 3.5-5. 1 Not Available [address], [address], 01/17/2024 10:27:13 01/17/20 24 01/17/2024 COMP. METAB OLIC PANEL chloride 96 mmol/ L 96-107 Not Available [address], [address], 01/17/2024 10:27:13 01/17/20 24 01/17/2024 COMP. METAB OLIC PANEL anion gap 9.8 5.0-15 .0 Not Available [address], [address], 01/17/2024 10:27:13 01/17/20 24 01/17/2024 COMP. METAB OLIC PANEL CO2 29 mmol/ L 21-32 Not Available [address], [address], 01/17/2024 10:27:13 01/17/20 24 01/17/2024 COMP. METAB OLIC PANEL calcium 8.6 mg/dL 8.5-10 .3 Not Available [address], [address], 01/17/2024 10:27:13 01/17/20 24 01/17/2024 COMP. METAB OLIC PANEL total protein 6.8 g/dL 6.4-8. 2 Not Available [address], [address], 01/17/2024 10:27:13 01/17/20 24 01/17/2024 COMP. METAB OLIC PANEL albumin 3.3 g/dL 3.4-5. 0 low Not Available [address], [address], 01/17/2024 10:27:13 01/17/20 24 01/17/2024 COMP. METAB OLIC PANEL globulin 3.5 g/dL Not Available [address], [address], 01/17/2024 10:27:13 01/17/20 24 01/17/2024 COMP. METAB OLIC PANEL A/G 0.9 ratio 0.8-2. 0 Not Available [address], [address], 01/17/2024 10:27:13 01/17/20 24 01/17/2024 COMP. METAB OLIC PANEL total bilirubin 0.80 mg/dL 0.00-1 .00 Not Available [address], [address], 01/17/2024 10:27:13 01/17/20 24 01/17/2024 COMP. METAB OLIC PANEL AST 41 U/L 0-37 high Not Available [address], [address], 01/17/2024 10:27:13 01/17/20 24 01/17/2024 COMP. METAB OLIC PANEL ALT 93 U/L 6-63 high Not Available [address], [address], 01/17/2024 10:27:13 01/17/20 24 01/17/2024 COMP. METAB OLIC PANEL alk. phos. 65 U/L 50-136 Not Available [address], [address], 01/17/2024 10:27:13 01/17/20 24 01/17/2024 LIPID PANEL cholesterol 186 mg/dL <200 mg/dl Elaina able 200-2 39 mg/dl Borde rline High >240 mg/dl High Not Available [address], [address], 01/17/2024 10:27:14 01/17/20 24 01/17/2024 LIPID PANEL triglyceride s 68 mg/dL <150 mg/dL Olinda l 150-1 99 mg/dL Borde rline High 200-4 99 mg/dL High >500 mg/dL Very High Not Available [address], [address], 01/17/2024 10:27:14 01/17/20 24 01/17/2024 LIPID PANEL direct HDL 40 mg/dL <40 mg/dl - Major Risk for CHD >60 mg/dl - Negat tanesha Risk for CHD Not Available [address], [address], 01/17/2024 10:27:14 01/17/20 24 01/17/2024 URIC ACID uric acid 3.8 mg/dL 3.5-7. 2 Not Available [address], [address], 01/17/2024 10:27:16 01/17/20 24 01/17/2024 LDL - [...] r is not catarina tidwell. Not Available [address], [address], 01/17/2024 10:27:17 01/17/20 24 01/17/2024 TSH TSH 1.55 uIU/m L 0.50-6 .00 The [employer]i can [employer] ge [employer] Endoc rinol ogy and Trevoneri can Thyro id Assoc iatio n recom mend goal TSH value s betwe en 0.4-4 .0 mIU/m L. Not Available [address], [address], 01/17/2024 10:35:31 07/22/20 24 07/22/2024 HGB A1C [...] furth er confi rmati on Not Available [address], [address], 07/22/2024 09:39:25 07/22/20 24 07/22/2024 HGB A1C estimated average glucose 165.7 mg/dL Not Available [address], [address], 07/22/2024 09:39:25 07/22/20 24 07/22/2024 MICRO ALBUM IN/CR EATIN INE RATIO PANEL , URINE microalbumin 102.4 mg/L 1.3-20 .0 high VERD= Verif ied by Wiley stephens. Not Available [address], [address], 07/22/2024 17:17:55 07/22/20 24 07/22/2024 MICRO ALBUM IN/CR EATIN INE RATIO PANEL , URINE creatinine urine 187.1 mg/dL 30.0-1 25.0 high Not Available [address], [address], 07/22/2024 17:17:55 07/22/20 24 07/22/2024 MICRO ALBUM IN/CR EATIN INE RATIO PANEL , URINE microalb/cre at ratio 54.7 mg/g_ creat 0.0-29 .0 high Not Available [address], [address], 07/22/2024 17:17:55 07/22/20 24 07/23/2024 LIPID PANEL cholesterol 262 mg/dL <200 mg/dl Elaina able 200-2 39 mg/dl Borde rline High >240 mg/dl High Not Available [address], [address], 07/23/2024 16:20:18 07/22/20 24 07/23/2024 LIPID PANEL triglyceride s 150 mg/dL <150 mg/dL Olinda l 150-1 99 mg/dL Borde rline High 200-4 99 mg/dL High >500 mg/dL Very High Not Available [address], [address], 07/23/2024 16:20:18 07/22/20 24 07/23/2024 LIPID PANEL direct HDL 44 mg/dL <40 mg/dl - Major Risk for CHD >60 mg/dl - Negat tanesha Risk for CHD Not Available [address], [address], 07/23/2024 16:20:18 07/22/20 24 07/23/2024 URIC ACID uric acid 6.2 mg/dL 3.5-7. 2 Not Available [address], [address], 07/23/2024 16:20:18 07/22/20 24 07/23/2024 LDL - [...] r is not catarina yaw. Not Available [address], [address], 07/23/2024 16:20:19 07/22/20 24 07/27/2024 MARGE SCREE [...] MARGE Patte rns (http s://d oi.or g/10. 6445/ [facility]- 2017- 0052) For addit ional infor debi davis e refer to http: //[facility] amanda larios.Jonah stDia gnost ics.c om/fa q/FAQ 177 (This link is being provi ded for infor matio nal/ educa sidra l purpo ses only. ) Not Available [facility] [address], [address], 07/27/2024 01:58:16 07/22/20 24 07/27/2024 HLA-B 27 ANTIG EN hla-B27 antigen NEGATI VE negati ve Not Available [facility] [address], [address], 07/27/2024 01:58:18 07/22/20 24 07/27/2024 RHEUM ATOID FACTO R rheumatoid factor <10 IU/mL <14 normal Not Available [facility] [address], [address], 07/27/2024 01:58:19 07/22/20 24 07/28/2024 BASIC METAB OLIC PANEL glucose 188 mg/dL 70-100 high Not Available [address], [address], 07/28/2024 11:17:05 07/22/20 24 07/28/2024 BASIC METAB OLIC PANEL BUN 16 mg/dL 7-18 Not Available [address], [address], 07/28/2024 11:17:05 07/22/20 24 07/28/2024 BASIC METAB OLIC PANEL creatinine 1.2 mg/dL 0.8-1. 3 Not Available [address], [address], 07/28/2024 11:17:05 07/22/20 24 07/28/2024 BASIC METAB OLIC PANEL B/C 13.3 ratio Not Available [address], [address], 07/28/2024 11:17:05 07/22/20 24 07/28/2024 BASIC METAB [...] be used in pregn alejandro. Not Available [address], [address], 07/28/2024 11:17:05 07/22/20 24 07/28/2024 BASIC METAB OLIC PANEL sodium 142 mmol/ L 136-14 5 Not Available [address], [address], 07/28/2024 11:17:05 07/22/20 24 07/28/2024 BASIC METAB OLIC PANEL potassium 5.0 mmol/ L 3.5-5. 1 Not Available [address], [address], 07/28/2024 11:17:05 07/22/20 24 07/28/2024 BASIC METAB OLIC PANEL chloride 102 mmol/ L 96-107 Not Available [address], [address], 07/28/2024 11:17:05 07/22/20 24 07/28/2024 BASIC METAB OLIC PANEL anion gap 12.0 5.0-15 .0 Not Available [address], [address], 07/28/2024 11:17:05 07/22/20 24 07/28/2024 BASIC METAB OLIC PANEL CO2 28 mmol/ L 21-32 Not Available [address], [address], 07/28/2024 11:17:05 07/22/20 24 07/28/2024 BASIC METAB OLIC PANEL calcium 9.3 mg/dL 8.5-10 .3 Not Available [address], [address], 07/28/2024 11:17:05 11/29/19 25 11/28/2024 BASIC METAB OLIC PANEL glucose 149 mg/dL 70-100 high Not Available [address], [address], 11/28/2024 10:22:29 11/29/1911/28/2024 BASIC METAB OLIC PANEL BUN 14 mg/dL 7-18 Not Available [address], [address], 11/28/2024 10:22:29 11/29/19 25 11/28/2024 BASIC METAB OLIC PANEL creatinine 1.0 mg/dL 0.8-1. 3 Not Available [address], [address], 11/28/2024 10:22:29 11/29/19 25 11/28/2024 BASIC METAB OLIC PANEL B/C 14.0 ratio Not Available [address], [address], 11/28/2024 10:22:29 11/29/19 25 11/28/2024 BASIC METAB [...] be used in pregn alejandro. Not Available [address], [address], 11/28/2024 10:22:29 11/29/1911/28/2024 BASIC METAB OLIC PANEL sodium 139 mmol/ L 136-14 5 Not Available [address], [address], 11/28/2024 10:22:29 11/29/19 25 11/28/2024 BASIC METAB OLIC PANEL potassium 3.9 mmol/ L 3.5-5. 1 Not Available [address], [address], 11/28/2024 10:22:29 11/29/19 25 11/28/2024 BASIC METAB OLIC PANEL chloride 102 mmol/ L 96-107 Not Available [address], [address], 11/28/2024 10:22:29 11/29/19 25 11/28/2024 BASIC METAB OLIC PANEL anion gap 10.8 5.0-15 .0 Not Available [address], [address], 11/28/2024 10:22:29 11/29/19 25 11/28/2024 BASIC METAB OLIC PANEL CO2 26 mmol/ L 21-32 Not Available [address], [address], 11/28/2024 10:22:29 11/29/19 25 11/28/2024 BASIC METAB OLIC PANEL calcium 9.2 mg/dL 8.5-10 .3 Not Available [address], [address], 11/28/2024 10:22:29 11/29/19 25 11/28/2024 LIPID PANEL cholesterol 160 mg/dL <200 mg/dl Elaina able 200-2 39 mg/dl Borde rline High >240 mg/dl High Not Available [address], [address], 11/28/2024 10:22:31 11/29/19 25 11/28/2024 LIPID PANEL triglyceride s 148 mg/dL <150 mg/dL Olinda l 150-1 99 mg/dL Borde rline High 200-4 99 mg/dL High >500 mg/dL Very High Not Available [address], [address], 11/28/2024 10:22:31 11/29/19 25 11/28/2024 LIPID PANEL direct HDL 43 mg/dL <40 mg/dl - Major Risk for CHD >60 mg/dl - Negat tanesha Risk for CHD Not Available [address], [address], 11/28/2024 10:22:31 11/29/19 25 11/28/2024 LDL - [...] r is not necgabriel tidwell. Not Available [address], [address], 11/28/2024 10:22:32 11/29/19 25 11/28/2024 HGB A1C [...] furth er confi rmati on Not Available [address], [address], 11/28/2024 11:55:05 11/29/19 25 11/28/2024 HGB A1C estimated average glucose 151.3 mg/dL Not Available [address], [address], 11/28/2024 11:55:05 01/25/20 24 01/25/2024 elect lincoln cox am No observ ation record ed. NII [address], [address], 01/26/2024 14:07:05 01/25/20 24 elect lincoln cox [...] Gurjit bass Physic anna: [place] [facility] ([facility]) [address], [place], [address], 01/28/2024 08:26:23 02/22/20 24 02/21/2024 XR, chest No observ ation record ed. [address], [address], 02/27/2024 13:12:57 03/13/20 24 03/04/2024 MRI, lumba r spine , w/o contr ast No observ ation record ed. [address], [address], 03/16/2024 16:46:09 04/01/20 24 03/31/2024 jj can cardi olite stres s test (PROC ) No observ ation record ed. [email or web address] [place], [address], 04/02/2024 11:34:34 12/13/19 25 12/07/2024 sleep study No observ ation record ed. [email or web address] [facility] [address], [place], [address], 12/12/2024 15:12:47 Result Notes None recorded. Problems Name Problem SNOMED Code Status Onset Date Resolution Date Notes Provider Name and Address Organization Details Recorded Time Gout 50632908 Active David Plunkett MD [address] [place] [address], [address] , [facility] 4 14:03:51 Steatoti c liver disease 084502122 Active 2021 David Plunkett MD [address] [place] [address], [address] , [facility] 4 14:03:51 Morbid obesity 558358451 Active 2021 BMI > or = 35 with diagnosi s of hyperten jackeline, hyperlip idemia and diabetes David Plunkett MD [address] [place] [address], [address] , [facility] 4 14:03:51 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 neuropat hy 09/2023, diabetes since 2016 David Plunkett MD [address] [place] [address], [address] , [facility] 4 14:03:51 Heart failure with reduced ejection fraction 646339065 Active 2023 David Plunkett MD [address] [place] [address], [address] , [facility] 5 08:41:41 Atrial fibrilla tion 19769605 Active 2023 David Plunkett MD [address] [place] [address], [address] , [facility] 5 08:41:41 Clinical finding Completed 200607/16/2013 Not Available [facility] 3 02:04:02 Mixed hyperlip idemia 335543220 Active 2006 David Plunkett MD [address] [place] [address], [address] , [facility] 4 14:03:51 Benign essentia l hyperten jackeline 3120729 Active 2006 David Plunkett MD [address] [place] [address], [address] , [facility] 4 14:03:51 Tobacco user 535715592 Active David Plunkett MD [address] [place] [address], [address] , [facility] 4 14:03:51 Foreign body on external eye 50040960 Completed 200602/09/2016 Removal Reason: inactive David Plunkett MD [address] [place] [address], [address] , [facility] 6 13:44:47 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 Procedures Surgical History Date Name Laterality Status Provider Name and Address Organization Details Recorded Time 5 Smoking cessation counseling completed Sherry [facility] 09/05/2024 08:25:06 4 Smoking cessation counseling completed Sherry Dug[facility] 03/07/2024 10:14:30 4 Post hospital/SNF follow-up/Trans itional Care completed Sherry Dug[facility] 03/07/2024 10:17:30 4 Smoking cessation counseling completed Sherry [facility] 02/08/2024 09:24:30 4 Smoking cessation counseling completed Megan Mathew [facility] 01/25/2024 07:58:51 4 Retinal Screening completed Sophia Douglas [facility] 10/31/2023 14:06:03 4 [place] Sleepiness Scale completed David Plunkett MD [address] [place] [address], [phone], [facility] 10/24/2023 11:42:37 4 Smoking cessation counseling completed Herminia Baca [facility] 10/24/2023 09:29:46 4 G2211 completed David Plunkett MD [address] [place] [address], [address], [facility] 10/24/2023 13:08:25 3 Smoking cessation counseling completed Barbara Hermosillo [facility] 11/10/2022 11:35:53 2 Smoking cessation counseling completed Sherry [facility] 03/14/2022 16:44:10 1 Smoking cessation counseling completed David Plunkett MD [address] [place] [address], [address], [facility] 02/23/2021 12:31:46 1 Wart completed David Plunkett MD [address] [place] [address], [address], [facility] 02/23/2021 12:31:57 0 Smoking cessation counseling completed Sherry [facility] 02/03/2020 09:42:26 0 Smoking cessation counseling completed Sherry [facility] 09/08/2019 14:25:11 9 Smoking cessation counseling completed Sherry [facility] 03/11/2019 13:31:30 9 Actinic Keratosis completed David Plunkett MD [address] [place] [address], [address], [facility] 03/11/2019 13:44:52 8 Smoking cessation counseling completed Sherry [facility] 04/24/2018 14:13:53 7 Smoking cessation counseling completed Madalyn Armas [facility] 01/17/2017 14:06:58 7 Carbon Monoxide Testing completed Madalyn Armas [facility] 01/17/2017 14:06:51 6 Smoking cessation counseling completed David Plunkett MD [address] [place] [address], [address], [facility] 02/09/2016 14:13:06 6 Smoking cessation counseling completed Chris [facility] 12/22/2015 13:37:14 6 Carbon Monoxide Testing completed Chris [facility] 12/22/2015 13:41:20 5 Smoking cessation counseling completed Sofie [facility] 11/20/2014 13:23:10 5 Smoking cessation counseling completed Sofie [facility] 09/18/2014 10:06:31 3 Smoking cessation counseling completed David Plunkett MD [address] [place] [address], [address], [facility] 04/30/2013 10:35:53 Imaging Results Imaging Date Name Status LastModified by Organization Details LastModified Time 01/25/2024 electrocardiogram completed [address], [address], 01/26/2024 14:07:05 01/25/2024 electrocardiogram completed [facility] Informa tion not available 01/25/2024 09:05:46 01/25/2024 XR, chest completed [facility] (Im[facility]) [address], [place], [address], 01/28/2024 08:26:23 02/21/2024 [facility] [address], [address], 02/27/2024 13:12:57 03/04/2024 MRI, lumbar spine, w/o contrast completed [address], [address], 03/16/2024 16:46:09 03/31/2024 lexiscan cardiolite stress test (PROC) completed patricia [address], [address], 04/02/2024 11:34:34 12/07/2024 sleep study completed [email or web address] [facility] [address] [place] [address], [place], [address], 12/12/2024 15:12:47 Procedure Notes None recorded. Medical Equipment None Reported. Allergies Allergen ID Allergen Name Allergen Category Reaction Reaction Severity Criticality Documentation Date Start Date Code Code System Note Provider Name and Address Organization Details Recorded Time 295094 lisinopri l medicatio n cough Not available Not available 04/30/2013 59685 RxNorm Sherry Mccarthy MA [facility] 3 09:54:57 Medications Name Sig Start Date [...] acin 500mg 2xday 05/15 completed per 05/08 [facility] d/c medicati on list. for 8 more days to complete 14. Not Available Not Available Not Available allopurin ol 150 mg every day active Not Available Not Available No t Available Culturell e 1 tab 2xday po 05/17 completed per 05/08 [facility] d/c medicati on list. while taking [...] Updated DateTime 4 180.34 cm 38.5 kg/m2 437979. 49 g 100 /min 122 mm[Hg] 78 mm[Hg] Megan Mathew [facility] 4 08:12:28 Date Recorded Body height Body mass index (BMI) Body weight Oxygen saturation Oxygen saturation in Arterial blood by Pulse oximetry Heart rate Systolic blood pressure Diastolic blood pressure Provider Name and Address Organization Details Last Updated DateTime 4 180.34 cm 37.9 kg/m2 392629. 12 g 97 % 97 % 115 /min 122 mm[Hg] 81 mm[Hg] Sherry Dugan CMA [facility] 4 09:40:55 Date Recorded Body height Body mass index (BMI) Body weight Heart rate Systolic blood pressure Diastolic blood pressure Provider Name and Address Organization Details Last Updated DateTime 4 180.34 cm 35.8 kg/m2 468925. 24 g 61 /min 118 mm[Hg] 80 mm[Hg] Sherry Dugan [facility] 4 10:19:16 Date Recorded Body height Body mass index (BMI) Body weight Heart rate Oxygen saturation Oxygen saturation in Arterial blood by Pulse oximetry Systolic blood pressure Diastolic blood pressure Provider Name and Address Organization Details Last Updated DateTime 5 180.34 cm 39.5 kg/m2 672814. 64 g 62 /min 97 % 97 % 142 mm[Hg] 98 mm[Hg] Sherry Dugan [facility] 5 08:31:23 Date Recorded Body height Body mass index (BMI) Body weight Heart rate Systolic blood pressure Diastolic blood pressure Provider Name and Address Organization Details Last Updated DateTime 180.34 cm 38.6 kg/m2 592478. 09 g 62 /min 126 mm[Hg] 72 mm[Hg] Sherry Dugan [facility] 5 08:05:14 Date Recorded Systolic blood pressure Diastolic blood pressure Provider Name and Address Organization Details Last Updated DateTime 08/05/2024 130 mm[Hg] 80 mm[Hg] Catrachita [place] LPN [facility] 08/06/2024 10:18:42 Date Recorded Systolic blood pressure Diastolic blood pressure Provider Name and Address Organization Details Last Updated DateTime 11/25/2024 130 mm[Hg] 78 mm[Hg] Macy Sesay RN BSN [facility] 11/25/2024 16:37:00 Social History Question Answer Notes LastModified by Organizat ion Details LastModified Time Tobacco Smoking Status Former Smoker smokes 1 ppd / QUIT 2 weeks ago 03/06/[address] CMA [facility] 12/04/2024 11:04:30 Do You Have An Advance Directive? No Information not available 07/13/2011 What Type Of Diet Are You Following? REGULAR [email or web address] Information not available 03/11/2012 Are There Any Guns Present In Your Home? Yes Information not available 04/24/2018 Live Alone Or With Others? With Others ALYSSA Trejo Since 2008 domi Information not available 03/11/2019 Marital Status [email or web address] Information not available 03/11/2012 Mosquito Repellent Used Routinely No Information not available 04/24/2018 What Was The Date Of Your Most Recent Tobacco Screening? 12/04/2024 Information not available 12/04/2024 How Many Children Do You Have? 3 3 Girls , , 09/1999 - Favian Dodson Chantelle [facility] Information not available 11/20/2008 Seat Belts Used Routinely Yes Information not available 04/24/2018 Smoke Alarm In Home Yes Information not available 04/24/2018 General Stress Level High Information not available 07/13/2011 Do You Use Sunscreen Routinely? No Information not available 04/24/2018 Sex: Unknown Functional Status Question Answer Note LastModified by Organizat ion Details LastModified Time What is your level of alcohol consumption? Moderate couple frinks per day [email or web address] Information not available 12/22/2015 Do you or have you ever used smokeless tobacco? 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 [facility] [place] Information not available 11/20/2008 Do you or have you ever used e-cigarettes or vape? Never used electronic cigarettes Information not available 02/23/2021 Mental Status None recorded. Family History Relationship Description Onset Age of this Age Resolved Age Notes LastModified by Organization Details LastModified Time Father Myocardial infarction 64 CABG age 72 at 90 on 10/2019 domi Not available 02/23/2021 12:02:07 Mother Cerebrovascu lar accident 42 relate d to MVA (snowm obile) (previ ously record ed as Stroke ) [id number] Not available 04/07/2013 03:00:51 Notes:Sister Susana +3. Health y Medical History Condition Response NEUROLOGIC Y Diverticulitis Y Hypertension Y Immunizations Vaccine Type Date Status Note Provider Nam e and Address Organization Details Recorded Time Tdap 4 completed Not Available [employer] 09/13/2019 02:16:08 COVID-19, mRNA, LNP-S, PF, 30 mcg/0.3 mL dose 1 completed BIBI Butterfield, [facility] 02/23/2021 11:40:30 COVID-19, mRNA, LNP-S, PF, 30 mcg/0.3 mL dose 1 completed BIBI Butterfield, [facility] 02/23/2021 11:41:20 Td (adult), 2 Lf tetanus toxoid, preservative free, adsorbed 4 completed David Plunkett MD [address] [place] [address], [phone], [facility] 10/24/2023 13:06:32 COVID-19, mRNA, LNP-S, PF, 100 mcg/0.5mL dose or 50 mcg/0.25mL dose 1 completed NOAH Mckeon, [facility] 01/25/2024 09:04:14 Past Encounters Encounter ID Performer Location Encounter Start Date Encounter Closed Date Diagnosis/Indication Diagnosis SNOMED-CT Code Diagnosis ICD10 Code Diagnosis Note [id number] MD ERLINDA Osman, [facility], OFFICE [address] [place] [address] 09/14/2006 14:57:39 09/14/2006 16:23:27 [id number] [facility] [address] [address] 12/20/2006 07:45:21 12/20/2006 08:01:44 [id number] MD ERLINDA Osman, [facility], OFFICE [address] [place] [address] 6 01/09/2007 08:08:20 01/09/2007 08:56:44 [id number] [facility] - [address] [address] 01/09/2007 08:51:08 01/09/2007 08:53:44 [id number] [facility] , [facility] [address] [place] [address] 01/11/2007 07:17:27 01/14/2007 09:26:39 [id number] [facility] , [facility] [address] [place] [address] 01/11/2007 00:00:00 09/16/2008 02:02:29 [id number] MD ERLINDA Osman, [facility], OFFICE [address] [place] [address] 11/20/2008 07:55:08 11/23/2008 08:59:32 [id number] MD ERLINDA Osman, [facility], OFFICE [address] [place] [address] 02/03/2009 15:40:10 02/05/2009 10:31:28 [id number] Zoie COFFEY, [facility], OFFICE [address] [place] [address] 03/14/2011 16:08:40 03/14/2011 16:52:50 [id number] MD ERLINDA Osman, [facility], OFFICE [address] [place] [address] 03/17/2011 15:13:03 03/17/2011 16:10:24 [id number] Zoie COFFEY, [facility], OFFICE [address] [place] [address] 07/13/2011 07:45:55 07/13/2011 08:31:12 [id number] MD ERLINDA Osman, [facility], OFFICE [address] [place] [address] 03/11/2012 14:37:41 03/11/2012 16:06:57 [id number] MD ERLINDA Osman, [facility], OFFICE [address] [place] [address] 04/30/2013 09:29:01 04/30/2013 12:51:51 Abdominal pain 76151655 Tobacco user 292482431 [id number] MD ERLINDA Osman, [facility], OFFICE [address] [place] [address] 05/14/2013 08:08:53 05/14/2013 09:02:32 Diverticulitis of colon 876590136 Backache 919388804 Essential hypertension 35271090 [id number] MD ERLINDA Osman, [facility], OFFICE [address] [place] [address] 6 06/11/2013 15:54:14 06/11/2013 17:29:39 Fracture of rib 13732988 Pain of sh [facility] 55796722 Subarachno id hemorrhage 65514190 Eczema [id number] David Plunkett MD , [facility], OFFICE [address] [place] [address] 6 09/26/2013 08:18:10 09/26/2013 09:34:09 Adult health examination 735377832 see Risk Assessment and Lifestyle Change Counseling section above Counseling 168065572 Benign ess ential hypertension 2738126 Administra tion of bacterial and viral vaccine 188477457 Administra tion of diphtheria, pertussis, and tetanus vaccine 859148640 [id number] MD ERLINDA Osman, [facility], OFFICE [address] [place] [address] 6 11/07/2013 14:13:46 11/07/2013 15:13:01 Essential hypertension 82139721 Diverticular disease 095929749 [id number] David Plunkett MD , [facility], OFFICE [address] [place] [phone] 6 12/19/2013 14:14:33 12/19/2013 14:59:04 Essential hypertension 19555253 [id number] MD ERLINDA Chen, [facility], OFFICE [address] [place] [address] 6 09/07/2014 14:23:55 09/07/2014 15:57:30 Epidermal burn of hand 04759262 Epidermal burn of wrist and hand 300612169 [id number] David Plunkett MD FP, [facility], OFFICE [address] [place] [phone] 09/18/2014 09:55:55 09/18/2014 10:38:50 Burn of wrist(s) and hand(s) 329241781 1st degree [id number] MD ERLINDA Osman, [facility], OFFICE [address] [place] [address] 11/20/2014 13:20:30 11/20/2014 17:14:30 Benign essential hypertension 3413603 Blood pressure not goal Mixed hyperlipidemia 063248279 Choesterol is at goal Cholestero l is not at goal Continue to work on diet and exercise as discussed Tobacco user 924379260 Adult heal th examination 180254778 see Risk Assessment and Lifestyle Change Counseling section above Counseling 698522564 Impaired f asting glycemia 265686788 [id number] David Plunkett MD , [facility], OFFICE [address] [place] [address] 6 12/22/2015 13:21:11 12/22/2015 14:06:45 Mixed hyperlipidemia 236056231 E78.2 Cholestero l is not at goal Continue to work on diet and exercise as discussed Benign ess ential hypertension 8800297 I10 Blood pressure at goal of less than 140/90. Nicotine dependence 5629 4008 Z87.891 Tobacco user 615967772 Z 72.0 Pain in toe 466508127 M7 9.676 Type 2 kyler betes mellitus without complication 362247757 E11.9 [id number] David Plunkett MD , [facility], OFFICE [address] [place] [address] 6 02/09/2016 13:23:57 02/09/2016 14:14:51 Benign essential hypertension 7328249 I10 Tobacco user 283417601 Z 72.0 Gout 79339162 M10.00 [id number] David Plunkett MD , [facility], OFFICE [address] [place] [address] 6 01/17/2017 13:57:54 01/17/2017 14:40:49 Cigarette smoker 35948136 F17.210 Type 2 kyler betes mellitus without complication 018475335 E11.9 Gout 24958078 M10.00 Benign ess ential hypertension 1419927 I10 Blood pressure not goal [id number] David Plunkett MD , [facility], OFFICE [address] [place] [address] 04/24/2018 13:58:38 04/24/2018 14:51:42 Cigarette smoker 73513541 F17.210 Type 2 kyler betes mellitus without complication 565623952 E11.9 Benign ess ential hypertension 3711863 I10 Gout 37257843 M10.00 [id number] David Plunkett MD , [facility], OFFICE [address] [place] [id number] 6 03/11/2019 13:23:20 03/11/2019 14:16:13 Mixed hyperlipidemia 441269569 E78.2 Cholestero l is not at goal Continue to work on diet and exercise as discussed Cigarette smoker 9142495 7 F17.210 Actinic keratosis 822919 007 L57.0 Type 2 kyler betes mellitus without complication 028842505 E11.9 Benign ess ential hypertension 4182809 I10 Gout 90272745 M10.00 Rec: restarting the allopurino l [id number] David Plunkett MD , [facility], OFFICE [address] [place] [address] 6 09/08/2019 14:21:34 09/08/2019 15:45:28 Mixed hyperlipidemia 581678187 E78.2 Cholestero l is not at goal Continue to work on diet and exercise as discussed Discussed statin, want to hold. Benign ess ential hypertension 4245117 I10 Add hydralazin e to the other 3 meds. f/u for nv BP in 2 wks. Type 2 kyler betes mellitus without complication 919300544 E11.9 Cigarette smoker 3831940 7 F17.210 Tobacco user 368241362 Z 72.0 [id number] David Plunkett MD , [facility], OFFICE [address] [place] [address] 6 02/04/2020 14:10:01 02/04/2020 16:42:00 Essential hypertension 62826638 I10 at goal of 130/80, get labs Mixed hyperlipidemia 267 034014 E78.2 Cholestero l unkonwn, will check. Continue to work on diet and exercise as discussed Discussed statin, want to hold. Tobacco user 248020317 Z 72.0 knows he needs to quit. Type 2 kyler betes mellitus without complication 435568766 E11.9 diet-contr olled. [id number] David Plunkett MD , [facility], OFFICE [address] [place] [address] 6 02/23/2021 11:34:47 02/23/2021 12:32:34 Essential hypertension 89978528 I10 at goal of 130/80, get labs Cigarette smoker 7653227 7 F17.210 discussed reduction when ready. Type 2 kyler betes mellitus without complication 523592157 E11.9 diet-contr olled. Benign ess ential hypertension 9957873 I10 Discussed wt loss, alcohol reduction, more phyiscal acitvity Hand wart 692592772 B07. 8 treated, can use the salycilic acid. Primary er ectile dysfunction 344831849 N52.9 trial cialis. Do not take again if have any blurred vision. Report immediatel y to us. [id number] David Plunkett MD , [facility], OFFICE [address] [place] [address] 03/15/2022 08:49:39 03/15/2022 09:59:38 Adult health examination 798788850 Z00.00 see Risk Assessment and Lifestyle Change Counseling section above Counseling 463472275 Z71 .9 including cardivascu lar risk reduction counseling Depression screening 171 385896 Z13.31 depression screening tool administer ed, entered into emr, scored and discussed, time greater than 7.5 minutes Screening for alcohol abuse 089520856 Z13.39 Essential hypertension 69019093 I10 at goal of 130/80, get labs Tobacco user 173155007 Z 72.0 knows he needs to quit. Active or passive immunization 528341352 Z23 Declines the PPV23 vaccine Type 2 kyler betes mellitus without complication 827285256 E11.9 diet-contr olled. But would take statin. check liver labs first. Obesity 112806157 E66.9 Reduced thereduce acohol, tonic,port ions Gout 51834102 M10.00 no clares, con't allopurino l [id number] David Plunkett MD , [facility], OFFICE [address] [place] [address] 11/10/2022 11:33:50 11/10/2022 13:08:00 Essential hypertension 72453518 I10 at goal of 130/80, on amlodipine , hydralzine . HCTZ 25, telmisarta n Active or passive immunization 395466138 Z23 Declines the PPV23 vaccineshi ngles - reminded Tobacco user 739940494 Z 72.0 We discussed your smoking today for more than 3 minutes. Cigarette use is the leading cause of preventabl e disease, disability , and in the [place]. We talked about tools and medication s available to help you in smoking cessation. We discussed utilizing our smoking cessation online health and fitness coach and online resources. Your personal goal: Alcoholic fatty liver 50 756320 K70.0 discused alcohjol Alcohol in take above recommended sensible limits 051960590 F10.10 Gout 08163748 M10.00 no cfares, con't allopurino l Primary er ectile dysfunction 966468971 N52.9 trial cialis. Do not take again if have any blurred vision. Report immediatel y to us. [id number] David Plunkett MD , [facility], OFFICE [address] [place] [address] 10/24/2023 10:54:36 10/24/2023 12:16:14 Adult health examination 868599702 Z00.00 see Risk Assessment and Lifestyle Change Counseling section above Depression screening 171 316679 Z13.31 depression screening tool administer ed Screening for alcohol abuse 869854270 Z13.39 Alcohol use screening tool administer ed Screening for malignant neoplasm of prostate 844774589 Z12.5 PSA testing for ages 55-69 risks and benefits discussed {{patient declines testing* t est ordered}}. Type 2 kyler betes mellitus without complication 909229721 E11.9 Mixed hyperlipidemia 267 937709 E78.2 Cholestero l unkonwn, will check. Continue to work on diet and exercise as discussed Discussed statin, can affect liver will check labs. Benign ess ential hypertension 2253396 I10 Discussed wt loss, alcohol reduction, more [...] cessation. We discussed utilizing our smoking cessation online health and fitness coach and online resources. Your personal goal: to quit, not ready, but working up to it. Screening for malignant neoplasm of colon 290186399 Z12.11 Referral for a DIRECT booked colonoscop y. This patient is a healthy ASA Class 1 or 2 patient (only mild systemic disease), or a STABLE, well controlled insulin dependent diabetic. They do not have serious cardiac disease ie NC/angiopl asty within 1 year, symptomati c CHF; renal failure with CKD 4 or 5; take Coumadin, Plavix, Aggrenox, etc. Active or passive immunization 554295758 Z23 shingles - reminded Daytime somnolence 55537 32092 00 R40.0 do home sleep study Gout 27729277 M10.00 no flares, con't allopurino l, but decrease to 200 mg Essential hypertension 33121388 I10 Not at goal of 130/80, on amlodipine , hydralzine . HCTZ 12.5, telmisarta n 40. Will increase HCTZ up to 25 Unintentio nal weight gain 3349904218 59926 R63.5 check thyroid consider GLP-1 injection once a week. but first reduce/sto p tonic water-lots of sugar. Diabetic p eripheral neuropathy 391767685 E11.40 disucssed checking feet daily also would start metformin since a1c rising, weight goign up. cut out tonic water. Start statin. but has steatosis so will ahve to check liver labs. Steatotic liver disease 448002173 K76.0 discussed alcohol reduction. [id number] David Plunkett MD , [facility], OFFICE [address] [place] [address] 10/31/2023 13:44:41 11/01/2023 12:53:29 Diabetic peripheral neuropathy 752703331 E11.40 [id number] David Plunkett MD , [facility], OFFICE [address] [place] [address] 01/25/2024 07:52:40 01/25/2024 09:21:03 Nicotine dependence 29439734 F17.200 We discussed your smoking/va ping today [...] cessation. We discussed utilizing our smoking cessation online health and fitness coach and online resources. Your personal goal: Low back pain 269815918 M54.50 check labs. no lumbar curve in his back. Benign ess ential hypertension 6539639 I10 Discussed wt loss, alcohol reduction, more phyiscal acitvity BP low,110/64 . likely due to afib, stop hydralazin e. And send in readings. Stop hydralazin e, but for afib rate control start beta rl. Diabetic p eripheral neuropathy 679131583 E11.40 A1C good at 200. Gout 91914222 M10.00 no flares, con't allopurino l, but decrease to 200 mg Mixed hyperlipidemia 267 838679 E78.2 Cholestero l good.Trina nue to work on diet and exercise as discussed Discussed statin, can affect liver and liver tests already high Steatotic liver disease 834074754 K76.0 discussed alcohol reduction. Irregular heart beat 361 570952 R00.8 check EKG- Irreg. Wide-compl ex tachycardi a at 127 consistent with atrial fibrillati on and a left bundle branch block. QRS duration is 0.15 Dyspnea 114318524 R06.00 mcclellan- Atrial fibrillation 4943 6004 I48.91 new onset. Nl labs. check echo. start low dose beta rl and stop hydralazin e. start metroporlo l. Note BP is low, likely due to the afib. Start xarelto. [id number] David Plunkett MD , [facility], OFFICE [address] [place] [address] 02/08/2024 09:08:51 02/08/2024 09:59:03 Nicotine dependence 63567722 F17.200 We discussed your smoking/va ping today [...] cessation. We discussed utilizing our smoking cessation online health and fitness coach and online resources. Your personal goal: Essential hypertension 75006635 I10 Not at goal of 130/80, on [...] the metoprolol will start and f/u . [id number] David Plunkett MD , [facility], OFFICE [address] [place] [address] 03/07/2024 10:07:54 03/07/2024 10:47:33 Atrial fibrillation 01831063 I48.91 new onset After cardiovers ion in [...] cessation. We discussed utilizing our smoking cessation online health and fitness coach and online resources. Your personal goal: continues to quit on the patch Heart fail ure with reduced ejection fraction 900099260 I50.9 EF 10-15% Continue furosemide . contiue furosemide , amiodarone Xarelto, metoprolol 12.5 BID, ? valsartan. [id number] David Plunkett MD , [facility], OFFICE [address] [place] [address] 09/05/2024 08:09:32 09/05/2024 08:57:29 Screening for malignant neoplasm of colon 651552484 Z12.11 Referral for a DIRECT booked colonoscop y. This patient is a healthy ASA Class 1 or 2 patient (only mild systemic disease), or a STABLE, well controlled insulin dependent diabetic. They do not have serious cardiac disease ie NC/angiopl asty within 1 year, symptomati c CHF; renal failure with CKD 4 or 5; take Coumadin, Plavix, Aggrenox, etc. Active or passive immunization 756061605 Z23 Flu:shingl es and PPV: Nicotine dependence [...] cessation. We discussed utilizing our smoking cessation online health and fitness coach and online resources. Your personal goal: Diabetic p eripheral neuropathy 496102208 E11.40 A1C 7.4 to Rx ozempic for weight loss cardiac , diabetes. also would consdier metformin Atrial fibrillation 4943 6004 I48.91 new onset After cardiovers ion in sinus rhythm, on multiple meds. F/U w/ Cardiol. to have sleep study. Heart fail ure with reduced ejection fraction 494403445 I50.9 EF 10-15% Continue furosemide . contiue furosemide , amiodarone Xarelto, metoprolol 12.5 BID, ? valsartan. Obstructiv e sleep apnea syndrome 86701762 G47.33 continue the mnask Essential hypertension 00718025 I10 Not at goal of 130/80, on entresto(l ow dose), metoprolol 12.5 daily. and furosemide , . will focus on weight dr. Breny to manage tohe ? increasing entrestol for BP ( the valsartan component) [id number] David Plunkett MD , [facility], OFFICE [address] [place] [address] 12/05/2024 07:40:11 12/05/2024 08:35:27 Screening for malignant neoplasm of colon 501461074 Z12.11 This has been ordered - Pt is going to wait on this screening Active or passive immunization 605307852 Z23 Flu:shingl es and PPV: Nicotine dependence [...] cessation. We discussed utilizing our smoking cessation online health and fitness coach and online resources. Your personal goal: to quit, now at 1/2 ppd Diabetic p eripheral neuropathy 683476594 E11.40 A1C 6.9 on ozempic for weight loss cardiac , diabetes. also would consdier metformin. will increase to 0.5 Atrial fibrillation 4943 6004 I48.91 new onset After cardiovers ion in sinus rhythm, on multiple meds. F/U w/ Cardiol. continue amiodarone , metoprolol , to get ablation consult. Had sleep study. CPAP. Heart fail ure with reduced ejection fraction 365293591 I50.9 EF 10-15% initially, better recently, and to have repeat.Con tinue furosemide . contiue furosemide , amiodarone Xarelto, metoprolol 12.5 BID, entresto increased. Obstructiv e sleep apnea syndrome 58027055 G47.33 continue the mask Essential hypertension 19608593 I10 At goal of 130/80, on entresto(l [...] Burgess Member ID Guarantor Name 01/25/2024 1 [facility]ALTH [facility] (POS) R G Martha [id number] R G Martha 02/08/2024 1 [facility] HE[facility]AN (POS) R G Martha [id number] R G Martha 03/07/2024 1 [facility] R G Martha [id number] R G Martha 09/05/2024 1 [facility] HE[facility] (POS) R G Martha [id number] R G Martha 12/05/2024 1 [facility] HE[facility]AN (POS) R G Martha [id number] R G Martha Notes Date Note [...] in exercise capacity; No snoringNotes:denies CP. SOBa/vmg-smoking [id number] bypatient.ImportanceOn a scale of 1-10 with 1 [...] the past; Has used Bupropion in the pastNotes:3/ ppd. Has tried the patch. WEllbutrin helped [...] instead of 200 GF is a chef teacher . gets her cooking for lunch and dinner. omlet for breakfast. BP took a while to get amlodipin. On w/c for back pain. Injured it a month ago. Moved to [place]. Kids are all set. Exercise- does outdoor work every day. 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 Denies CP. Gained weight- does not snack, drink soda. And is active. Alcohol 3 vodka/water a day. He is a new grandfather. She is 6(Yesenia) Mom- is Roseline, . Has 3 girls, Riya, Juana, Roseline. Has been a year or two. since gout on allopurinol . no gout since. David Plunkett MD [address] [place] [address], [phone], [facility] 01/25/2024 09:16:45 4 text/html a/vmg-smoking [id number] bypatient.Notes:has cut in half. - 1/2 ppd Here for f/u from 01/24. Was waking up SOB, and cough/tickle, which has gone deeper, but less SOB. New onset AFIB. Also had low bp, we stopped hydralazine. Drinking reduced by half. now rare during the week David Plunkett MD [address] [place], [address], [facility] 02/08/2024 09:57:27 4 text/html a/vmg-smoking [id number] bypatient.Notes:Quit smoking x 2 wks. Is on [...] Started metorpolol 12.5 BID David Plunkett MD [address] [place] [address], [phone], [facility] 03/07/2024 10:46:26 5 text/html a/vmg-smoking [id number] bypatient.Notes:Quit smoking x 2 wks. Is on [...] more using the patch David Plunkett MD [address] [place] [address], [phone], [facility] 09/05/2024 09:16:17 5 text/html a/vmg-smoking [id number] bypatient.Notes:Had Quit smoking, was smoking just over [...] more using the patch David Plunkett MD [address] [place] [address], [phone], [facility] 12/05/2024 08:32:04
== END 2025-01-05 13:51 | disposition home or self-care (01) ==
PROVIDERS: PCP Family Medicine; Visit Provider Internal Medicine Cardiovascular Disease
DX: I50.20 Unspecified systolic (congestive) heart failure (principal); I48.0 Paroxysmal atrial fibrillation
CPT/HCPCS: 93010; 99214

== ENCOUNTER → 2025-01-05 13:14 | Outpatient (BNVA) | payer OTHER, SELFPAY | PROVIDERS: Visit Provider Internal Medicine Cardiovascular Disease | DX: I50.20 Unspecified systolic (congestive) heart failure (principal); I48.0 Paroxysmal atrial fibrillation | CPT/HCPCS: 93005 ==

== ENCOUNTER 2025-03-05 08:39 | Outpatient (AMB) | payer OTHER, SELFPAY ==
--- NOTE | 2025-03-05 09:31 | A.OFFVIS_ITS ---
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 He is status post ablation on March 03 in his planned to undergo Bi V ICD placement end of February as per him. He is doing well. The procedure went well. He has no complications. No groin site pain. He is off amiodarone therapy at this point in time. He had both pulmonary vein isolation as as left atrial roof line and ablation within the left atrium. Taking all his medications. No lightheadedness, syncope. No heart failure symptoms. No orthopnea, PND, leg edema. He is currently taking furosemide twice a day. No bleeding issues or neurologic events. [facility] Medical History (Updated 03/05/25 @ 09:50 by Ajit Arrieta MD) Abnormal echocardiogram Facet degeneration of lumbar region Paroxysmal atrial fibrillation Atrial fibrillation with RVR Acute congestive heart failure Heart failure with reduced ejection fraction HTN (hypertension) Lumbar spondylosis Myofascial pain Lumbar strain Surgical History S/P ablation of atrial fibrillation Social History Household Members: Family Housing: House Do you presently have visiting nurse or other home services: No Alcohol intake: current Alcohol intake frequency: a few times a week Patient Tobacco Use Status: Former Tobacco user Cigarette Packs Per Day: 0.5 Cigarettes Per Day: 10.0 service: No Current occupational status: employed 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/[employer] Const Denies chills, Denies fatigue, Denies fever(s), Denies frequent falls, Denies weakness, Denies weight gain and Denies weight loss ENT Denies dizziness Card Denies chest pain, Denies leg edema, Denies lightheadedness, Denies palpitations, Denies dyspnea and Denies dyspnea on exertion Resp Denies cough, Denies dyspnea and Denies dyspnea on exertion GI Denies hematochezia Musc Denies abnormal gait, Denies muscle weakness, Denies numbness, Denies radiating pain into limb and Denies tingling Neuro Denies abnormal gait, Denies dizziness, Denies frequent falls, Denies numbness, Denies tingling and Denies weakness Endo Denies fatigue and Denies palpitations Physical Exam Vital Signs: Last Vital Signs Pulse 61 03/05/25 09:33 BP 130/64 03/05/25 09:33 BMI result Body Mass Index 37.4 Const General: cooperative, comfortable, no acute distress, alert, awake and Physically active Nutritional Appearance: obese Orientation/consciousness: patient oriented x3 Limitations: no limitations Neck Neck: Yes trachea midline, Yes supple and Yes no JVD Resp Effort & Inspection: normal respiratory effort Auscultation: clear to auscultation bilaterally Cardio Jugular venous distension: no JVD Palpation: abnormal PMI displaced PMI Rate: regular rate Rhythm: regular rhythm Heart sounds: S1 normal heart sound present, S2 normal heart sound present, no click, no gallops, no murmurs and no rubs GI Auscultation: normal bowel sounds Skin General skin exam: no rashes or lesions noted Neuro General: patient oriented x3 and no focal motor deficits Extrem General: Yes no clubbing, cyanosis or edema Psych Appearance: grossly normal Assessment & Plan Assessment & Plan (1) Heart failure with reduced ejection fraction: Code(s): I50.20 - Unspecified systolic (congestive) heart failure Category: Medical Plan: Heart failure with reduced ejection fraction with persistent severe LV systolic dysfunction with suggestion of noncompaction as well as underlying left bundle- branch block. Currently euvolemic and well compensated. I have advised him to switch his Lasix to 40 mg once a day. Continue Entresto as well as metoprolol therapy. Can not further uptitrate metoprolol due to slow heart rate at rest. He will definitely benefit from cardiac resynchronization therapy and will need defibrillator therapy given his persistent LV systolic dysfunction to reduce risk of sudden cardiac that. This was discussed with him. The procedure was discussed with him as well. Planned in [place]. Will follow up in the clinic 6 weeks after. (2) Paroxysmal atrial fibrillation: Comment: Status post ablation 03/03/2025 with pulmonary vein isolation as well as isolation of the posterior left atrial wall with PFA technology Code(s): I48.0 - Paroxysmal atrial fibrillation Category: Medical Plan: Paroxysmal atrial fibrillation has remained suppressed. Currently off amiodarone therapy after ablation. Currently maintaining rhythm. Advised to monitor pulse at home. Advised to report recurrent atrial fibrillation. Continue full oral anticoagulation, currently on Xarelto 20 mg daily. Semi annual renal function test should be pursued. Continue aggressive weight loss program. Continue metoprolol therapy. Avoidance of stimulants was discussed. Will follow up in the clinic in 2 months time, sooner p.r.n.. Thank you for allowing me to partake in his care Coding Level of Care Code Est Pt Level 4 (04959) Complex EM visit Add On G2211 Diagnoses Heart failure with reduced ejection fraction I50.20 Paroxysmal atrial fibrillation I48.0
[2025-03-05 09:33] VITALS: BP 130/64; PULSE 61; BMI 37.4
== END 2025-03-05 09:52 | disposition home or self-care (01) ==
LOC: HO.HCS 08:39
PROVIDERS: PCP Family Medicine; Visit Provider Internal Medicine Cardiovascular Disease
DX: I50.20 Unspecified systolic (congestive) heart failure (principal); I48.0 Paroxysmal atrial fibrillation
CPT/HCPCS: 99214

== ENCOUNTER 2025-06-02 13:15 | Outpatient (AMB) | payer OTHER, SELFPAY ==
--- NOTE | 2025-06-02 13:33 | A.OFFVIS_ITS ---
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 He underwent a biventricular Medtronic ICD placed in February. Since then he has been doing well. He notices more energy and less fatigue. He is also using his CPAP regularly. Denies any orthopnea, PND, leg edema. Denies any prolonged palpitation irregular heartbeat. He remains off oral antiarrhythmic drug therapy. Remains on other medications. Tolerating them well. Denies any lightheadedness, syncope, ICD discharge. [facility] Medical History Abnormal echocardiogram Facet degeneration of lumbar region Paroxysmal atrial fibrillation Atrial fibrillation with RVR Acute congestive heart failure Heart failure with reduced ejection fraction HTN (hypertension) Lumbar spondylosis Myofascial pain Lumbar strain Surgical History S/P ablation of atrial fibrillation Social History Household Members: Family Housing: House Do you presently have visiting nurse or other home services: No Alcohol intake: current Alcohol intake frequency: a few times a week Patient Tobacco Use Status: Former Tobacco user Cigarette Packs Per Day: 0.5 Cigarettes Per Day: 10.0 service: No Current occupational status: employed 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/[employer] Const Denies chills, Denies fatigue, Denies fever(s), Denies frequent falls, Denies weakness, Denies weight gain and Denies weight loss ENT Denies dizziness Card Denies chest pain, Denies leg edema, Denies lightheadedness, Denies palpitations, Denies dyspnea, Denies dyspnea on exertion, Denies orthopnea and Denies other (loss of consciousness) Resp Denies cough, Denies dyspnea and Denies dyspnea on exertion GI Denies hematochezia and Denies change in stool character Musc Denies abnormal gait, Denies muscle weakness, Denies numbness, Denies radiating pain into limb and Denies tingling Neuro Denies abnormal gait, Denies dizziness, Denies frequent falls, Denies numbness, Denies tingling and Denies weakness Endo Denies fatigue and Denies palpitations Physical Exam Vital Signs: Last Vital Signs Pulse 72 06/02/25 13:37 BP 122/80 06/02/25 13:37 BMI result Body Mass Index 36.5 Const General: cooperative, comfortable, no acute distress, alert, awake and Physically active Nutritional Appearance: obese Orientation/consciousness: patient oriented x3 Limitations: no limitations Neck Neck: Yes trachea midline, Yes supple and Yes no JVD Resp Effort & Inspection: normal respiratory effort Auscultation: clear to auscultation bilaterally Cardio Jugular venous distension: no JVD Palpation: abnormal PMI displaced PMI Rate: regular rate Rhythm: regular rhythm Heart sounds: S1 normal heart sound present, S2 normal heart sound present, no click, no gallops, no murmurs and no rubs GI Auscultation: normal bowel sounds Skin General skin exam: no rashes or lesions noted Neuro General: patient oriented x3 and no focal motor deficits Extrem General: Yes no clubbing, cyanosis or edema Psych Appearance: grossly normal Office Procedures Cardiac Device Check Cardiac Device Check Details: Biventricular Medtronic ICD in place. Programmed in DDD at 60 beats per minute. No episodes of atrial fibrillation noted. No ventricular arrhythmias noted. Pacing and shock lead impedance is stable. Capture thresholds are stable but could not be checked. Atrial ventricular sensing is adequate. Patient activity at about 5.5 hours a day. Biventricular pacing 98.4% of the time [id number] Cardiac Device Check, multi lead implantable defibrillator Procedure code (CPT) selection complete EKG Details: EKG shows atrially sensed ventricularly paced rhythm with LV pacing 42036-[id number], Complete Assessment & Plan Assessment & Plan (1) Heart failure with reduced ejection fraction: Code(s): I50.20 - Unspecified systolic (congestive) heart failure Category: Medical Plan: Heart failure with reduced ejection fraction with severe LV systolic dysfunction, nonischemic suspected either related to noncompaction and with underlying left bundle-branch block. 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 He seems clinically doing better. Clinically remains NYHA class 1 with good activity level. Continue to use CPAP. Continue current neurohormonal modulation with metoprolol, Entresto. Can not further uptitrate medications. Will continue monitor by echocardiogram in 3 months time to see if there has improvement in LV ejection fraction since cardiac resynchronization therapy. Continue current diuretic regimen. Continue participate in weight loss program and regular physical activity. (2) Paroxysmal atrial fibrillation: Comment: Status post ablation 03/03/2025 with pulmonary vein isolation as well as isolation of the posterior left atrial wall with PFA technology Code(s): I48.0 - Paroxysmal atrial fibrillation Category: Medical Plan: Paroxysmal atrial fibrillation status post ablation. Has done very well from cardiac perspective with maintenance of rhythm. Currently off antiarrhythmic drug therapy. Continue full oral anticoagulation, currently on Xarelto 20 mg daily. Continue to participate in physical activity as well as weight loss program. Continue CPAP therapy. Will follow up in the clinic in 3 months time, sooner PRN. Thank you for allowing me to partake in his care Orders: Orders [place] Echo Limited 3 Months I42.9 - Cardiomyopathy, unspecified, I50.20 - Unspecified systolic (congestive) heart failure Coding Level of Care Code Est Pt Level 4 (92444) Complex EM visit Add On G2211 Diagnoses Heart failure with reduced ejection fraction I50.20 Paroxysmal atrial fibrillation I48.0 CPT Codes Cardiac Device Check - Cardiac Device 6: [id number] Cardiac Device Check, multi lead implantable defibrillator ([id number]) EKG - CPT: 75902-[id number], Complete ([id number])
[2025-06-02 13:37] VITALS: BP 122/80; PULSE 72; BMI 36.5
--- OUTSIDE RECORDS SUMMARY | 2025-06-02 16:13 | XMS_ITS | Clinical Summary ---
Author Organization [facility] Address [address] [address] Phone Care Team Providers Care Belt Notcher Name Role Phone Jordi Tello MD Primary Care Provider [phone] Allergies Active Allergy Reactions Criticality Noted Date Comments Lisinopril Cough 02/11/2024 Medications amLODIPine (NORVASC) 10 MG tablet Take 10 mg by mouth daily. Active ALLOPURINOL ORAL Take 200 mg by mouth as needed. Active hydroCHLOROthiaz margie 12.5 MG tablet Take 12.5 mg by mouth daily. Active telmisartan (MICARDIS) 40 MG tablet Take 40 mg by mouth daily. Active metoprolol tartrate (LOPRESSOR) 25 MG tablet Take 25 mg by mouth daily. Active rivaroxaban (XARELTO) 20 mg Tab Take 20 mg by mouth daily. Active colchicine (COLCRYS) 0.6 mg tablet Take 0.6 mg by mouth as needed. Active Social History Tobacco Use Types Packs/Day Years Used Date Smoking Tobacco: Every Day Cigarettes Smokeless Tobacco: Never Tobacco Cessation:Ready to Q uit: Not Asked; Counseling Given: Not Answered Alcohol Use Standard Drinks/Week Comments Yes 0 (1 standard drink = 0.6 oz pur e alcohol) 5 weekly Education Answer Date Recorded Are you interested in more education? Not on shay e 12/24/2023 Are you concerned about learning? Not on file 12/24/2023 No 12/24/2023 No 12/24/2023 Digital Access Answer Date Recorded No 12/24/2023 No 12/24/2023 Reliable internet access at home? Not on file 12/24/2023 Device with a working camera? Not on file Intimate Partner Violence Answer Date R ecorded Denied Basic Needs Not on file 02/11/2024 In the past 12 months have y ou been in a relationship with a person who hurts, threatens, or tries to control you? No 02/11/2024 Worried food would run out Not on file 02/10 In the past 12 months have y ou been in a relationship with a person who hurts, threatens, or tries to control you? No 02/11/2024 Sex and Gender Information Value Date Recorded Sex Assigned at Not on file Legal Sex Male 9:40 PM EDT Gender Identity Not on file Sexual Orientation Not on file Last Filed Vital Signs Vital Sign Reading Time Taken Comments Blood Pressure - - Pulse - - Temperature - - Respiratory Rate - - Oxygen Saturation - - Inhaled Oxygen Concentration - - Weight 125.2 kg (276 lb) 02/11/2024 12:45 PM EDT Height 182.9 cm (6') 02/11/2024 12:45 PM EDT Body Mass Index 37.43 02/11/2024 12:45 PM EDT Plan of Treatment Not on file Medical Devices Not on file Insurance EXPLORER POS [facility] EXPLORER POS EXPLORER POS [place] [address] [place] [address] EXPLORER POS [employer] EXPLORER POS Care Teams Belt Notcher Relationship Specialty Start Date End Date Jordi Tello MD [email or web address] PCP - General 06/12/17 Additional Source Comments The information contained in this document represents components of the legal health record. It is not the complete legal health record.[facility]
--- OUTSIDE RECORDS SUMMARY | 2025-06-02 16:13 | XMS_ITS | Encounter Summary ---
Author Organization [facility] Address [address] [place] [address] Phone Care Team Providers Care Feed Mill Tender Name Role Phone Jordi Tello MD Primary Care Provider [phone] Encounter Details Date Type Department Care Team (Late st Contact Info) Description 02/13/2024 Procedure Pass [facility] Endoscopy Admitting Dept Virtual Department [address] [place] [address] Social History Tobacco Use Types Packs/Day Years Used Date Smoking Tobacco: Every Day Cigarettes Smokeless Tobacco: Never Alcohol Use Standard Drinks/Week Comments Yes 0 [...] on file Sexual Orientation Not on file documented as of this encounter Plan of Treatment Not on file documented as of this encounter Visit Diagnoses Not on filedocumented in this encounter Care Teams Feed Mill Tender Relationship Specialty Start Date End Date Jordi Tello MD PCP - General 06/12/17 documented as of this encounter Additional Source Comments The information contained in this document represents components of the legal health record. It is not the complete legal health record.[facility]
== END 2025-06-02 14:13 | disposition home or self-care (01) ==
LOC: HO.HCS 13:16
PROVIDERS: PCP Family Medicine; Visit Provider Internal Medicine Cardiovascular Disease
DX: I50.20 Unspecified systolic (congestive) heart failure (principal); I48.0 Paroxysmal atrial fibrillation
CPT/HCPCS: 93010; 93284; 99214

== ENCOUNTER → 2025-06-02 13:15 | Outpatient (BNVA) | payer OTHER, SELFPAY | PROVIDERS: PCP Family Medicine; Visit Provider Internal Medicine Cardiovascular Disease | DX: I42.9 Cardiomyopathy, unspecified (principal); I48.0 Paroxysmal atrial fibrillation; I11.0 Hypertensive heart disease with heart failure; I50.21 Acute systolic (congestive) heart failure; Z95.810 Presence of automatic (implantable) cardiac defibrillator | CPT/HCPCS: 93005; 93284 ==

== ENCOUNTER → 2025-06-14 23:59 | Outpatient (BNV) | payer OTHER, SELFPAY ==
--- NOTE | 2025-06-17 16:12 | MHC.OFFVIS ---
Intake Visit Reasons: Remote device check- Medtronic Allergies lisinopril Allergy (Mild, Verified 05/16/24 11:04) Nausea and Vomiting PFSH Medical History Abnormal echocardiogram Facet degeneration of lumbar region Paroxysmal atrial fibrillation Atrial fibrillation with RVR Acute congestive heart failure Heart failure with reduced ejection fraction HTN (hypertension) Lumbar spondylosis Myofascial pain Lumbar strain Surgical History S/P ablation of atrial fibrillation Social History Household Members: Family Housing: House Do you presently have visiting nurse or other home services: No Alcohol intake: current Alcohol intake frequency: a few times a week Patient Tobacco Use Status: Former Tobacco user Cigarette Packs Per Day: 0.5 Cigarettes Per Day: 10.0 service: No Current occupational status: employed 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 ICD function is adequate. Bi V pacing 98.4% of the time [id number] Cardiac Interrogation, implant defibrillator w/interim Procedure code (CPT) selection complete Assessment & Plan Assessment & Plan (1) Biventricular ICD (implantable cardioverter-defibrillator) in place: Code(s): Z95.810 - Presence of automatic (implantable) cardiac defibrillator Category: Medical Plan: See above Coding Level of Care Code Procedure Only Diagnoses Biventricular ICD (implantable cardioverter-defibrillator) in place Z95.810 CPT Codes Cardiac Device Check - Cardiac Device 13: [id number] Cardiac Interrogation, implant defibrillator w/interim ([id number])
== END ==
PROVIDERS: PCP Family Medicine; Visit Provider Internal Medicine Cardiovascular Disease
DX: Z45.02 Encounter for adjustment and management of automatic implantable cardiac defibrillator (principal)
CPT/HCPCS: 93295

== ENCOUNTER → 2025-06-14 23:59 | Outpatient (BNV) | payer OTHER, SELFPAY ==
--- NOTE | 2025-06-17 16:10 | A.OFFVIS_ITS ---
Intake Visit Reasons: Remote device check- Medtronic Allergies lisinopril Allergy (Mild, Verified 05/16/24 11:04) Nausea and Vomiting PFSH Medical History Abnormal echocardiogram Facet degeneration of lumbar region Paroxysmal atrial fibrillation Atrial fibrillation with RVR Acute congestive heart failure Heart failure with reduced ejection fraction HTN (hypertension) Lumbar spondylosis Myofascial pain Lumbar strain Surgical History S/P ablation of atrial fibrillation Social History Household Members: Family Housing: House Do you presently have visiting nurse or other home services: No Alcohol intake: current Alcohol intake frequency: a few times a week Patient Tobacco Use Status: Former Tobacco user Cigarette Packs Per Day: 0.5 Cigarettes Per Day: 10.0 service: No Current occupational status: employed 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 OptiVol his increased suggestive of early decompensation. Will follow up with the patient [id number] Cardiac Device Interrogation, cardio physiologic monitor Procedure code (CPT) selection complete Assessment & Plan Assessment & Plan (1) Biventricular ICD (implantable cardioverter-defibrillator) in place: Code(s): Z95.810 - Presence of automatic (implantable) cardiac defibrillator Category: Medical Plan: See above Coding Level of Care Code Procedure Only Diagnoses Biventricular ICD (implantable cardioverter-defibrillator) in place Z95.810 CPT Codes Cardiac Device Check - Cardiac Device 15: [id number] Cardiac Device Interrogation, cardio physiologic monitor ([id number])
== END ==
PROVIDERS: PCP Family Medicine; Visit Provider Internal Medicine Cardiovascular Disease
DX: I50.9 Heart failure, unspecified (principal); Z95.810 Presence of automatic (implantable) cardiac defibrillator
CPT/HCPCS: 93297

== ENCOUNTER → 2025-08-12 14:02 | Outpatient (BNV) | payer OTHER, SELFPAY | PROVIDERS: PCP Family Medicine; Visit Provider Internal Medicine Cardiovascular Disease | DX: I48.91 Unspecified atrial fibrillation (principal); Z95.0 Presence of cardiac pacemaker | CPT/HCPCS: 93294 ==

== ENCOUNTER 2025-08-24 08:41 | Outpatient (AMB) | payer OTHER, SELFPAY ==
--- OUTSIDE RECORDS SUMMARY | 2025-08-24 08:44 | XMS_ITS | Encounter Summary ---
Author Organization [facility] Address [address] [place] [phone] Phone Care Team Providers Care Seafood Preparer Name Role Phone Jordi Tello MD Primary Care Provider [phone] Encounter Details Date Type Department Care Team (Late st Contact Info) Description 02/13/2024 Procedure Pass [facility] Endoscopy Admitting Dept Virtual Department [address] [place] [address] Social History Tobacco Use Types Packs/Day Years [...] on filedocumented in this encounter Care Teams Seafood Preparer Relationship Specialty Start Date End Date Jordi Tello MD PCP - General 06/12/17 documented as of this encounter Additional Source Comments The information contained in this document represents components of the legal health record. It is not the complete legal health record.[facility]
--- OUTSIDE RECORDS SUMMARY | 2025-08-24 08:44 | XMS_ITS | Clinical Summary ---
Author Organization [facility] Address [address] [address] Phone Care Team Providers Care Rehab Technician Name Role Phone Jordi Tello MD Primary Care Provider [phone] Allergies Active Allergy Reactions Criticality Noted Date [...] 0.6 mg by mouth as needed. Active Encounters Date Type Department Care Team Description 08/14/2025 Transcribe Orders [facility] [address] [place] [id number] Jordi Tello MD Encounter for screening for malignant neoplasm of colon (Primary Dx) from Last 3 Months Social History Tobacco Use Types Packs/Day Years [...] file Medical Devices Not on file Insurance [facility] [place] [address] [place] [address] [place] [address] [place] [address] [place] [address] [place] [address] [address] [place] [address] EXPLORER POS EXPLORER POS Care Teams Rehab Technician Relationship Specialty Start Date End Date Jordi Tello MD PCP - General 10/17/17 Additional Source Comments The information contained in this document represents components of the legal health record. It is not the complete legal health record.[facility]
[2025-08-24 08:52] VITALS: BP 138/72; PULSE 74; O2SAT 96; BMI 36.5
--- NOTE | 2025-08-24 08:52 | MHC.OFFVIS ---
Vital Signs 08/24/25 08:52 Height 6 ft Weight 269 lb BMI 36.5 BP 138/72 Blood Pressure Location Rt brachial Position Sitting Pulse 74 Pulse Source Pulse Oximeter Pulse Oximetry (%) 96 Oxygen Delivery Method Room Air Intake Visit Reasons: Obstructive sleep apnea Allergies lisinopril Allergy (Mild, Verified 05/16/24 11:04) Nausea and Vomiting HPI HPI Obstructive sleep apnea: Details: 59-year-old gentleman with underlying obesity, AFib, and hypertension, followed for moderate obstructive sleep apnea, now well controlled on CPAP therapy. [facility] Medical History Abnormal echocardiogram Facet degeneration of lumbar region Paroxysmal atrial fibrillation Atrial fibrillation with RVR Acute congestive heart failure Heart failure with reduced ejection fraction HTN (hypertension) Lumbar spondylosis Myofascial pain Lumbar strain Surgical History S/P ablation of atrial fibrillation Social History Household Members: Family Housing: House Do you presently have visiting nurse or other home services: No Alcohol intake: current Alcohol intake frequency: a few times a week Patient Tobacco Use Status: Former Tobacco user Cigarette Packs Per Day: 0.5 Cigarettes Per Day: 10.0 service: No Current occupational status: employed 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/[employer] Review of Systems Const Denies daytime sleepiness, Denies excessive sweating, Denies fatigue, Denies fever(s), Denies lethargy, Denies malaise, Denies night sweats, Denies snoring and Denies weight loss Eyes Denies blurry vision and Denies itchy eyes ENT Denies nasal congestion, Denies post nasal drip, Denies sinus pain, Denies sinus pressure and Denies other ( Thrush) Card Denies chest pain, Denies pedal edema, Denies dyspnea, Denies orthopnea and Denies paroxysmal nocturnal dyspnea Resp Denies cough, Denies hemoptysis, Denies excessive phlegm production, Denies dyspnea, Denies snoring and Denies wheezing GI Denies abdominal pain and Denies heartburn Musc Denies myalgias, Denies arthralgias and Denies joint swelling Skin/Breast Denies rash Neuro Denies memory loss and Denies seizure-like activity Psych Denies abnormal sleep pattern, Denies anxiety and Denies memory loss Endo Denies excessive sweating, Denies fatigue and Denies heat intolerance Alexis/Lymph Denies easy bruising Aller/Immun Denies itchy eyes, Denies seasonal rhinorrhea and Denies wheezing Physical Exam Vital Signs: Last Vital Signs Pulse 74 08/24/25 08:52 BP 138/72 08/24/25 08:52 Pulse Ox 96 08/24/25 08:52 Oxygen Delivery Method Room Air 08/24/25 08:52 BMI result Body Mass Index 36.5 Const General: no acute distress and alert Nutritional Appearance: obese Orientation/consciousness: Other orientation findings ( oriented) HEENT Head: Yes atraumatic Eyes General: appearance normal, both eyes and all related structures Sclerae: sclerae normal EOM: EOMs intact bilaterally Neck Neck: Yes supple Lymphatic: no lymphadenopathy noted Resp Effort & Inspection: normal respiratory effort and no use of accessory muscles Auscultation: clear to auscultation bilaterally Cardio Rate: regular rate Rhythm: regular rhythm Heart sounds: no gallops, no murmurs and no rubs Skin General skin exam: other ( warm) Extrem General: No clubbing, No cyanosis and No edema Assessment & Plan Assessment & Plan (1) SHAMA (obstructive sleep apnea): Code(s): G47.33 - Obstructive sleep apnea (adult) (pediatric) Category: Medical Plan: Therapy and compliance report reviewed - patient is benefitting from and is compliant with noninvasive positive pressure ventilation treatment, using it greater than 70% of the time, more than 4 hours per night. Continue current CPAP therapy. Coding Level of Care Code Est Pt Level 3 (25888) Diagnoses SHAMA (obstructive sleep apnea) G47.33
== END 2025-08-24 09:04 | disposition home or self-care (01) ==
PROVIDERS: PCP Family Medicine; Visit Provider Internal Medicine Pulmonary Disease
DX: G47.33 Obstructive sleep apnea (adult) (pediatric) (principal)
CPT/HCPCS: 99213